=== PATIENT | female | born 1950 | race Caucasian/White ===

== ENCOUNTER → 2018-05-15 10:25 | Outpatient (CLI) | payer MEDICARE, OTHER, SELFPAY ==
[2018-05-15 12:26] LABS: AST(SGOT) 19 U/L (15-37); Alanine Aminotransfer ALT/SGPT 20 U/L (13-56); Albumin, Serum 3.3 g/dL (3.2-5.0); Alkaline Phosphatase 90 U/L (45-117); Anion Gap 12 (5-15); BUN 19 mg/dL (7-18); BUN/Creat Ratio 14.3 RATIO (10-20); Bilirubin, Direct 0.16 mg/dL (0.00-0.30); Calcium,Total 9.2 mg/dL (8.5-10.1); Chloride 105 mmol/L (98-107); Cholesterol 209 mg/dL (200); Creatinine, Serum 1.33 mg/dL (0.55-1.02); EST Glomerular Filtration Rate 42 mL/min (>60); Est Glom Filt Rate - Afr Amer 51 mL/min (>60); Globulin 4.3 g/dL (2.2-4.2); Glucose 137 mg/dL (74-106); High Density Lipoprotein 83 mg/dL; Potassium 3.9 mmol/L (3.5-5.1); Protein, Total 7.6 g/dL (6.4-8.2); Sodium Level 143 mmol/L (136-145); Triglycerides 124 mg/dL; Very Low Density Lipoprotein 25 mg/dL (5-40)
[2018-05-15 12:29] LABS: Microalbumin,Random Urine 41.6 mg/L (NO RANGE EST.); Microalbumin:Creatinine Ratio 13.6 mg/g CRE (<30 mg/g CRE)
== END ==
PROVIDERS: Family Provider Family Medicine; PCP Family Medicine; Visit Provider Family Medicine
DX: E11.9 Type 2 diabetes mellitus without complications (principal)
CPT/HCPCS: 36415; 80048; 80061; 80076; 82043; 82570

== ENCOUNTER → 2018-07-02 12:42 | Outpatient (CLI) | payer MEDICARE, OTHER, SELFPAY ==
--- NOTE | 2018-07-02 12:45 | RAD_ITS ---
STUDY: X-RAY - LUMBAR SPINE REASON FOR EXAM: Female, 67 years old. Scoliosis. Lower back pain. TECHNIQUE: 5 view(s) of the lumbar spine were obtained. COMPARISON: None FINDINGS: Normal lumbar lordosis. There is a levoscoliosis with convexity at L2. There is a normal alignment of the vertebrae. There is multilevel endplate spondylosis of the lumbar vertebrae. There is multi-level degenerative disc disease with multi-level disc space narrowing. There is no evidence of acute fracture or loss of vertebral axial height. There is no demonstrated spondylolysis of the pars interarticulares. The soft tissue structures are unremarkable. RAD/L/S Spine Min 4 Views IMPRESSION: Scoliosis and degenerative changes of the lumbar spine. Electronically Signed: Vasiliy Burch DO at 18:03 EDT Tel [phone], Service support ,
== END ==
PROVIDERS: Family Provider Family Medicine; PCP Family Medicine; Referring Provider Family Medicine; Visit Provider Family Medicine
DX: M51.36 Other intervertebral disc degeneration, lumbar region (principal)
CPT/HCPCS: 72110

== ENCOUNTER 2018-08-01 14:00 | Outpatient (RCR) | payer MEDICARE, OTHER, SELFPAY ==
--- NOTE | 2018-07-13 13:11 | HP.PTEVAL_ITS ---
Patient's Visit Information LISA WAHL is a 67 year old F referred to Physical Therapy by Ignacio Wynn with a diagnosis of R LE radiculopathy. Date of Evaluation: 07/13/18 Physical Therapist: Ignacio Blandon DPT, OC - Visit Plan Frequency: 2x /Week Duration: 4-6 Weeks Plan: 2x/week for 4-6 starting with aquatic ex for NS, posterior pelvic tilt, LB ROM, core adn LE strength adn progress to I for exit strategy or land based ex after 3 weeks. - Subjective Subjective: My stupid back hurts and has for 20 yeasr. H/o intermittent pain. diagnostics 20 years ago showed 2 disc bulges, DDD and OA. One month ago during a trip to the bathroom upon standing had sever pain from R posterior hip down to toes and could not stand. That went on for 3 days. The next week she went to doctor and got x rays which showed no fractures. Gave her 3 drugs including prednisone whcih ran out this past Monday. That helped significantly but ran out this week and is getting worse. Was able to make breakfast and get dressed when on it but it is getting worse. In pain with any movement, Feels good lying and sitting, but standing makes it ache down her leg. Sitting improves it. Sleep is OK now. Basic ADLs take longer now but can do them, afraid it ike get back to the point where she could not do them. . No AD at home, uses cane out and about and has for years. Enjoys bus trips and went to [employer] in July. Wants to get taina to painfree house cleaning in two hours. Two bus trips in July wants to go on. [place] and another. [employer] shopping is hard and needed daughters help. - Pain R LBP and into leg Pain Intensity (Out of 10): 0 Pain Intensity Range: 0, 6 - Objective Walks with cane in R UE I but R antalgia. Trasnfers slow but I and painful wince from chair. To supine I, from supine with Min A. Holds back tight in standing and pelvis slightly posterior. L/S ext painful R LB and min dieficits, R SB painful, L SB OK, flexion tight but full and painfree. - slump and - SLR. reflexes 0/3 patella and achilles. Strength 4-/5 LE without myotomal abnormalities. Sensation LE WNL to gross light touch. Pelvic tilt post is very difficult in sit and stand but does well in supine, will not llie with R leg out straigth as it hurts. - Goals Goal 1:: Pain back down to baseline in LB and manageable Goal Time Frame: 4-6 Weeks Goal 2:: I approp HEP and NS to minimize future problems. Goal Time Frame: 4-6 Weeks Goal 3:: Walk to do housework for 30 minutes without pain. Goal Time Frame: 4-6 Weeks - Rehabilitation Potential Physical Therapy Diagnosis: LB stenosis Rehabilitation Potential: Fair - Anticipated Interventions Patient/Client Instruction: Educate patient on: Condition, Plan of Care For the Purpose of:: To decrease pain, To increase ROM, To increase tolerance to activity/condition/position Therapeutic Exercise to Include: Strength training, Postural training, Gait and locomotor training, In an aquatic setting, Active ROM For the Purpose of:: To decrease pain, To increase tolerance to activity/condition/position, To improve ability of physical actions for home/community/work/leisure, To improve gait and locomotor functions Thank you for the opportunity to evaluate your patient. For Medicare and Medicare HMO plans, please review the plan of care and approve it. It will need to be FAXED BACK to us at [phone] for Medicare purposes. Please let me know if there are questions or concerns regarding this plan of care. Physician Signature: Date:
--- NOTE | 2018-08-01 14:29 | HP.PTDCSUM ---
HP - PT D/C Summary It has been my pleasure to treat LISA WAHL under orders from Ignacio Wynn, for the diagnosis of R LE radiculopathy for a total of 7 visit(s). Discharge Date: 08/01/18 Please see the following information for a summary of their discharge status. - Subjective Subjective: Going the rigth way. No pain down leg at all. LBP persists due to OA 0/10 sitting and worse with walking or standing to wash dishes 5-10 minutes. Doing pelvic tilt. It helps in standing but can't hold it too long. - Pain R LBP and into leg Pain Intensity (Out of 10): 0 LOW BACK Pain Intensity (Out of 10): 0 - Objective Objective/Function: B ext very limited and pain centrally, SB mod limited, flexion min limited. - Goals Goal 1:: Pain back down to baseline in LB and manageable Goal Progress: Goal Met Goal 2:: I approp HEP and NS to minimize future problems. Goal Progress: Progressing Goal 3:: Walk to do housework for 30 minutes without pain. Goal Progress: 5-10 minutes. - Plan Plan: D/C. pt may check in community pools to continue but does not want further treatment either way. - D/C Information Discharge Comments: Pt feels back to baseline and ready to be done with PT. If there are questions or concerns regarding this patient's physical therapy, please feel free to call me at [phone]. Thank you for the referral of this patient. Sincerely, Ignacio Blandon, DPT, OC
== END 2018-08-01 19:00 | disposition home or self-care (01) ==
LOC: PT 14:00
PROVIDERS: Family Provider Family Medicine; PCP Family Medicine; Referring Provider Family Medicine; Visit Provider Family Medicine
DX: M51.36 Other intervertebral disc degeneration, lumbar region (principal); M79.651 Pain in right thigh; M54.16 Radiculopathy, lumbar region; R29.898 Other symptoms and signs involving the musculoskeletal system
CPT/HCPCS: 97110; 97113; 97162; 97164

== ENCOUNTER → 2018-11-13 11:03 | Outpatient (CLI) | payer MEDICARE, OTHER, SELFPAY ==
[2018-11-13 13:04] LABS: AST(SGOT) 16 U/L (15-37); Alanine Aminotransfer ALT/SGPT 16 U/L (13-56); Albumin, Serum 3.3 g/dL (3.2-5.0); Alkaline Phosphatase 91 U/L (45-117); Anion Gap 9 (5-15); BUN 18 mg/dL (7-18); BUN/Creat Ratio 13.5 RATIO (10-20); Bilirubin, Direct 0.15 mg/dL (0.00-0.30); Calcium,Total 9.1 mg/dL (8.5-10.1); Chloride 107 mmol/L (98-107); Cholesterol 193 mg/dL (200); Creatinine, Serum 1.33 mg/dL (0.55-1.02); EST Glomerular Filtration Rate 42 mL/min (>60); Est Glom Filt Rate - Afr Amer 51 mL/min (>60); Globulin 4.2 g/dL (2.2-4.2); Glucose 142 mg/dL (74-106); High Density Lipoprotein 76 mg/dL; Potassium 4.1 mmol/L (3.5-5.1); Protein, Total 7.5 g/dL (6.4-8.2); Sodium Level 144 mmol/L (136-145); Triglycerides 116 mg/dL; Very Low Density Lipoprotein 23 mg/dL (5-40)
[2018-11-13 13:10] LABS: Microalbumin,Random Urine 25.5 mg/L (NO RANGE EST.); Microalbumin:Creatinine Ratio 11.2 mg/g CRE (<30 mg/g CRE)
[2018-11-13 13:45] LABS: Hemoglobin A1c 6.5 % (4.2-6.3)
== END ==
PROVIDERS: Family Provider Family Medicine; PCP Family Medicine; Visit Provider Family Medicine
DX: Z00.00 Encounter for general adult medical examination without abnormal findings (principal); E11.9 Type 2 diabetes mellitus without complications
CPT/HCPCS: 36415; 80048; 80061; 80076; 82043; 82570; 83036

== ENCOUNTER → 2019-01-31 10:30 | Outpatient (CLI) | payer MEDICARE, OTHER, SELFPAY ==
--- NOTE | 2019-01-31 10:36 | BI_ITS ---
MAMMOGRAPHY - BILATERAL SCREENING REASON FOR EXAM: Female, 68 years old. Routine annual screening examination. PERTINENT HISTORY: Non-contributory. TECHNIQUE: Digital bilateral breast jericho (3D mammographic acquisition) in the CC and MLO projections. 2-D mediolateral oblique (MLO) and craniocaudad (CC) views of both breasts were obtained. CAD: Full Field Digital Mammography with Computer Added Detection was performed. COMPARISON: Comparison is made with prior examination dated August 24, 2016 and August 17, 2015. FINDINGS: Breast Composition: There are scattered areas of fibroglandular density. There are no dominant masses or suspicious calcifications. Stable small benign-appearing bilateral axillary lymph nodes. No other significant abnormalities are identified. There has been no significant change since the prior study. BI/SCREENING MAMM (CAD), BILAT IMPRESSION: Stable bilateral screening mammogram. Yearly follow-up mammogram recommended. (A) ASSESSMENT CATEGORY: BIRADS Category 2: Benign. A letter regarding these results will be sent to the patient by the facility within 30 days. Approximately 10% of breast cancers are not detected by mammography. A normal mammogram should not delay biopsy of a clinically suspicious abnormality. [id number] Electronically Signed: Krunal Allen, at 13:06 EDT , Service support ,
--- NOTE | 2019-01-31 10:40 | BD_ITS ---
STUDY: DUAL ENERGY X-RAY ABSORPTIOMETRY / DXA REASON FOR EXAM: Female, 68 years old. The patient is postmenopausal. Loss of height. TECHNIQUE: Bone Mineral Density (BMD) measurements of lumbar spine and bilateral hips were obtained. COMPARISON: None. FINDINGS: Lumbar Spine (L1-L4): g/cm2 (1.044) / T-score (-1.0) / Z-score (0.6) Findings are suggestive of normal bone density with a low fracture risk. Left Femur Total: g/cm2 (0.917) / T-score (-0.7) / Z-score (0.6) Left Femoral Neck: g/cm2 (0.946) / T-score (-0.7) / Z-score (0.9) Right Femur Total: g/cm2 (1.018) / T-score (0.1) / Z-score (1.4) Right Femoral Neck: g/cm2 (1.048) / T-score (0.1) / Z-score (1.6) BD/Dexa Bone Density Study IMPRESSION: The patient is considered normal as outlined below according to World Erik Organization (WHO) criteria with a low fracture risk. Reference Information: The T-score is the number of standard deviations above or below the standard which is normal for young adults at their peak bone mineral density. The World Health Organization (WHO) interprets the T-scores as follows: Above -1 Normal bone density Between -1 and -2.5 Osteopenia Equal to / or below -2.5 Osteoporosis As a practical clinical guideline, osteopenia may be graded as follows: Mild -1 through -1.5 Moderate -1.6 through -2.0 Severe -2.1 through -2.4 The Z-score is the number of standard deviations above or below age-matched controls. A Z-score of less than -1.5 would be considered abnormal. References: 1. NIH Osteoporosis and Related Bone Diseases http://www.osteo.org 2. International Society for Clinical Densitometry http://www.iscd.org 3. National Osteoporosis Foundation http://www.nof.org Electronically Signed: Krunal Allen, at 13:07 EDT , Service support ,
== END ==
PROVIDERS: Family Provider Family Medicine; PCP Family Medicine; Referring Provider Family Medicine; Visit Provider Family Medicine
DX: Z78.0 Asymptomatic menopausal state (principal); Z12.31 Encounter for screening mammogram for malignant neoplasm of breast
CPT/HCPCS: 77063; 77067; 77080

== ENCOUNTER → 2019-05-13 13:54 | Outpatient (CLI) | payer MEDICARE, OTHER, SELFPAY ==
[2019-05-13 15:45] LABS: Anion Gap 6 (5-15); BUN 22 mg/dL (7-18); BUN/Creat Ratio 16.2 RATIO (10-20); Calcium,Total 9.2 mg/dL (8.5-10.1); Chloride 108 mmol/L (98-107); Creatinine, Serum 1.36 mg/dL (0.55-1.02); EST Glomerular Filtration Rate 41 mL/min (>60); Est Glom Filt Rate - Afr Amer 50 mL/min (>60); Glucose 126 mg/dL (74-106); Potassium 4.2 mmol/L (3.5-5.1); Sodium Level 142 mmol/L (136-145)
== END ==
PROVIDERS: Family Provider Family Medicine; PCP Family Medicine; Visit Provider Family Medicine
DX: E11.9 Type 2 diabetes mellitus without complications (principal)
CPT/HCPCS: 36415; 80048

== ENCOUNTER 2019-05-20 07:56 | Day surgery (SDC) | payer MEDICARE, OTHER, SELFPAY ==
[2019-05-20] VITALS (7 sets, daily range): BP systolic 128–154; BP diastolic 71–95; PULSE 90–99; RESP 16–18; TEMP 36.1–36.4; O2SAT 92–96; BMI 47.0
--- NOTE | 2019-05-20 08:27 | H&P.OPEN ---
History of Present Illness Date of Admission: 05/20/19 The patient is a 68 year old F who presents for colonoscopy. Her last colonoscopy was 3 years ago and the polyp was identified. Past Medical/Surgical History - Planned Operation Planned Operative Procedure/s: cscope open access Date of Operative Procedure: 05/20/19 Permit Signed: No S.O.S: No Is This Patient Having a Total Joint: No - Previous Hospitalizations/Surgeries HX Hospitalizations: Yes - 2014 pancreatitis HX of Surgeries: 1981 hemorrhoidectomy. 2002 left ankle orif. 2006 left tkr. 2014 gallbladder. cscope x3. vascular surgery to left leg Any Problems With Anesthesia: No You/Your Family Experience Fever (Hyperthermia) With Anes: No Cholinesterase deficiency: No - Cardiovascular Hx Chest Pain within Last 2 months: No Hx of Irregular Heartbeat and/or Afib: No Hx Heart Attack: No Hx Congestive Heart Failure: No Hx Rheumatic Fever: No Hx Hypertension: No Hx Internal Defibrillator: No Hx Pacemaker: No Hx Cardiac Catheterization: Yes - over 5 yrs ago What facility was last heart cath performed: [facility] Date of last Heart Cath: over 5 yrs ago Hx Cardiac Surgery/Stents/Etc.: No Hx Stress Test: Yes - over 5 yrs ago HX Edema: Yes - right ankle Hx Pain in Legs when Walking/Leg Cramps: No - Respiratory Chronic Cough: No HX of Shortness of Breath: Yes - sob with 2 flights of stairs Hoarseness: No Hx Chronic Obstructive Pulmonary Disease (COPD): No Hx Asthma: No Hx Emphysema: No Hx Sleep Apnea: No Hx Oxygen Use at Home: No Hx Respiratory Tract Infection/Cold (presently): No Do You Snore Loudly (louder than talking or can be heard): Yes Do You Often Feel Tired/ Fatigued/ Sleepy Dring Daytime?: Yes Has Anyone Observed You Stop Breathing During Sleep?: No Result (for STOP score): Positive Hx Smoking: No Smoking Status: Never smoker - Gastrointestinal Hx Gastroesophageal Reflux: Yes Controlled With Meds: Yes Hx Gastrointestinal Disorders: Yes - ibs Hx Gastrointestinal Bleed: No Hx Ulcer: No Hx Hiatal Hernia: No Difficulty Chewing/Swallowing: No Recent Onset of Swallowing Problems: No Special diet followed at home: Yes - ada Hx Unplanned Weight Loss of 20#: No HX Unplanned Weight Gain of 20#: No - Neurological Hx Seizures: No HX Syncope/Blackout Spells/Unconsciousness: No Hx CVA/Stroke: No Hx Transient Ischemic Attacks (TIA): No Hx Multiple Sclerosis: No Hx Parkinson's Disease: No Hx Head/Neck Injury: No Hx Headaches: Yes - occ Hx Back Injury/Pain: Yes - severe back pain/scolosis/ddd/arthritis/bulging disc Recent Onset of Speech Difficulty: No Restless Legs: No Does patient have nerve stimulator: No Patient instructed to have device shut off: No Rep notified?: No - Blood Disorder Hx Leukemia: No Bleeding Tendencies: Yes - bleed easy Hx Deep Vein Thrombosis: No - phlebitis left leg yrs ago Hx High Cholesterol: Yes - on med Blood Transmitted Disease: No Hx Hepatitis: No Hx Cirrhosis: No Hx Anemia: No Hx Blood Disorders: No - Reproduction : No Is Patient Lactating: No Hx Hysterectomy: No Hx Tubal Ligation: No Are You Post Menopause: Yes - Genitourinary Hx Renal Disease: No Hx Dialysis: No - Musculoskeletal Hx Arthritis: Yes Hx Rheumatoid Arthritis: No Hx Gout: No Recent Onset of an Orthopedic Problem: No - Endocrine Hx Diabetes: Yes Insulin: No Thyroid Disease: No Hx Steroid Therapy: No - Psycho/Social Hx Substance Use: No Hx Alcohol Use: No Hx Anxiety: No Hx Depression: No Mental Illness: No Hx Dementia: No - Miscellaneous Hx Cancer: No Recent Exposure to Contagious Disease: No Active MRSA: No Hx of C-Diff: No Any Loose Teeth: No Allergies cefadroxil [From Duricef] Allergy (Verified 05/16/19 13:16) Swelling celecoxib [From Celebrex] Allergy (Verified 05/16/19 13:16) Rash adhesive tape Adverse Reaction (Verified 05/16/19 13:16) redness - Discharge Is Pt Admitted From a Snf, or a Senior Living: No Who Could Help: family Special Equipment Used at Home: walker/cane After D/C, Where Do you Plan to Go: Return Home - From the PAT History Number of Risk Factors: 2 - Physical Exam General: Alert, Oriented x3 Lungs: Clear to auscultation Cardiovascular: Regular rate, Regular Rhythm, No murmurs Abdomen: Bowel Sounds Present, Soft, Non Tender, Non-Distended, Obese Assessment/Plan Plan will be to perform a colonoscopy. Surgery Risks - Colonoscopy Risks Include but are not Limited To: Risks include but are not limited to: Bleeding, perforation requiring further surgery, inability to complete colonoscopy requiring barium enema.
[2019-05-20] MEDS: Lactated Ringers 1,000 ML 75 ML IV (08:38)
[2019-05-20 08:41] LABS: Bedside Glucose 140 mg/dL (70-110)
--- NOTE | 2019-05-20 09:00 | COLBX_PTH ---
PATIENT: LISA WAHL LOC: EN U#:[id number] AGE/SX: 68/F ROOM: RE05/20/[address]: Dr. Perry Brooke MD : 1950 BED: DIS: 05/20/2019 SPEC #: [id number] RECD: 05/20/19 11:26 STATUS: CHARLENE CHANDNI #: [id number] KALLI: 05/20/19 09:[address]: Perry Brooke DEPT: SURGICAL PATHOLOGY RECD BY: Rupert Heath ENTERED: 05/20/19 13:39 SP TYPE: COLON BX OTHR DR: Dr. Braden Pappas MD Tissues: A - Transverse colon B - Ascending colon Procedures: Surgery Specimen Level IV HEADER OPERATION: colonoscopy open access (MAC) PRE-OP DIAGNOSIS: Screening TISSUE SUBMITTED: A. Transverse colon polyp, B. Ascending colon polyp MICROSCOPIC DIAGNOSIS A. Transverse colon polyp, biopsy: Tubular adenoma. Fragments of fecal material. B. Ascending colon polyp, biopsy: Fragments of colonic mucosa with cautery artifact, changes suggestive of hyperplastic polyp. Fragments of fecal material. GURPREET:gita 05/21/19 MICROSCOPIC DESCRIPTION Slides are reviewed. GROSS DESCRIPTION A. Received is one container labeled with the patient name and designated transverse colon polyp. The specimen consists of multiple fragments of reynoso soft tissue mixed with fecal material that in aggregate measure 2.5 x 0.7 x 0.1 cm. The specimen predominantly consists of fecal material. The specimen is entirely submitted in one cassette. B. Received is one container labeled with the patient name and designated ascending colon polyp. The specimen consists of multiple fragments of reynoso soft tissue mixed with fecal material that in aggregate measure 2 x 0.5 x 0.1 cm. The specimen predominantly consists of fecal material. The specimen is entirely submitted in one cassette. /GURPREET:gita 05/20/19 TC: 1 CPT: 10065 x2
--- NOTE | 2019-05-20 09:26 | OP.ENDO_ITS ---
05/20/2019 Braden Pappas MD [address] [place] [address] Re : Colonoscopy procedure for Antoinette Wilson Dear Dr. Pappas This procedure was performed on Monday, May 20, 2019. My impressions and recommendations are as follows: Impressions : - Two 5 to 8 mm polyps in the transverse colon and in the ascending colon, removed with a hot snare. Resected and retrieved. - Diverticulosis in the sigmoid colon. No specimens collected. - The examination was otherwise normal. Recommendations : - Discharge patient to home. - Resume previous diet. - Continue present medications. - Await pathology results. - Repeat colonoscopy in 3 years for surveillance. - Return to my office in 1 week. My findings are described in the full procedure note, which is enclosed. If I can be of further assistance, please feel free to contact me at Doctor phone number(s): , Fax: [phone], Work: . Sincerely, MD Perry Sierra MD 05/20/2019 9:26:06 AM This report has been signed electronically.
== END 2019-05-20 10:05 | disposition home or self-care (01) ==
LOC: EN 07:58 → AC 07:59
PROVIDERS: Family Provider Family Medicine; PCP Family Medicine; Referring Provider Family Medicine; Visit Provider Surgery
PROC: 0DJD8ZZ Inspection of Lower Intestinal Tract, Via Natural or Artificial Opening Endoscopic (ICD-10-PCS; CPT 45378; principal; 2019-05-20 08:55)
DX: Z12.11 Encounter for screening for malignant neoplasm of colon (principal); Z86.010 Personal history of colon polyps; D12.3 Benign neoplasm of transverse colon; D12.2 Benign neoplasm of ascending colon; K57.30 Diverticulosis of large intestine without perforation or abscess without bleeding; K21.9 Gastro-esophageal reflux disease without esophagitis; K58.9 Irritable bowel syndrome, unspecified; E78.00 Pure hypercholesterolemia, unspecified; I10 Essential (primary) hypertension; E11.9 Type 2 diabetes mellitus without complications; Z79.84 Long term (current) use of oral hypoglycemic drugs; Z79.899 Other long term (current) drug therapy
CPT/HCPCS: 45385; 82962; 88305; J7120; J1610; J2405

== ENCOUNTER → 2019-11-25 10:49 | Outpatient (CLI) | payer MEDICARE, OTHER, SELFPAY ==
[2019-05-20 11:49] VITALS: BMI 47.0
[2019-11-25 13:03] LABS: Anion Gap 7 (5-15); BUN 23 mg/dL (7-18); BUN/Creat Ratio 18.5 RATIO (10-20); Calcium,Total 9.2 mg/dL (8.5-10.1); Chloride 106 mmol/L (98-107); Cholesterol 203 mg/dL (200); Creatinine, Serum 1.24 mg/dL (0.55-1.02); EST Glomerular Filtration Rate 46 mL/min (>60); Est Glom Filt Rate - Afr Amer 55 mL/min (>60); Glucose 150 mg/dL (74-106); High Density Lipoprotein 78 mg/dL; Potassium 3.8 mmol/L (3.5-5.1); Sodium Level 140 mmol/L (136-145); Triglycerides 144 mg/dL; Very Low Density Lipoprotein 29 mg/dL (5-40)
== END ==
PROVIDERS: PCP Family Medicine; Referring Provider Family Medicine; Visit Provider Family Medicine
DX: E11.9 Type 2 diabetes mellitus without complications (principal)
CPT/HCPCS: 36415; 80048; 80061

== ENCOUNTER → 2020-05-19 10:46 | Outpatient (CLI) | payer MEDICARE, OTHER, SELFPAY ==
[2019-05-20 11:49] VITALS: BMI 47.0
[2020-05-19 12:51] LABS: Microalbumin,Random Urine 22.7 mg/L (NO RANGE EST.)
[2020-05-19 12:53] LABS: Anion Gap 6 (5-15); BUN 17 mg/dL (7-18); BUN/Creat Ratio 13.5 RATIO (10-20); Calcium,Total 9.2 mg/dL (8.5-10.1); Chloride 105 mmol/L (98-107); Cholesterol 196 mg/dL (200); Creatinine, Serum 1.26 mg/dL (0.55-1.02); EST Glomerular Filtration Rate 45 mL/min (>60); Est Glom Filt Rate - Afr Amer 54 mL/min (>60); Glucose 139 mg/dL (74-106); Hemoglobin A1c 6.5 % (3.8-5.6); High Density Lipoprotein 79 mg/dL; Potassium 3.9 mmol/L (3.5-5.1); Sodium Level 139 mmol/L (136-145); Triglycerides 148 mg/dL; Very Low Density Lipoprotein 30 mg/dL (5-40)
== END ==
PROVIDERS: PCP Family Medicine; Referring Provider Family Medicine; Visit Provider Family Medicine
DX: E11.9 Type 2 diabetes mellitus without complications (principal)
CPT/HCPCS: 36415; 80048; 80061; 82043; 82570; 83036

== ENCOUNTER 2020-11-26 09:02 | Outpatient (RCR) | payer MEDICARE, OTHER, SELFPAY ==
[2019-05-20 11:49] VITALS: BMI 47.0
[2020-11-26] MEDS: COVID-19 VACC, MRNA(PFIZER)/PF 30 MCG/0.3 ML SYRINGE IM (17:44)
[2020-12-17] MEDS: COVID-19 VACC, MRNA(PFIZER)/PF 30 MCG/0.3 ML SYRINGE IM (17:02)
== END 2021-03-02 23:59 ==
LOC: IMMUN 09:02
PROVIDERS: PCP Family Medicine; Referring Provider Family Medicine; Visit Provider Family Medicine
DX: Z23 Encounter for immunization (principal)
CPT/HCPCS: 0001A; 0002A; 91300

== ENCOUNTER → 2020-12-01 10:40 | Outpatient (CLI) | payer MEDICARE, OTHER, SELFPAY ==
[2019-05-20 11:49] VITALS: BMI 47.0
[2020-12-01 12:33] LABS: ALB/GLOB Ratio 0.7 RATIO (0.9-2.4); AST(SGOT) 17 U/L (15-37); Alanine Aminotransfer ALT/SGPT 15 U/L (13-56); Albumin, Serum 3.3 g/dL (3.2-5.0); Alkaline Phosphatase 87 U/L (45-117); Anion Gap 8 (5-15); BUN 18 mg/dL (7-18); BUN/Creat Ratio 13.6 RATIO (10-20); Calcium,Total 9.2 mg/dL (8.5-10.1); Chloride 103 mmol/L (98-107); Cholesterol 211 mg/dL (200); Creatinine, Serum 1.32 mg/dL (0.55-1.02); EST Glomerular Filtration Rate 42 mL/min (>60); Est Glom Filt Rate - Afr Amer 51 mL/min (>60); Globulin 4.5 g/dL (2.2-4.2); Glucose 155 mg/dL (74-106); High Density Lipoprotein 88 mg/dL; Potassium 3.9 mmol/L (3.5-5.1); Protein, Total 7.8 g/dL (6.4-8.2); Sodium Level 138 mmol/L (136-145); Triglycerides 127 mg/dL; Very Low Density Lipoprotein 25 mg/dL (5-40)
== END ==
PROVIDERS: PCP Family Medicine; Referring Provider Family Medicine; Visit Provider Family Medicine
DX: E78.5 Hyperlipidemia, unspecified (principal)
CPT/HCPCS: 36415; 80053; 80061

== ENCOUNTER 2021-02-07 09:54 | Inpatient (IN) | payer MEDICARE, OTHER, SELFPAY ==
[2019-05-20 11:49] VITALS: BMI 47.0
[2021-02-07] VITALS (12 sets, daily range): BP systolic 112–173; BP diastolic 81–122; PULSE 103–127; RESP 16–30; TEMP -17.7–37; O2SAT 82–97; BMI 46.3; BMI 50.5
--- NOTE | 2021-02-07 09:59 | EKG12_ITS ---
Test Reason : STROKE TEAM Blood Pressure : / mmHG Vent. Rate : 119 BPM Atrial Rate : 119 BPM P-R Int : 194 ms QRS Dur : 118 ms QT Int : 310 ms P-R-T Axes : 048 -07 035 degrees QTc Int : 436 ms Sinus tachycardia Right bundle branch block Inferior infarct , age undetermined Possible Anterolateral infarct , age undetermined Abnormal ECG Confirmed by PRAVEEN LUGO, AISLINN ([id number]), script editor BHARAT VILLALTA ([id number]) on 02/09/2021 9:11:30 AM Referred By: KARYN Confirmed By:AISLINN MORTON MD
--- NOTE | 2021-02-07 09:59 | CT_ITS ---
We are attempting to reach an attending provider to discuss findings. An addendum with communication details will be sent when the communication is complete. STUDY: CT HEAD STROKE PROTOCOL W/O CONTRAST INJECTION REASON FOR EXAM: Female, 70 years old. Neuro deficit, acute, stroke suspected RADIATION DOSAGE (If Supplied By Facility): CTDIvol = ( ) mGy, DLP = ( ) mGycm TECHNIQUE: Transaxial CT imaging of the brain was performed without administration of intravenous contrast material. Individualized dose optimization techniques were used for this CT. COMPARISON: No relevant priors. FINDINGS: Normal soft tissue structures. Normal calvarium. Normal size ventricles and extra-axial spaces for the patient''s age. There is moderate periventricular and subcortical white matter lucency suggestive of small vessel ischemic disease. Normal basal ganglia and thalami. Normal brainstem. Normal cerebellum. There is no intracranial hemorrhage. There are no findings of an acute ischemic infarction. Normal visualized paranasal sinuses. CT/STROKE Brain/Head without Cont IMPRESSION: Moderate small vessel ischemic disease. No evidence for acute hemorrhage. Electronically Signed: Perry Hawkins MD at 10:19 EDT Tel , Service support ,
--- NOTE | 2021-02-07 10:01 | NURSING ---
[id number] STROKE ALERT CALLED.
--- NOTE | 2021-02-07 10:06 | CT_ITS ---
STUDY: CTA HEAD AND NECK WITH CONTRAST REASON FOR EXAM: Female, 70 years old. stroke RADIATION DOSAGE (If Supplied By Facility): CTDIvol = ( 25.2 ) mGy, DLP = ( 764.54 ) mGycm TECHNIQUE: CT angiography was performed with a multi-detector CT scanner. Data acquisition was obtained from the skull base through the vertex following intravenous administration of IV 100mL Isovue-[id number]. MIP images were reconstructed from the axial data set. Post-processing of the angiographic images was performed, with multiplanar reformation and 3D reconstruction. Individualized dose optimization techniques were used for this CT. COMPARISON: No relevant priors. FINDINGS: Normal bilateral petrous carotid arteries. Normal right cavernous carotid artery with a normal supraclinoid bifurcation. Normal left cavernous carotid artery with a normal supraclinoid bifurcation. Normal right A1 segments of the anterior cerebral artery. Normal left A1 segments of the anterior cerebral artery. Normal intact anterior communicating artery (ACOM). Normal bilateral A2 segments of the anterior cerebral arteries. Normal right M1 and M2 segments of the middle cerebral arteries, with a normal M1 bifurcation. Normal left M1 and M2 segments of the middle cerebral arteries, with a normal M1 bifurcation. Normal right posterior communicating artery (PCOM). Normal left posterior communicating artery (PCOM). Normal bilateral vertebral arteries. Normal basilar artery with a normal basilar bifurcation. The visualized bilateral superior cerebellar (SCA) arteries are normal. Normal bilateral P1, P2 and visualized P3 segments of the posterior cerebral arteries. There is no demonstrated aneurysm of the [place]. There is no demonstrated abnormality of the visualized brain. AORTIC ARCH: Normal visualized aortic arch. Normal origins of the brachiocephalic, left common carotid, and left subclavian arteries. RIGHT CAROTID ARTERIES: Normal right common carotid artery (CCA). Mild left atherosclerotic calcifications are noted in the right carotid bulb. Normal origin of the right internal carotid (ICA) artery without a hemodynamically significant stenosis. Normal visualized cervical portion of the right internal carotid artery. Normal origin of the right external carotid artery (ECA). LEFT CAROTID ARTERIES: Normal left common carotid artery (CCA). Mild atherosclerotic calcifications are in the left carotid bulb. Normal origin of the left internal carotid (ICA) artery without a hemodynamically significant stenosis. Normal visualized cervical portion of the left internal carotid artery. Normal origin of the left external carotid artery (ECA). VERTEBRAL ARTERIES: Normal bilateral vertebral arteries. CT/CTA Head AND Neck W/ Contrast IMPRESSION: Mild atherosclerotic ossifications of the carotid bulbs. No evidence for large aneurysm or areas of significant stenosis. N.B. : The above information has been verbally conveyed by Perry Hawkins MD to Dalton Trujillo on 02/07/2021 10:36:46 (ET). Electronically Signed: Perry Hawkins MD at 10:37 EDT Tel , Service support ,
--- NOTE | 2021-02-07 10:10 | RAD_ITS ---
STUDY: X-RAY CHEST REASON FOR EXAM: Female, 70 years old. Neuro deficit, acute, stroke suspected TECHNIQUE: Single frontal view of the chest was obtained. COMPARISON: None. FINDINGS: The lungs are clear and expanded. There is a questionable small left pleural effusion. Normal size heart. Normal mediastinum and praneeth. There is mild prominence of the central pulmonary vasculature. Normal visualized aortic arch and descending thoracic aorta. Normal visualized thoracic spine. Normal visualized ribs, clavicles, and shoulders. There is no demonstrated abnormality of the visualized soft tissue structures of the upper abdomen. RAD/Chest 1 View IMPRESSION: Mild pulmonary vascular congestion. Questionable small left pleural effusion. Electronically Signed: Perry Hawkins MD at 10:39 EDT Tel , Service support ,
[2021-02-07 10:15] LABS: Absolute Neutrophil Count 4.2 X10^3/uL (2.0-7.7); Basophil# 0.08 X10^3/uL; Basophil% 0.8 % (0-1); Eosinophil# 0.58 X10^3/uL; Eosinophils% 6.1 % (0-5); Hematocrit 46.5 % (37-47); Hemoglobin 14.3 g/dL (12.0-15.0); Lymphocyte % 40.3 % (19-41); Mean Corp Hgb Conc 30.8 g/dL (32-36); Mean Corpuscular Hgb 28.3 pg (27.0-32.0); Mean Corpuscular Volume 91.9 fL (81-99); Mean Platelet Vol. 10.8 fl (6.2-12.0); Monocyte# 0.68 X10^3/uL; Monocyte% 7.2 % (0-10); NRBC Flagged by Analyzer 0 % (0-5); Neutrophil # 4.24 X10^3/uL (2.7-7.7); Platelet Count 249 K/mm3 (150-450); RBC Distribution Width CV 14.1 % (11.6-14.6); RBC Distribution Width SD 47.4 fl (35.1-43.9); Red Blood Count 5.06 M/mm3 (4.2-5.4); White Blood Count 9.4 K/mm3 (4.4-11.0)
[2021-02-07 10:20] LABS: International Normalized Ratio 1.1
[2021-02-07 10:21] LABS: Partial Thromboplast Time 26.6 Seconds (24.1-36.2)
--- NOTE | 2021-02-07 10:27 | EDS_ITS ---
HPI History of Present Illness Chief Complaint: Dizziness Informant: patient, spouse/S.O. and EMS Limited: other (confused) Onset/Context/Timing Onset: Today Context: Gradual Onset Timing: Continuous Current Severity: Moderate Maximum Severity: Moderate Narrative Narrative: The patient is a 70-year-old female presents to the emergency department change of mental status. History is hard to gather from the patient as she is very confused. Apparently, squad was called because of nausea and di zziness. On squad arrival, she seemed to have a mild right-sided facial droop and was not necessarily following commands. She was found to be hypoxic. On arrival, the patient does appear to be confused with facial droop. She has a difficult time understanding commands with a diminished level of consciousness. Stroke team was activated. Patient really gives no history. Prior similar symptoms: No Recent Illness/Hospitalization: No PFSH PFS Medical History (Updated 02/07/21 @ 11:12 by Octavio Cardona) Borderline diabetes mellitus Degenerative disc disease History of colonic polyps Hyperlipidemia Home Medications amitriptyline 25 mg PO QHS 05/16/19 [History Last Taken Unknown] cholecalciferol (vitamin D3) 1,000 unit PO QHS 05/16/19 [History Last Taken Unknown] garlic 1,000 mg PO QHS 05/16/19 [History Last Taken Unknown] metformin 500 mg PO LUNCH 05/16/19 [History Last Taken Unknown] simvastatin 40 mg PO QHS 05/16/19 [History Last Taken Unknown] Allergy/AdvReac Type Severity Reaction Status Date / Time cefadroxil [From Duricef] Allergy Swelling Verified 02/07/21 11:14 celecoxib [From Celebrex] Allergy Rash Verified 02/07/21 11:14 adhesive tape AdvReac redness Verified 02/07/21 11:14 Surgical History (Updated 02/07/21 @ 11:12 by Octavio Cardona) History of colonoscopy (~05/20/19) Hx of cholecystectomy Social History Smoking Status: Never smoker ROS ROS ED Constitutional Constitutional ED: Reports chills; Denies fever(s) Eyes Eyes: Denies blurry vision or change in vision ENT ENT ED: Denies ear pain or sore throat Cardiovascular Cardiovascular: Denies chest pain or palpitations Respiratory/Chest Respiratory/Chest: Reports cough, dyspnea and dyspnea on exertion Gastrointestinal Gastrointestinal: Reports nausea and vomiting; Denies abdominal pain Genitourinary Genitourinary ED: Denies dysuria or urinary frequency Musculoskeletal Musculoskeletal: Denies arthralgias or myalgias Integumentary Denies rash Neurologic Neurologic: Denies headache(s) or paresthesias Psychiatric Psychiatric: Denies anxiety or depression Endocrine Endocrinology: Denies polydipsia or polyuria Allergic/Immunologic Allergic/Immunologic ED: Denies urticaria EXAM Physical Exam Const Vital Signs: 02/07/21 09:55 02/07/21 10:29 02/07/21 10:32 Temperature 0 F L 96.7 F L Temperature Source Oral Temporal Pulse Rate 120 H 125 H Respiratory Rate 28 H 30 H Respiratory Effort Respiratory Pattern Blood Pressure 129/88 H Blood Pressure Mean 101 Pulse Ox 82 97 Oxygen Delivery Method Room Air Nasal Cannula Nasal Cannula Oxygen Flow Rate (L/min) 6 6 02/07/21 10:33 02/07/21 10:55 02/07/21 11:00 Temperature Temperature Source Pulse Rate Respiratory Rate Respiratory Effort Short of Breath Respiratory Pattern Tachypnea Blood Pressure Blood Pressure Mean Pulse Ox 97 97 Oxygen Delivery Method Nasal Cannula Nasal Cannula Oxygen Flow Rate (L/min) 5 4 02/07/21 11:08 02/07/21 12:37 Temperature Temperature Source Pulse Rate 120 H 115 H Respiratory Rate 20 H 19 H Respiratory Effort Respiratory Pattern Blood Pressure 112/81 H 150/122 H Blood Pressure Mean 91 131 Pulse Ox 95 95 Oxygen Delivery Method Nasal Cannula Nasal Cannula Oxygen Flow Rate (L/min) 6 4 Positive well nourished, well developed and obese General Appearance ED: well developed Nutritional Appearance: obese HEENT Reports normocephalic, head/scalp atraumatic and moist mucous membranes Eyes PERRL and EOMs intact bilaterally Neck no lymphadenopathy and supple General: Negative for tenderness Chest Wall inspection of chest normal Resp Auscultation: diminished lung sounds Cardio regular rate, regular rhythm and no murmurs GI normal to inspection, nondistended, normoactive bowel sounds Palpation: Negative for tender, guarding or rebound tenderness present Back/Spine no CVA tenderness Cervical Spine: Negative for cervical spine tenderness Thoracic Spine / Upper Back: Negative for thoracic spinal tenderness Extremity normal to inspection General Extremety ED: Negative for tenderness Neuro Neuro Narrative: Patient confused with difficulty following commands. Mild righ t-sided facial droop. Global weakness. Questionable component of dysarthria versus confusion. Sensorium / Orientation: alert Psych mental status grossly normal Skin no rashes or lesions noted, no wounds and skin turgor normal MDM MDM MDM Narrative Medical decision making narrative: The patient presents with dizziness, nausea, and vomiting. On arrival, she is confused and appeared to have a facial droop and was not moving her left arm. She was also globally hypoxic. Stroke team was activated on arrival. Patient had noncontrast CT which was done and negative. She had a CTA which was also done and negative. She was evaluated in conjunction with [facility] neurology who did not recommend TPA as we were able to find that her last known well was last night. Patient was requiring 6 L of nasal cannula. However, with prolonged oxygenation, her mental status did significantly improve. EKG shows Q waves both inferiorly and across the precordium with right bundle branch block. This is a change, but her last EKG was in 2012. She not been complaining of chest pain. Cardiac enzymes are normal. Her lactic acid was elevated at 3.7, but again I do feel this is more likely from her global hypoxia. The patient has not been hypotensive. Chest x- ray does not show focal infiltrative process, but there is mild cephalization. The patient does not have a significant leukocytosis. I do not have a clear point of infection, but given her lactic acidosis and hypoxic respiratory failure, she was covered with broad-spectrum antibiotics. I do feel that there may be concern for PE given her persistent tachycardia and hypoxia, along with the Q waves on her EKG, but she is already received CTA for rule out stroke and cannot undergo a second contrasted study, especially in light of her mild kidney disease. The patient was discussed with the hospitalist. Given her hypoxic respiratory failure, she will be admitted. Impression 1. Hypoxic respiratory failure 2. Sepsis 3. Delirium 4. Abnormal EKG Prior to being transported for admission, the patient did have a witnessed seizure. She had tonic-clonic activity that lasted for about 20 seconds. She did become bradycardic, but that was transient. She never lost pulses. Heart rate then increased into the 100s. Her oxygen saturations were well maintained after her seizure had stopped. Patient was loaded with a gram of Keppra. Lab Data Attestation: I reviewed the patient's lab results. Labs: Laboratory Results - last 24 hr 02/07/21 02/07/21 02/07/21 10:02 10:02 10:02 WBC 9.4 RBC 5.06 Hgb 14.3 Hct 46.5 MCV 91.9 MCH 28.3 MCHC 30.8 L RDW Std Deviation 47.4 H RDW Coeff of Epifanio 14.1 Plt Count 249 MPV 10.8 Immature Gran % (Auto) 0.600 Neut % (Auto) 45.0 L Lymph % (Auto) 40.3 [place] % (Auto) 7.2 Eos % (Auto) 6.1 H Baso % (Auto) 0.8 Absolute Neuts (auto) 4.2 Absolute Lymphs (auto) 3.80 Nucleated RBC % 0 PT 14.0 INR 1.1 APTT 26.6 Sodium 137 Potassium 3.5 Chloride 103 Carbon Dioxide 22.0 Anion Gap 12 BUN 21 H Creatinine 1.47 H Estim Creat Clear Calc 37.75 Est GFR (MDRD) Af Amer 45 L Est GFR (MDRD) Non-Af 37 L BUN/Creatinine Ratio 14.3 Glucose 272 H Lactic Acid Calcium 9.1 Troponin I 0.020 B-Natriuretic Peptide Urine Color Urine Clarity Urine pH Ur Specific [place] Urine Protein Urine Glucose (UA) Urine Ketones Urine Occult Blood Urine Nitrite Urine Bilirubin Urine Urobilinogen Ur Leukocyte Esterase Urine RBC Urine WBC Ur Squamous Epith Cells Urine Bacteria Urine Mucus 02/07/21 02/07/21 02/07/21 10:02 10:40 11:50 WBC RBC Hgb Hct MCV MCH MCHC RDW Std Deviation RDW Coeff of Epifanio Plt Count MPV Immature Gran % (Auto) Neut % (Auto) Lymph % (Auto) [place] % (Auto) Eos % (Auto) Baso % (Auto) Absolute Neuts (auto) Absolute Lymphs (auto) Nucleated RBC % PT INR APTT Sodium Potassium Chloride Carbon Dioxide Anion Gap BUN Creatinine Estim Creat Clear Calc Est GFR (MDRD) Af Amer Est GFR (MDRD) Non-Af BUN/Creatinine Ratio Glucose Lactic Acid 3.7 H* Calcium Troponin I B-Natriuretic Peptide 165.1 H Urine Color Yellow Urine Clarity Sl. Cloudy Urine pH 5.0 Ur Specific [place] 1.015 Urine Protein 100 H Urine Glucose (UA) Normal Urine Ketones Negative Urine Occult Blood 10 H Urine Nitrite Negative Urine Bilirubin Negative Urine Urobilinogen Normal Ur Leukocyte Esterase 25 H Urine RBC 0 SEEN Urine WBC 0-5 SEEN Ur Squamous Epith Cells 0-5 SEEN Urine Bacteria RARE Urine Mucus 0 SEEN ABG Data ABG results: ABG 02/07/21 10:52 Specimen Type ART Sample Site R Radial pH 7.36 Bicarbonate Actual 19.5 L Total CO2 21 Base Excess -6 L O2 Saturation 97 ABG pCO2 34.2 L ABG pO2 97 Gerald Test Positive O2 Delivery Device Cannula Liter Flow 6.0 Radiography Chest X-Ray - ED: 1 View, Read by ED Physician, Read by Radiologist, Normal, Mediastinum, Bony Structures and CHF Diagnostic Testing: Radiology Impression Brain CT 02/07/21 09:59 IMPRESSION: Moderate small vessel ischemic disease. No evidence for acute hemorrhage. Electronically Signed: Perry Hawkins MD at 10:19 EDT Tel , Service support , ADDENDUM: 02/07/21 1033 IMPRESSION: Moderate small vessel ischemic disease. No evidence for acute hemorrhage. N.B. : The above information has been verbally conveyed by Perry Hawkins MD to Dalton Braxton MD, on 02/07/2021 10:26:46 (ET). Electronically Signed: Perry Hawkins MD at 10:19 EDT Tel , Service support , Head/Neck CTA 02/07/21 10:06 IMPRESSION: Mild atherosclerotic ossifications of the carotid bulbs. No evidence for large aneurysm or areas of significant stenosis. N.B. : The above information has been verbally conveyed by Perry Hawkins MD to Dalton Trujillo on 02/07/2021 10:36:46 (ET). Electronically Signed: Perry Hawkins MD at 10:37 EDT Tel , Service support , ADDENDUM: 02/07/21 1044 IMPRESSION: Mild atherosclerotic ossifications of the carotid bulbs. No evidence for large aneurysm or areas of significant stenosis. N.B. : The above information has been verbally conveyed by Perry Hawkins MD to Dalton Trujillo on 02/07/2021 10:36:46 (ET). Electronically Signed: Perry Hawkins MD at 10:37 EDT Tel , Service support , Chest X-Ray 02/07/21 10:10 IMPRESSION: Mild pulmonary vascular congestion. Questionable small left pleural effusion. Electronically Signed: Perry Hawkins MD at 10:39 EDT Tel , Service support , EKG Initial EKG: Attestation: I personally reviewed and interpreted this EKG as follows: Interpretation: Sinus Tachycardia, RBBB and Non-Specific ST Changes Comments: Q waves inferiorly and across the precordium Prior EKG tracings: available for review Prior: Changed Critical Care Time Critical Care Time: Yes Critical care time (excluding procedures): 30-74 minutes (40 minutes spent), Including time spent:, Discussing w/Patient &/or Family/Brand Development Manager, Discussing w/Consultants, Arranging Admission or Transfer and Performing Direct Patient Care at Bedside Discharge Plan Triage Chief Complaint: Dizziness ED Provider: Dalton Trujillo Dx/Rx/DC Orders Primary Care Provider: Braden Pappas
[2021-02-07 10:30] LABS: Anion Gap 12 (5-15); BUN 21 mg/dL (7-18); BUN/Creat Ratio 14.3 RATIO (10-20); Calcium,Total 9.1 mg/dL (8.5-10.1); Chloride 103 mmol/L (98-107); Creatinine, Serum 1.47 mg/dL (0.55-1.02); EST Glomerular Filtration Rate 37 mL/min (>60); Est Glom Filt Rate - Afr Amer 45 mL/min (>60); Estimated Creatinine Clearance 37.75 ml/min; Glucose 272 mg/dL (74-106); Potassium 3.5 mmol/L (3.5-5.1); Sodium Level 137 mmol/L (136-145)
[2021-02-07 10:56] LABS: Allen Test Positive; Base Excess -6 mmol/L (-2 to +2); Bicarbonate 19.5 mmol/L (22-26); Blood Gas Specimen Type ART; O2 Delivery Device Cannula; PO2 97 mmHG (75-100); SITE R Radial; SO2 97 % (95-99); Total Carbon Dioxide 21 mmol/L; pCO2 34.2 mmHg (35-45); pH 7.36 (7.35-7.45)
--- NOTE | 2021-02-07 11:05 | ED.RN ---
per dr. [facility] is no longer necessary, in agreement with dr tam pt is to be worked up for metabolic infection.
[2021-02-07 11:10] LABS: Lactic Acid 3.7 mmol/L (0.4-1.9)
[2021-02-07 11:55] LABS: Mucous, Urine 0 SEEN /hpf (<or=2+); Red Blood Cells-Urine 0 SEEN /hpf (0-5)
[2021-02-07 11:56] LABS: Color, Urine Yellow (Yellow); Glucose, Dipstick Normal (Normal); Ketone-Dipstick Negative (Negative); Leukocyte Esterase-Dipstick 25 /ul (Negative); Nitrite-Dipstick Negative (Negative); Occult Blood-Urine 10 /ul (Negative); Protein-Dipstick 100 mg/dl (Negative); Specific Gravity, Urine 1.015 (1.002-1.030); Urine Bilirubin Dipstick Negative (Negative); Urine Clarity Sl. Cloudy (Clear); Urine Urobilinogen Normal (Normal)
[2021-02-07 11:59] LABS: BNP,B-Type NATRIURETIC PEPTIDE 165.1 pg/mL (0-100)
[2021-02-07 12:02] LABS: Bacteria RARE /hpf (None Seen); Squamous Epithelial Cells - UA 0-5 SEEN /hpf (5-10); White Blood Cells 0-5 SEEN /hpf (0-5)
[2021-02-07 13:51] LABS: Bedside Glucose 163 mg/dL (70-110)
--- NOTE | 2021-02-07 13:55 | ED.RN ---
after assisting pt off of bedside commode and back in to bed pt became unresponsive, had a deviated gaze with facial twitching and twitching in both her arms. assistance and doctor called for, upon recieving assistance pt became bradycardic with heart rate in the 30's. pt placed on nonrebreather. pt slowly becoming arousable
[2021-02-07 14:41] LABS: Reflex Lactate? Y
[2021-02-07] MEDS: levETIRAcetam IV 1,000 MG/100 ML BAG 400 MG IV (14:43)
[2021-02-07 15:51] LABS: Lactic Acid 2.4 mmol/L (0.4-1.9)
--- NOTE | 2021-02-07 16:15 | HP.PCM.HOS_ITS ---
HPI - General General Date of Admission: 02/07/21 HPI Narrative LISA WAHL, is a 70 F who presents with not feeling well. She was sent to the emergency room but with EMS she had spell but is unable to tell me what what he saw at that time but EMS noted that she may have had a seizure. She presented to the emergency room and she was hypoxic 82% on room air and confused. Mentally, she did improve over time. Is unclear as to what occurred to the patient and so patient did receive antibiotics as she was tachypneic as well as tachycardic. Work-up from infection standpoint was otherwise unremarkable. While in the emergency room, she had a tonic-clonic seizure. Afterwards, she did receive levetiracetam. My evaluation, the patient is postictal and unable provide any history so the history is obtained through the emergency room physician as well as her who is at bedside. The states that the patient has never had any seizures before, has never started any new medications as of late. States that she also sleeps around 7 8 hours per night. Usually she goes to bed around 2 or 3 but wakes up between 9 or 10. Otherwise she has been feeling well. She has been vaccinated for COVID-19. [facility] Medical History Borderline diabetes mellitus Chronic pain Degenerative disc disease GERD (gastroesophageal reflux disease) History of colonic polyps Hyperlipidemia Migraines Pancreatitis Wears hearing aid in both ears Home Medications amitriptyline 25 mg PO QHS 05/16/19 [History Last Taken Unknown] cholecalciferol (vitamin D3) 1,000 unit PO QHS 05/16/19 [History Last Taken Unknown] garlic 1,000 mg PO QHS 05/16/19 [History Last Taken Unknown] metformin 500 mg PO LUNCH 05/16/19 [History Last Taken Unknown] simvastatin 40 mg PO QHS 05/16/19 [History Last Taken Unknown] esomeprazole magnesium [Nexium] 20 mg PO DAILY 02/07/21 [History Last Taken Unknown] Allergy/AdvReac Type Severity Reaction Status Date / Time cefadroxil [From Duricef] Allergy Swelling Verified 02/07/21 11:14 celecoxib [From Celebrex] Allergy Rash Verified 02/07/21 11:14 adhesive tape AdvReac redness Verified 02/07/21 11:14 Surgical History History of colonoscopy (~05/20/19) Hx of cholecystectomy Social History Smoking Status: Never smoker ROS Review of Systems ROS Unobtainable: due to encephalopathy Vital Signs Vital Signs Vital Signs: 02/07/21 09:55 02/07/21 10:29 02/07/21 10:32 Temperature -17.7 C L 35.9 C L Temperature Source Oral Temporal Pulse Rate 120 H 125 H Respiratory Rate 28 H 30 H Respiratory Effort Respiratory Pattern Blood Pressure 129/88 H Blood Pressure Mean 101 Blood Pressure Source Blood Pressure Position Blood Pressure Location Pulse Ox 82 97 Oxygen Delivery Method Room Air Nasal Cannula Nasal Cannula Oxygen Flow Rate (L/min) 6 6 02/07/21 10:33 02/07/21 10:55 02/07/21 11:00 Temperature Temperature Source Pulse Rate Respiratory Rate Respiratory Effort Short of Breath Respiratory Pattern Tachypnea Blood Pressure Blood Pressure Mean Blood Pressure Source Blood Pressure Position Blood Pressure Location Pulse Ox 97 97 Oxygen Delivery Method Nasal Cannula Nasal Cannula Oxygen Flow Rate (L/min) 5 4 02/07/21 11:08 02/07/21 12:37 02/07/21 14:07 Temperature 37.0 C Temperature Source Axillary Pulse Rate 120 H 115 H 111 H Respiratory Rate 20 H 19 H 19 H Respiratory Effort Respiratory Pattern Blood Pressure 112/81 H 150/122 H 162/108 H Blood Pressure Mean 91 131 126 Blood Pressure Source Blood Pressure Position Blood Pressure Location Pulse Ox 95 95 94 Oxygen Delivery Method Nasal Cannula Nasal Cannula Room Air Oxygen Flow Rate (L/min) 6 4 4 02/07/21 15:00 02/07/21 16:00 02/07/21 16:04 Temperature 37.0 C 36.1 C L Temperature Source Temporal Temporal Pulse Rate 108 H 103 H Respiratory Rate 18 20 H Respiratory Effort Respiratory Pattern Blood Pressure 155/101 H 146/96 H Blood Pressure Mean 119 112 Blood Pressure Source Monitor Blood Pressure Position Semi-Fowlers Blood Pressure Location Right Forearm Pulse Ox 93 96 91 Oxygen Delivery Method Nasal Cannula Nasal Cannula Nasal Cannula Oxygen Flow Rate (L/min) 4 4 4 Physical Exam Const Orientation / Consciousness: confused and lethargic HEENT normocephalic and head/scalp atraumatic Eyes PERRL Eyes Narrative: Pupils dilated Neck no lymphadenopathy Resp Resp Narrative: Diminished due to poor respiratory effort but otherwise clear. Cardio regular rate, regular rhythm, S1 normal heart sound and S2 normal heart sound GI normal to inspection, nondistended, normoactive bowel sounds, non-tender and non-distended GI Narrative: Obese Extremity normal to inspection Skin no rashes or lesions noted Neuro Neuro Narrative: Confused. Does not withdrawal to noxious stimuli. Downgoing Babinski bilaterally. Lab / Micro Data Attestation: I reviewed the patient's lab results. Result Diagrams: 02/07/21 10:02 02/07/21 10:02 Labs: Laboratory Results - last 24 hr 02/07/21 02/07/21 02/07/21 10:02 10:02 10:02 WBC 9.4 RBC 5.06 Hgb 14.3 Hct 46.5 MCV 91.9 MCH 28.3 MCHC 30.8 L RDW Std Deviation 47.4 H RDW Coeff of Epifanio 14.1 Plt Count 249 MPV 10.8 Immature Gran % (Auto) 0.600 Neut % (Auto) 45.0 L Lymph % (Auto) 40.3 [place] % (Auto) 7.2 Eos % (Auto) 6.1 H Baso % (Auto) 0.8 Absolute Neuts (auto) 4.2 Absolute Lymphs (auto) 3.80 Nucleated RBC % 0 PT 14.0 INR 1.1 APTT 26.6 Sodium 137 Potassium 3.5 Chloride 103 Carbon Dioxide 22.0 Anion Gap 12 BUN 21 H Creatinine 1.47 H Estim Creat Clear Calc 37.75 Est GFR (MDRD) Af Amer 45 L Est GFR (MDRD) Non-Af 37 L BUN/Creatinine Ratio 14.3 Glucose 272 H Lactic Acid Calcium 9.1 Troponin I 0.020 B-Natriuretic Peptide Urine Color Urine Clarity Urine pH Ur Specific [place] Urine Protein Urine Glucose (UA) Urine Ketones Urine Occult Blood Urine Nitrite Urine Bilirubin Urine Urobilinogen Ur Leukocyte Esterase Urine RBC Urine WBC Ur Squamous Epith Cells Urine Bacteria Urine Mucus POC Glucose 02/07/21 02/07/21 02/07/21 10:02 10:40 11:50 WBC RBC Hgb Hct MCV MCH MCHC RDW Std Deviation RDW Coeff of Epifanio Plt Count MPV Immature Gran % (Auto) Neut % (Auto) Lymph % (Auto) [place] % (Auto) Eos % (Auto) Baso % (Auto) Absolute Neuts (auto) Absolute Lymphs (auto) Nucleated RBC % PT INR APTT Sodium Potassium Chloride Carbon Dioxide Anion Gap BUN Creatinine Estim Creat Clear Calc Est GFR (MDRD) Af Amer Est GFR (MDRD) Non-Af BUN/Creatinine Ratio Glucose Lactic Acid 3.7 H* Calcium Troponin I B-Natriuretic Peptide 165.1 H Urine Color Yellow Urine Clarity Sl. Cloudy Urine pH 5.0 Ur Specific [place] 1.015 Urine Protein 100 H Urine Glucose (UA) Normal Urine Ketones Negative Urine Occult Blood 10 H Urine Nitrite Negative Urine Bilirubin Negative Urine Urobilinogen Normal Ur Leukocyte Esterase 25 H Urine RBC 0 SEEN Urine WBC 0-5 SEEN Ur Squamous Epith Cells 0-5 SEEN Urine Bacteria RARE Urine Mucus 0 SEEN POC Glucose 02/07/21 02/07/21 13:47 15:12 WBC RBC Hgb Hct MCV MCH MCHC RDW Std Deviation RDW Coeff of Epifanio Plt Count MPV Immature Gran % (Auto) Neut % (Auto) Lymph % (Auto) [place] % (Auto) Eos % (Auto) Baso % (Auto) Absolute Neuts (auto) Absolute Lymphs (auto) Nucleated RBC % PT INR APTT Sodium Potassium Chloride Carbon Dioxide Anion Gap BUN Creatinine Estim Creat Clear Calc Est GFR (MDRD) Af Amer Est GFR (MDRD) Non-Af BUN/Creatinine Ratio Glucose Lactic Acid 2.4 H* Calcium Troponin I B-Natriuretic Peptide Urine Color Urine Clarity Urine pH Ur Specific [place] Urine Protein Urine Glucose (UA) Urine Ketones Urine Occult Blood Urine Nitrite Urine Bilirubin Urine Urobilinogen Ur Leukocyte Esterase Urine RBC Urine WBC Ur Squamous Epith Cells Urine Bacteria Urine Mucus POC Glucose 163 H Micro: Microbiology 02/07/21 12:45 SARS-CoV-2 Antigen (Rapid) - Final Mucosa - Nose ABG Data ABG results: ABG 02/07/21 10:52 Specimen Type ART Sample Site R Radial pH 7.36 Bicarbonate Actual 19.5 L Total CO2 21 Base Excess -6 L O2 Saturation 97 ABG pCO2 34.2 L ABG pO2 97 Gerald Test Positive O2 Delivery Device Cannula Liter Flow 6.[address] 02/07/21 09:59 IMPRESSION: Moderate small vessel ischemic disease. No evidence for acute hemorrhage. Electronically Signed: Perry Hawkins MD at 10:19 EDT Tel , Service support , ADDENDUM: 02/07/21 1033 IMPRESSION: Moderate small vessel ischemic disease. No evidence for acute hemorrhage. N.B. : The above information has been verbally conveyed by Perry Hawkins MD to Dalton Braxton MD, on 02/07/2021 10:26:46 (ET). Electronically Signed: Perry Hawkins MD at 10:19 EDT Tel , Service support , Head/Neck CTA 02/07/21 10:06 IMPRESSION: Mild atherosclerotic ossifications of the carotid bulbs. No evidence for large aneurysm or areas of significant stenosis. N.B. : The above information has been verbally conveyed by Perry Hawkins MD to Dalton Trujillo on 02/07/2021 10:36:46 (ET). Electronically Signed: Perry Hawkins MD at 10:37 EDT Tel , Service support , ADDENDUM: 02/07/21 1044 IMPRESSION: Mild atherosclerotic ossifications of the carotid bulbs. No evidence for large aneurysm or areas of significant stenosis. N.B. : The above information has been verbally conveyed by Perry Hawkins MD to Dalton Trujillo on 02/07/2021 10:36:46 (ET). Electronically Signed: Perry Hawkins MD at 10:37 EDT Tel , Service support , Chest X-Ray 02/07/21 10:10 IMPRESSION: Mild pulmonary vascular congestion. Questionable small left pleural effusion. Electronically Signed: Perry Hawkins MD at 10:39 EDT Tel , Service support , Assessment & Plan Assessment/Plan (1) Seizure: (2) Acute respiratory failure with hypoxia: PLAN: 1. New onset seizures * Discussed with the patient's , patient has never had a seizure before. Though the EMS mention that when they were taking her away that she may have had an event but is unsure. Patient was awake earlier and just did not feel well. Unclear if that was for shadowing of this seizure or some other process. * Patient did already see eval levetiracetam in the emergency room and will continue on the floor plus as needed lorazepam for breakthrough seizures. * Seizure precautions * MRI of the brain * Patient does take amitriptyline which can potentially lower the seizure threshold so that will be discontinued * After MRI is completed would recommend consulting [facility] teleneurology for further recommendations. * Continue with the levetiracetam center 50 mg twice daily. 2. Acute hypoxic respiratory failure * Likely due to seizure and postictal. But also likely component of sleep apnea or obesity hypoventilation. * Patient did have lactic acidosis but that is probably with hypoxia as well as a seizure * Patient did receive antibiotics but that was before it was no the patient was having seizures so we will not continue with those at this time. * Wean oxygen as tolerated * COVID-19 rapid was negative. Patient has been vaccinated for COVID-19 and do not feel that the PCR is necessary. 3. Diabetes mellitus type 2 * Hold Metformin given lactic acidosis * Sliding scale insulin for now 4. Hypertension * Fair control at this time 5. VTE prophylaxis: Low molecular weight heparin Visit Charges Inpatient E&M: 54037 Init Hosp L3
[2021-02-07] MEDS: 0.9% Normal Saline 1,000 ML 150 ML IV (16:28)
[2021-02-07] MEDS: Ondansetron 4 MG/2 ML Vial IV (16:30)
[2021-02-07 16:46] LABS: Bedside Glucose 156 mg/dL (70-110)
[2021-02-07] MEDS: Acetaminophen 325 MG Tablet 650 MG PO (19:53)
[2021-02-07] MEDS: Cholecalciferol (VIT D3) 25 MCG TABLET (1,000 UNITS) PO (21:21)
[2021-02-07] MEDS: Enoxaparin 40 MG/0.4 ML Syringe SC (21:21)
[2021-02-07] MEDS: Atorvastatin Calcium 20 MG Tablet PO (21:21)
[2021-02-08] VITALS (15 sets, daily range): BP systolic 103–146; BP diastolic 66–83; PULSE 91–108; RESP 16–20; TEMP 36.1–36.9; O2SAT 96–98
[2021-02-08 00:21] LABS: Bedside Glucose 142 mg/dL (70-110)
[2021-02-08 04:01] LABS: Absolute Lymphocyte Count 2.53 X10^3/uL (0.83-4.51); Absolute Neutrophil Count 6.1 X10^3/uL (2.0-7.7); Basophil# 0.06 X10^3/uL; Basophil% 0.6 % (0-1); Eosinophil# 0.09 X10^3/uL; Eosinophils% 0.9 % (0-5); Hematocrit 43.4 % (37-47); Hemoglobin 13.4 g/dL (12.0-15.0); Lymphocyte # 2.53 X10^3/ul (0.83-4.51); Lymphocyte % 26.5 % (19-41); Mean Corp Hgb Conc 30.9 g/dL (32-36); Mean Corpuscular Hgb 28.3 pg (27.0-32.0); Mean Corpuscular Volume 91.6 fL (81-99); Monocyte# 0.76 X10^3/uL; NRBC Flagged by Analyzer 0 % (0-5); Neutrophil # 6.05 X10^3/uL (2.7-7.7); Neutrophil % 63.6 % (47-70); Platelet Count 222 K/mm3 (150-450); RBC Distribution Width CV 14.4 % (11.6-14.6); RBC Distribution Width SD 48.8 fl (35.1-43.9); Red Blood Count 4.74 M/mm3 (4.2-5.4); White Blood Count 9.5 K/mm3 (4.4-11.0)
[2021-02-08 04:20] LABS: Anion Gap 8 (5-15); BUN 18 mg/dL (7-18); BUN/Creat Ratio 15.5 RATIO (10-20); Calcium,Total 8.5 mg/dL (8.5-10.1); Chloride 106 mmol/L (98-107); Creatinine, Serum 1.16 mg/dL (0.55-1.02); EST Glomerular Filtration Rate 49 mL/min (>60); Est Glom Filt Rate - Afr Amer 60 mL/min (>60); Estimated Creatinine Clearance 42.85 ml/min; Glucose 127 mg/dL (74-106); Potassium 4.1 mmol/L (3.5-5.1); Sodium Level 139 mmol/L (136-145)
[2021-02-08] MEDS: 0.9% Saline Lock 10 ML Syringe IV ×2 (05:54→09:44)
[2021-02-08] MEDS: Pantoprazole Sodium 20 MG Tablet PO (08:19)
[2021-02-08] MEDS: Enoxaparin 40 MG/0.4 ML Syringe SC ×2 (08:19→21:47)
--- NOTE | 2021-02-08 08:32 | PCM.PN.HOSP ---
Subjective Subjective Patient admitted with left upper extremity weakness, confusion. Nonspecific symptoms. Denies burning micturition or new urinary tract symptoms. Denies prior history of seizure, stroke. Her father of massive heart attack in his 40s. Denies personal history of cardiovascular disease. Objective Data Objective Data Vital Signs: Vital Signs Temp Pulse Resp BP Pulse Ox 97.1 F L 98 18 103/75 96 02/08/21 08:21 02/08/21 08:21 02/08/21 08:21 02/08/21 08:21 02/08/21 08:21 Oxygen Flow Rate (L/min) 3 Oxygen Delivery Method Nasal Cannula Weight: 316 lb 3.2 oz Body Mass Index (BMI) 50.5 Intake & Output: Intake and Output for Last 24 Hours 02/06/21 02/07/21 02/08/21 23:59 23:59 23:59 Intake Total 1847.5 / 2087.5 480 / 480 Output Total 200 / 350 300 / 300 Balance 1647.5 / 1737.5 180 / 180 Lab / Micro Data Result Diagrams: 02/08/21 03:35 02/08/21 03:35 Labs: Laboratory Results - last 24 hr 02/07/21 02/07/21 02/07/21 10:02 10:02 10:02 WBC 9.4 RBC 5.06 Hgb 14.3 Hct 46.5 MCV 91.9 MCH 28.3 MCHC 30.8 L RDW Std Deviation 47.4 H RDW Coeff of Epifanio 14.1 Plt Count 249 MPV 10.8 Immature Gran % (Auto) 0.600 Neut % (Auto) 45.0 L Lymph % (Auto) 40.3 Butler % (Auto) 7.2 Eos % (Auto) 6.1 H Baso % (Auto) 0.8 Absolute Neuts (auto) 4.2 Absolute Lymphs (auto) 3.80 Nucleated RBC % 0 PT 14.0 INR 1.1 APTT 26.6 Sodium 137 Potassium 3.5 Chloride 103 Carbon Dioxide 22.0 Anion Gap 12 BUN 21 H Creatinine 1.47 H Estim Creat Clear Calc 37.75 Est GFR (MDRD) Af Amer 45 L Est GFR (MDRD) Non-Af 37 L BUN/Creatinine Ratio 14.3 Glucose 272 H Lactic Acid Calcium 9.1 Troponin I 0.020 B-Natriuretic Peptide Urine Color Urine Clarity Urine pH Ur Specific [place] Urine Protein Urine Glucose (UA) Urine Ketones Urine Occult Blood Urine Nitrite Urine Bilirubin Urine Urobilinogen Ur Leukocyte Esterase Urine RBC Urine WBC Ur Squamous Epith Cells Urine Bacteria Urine Mucus COVID-19 (ESTRELLITA) POC Glucose 02/07/21 02/07/21 02/07/21 10:02 10:40 11:50 WBC RBC Hgb Hct MCV MCH MCHC RDW Std Deviation RDW Coeff of Epifanio Plt Count MPV Immature Gran % (Auto) Neut % (Auto) Lymph % (Auto) Butler % (Auto) Eos % (Auto) Baso % (Auto) Absolute Neuts (auto) Absolute Lymphs (auto) Nucleated RBC % PT INR APTT Sodium Potassium Chloride Carbon Dioxide Anion Gap BUN Creatinine Estim Creat Clear Calc Est GFR (MDRD) Af Amer Est GFR (MDRD) Non-Af BUN/Creatinine Ratio Glucose Lactic Acid 3.7 H* Calcium Troponin I B-Natriuretic Peptide 165.1 H Urine Color Yellow Urine Clarity Sl. Cloudy Urine pH 5.0 Ur Specific [place] 1.015 Urine Protein 100 H Urine Glucose (UA) Normal Urine Ketones Negative Urine Occult Blood 10 H Urine Nitrite Negative Urine Bilirubin Negative Urine Urobilinogen Normal Ur Leukocyte Esterase 25 H Urine RBC 0 SEEN Urine WBC 0-5 SEEN Ur Squamous Epith Cells 0-5 SEEN Urine Bacteria RARE Urine Mucus 0 SEEN COVID-19 (ESTRELLITA) POC Glucose 02/07/21 02/07/21 02/07/21 13:47 13:50 15:12 WBC RBC Hgb Hct MCV MCH MCHC RDW Std Deviation RDW Coeff of Epifanio Plt Count MPV Immature Gran % (Auto) Neut % (Auto) Lymph % (Auto) Butler % (Auto) Eos % (Auto) Baso % (Auto) Absolute Neuts (auto) Absolute Lymphs (auto) Nucleated RBC % PT INR APTT Sodium Potassium Chloride Carbon Dioxide Anion Gap BUN Creatinine Estim Creat Clear Calc Est GFR (MDRD) Af Amer Est GFR (MDRD) Non-Af BUN/Creatinine Ratio Glucose Lactic Acid 2.4 H* Calcium Troponin I B-Natriuretic Peptide Urine Color Urine Clarity Urine pH Ur Specific [place] Urine Protein Urine Glucose (UA) Urine Ketones Urine Occult Blood Urine Nitrite Urine Bilirubin Urine Urobilinogen Ur Leukocyte Esterase Urine RBC Urine WBC Ur Squamous Epith Cells Urine Bacteria Urine Mucus COVID-19 (ESTRELLITA) Not Detected POC Glucose 163 H 02/07/21 02/07/21 02/08/21 16:37 21:32 03:35 WBC 9.5 RBC 4.74 Hgb 13.4 Hct 43.4 MCV 91.6 MCH 28.3 MCHC 30.9 L RDW Std Deviation 48.8 H RDW Coeff of Epifanio 14.4 Plt Count 222 MPV 11.0 Immature Gran % (Auto) 0.400 Neut % (Auto) 63.6 Lymph % (Auto) 26.5 Butler % (Auto) 8.0 Eos % (Auto) 0.9 Baso % (Auto) 0.6 Absolute Neuts (auto) 6.1 Absolute Lymphs (auto) 2.53 Nucleated RBC % 0 PT INR APTT Sodium Potassium Chloride Carbon Dioxide Anion Gap BUN Creatinine Estim Creat Clear Calc Est GFR (MDRD) Af Amer Est GFR (MDRD) Non-Af BUN/Creatinine Ratio Glucose Lactic Acid Calcium Troponin I B-Natriuretic Peptide Urine Color Urine Clarity Urine pH Ur Specific [place] Urine Protein Urine Glucose (UA) Urine Ketones Urine Occult Blood Urine Nitrite Urine Bilirubin Urine Urobilinogen Ur Leukocyte Esterase Urine RBC Urine WBC Ur Squamous Epith Cells Urine Bacteria Urine Mucus COVID-19 (ESTRELLITA) POC Glucose 156 H 142 H 02/08/21 03:35 WBC RBC Hgb Hct MCV MCH MCHC RDW Std Deviation RDW Coeff of Epifanio Plt Count MPV Immature Gran % (Auto) Neut % (Auto) Lymph % (Auto) Butler % (Auto) Eos % (Auto) Baso % (Auto) Absolute Neuts (auto) Absolute Lymphs (auto) Nucleated RBC % PT INR APTT Sodium 139 Potassium 4.1 Chloride 106 Carbon Dioxide 25.0 Anion Gap 8 BUN 18 Creatinine 1.16 H Estim Creat Clear Calc 42.85 Est GFR (MDRD) Af Amer 60 Est GFR (MDRD) Non-Af 49 L BUN/Creatinine Ratio 15.5 Glucose 127 H Lactic Acid Calcium 8.5 Troponin I B-Natriuretic Peptide Urine Color Urine Clarity Urine pH Ur Specific [place] Urine Protein Urine Glucose (UA) Urine Ketones Urine Occult Blood Urine Nitrite Urine Bilirubin Urine Urobilinogen Ur Leukocyte Esterase Urine RBC Urine WBC Ur Squamous Epith Cells Urine Bacteria Urine Mucus COVID-19 (ESTRELLITA) POC Glucose Micro: Microbiology 02/07/21 12:45 Mucosa - Nose SARS-CoV-2 Antigen (Rapid) - Final ABG Data ABG results: ABG 02/07/21 10:52 Specimen Type ART Sample Site R Radial pH 7.36 Bicarbonate Actual 19.5 L Total CO2 21 Base Excess -6 L O2 Saturation 97 ABG pCO2 34.2 L ABG pO2 97 Gerald Test Positive O2 Delivery Device Cannula Liter Flow 6.0 Radiography Diagnostic Testing: Radiology Impression Brain CT 02/07/21 09:59 IMPRESSION: Moderate small vessel ischemic disease. No evidence for acute hemorrhage. Electronically Signed: Perry Hawkins MD at 10:19 EDT Tel , Service support , ADDENDUM: 02/07/21 1033 IMPRESSION: Moderate small vessel ischemic disease. No evidence for acute hemorrhage. N.B. : The above information has been verbally conveyed by Perry Hawkins MD to Dalton Braxton MD, on 02/07/2021 10:26:46 (ET). Electronically Signed: Perry Hawkins MD at 10:19 EDT Tel , Service support , Head/Neck CTA 02/07/21 10:06 IMPRESSION: Mild atherosclerotic ossifications of the carotid bulbs. No evidence for large aneurysm or areas of significant stenosis. N.B. : The above information has been verbally conveyed by Perry Hawkins MD to Dalton Trujillo on 02/07/2021 10:36:46 (ET). Electronically Signed: Perry Hawkins MD at 10:37 EDT Tel , Service support , ADDENDUM: 02/07/21 1044 IMPRESSION: Mild atherosclerotic ossifications of the carotid bulbs. No evidence for large aneurysm or areas of significant stenosis. N.B. : The above information has been verbally conveyed by Perry Hawkins MD to Dalton Trujillo on 02/07/2021 10:36:46 (ET). Electronically Signed: Perry Hawkins MD at 10:37 EDT Tel , Service support , Chest X-Ray 02/07/21 10:10 IMPRESSION: Mild pulmonary vascular congestion. Questionable small left pleural effusion. Electronically Signed: Perry Hawkins MD at 10:39 EDT Tel , Service support , Physical Exam Narrative General: Alert, Oriented x3, Cooperative, morbid obesity BMI 51 Kd per meter square HEENT: Atraumatic, PERRLA, EOMI, Normocephalic Oral: No Gingival or Mucosal Lesions/ Ulcerations Neck: Supple, No JVD, Negative Carotid Bruits Lungs: Air entry diminished in bilateral lung bases. No crepitation/rhonchi Cardiovascular: Regular rate, Regular Rhythm, Normal S1, Normal S2, No murmurs Abdomen: Bowel Sounds Present, Soft, Non Tender, Non-Distended : No renal angle tenderness. No suprapubic tenderness. Extremities: Mild bilateral ankle edema, Capillary Refill Less than 3 Seconds Skin: No rashes, No breakdown Musculoskeletal: Tenderness present over bilateral knee and hip joints, degenerative arthritis. ROM restricted. Neurological: Muscle strength, 4/5 at major joints lower extremities. Cranial nerves II-XII grossly intact, Deep Tendon Reflexes 2+/4 Psych/Mental Status: Normal Affect, Appropriate. Assessment & Plan Assessment/Plan (1) Seizure: (2) Acute respiratory failure with hypoxia: PLAN: 1. New onset seizures: The patient never had seizure before. Patient had confusion and does not remember the event accurately. MRI brain and EEG ordered. Patient has been on amitriptyline which potentially can lower the seizure threshold so it was discontinued. On Keppra 750 mg twice daily. SOC neurology consult after MRI and EEG. 2. Acute hypoxic respiratory failure most likely due to seizures/postictal with component of obesity hypoventilation or obstructive sleep apnea. Patient lactic acid may be associated with hypoxia or seizure. Currently patient having no signs and symptoms of infection or sepsis therefore not on antibiotic. COVID-19 PCR negative. Patient has been vaccinated for COVID-19. 3. Diabetes mellitus type 2: On Accu-Chek before meals and at bedtime and Metformin on hold for lactic acidosis. 4. Hypertension: Fair control at this time 5. VTE prophylaxis: Low molecular weight heparin Visit Charges Inpatient E&M: 39289 Subs Hosp L2
--- NOTE | 2021-02-08 09:00 | TELEMED_ITS ---
SOC Telemed has confirmed receipt of a request for visit. This document confirms receipt of the order initiating the consult. To find the results of the consultation, please view the patient's reports for the scanned Telemed Consult.
[2021-02-08] MEDS: LORazepam 2 MG/ML Syringe 1 MG IV (09:43)
--- NOTE | 2021-02-08 10:00 | MRI_ITS ---
STUDY: MRI BRAIN WITHOUT CONTRAST REASON FOR EXAM: Female, 70 years old. seizure TECHNIQUE: Standardized multiplanar fat and water weighted pulse sequences were obtained. COMPARISON: CT 02/07/2021 FINDINGS: There is moderate cerebral atrophy with widening of the extra-axial spaces and ventricular dilatation. There are multiple white matter hyperintensities, distributed throughout the deep white matter tracts of the cerebral hemispheres, consistent with moderate chronic white matter ischemic changes. There is no evidence for recent intracranial ischemia or other cause of cytotoxic edema on diffusion weighted imaging (DWI). Normal T2* images of the brain without demonstrated susceptibility artifact. There is no demonstrated hemosiderin stain. Thin section coronal T2-weighted images through the temporal lobes demonstrate no evidence of hippocampal atrophy or hyperintensity to suggest mesial temporal sclerosis. Normal bilateral basal ganglia. Normal thalami. There is no extra-axial fluid accumulation. Normal flow voids within the major intracranial circulation suggesting patency by spin echo criteria. There is enlargement of the sella turcica with increased CSF within the sella and flattening of the pituitary gland consistent with an empty sellar syndrome. Normal infundibular stalk, hypothalamus, and optic chiasm. Normal tectal plate and pineal gland. There are chronic white matter ischemic changes of the johnathan. The midbrain and medulla are otherwise normal. Normal cerebellum. Normal basal cisterns. Normal bilateral temporal bones. Normal bilateral internal auditory canals. No demonstrated orbital abnormality, within the constraints of a routine brain study. Normal visualized paranasal sinuses. Normal calvarium and skull base. Normal visualized soft tissue structures. Normal visualized upper cervical spine. MRI/Brain without Contrast IMPRESSION: Involutional changes of the brain, as described above. No acute infarct. Electronically Signed: Mani Boogie MD at 11:18 EDT Tel , Service support ,
--- NOTE | 2021-02-08 10:11 | NURSING ---
Pt off floor for MRI.
--- NOTE | 2021-02-08 11:25 | CASEMGMT ---
PATRICA DAO ASSIST[employer] MANAGER CM to room to meet with patient for initial transition planning/care coordination assessment. PATRICA DAO introduced self and role at [facility]. Pt voices understanding and consents to assessment at this time. Pt resting in bed in no distress at this time. Pt is A/O at this time and answers all questions appropriately. Care providers, pharmacy, and demographics verified/updated at this time. PCP: Dr Braden Pappas Specialists: None at present. Has seen Dr Cuba in the past for pain mgmt, but is currently not seeing him. [facility]erred [facility]acy:[facility] Insurance: [facility], [place] Prescription Benefit: Pt states, I think we have this. Living Will/HPOA: Has both LW and Healthcare POA, who is her , Cooper LNOK: , Cooper. Daughter, Elena. Son, Dalton Living Arrangements:Lives w/her , Cooper, in one-story home w/2-3 steps to enter thru the garage, and 5-6 steps to enter thru front door. Was independent w/ADL's prior to hospitalization. does most home mgmt tasks d/t pt w/chronic low back pain issues. Transportation: Pt states drives self and states no transportation concerns at this time. also drives. DME: States has the following DME: does not use DME when @ home. Uses a cane when she goes shopping. Uses a walker when going on bus trips with her daughter. Pt states she would like to get rails/grab bars installed. She was made aware insurance does not cover for these. She states she will talk to her about getting these. Pt states no need for further DME at this time. HHC/SNF: No history of either. Has went to [facility] for OP therapy after knee surgery. Pt is aware MRI results are still pending and PT/OT evals are pending as well. Pt prefers to return home, if able. She states she may be interested in HHC or OP therapy if it is recommended. CM to follow for any discharge planning/needs. Pt voices no concerns/needs at this time. Advised pt to ask for CM if any questions/concerns/needs arise. Voices understanding. Disposition plan: TBD by course of treatment and progress w/therapy. PT/OT evals pending. CM to follow. Angeline GOLDEN RN, CM
[2021-02-08] MEDS: Insulin Lispro 100 UNIT/ML INSULN.PEN SC ×2 (13:38→21:45)
[2021-02-08 13:45] LABS: Bedside Glucose 165 mg/dL (70-110)
[2021-02-08 16:55] LABS: Bedside Glucose 134 mg/dL (70-110)
[2021-02-08] MEDS: Atorvastatin Calcium 20 MG Tablet PO (21:46)
[2021-02-08] MEDS: Cholecalciferol (VIT D3) 25 MCG TABLET (1,000 UNITS) PO (21:47)
[2021-02-08 22:51] LABS: Bedside Glucose 167 mg/dL (70-110)
[2021-02-09] VITALS (20 sets, daily range): BP systolic 108–135; BP diastolic 57–98; PULSE 90–128; RESP 15–24; TEMP 36.2–36.6; O2SAT 90–98
[2021-02-09 06:35] LABS: Bedside Glucose 127 mg/dL (70-110)
--- NOTE | 2021-02-09 09:19 | ECHOCS_ITS ---
Reason For Study: CVA Procedure This was a 2D Doppler, Color Flow transthoracic echocardiogram. The study was technically difficult. Due to body habitus. Contrast injection was performed. Exam performed in department. Left Ventricle Based upon the 2D echocardiographic and contrast enhanced images obtained there appears to be grossly normal left ventricular size, wall motion, and systolic function. The estimated ejection fraction is 55 %. Unable to assess diastolic dysfunction. Right Ventricle Based upon the 2D echocardiographic images obtained there appears to be grossly normal right ventricular size and systolic function. Atria The left atrium is not well visualized. The right atrium is not well visualized. No doppler evidence for ASD. Bubble contrast study negative for right to left interatrial shunt. Mitral Valve There is no mitral annular calcification. Mild focal mitral valve calcification of the anterior leaflet. Tricuspid Valve Normal tricuspid valve. Trivial tricuspid valve insufficiency. Right ventricular systolic pressure estimated to be 41 mmHg. Aortic Valve Trisinus/trileaflet aortic valve. Normal aortic valve. Pulmonic Valve The pulmonic valve is not well visualized. Trivial pulmonic valve insufficiency. Great Vessels Normal sized aortic root. Pericardium/Pleural No pericardial effusion. Medication Performed a rapid injection of agitated mix of 9 cc saline and 1cc air to assess for atrial septal defect. Diluted definity 4.0ml given slow IV push to enhance endocardial definition. MMode/2D Measurements & Calculations Ao root diam: 3.7 cm Doppler Measurements & Calculations MV E max geo: 54.0 cm/sec Lat Peak E' Geo: 5.7 cm/sec Med Peak E' Geo: 5.6 cm/sec MV A max geo: 86.5 cm/sec E/E' lat: 9.5 E/E' med: 9.6 MV E/A: 0.62 Ao V2 max: 115.1 cm/sec LV V1 max: 84.7 cm/sec PA V2 max: 57.5 cm/sec Ao max P.3 mmHg LV V1 max P.9 mmHg TR max geo: 306.3 cm/sec TR max P.7 mmHg ECHO/Echo Complete W/ Contrast Interpretation Summary The study was technically difficult. Contrast injection was performed. Based upon the 2D echocardiographic and contrast enhanced images obtained there appears to be grossly normal left ventricular size, wall motion, and systolic function. The estimated ejection fraction is 55 %. Mild focal mitral valve calcification of the anterior leaflet. Trivial tricuspid valve insufficiency. Trivial pulmonic valve insufficiency. Right ventricular systolic pressure estimated to be 41 mmHg. Unable to assess diastolic dysfunction. Bubble contrast study negative for right to left interatrial shunt. Ordering Physician: Johnny Mattson Referring Physician: Braden Pappas Performed By: Janelle Landa, SUDHEER, RVT
[2021-02-09] MEDS: 0.9% Saline Lock 10 ML Syringe IV ×3 (09:58→21:45)
[2021-02-09] MEDS: Enoxaparin 40 MG/0.4 ML Syringe SC ×2 (09:58→21:43)
[2021-02-09] MEDS: Pantoprazole Sodium 20 MG Tablet PO (09:58)
[2021-02-09] MEDS: Albuterol 2.5 MG/3 ML VIAL.NEB. INHALATION (10:21)
--- NOTE | 2021-02-09 10:21 | RAD_ITS ---
STUDY: X-RAY CHEST REASON FOR EXAM: Female, 70 years old. sob TECHNIQUE: Single AP portable view of the chest. COMPARISON: None. FINDINGS: The lungs are clear and expanded. There is no demonstrated pleural abnormality. Normal size heart. Normal mediastinum and praneeth. Normal visualized pulmonary arteries. Normal visualized aortic arch and descending thoracic aorta. There is a dextroscoliosis of the thoracic spine. Normal visualized ribs, clavicles, and shoulders. There is no demonstrated abnormality of the visualized soft tissue structures of the upper abdomen. RAD/Chest 1 View (Portable) IMPRESSION: No active disease. Electronically Signed: Mani Boogie MD at 10:56 EDT Tel , Service support ,
[2021-02-09 10:35] LABS: Erythrocyte Sedimentation Rate 48 mm/hr (0-30); Vitamin B12 361 pg/mL (211-911)
[2021-02-09 10:46] LABS: Allen Test Positive; Base Excess -2 mmol/L (-2 to +2); Bicarbonate 24.1 mmol/L (22-26); Blood Gas Specimen Type ART; O2 Delivery Device Cannula; PO2 60 mmHG (75-100); SITE R Radial; SO2 89 % (95-99); Total Carbon Dioxide 25 mmol/L; pCO2 43.1 mmHg (35-45); pH 7.36 (7.35-7.45)
[2021-02-09 10:51] LABS: Thyroid Stim Hormone (TSH) 1.11 uIU/mL (0.358-3.74)
--- NOTE | 2021-02-09 12:02 | EKG12_ITS ---
Test Reason : SINUS TACH Blood Pressure : / mmHG Vent. Rate : 102 BPM Atrial Rate : 102 BPM P-R Int : 172 ms QRS Dur : 102 ms QT Int : 342 ms P-R-T Axes : 047 031 016 degrees QTc Int : 445 ms Sinus tachycardia with Premature supraventricular complexes Low voltage QRS Borderline ECG Confirmed by PRAVEEN LUGO, AISLINN ([id number]), video news editor BHARAT VILLALTA ([id number]) on 02/12/2021 11:17:48 AM Referred By: MARIANNE Confirmed By:AISLINN MORTON MD
[2021-02-09 12:35] LABS: Bedside Glucose 149 mg/dL (70-110)
--- NOTE | 2021-02-09 12:46 | PCM.PN.HOSP ---
Documented by User: Johnny OLSEN 02/09/21 13:03 Subjective Subjective Patient is a 70-year-old female who is comfortably resting in bed, alert and oriented x3. On my initial evaluation of patient patient was reporting of difficulty breathing. Went and revisited the patient about 3 hours later, shortness of breath had resolved and no other symptoms had presented themselves. Denies chest pain, shortness of breath, fever, chills, N/V/D. Objective Data Objective Data Vital Signs: Vital Signs Temp Pulse Resp BP Pulse Ox 97.8 F 128 H 20 H 108/78 90 02/09/21 09:50 02/09/21 11:46 02/09/21 11:35 02/09/21 09:50 02/09/21 11:40 Oxygen Flow Rate (L/min) 2 Oxygen Delivery Method Nasal Cannula Weight: 308 lb 6.827 oz Body Mass Index (BMI) 50.5 Intake & Output: Intake and Output for Last 24 Hours 02/07/21 02/08/21 02/09/21 23:59 23:59 23:59 Intake Total 1847.5 / 2087.5 1542.25 / 1842.25 707.5 / 707.5 Output Total 200 / 350 600 / 750 275 / 275 Balance 1647.5 / 1737.5 942.25 / 1092.25 432.5 / 432.5 Lab / Micro Data Result Diagrams: 02/09/21 09:40 02/08/21 03:35 Labs: Laboratory Results - last 24 hr 02/08/21 02/08/21 02/08/21 13:34 16:48 21:44 ESR Vitamin B12 TSH POC Glucose 165 H 134 H 167 H 02/09/21 02/09/21 02/09/21 06:26 09:40 09:40 ESR 48 H Vitamin B12 TSH 1.11 POC Glucose 127 H 02/09/21 02/09/21 09:40 11:41 ESR Vitamin B12 361 TSH POC Glucose 149 H Micro: Microbiology 02/07/21 10:00 Blood Culture (Wb) - Anticubital Right Blood Culture - Preliminary No growth in 48 hours. 02/07/21 10:40 Blood Culture (Wb) - Anticubital Left Blood Culture - Preliminary No growth in 48 hours. 02/07/21 12:45 Mucosa - Nose SARS-CoV-2 Antigen (Rapid) - Final ABG Data ABG results: ABG 02/09/21 10:40 Specimen Type ART Sample Site R Radial pH 7.36 Bicarbonate Actual 24.1 Total CO2 25 Base Excess -2 O2 Saturation 89 L ABG pCO2 43.1 ABG pO2 60 L Gerald Test Positive O2 Delivery Device Cannula Liter Flow 2.0 Radiography Diagnostic Testing: Radiology Impression Chest X-Ray 02/09/21 10:21 IMPRESSION: No active disease. Electronically Signed: Mani Boogie MD at 10:56 EDT Tel , Service support , Physical Exam Narrative See subjective. Const alert, oriented x3 and no apparent distress HEENT head/scalp atraumatic and moist oral mucous membranes Head and Scalp: normocephalic Eyes PERRL, EOMs intact bilaterally and conjunctivae normal Neck no lymphadenopathy, supple and no JVD Resp normal respiratory effort, no retractions, no use of accessory muscles and clear to auscultation bilaterally Cardio regular rate, regular rhythm and no murmurs GI normal to inspection, nondistended, normoactive bowel sounds, soft to palpation, non-tender and non-distended Extremity normal to inspection, full ROM and no clubbing, cyanosis or edema Skin no rashes or lesions noted, no wounds, skin turgor normal and no jaundice Neuro CN's II-XII intact bilaterally Psych affect normal Assessment & Plan Assessment/Plan (1) Seizure: (2) Acute respiratory failure with hypoxia: (3) Diabetes mellitus type 2 in obese: (4) HTN (hypertension): PLAN: 1) Seizure [facility] telemetry neurology service contacted and believe that patient suffered a generalized seizure which cause symptoms at admission. Plan; TTE ordered, Keppra 500 mg p.o. twice daily initiated, TSH ordered, B12 ordered, FREDDIE ordered, ESR ordered, fasting lipid panel ordered. 2) Acute hypoxic respiratory failure Most likely due to obesity hypoventilation or SHELLIE. COVID-19 PCR negative, patient has been fully vaccinated. On my initial exam this morning patient appeared acutely short of breath with tachypnea, tachycardia, satting 90% on 2 L via nasal cannula. Chest x-ray ordered, unremarkable. Breathing treatments ordered. On my second exam later that morning patient appeared to be recovered from shortness of breath exacerbation. Plan; incentive spirometry encouraged, continue on oxygen supplementation, continue to monitor. 3) DM2 Continue Accu-Cheks. Metformin on hold due to lactic acidosis. 4) HTN Stable, labetalol as needed. DVT prophylaxis -Lovenox SC Patient seen by Johnny Mattson PA-C, under the supervision of Dr. Do. Documented by User: Dr. Darion Do MD 02/09/21 16:11 Subjective Subjective Seen and examined. Patient has mild short of breath on exertion in the morning and at that time ABG showed mild hypoxia, PO2 60 mmHg on 2 L of oxygen. Patient had rapid response about 3:10 PM for brief duration of near syncope/altered mental status while she was washing her hair. Objective Data Lab / Micro Data Result Diagrams: 02/09/21 09:40 02/08/21 03:35 Physical Exam Narrative General: Alert, Oriented x3, Cooperative, morbid obesity BMI 51 Kd per meter square, dyspnea on exertion HEENT: Atraumatic, PERRLA, EOMI, Normocephalic Oral: No Gingival or Mucosal Lesions/ Ulcerations Neck: Supple, No JVD, Negative Carotid Bruits Lungs: Air entry diminished in bilateral lung bases. Bilateral fine wheezing Cardiovascular: Regular rate, Regular Rhythm, Normal S1, Normal S2, No murmurs Abdomen: Bowel Sounds Present, Soft, Non Tender, Non-Distended : No renal angle tenderness. No suprapubic tenderness. Extremities: Mild bilateral ankle edema, Capillary Refill Less than 3 Seconds Skin: No rashes, No breakdown Musculoskeletal: Tenderness present over bilateral knee and hip joints, degenerative arthritis. ROM restricted. Neurological: Muscle strength, 4/5 at major joints lower extremities. Cranial nerves II-XII grossly intact, Deep Tendon Reflexes 2+/4 Psych/Mental Status: Normal Affect, Appropriate. Assessment & Plan Assessment/Plan (1) Seizure: (2) Acute respiratory failure with hypoxia: PLAN: This patient was seen in conjunction with RAÚL Nuñez. I have independently interviewed and examined the patient and reviewed pertinent history, examination findings, laboratory and plan of management. I have reviewed the note and agree with the documented findings with the few additional points. In brief, patient is admitted for left upper extremity transient weakness, confusion and altered mental status. Patient does not remember the event currently. 1.? New onset seizures: Witnessed seizure for about 20 seconds in ER, generalized tonic-clonic type with bradycardia heart rate 30/min. Loaded with Keppra. Amitriptyline discontinued. Keppra changed to oral 500 mg twice daily. Neuro consult was done recommended changing Keppra to 500 mg twice daily, aspirin 81 mg daily, 30-day event monitor and TTE with global study. Patient had full work-up of his stroke with no acute change found in brain MRI, no hemodynamically significant stenosis or aneurysm in head and neck CTA. EEG unremarkable.TSH normal. B12 361. ESR and CRP elevated 2.? Acute hypoxic respiratory failure most likely due to seizures/postictal with component of obesity hypoventilation or obstructive sleep apnea with rapid response on 02/09: Patient lactic acid may be associated with hypoxia or seizure.? Currently patient having no signs and symptoms of infection or sepsis therefore not on antibiotic.? COVID-19 PCR negative.? Patient has been vaccinated for COVID-19. Patient has leukocytosis. Chest x-ray does not show acute change. ABG showed mild hypoxia but no hypercarbia. EKG sinus rhythm with PACs with sinus arrhythmia at 99 bpm. Started on CPAP. Bronchodilators mild wheezing. Pulmonary consult requested. No history of smoking or COPD with no prior PFT or sleep study. Lasix 40 mg IV daily ordered 3.? Diabetes mellitus type 2: On Accu-Chek before meals and at bedtime and Metformin on hold for lactic acidosis. 4.? Hypertension: Fair control at this time 5.? VTE prophylaxis: Low molecular weight heparin I have discussed my assessment with RAÚL Nuñez and orders have been reviewed. Total time of the visit including total time spent in counseling or coordination of care, (more than 50% of the total time, spent in obtaining medical information from nurses and other ancillary care providers,explaining to the patient about labs, imaging, diagnosis and management), discussion with patient's and daughter near the bedside, review of labs and imaging is 30 minutes. Clinical Impression(s) from Imaging Studies Brain CT 02/07/21 09:59 IMPRESSION: Moderate small vessel ischemic disease. No evidence for acute hemorrhage. Head/Neck CTA 02/07/21 10:06 IMPRESSION: Mild atherosclerotic ossifications of the carotid bulbs. No evidence for large aneurysm or areas of significant stenosis. Chest X-Ray 02/07/21 10:10 IMPRESSION: Mild pulmonary vascular congestion. Questionable small left pleural effusion. Brain MRI 02/08/21 10:00 IMPRESSION: Involutional changes of the brain, as described above. No acute infarct. Echocardiogram 02/09/21 09:19 Interpretation Summary The study was technically difficult. Contrast injection was performed. Based upon the 2D echocardiographic and contrast enhanced images obtained there appears to be grossly normal left ventricular size, wall motion, and systolic function. The estimated ejection fraction is 55 %. Mild focal mitral valve calcification of the anterior leaflet. Trivial tricuspid valve insufficiency. Trivial pulmonic valve insufficiency. Right ventricular systolic pressure estimated to be 41 mmHg. Unable to assess diastolic dysfunction. Bubble contrast study negative for right to left interatrial shunt. Chest X-Ray 02/09/21 10:21 IMPRESSION: No active disease. Visit Charges Inpatient E&M: 27902 [facility] L3
--- NOTE | 2021-02-09 13:32 | EKG12_ITS ---
Test Reason : Blood Pressure : / mmHG Vent. Rate : 099 BPM Atrial Rate : 099 BPM P-R Int : 182 ms QRS Dur : 100 ms QT Int : 346 ms P-R-T Axes : 054 013 035 degrees QTc Int : 444 ms Sinus rhythm with Premature atrial complexes Otherwise normal ECG When compared with ECG of 09-FEB-2021 12:02, MANUAL COMPARISON REQUIRED, DATA IS UNCONFIRMED Confirmed by PRAVEEN LUGO, AISLINN ([id number]), editor school photograph BHARAT VILLALTA ([id number]) on 02/12/2021 11:09:12 AM Referred By: Confirmed By:AISLINN MORTON MD
--- NOTE | 2021-02-09 15:06 | CASEMGMT ---
Pt screened with [facility] Palliative Care Screening Tool d/t Strata 3, pt did not meet criteria.
[2021-02-09 15:41] LABS: Bedside Glucose 157 mg/dL (70-110)
--- NOTE | 2021-02-09 15:52 | NURSING ---
at 1508 nurse was called to room for staff assist. therapy states washed hair at sink came to chair went diaphoretic patient states didnt feel good it application architect called
[2021-02-09 15:55] LABS: Absolute Lymphocyte Count 3.43 X10^3/uL (0.83-4.51); Absolute Neutrophil Count 7.9 X10^3/uL (2.0-7.7); Basophil# 0.08 X10^3/uL; Basophil% 0.6 % (0-1); Eosinophil# 0.18 X10^3/uL; Eosinophils% 1.4 % (0-5); Hematocrit 28.1 % (37-47); Hemoglobin 8.5 g/dL (12.0-15.0); Lymphocyte # 3.43 X10^3/ul (0.83-4.51); Lymphocyte % 26.9 % (19-41); Mean Corp Hgb Conc 30.2 g/dL (32-36); Mean Corpuscular Hgb 28.7 pg (27.0-32.0); Mean Corpuscular Volume 94.9 fL (81-99); Monocyte# 1.14 X10^3/uL; Monocyte% 8.9 % (0-10); NRBC Flagged by Analyzer 0 % (0-5); Neutrophil # 7.85 X10^3/uL (2.7-7.7); Neutrophil % 61.7 % (47-70); Platelet Count 399 K/mm3 (150-450); RBC Distribution Width CV 14.5 % (11.6-14.6); RBC Distribution Width SD 50.2 fl (35.1-43.9); Red Blood Count 2.96 M/mm3 (4.2-5.4); White Blood Count 12.8 K/mm3 (4.4-11.0)
[2021-02-09 16:10] LABS: ALB/GLOB Ratio 0.8 RATIO (0.9-2.4); AST(SGOT) 20 U/L (15-37); Alanine Aminotransfer ALT/SGPT 11 U/L (13-56); Alkaline Phosphatase 74 U/L (45-117); Anion Gap 9 (5-15); BUN 18 mg/dL (7-18); BUN/Creat Ratio 14.1 RATIO (10-20); Calcium,Total 8.6 mg/dL (8.5-10.1); Chloride 108 mmol/L (98-107); Creatinine, Serum 1.28 mg/dL (0.55-1.02); EST Glomerular Filtration Rate 44 mL/min (>60); Est Glom Filt Rate - Afr Amer 53 mL/min (>60); Estimated Creatinine Clearance 38.83 ml/min; Globulin 3.7 g/dL (2.2-4.2); Glucose 127 mg/dL (74-106); Potassium 4.6 mmol/L (3.5-5.1); Protein, Total 6.7 g/dL (6.4-8.2); Sodium Level 139 mmol/L (136-145)
[2021-02-09] MEDS: Furosemide 40 MG/4 ML Vial IV (16:41)
[2021-02-09 17:52] LABS: Bacteria 0 SEEN /hpf (None Seen); Mucous, Urine 0 SEEN /hpf (<or=2+); Red Blood Cells-Urine 0 SEEN /hpf (0-5); White Blood Cells 0 SEEN /hpf (0-5)
[2021-02-09 17:58] LABS: Color, Urine Yellow (Yellow); Glucose, Dipstick Normal (Normal); Ketone-Dipstick Negative (Negative); Leukocyte Esterase-Dipstick 25 /ul (Negative); Nitrite-Dipstick Negative (Negative); Occult Blood-Urine Negative /ul (Negative); Protein-Dipstick Negative (Negative); Urine Bilirubin Dipstick Negative (Negative); Urine Clarity Clear (Clear); Urine Urobilinogen Normal (Normal)
[2021-02-09 18:03] LABS: Squamous Epithelial Cells - UA 0-5 SEEN /hpf (5-10)
[2021-02-09] MEDS: Ipratropium/Albuterol Sulfate 3 ML AMPUL.NEB INHALATION (19:31)
--- NOTE | 2021-02-09 20:20 | CPS ---
Patient tried on sleep lab auto-PAP machine with increased difficulty. Patient stated that it felt like she was suffocating. For this reason patient was started on BiPAP / with 2L O2 bled into machine. SAFETY LEADER will monitor throughout night. RN aware of change.
[2021-02-09] MEDS: Atorvastatin Calcium 20 MG Tablet PO (21:43)
[2021-02-09 22:16] LABS: Bedside Glucose 139 mg/dL (70-110)
[2021-02-09] MEDS: Cholecalciferol (VIT D3) 25 MCG TABLET (1,000 UNITS) PO (22:57)
[2021-02-10] VITALS (16 sets, daily range): BP systolic 107–148; BP diastolic 66–88; PULSE 89–104; RESP 16–24; TEMP 36.1–37.1; O2SAT 88–97
--- NOTE | 2021-02-10 05:51 | CON.PCM.CC_ITS ---
Assessment & Plan Assessment/Plan (1) Acute respiratory failure with hypoxia: PLAN: RECOMMENDATIONS: 1. Wean supplemental oxygen to maintain saturations at or above 90%. 2. Strongly encourage incentive spirometer use. 3. Mobilize patient as tolerated. 4. Outpatient pulmonary follow-up in 2 weeks so that diagnostic polysomnogram can be arranged. 5. Continue antiepileptics per neurology recommendations. 6. Please call with any additional questions. IMPRESSIONS: 1. Acute hypoxemic respiratory insufficiency The patient is currently maintaining appropriate oxygen saturations on 2 L/min. I do suspect that her respiratory insufficiency is likely the consequence of her episodic seizure activity. Chest imaging was unremarkable. Echocardiogram was unremarkable with the exception of an elevated right ventricular systolic pressure. I would encourage the patient to utilize her incentive spirometer. Wean oxygen as tolerated to maintain saturations at or above 90%. Mobilize patient as tolerated. I do not see that the patient requires any additional inpatient pulmonary work-up. 2. Suspected sleep apnea The patient endorses symptoms concerning for underlying sleep disordered breathing. I agree with continuing empiric BiPAP therapy while admitted to the hospital. I would recommend that the patient follow-up in the pulmonary medicine clinic within 2 weeks of discharge and we will arrange for the patient to undergo a diagnostic polysomnogram. 3. New onset seizures Continue antiepileptics per neurology recommendations. If any further breakthrough seizure activity or questionable seizure activity is noted, recommend transfer to tertiary care facility for 24-hour EEG monitoring. 4. Obesity/hypertension/diabetes mellitus Complicates care, management, recovery and prognosis. Continue home medications as indicated. This note was generated with [employer] dictation software. It may contain incorrect words, spelling, and punctuation that were not noted in checking the note before signing. HPI Consult Data Date of Consult: 02/10/21 HPI Narrative Reason for Consultation: Acute hypoxemic respiratory failure HPI Narrative: The patient is a 70-year-old female, with a history as outlined below, who initially presented to the emergency department on February 07 with altered mentation and a facial droop. A stroke alert was called. She was also noted to be hypoxemic. CT and CTA head neck were negative. The patient was subsequently hospitalized with further work-up concerning for new onset seizure activity. The patient was started on antiepileptics following evaluation by neurology. Echocardiogram was unremarkable with an ejection fraction of 55%. Right ventricular systolic pressure was estimated to be 41 mmHg. The patient denies any prior pulmonary issues. She is a lifelong non-smoker. She does not utilize supplemental oxygen at her baseline. She does report that she has been told in the past that she does audibly snore when sleeping. She also reports the presence of nonrestorative sleep and excessive daytime sleepiness. The patient has never been formally evaluated for the presence of sleep apnea. She is currently without any complaints of chest tightness, wheezing or cough. She only reports a mild degree of exertional dyspnea with s trenuous exertion. [facility] Medical History Borderline diabetes mellitus Chronic pain Degenerative disc disease GERD (gastroesophageal reflux disease) History of colonic polyps Hyperlipidemia Migraines Pancreatitis Wears hearing aid in both ears Home Medications amitriptyline 25 mg PO QHS 05/16/19 [History Last Taken Unknown] cholecalciferol (vitamin D3) 1,000 unit PO QHS 05/16/19 [History Last Taken Unknown] garlic 1,000 mg PO QHS 05/16/19 [History Last Taken Unknown] metformin 500 mg PO LUNCH 05/16/19 [History Last Taken Unknown] simvastatin 40 mg PO QHS 05/16/19 [History Last Taken Unknown] esomeprazole magnesium [Nexium] 20 mg PO DAILY 02/07/21 [History Last Taken Unknown] Allergy/AdvReac Type Severity Reaction Status Date / Time cefadroxil [From Duricef] Allergy Swelling Verified 02/07/21 11:14 celecoxib [From Celebrex] Allergy Rash Verified 02/07/21 11:14 adhesive tape AdvReac redness Verified 02/07/21 11:14 Surgical History History of colonoscopy (~05/20/19) Hx of cholecystectomy Social History Smoking Status: Never smoker ROS Constitutional Constitutional: Denies chills, fatigue or fever(s) Eyes Eyes: Denies blurry vision ENT HEENT: Denies dysphagia, headache(s) or loss taste/smell Cardiovascular Cardiovascular: Reports dyspnea; Denies chest pain or dizziness Respiratory/Chest Respiratory/Chest: Reports shortness of breath with exertion; Denies chest tightness or cough Gastrointestinal Gastrointestinal: Denies abdominal pain, diarrhea or vomiting Genitourinary Genitourinary: Denies difficulty urinating Musculoskeletal Musculoskeletal: Denies arthralgias or back pain Integumentary Integumentary: Denies lesions Neurologic Neurologic: Denies abnormal gait Psychiatric Psychiatric: Denies anxiety Endocrine Endocrinology: Denies fatigue Hematologic/Lymphatic Hematologic/Lymphatic: Denies easy bleeding or easy bruising Physical Exam Const alert, oriented x3 and no apparent distress Constitutional Narrative: Sitting in bedside recliner General Appearance: cooperative HEENT normocephalic, head/scalp atraumatic and moist oral mucous membranes Eyes PERRL, EOMs intact bilaterally and conjunctivae normal Neck supple General: trachea midline Resp normal respiratory effort Auscultation: Negative for rales, rhonchi or wheezes Cardio regular rate and regular rhythm GI normal to inspection, nondistended, normoactive bowel sounds Extremity no clubbing, cyanosis or edema Skin no rashes or lesions noted Neuro oriented x3, CN's II-XII intact bilaterally and moves all extremities Psych cooperative and affect normal Lab / Micro Data Result Diagrams: 02/10/21 06:35 02/10/21 06:35 Labs: Laboratory Results - last 24 hr 02/09/21 02/09/21 02/09/21 06:26 09:40 09:40 WBC RBC Hgb Hct MCV MCH MCHC RDW Std Deviation RDW Coeff of Epifanio Plt Count MPV Immature Gran % (Auto) Neut % (Auto) Lymph % (Auto) [facility] % (Auto) Eos % (Auto) Baso % (Auto) Absolute Neuts (auto) Absolute Lymphs (auto) Nucleated RBC % ESR 48 H Sodium Potassium Chloride Carbon Dioxide Anion Gap BUN Creatinine Estim Creat Clear Calc Est GFR (MDRD) Af Amer Est GFR (MDRD) Non-Af BUN/Creatinine Ratio Glucose Calcium Total Bilirubin AST ALT Alkaline Phosphatase Total Protein Albumin Globulin Albumin/Globulin Ratio Vitamin B12 TSH 1.11 Urine Color Urine Clarity Urine pH Ur Specific Enterprise Urine Protein Urine Glucose (UA) Urine Ketones Urine Occult Blood Urine Nitrite Urine Bilirubin Urine Urobilinogen Ur Leukocyte Esterase Urine RBC Urine WBC Ur Squamous Epith Cells Urine Bacteria Urine Mucus POC Glucose 127 H 02/09/21 02/09/21 02/09/21 09:40 09:40 09:40 WBC 12.8 H RBC 2.96 L Hgb 8.5 L Hct 28.1 L MCV 94.9 MCH 28.7 MCHC 30.2 L RDW Std Deviation 50.2 H RDW Coeff of Epifanio 14.5 Plt Count 399 MPV 12.0 Immature Gran % (Auto) 0.500 Neut % (Auto) 61.7 Lymph % (Auto) 26.9 [facility] % (Auto) 8.9 Eos % (Auto) 1.4 Baso % (Auto) 0.6 Absolute Neuts (auto) 7.9 H Absolute Lymphs (auto) 3.43 Nucleated RBC % 0 ESR Sodium 139 Potassium 4.6 Chloride 108 H Carbon Dioxide 22.0 Anion Gap 9 BUN 18 Creatinine 1.28 H Estim Creat Clear Calc 38.83 Est GFR (MDRD) Af Amer 53 L Est GFR (MDRD) Non-Af 44 L BUN/Creatinine Ratio 14.1 Glucose 127 H Calcium 8.6 Total Bilirubin 0.60 AST 20 ALT 11 L Alkaline Phosphatase 74 Total Protein 6.7 Albumin 3.0 L Globulin 3.7 Albumin/Globulin Ratio 0.8 L Vitamin B12 361 TSH Urine Color Urine Clarity Urine pH Ur Specific Enterprise Urine Protein Urine Glucose (UA) Urine Ketones Urine Occult Blood Urine Nitrite Urine Bilirubin Urine Urobilinogen Ur Leukocyte Esterase Urine RBC Urine WBC Ur Squamous Epith Cells Urine Bacteria Urine Mucus POC Glucose 02/09/21 02/09/21 02/09/21 11:41 15:09 17:45 WBC RBC Hgb Hct MCV MCH MCHC RDW Std Deviation RDW Coeff of Epifanio Plt Count MPV Immature Gran % (Auto) Neut % (Auto) Lymph % (Auto) [facility] % (Auto) Eos % (Auto) Baso % (Auto) Absolute Neuts (auto) Absolute Lymphs (auto) Nucleated RBC % ESR Sodium Potassium Chloride Carbon Dioxide Anion Gap BUN Creatinine Estim Creat Clear Calc Est GFR (MDRD) Af Amer Est GFR (MDRD) Non-Af BUN/Creatinine Ratio Glucose Calcium Total Bilirubin AST ALT Alkaline Phosphatase Total Protein Albumin Globulin Albumin/Globulin Ratio Vitamin B12 TSH Urine Color Yellow Urine Clarity Clear Urine pH 6.0 Ur Specific Enterprise 1.010 Urine Protein Negative Urine Glucose (UA) Normal Urine Ketones Negative Urine Occult Blood Negative Urine Nitrite Negative Urine Bilirubin Negative Urine Urobilinogen Normal Ur Leukocyte Esterase 25 H Urine RBC 0 SEEN Urine WBC 0 SEEN Ur Squamous Epith Cells 0-5 SEEN Urine Bacteria 0 SEEN Urine Mucus 0 SEEN POC Glucose 149 H 157 H 05/18/21 21:41 WBC RBC Hgb Hct MCV MCH MCHC RDW Std Deviation RDW Coeff of Epifanio Plt Count MPV Immature Gran % (Auto) Neut % (Auto) Lymph % (Auto) [facility] % (Auto) Eos % (Auto) Baso % (Auto) Absolute Neuts (auto) Absolute Lymphs (auto) Nucleated RBC % ESR Sodium Potassium Chloride Carbon Dioxide Anion Gap BUN Creatinine Estim Creat Clear Calc Est GFR (MDRD) Af Amer Est GFR (MDRD) Non-Af BUN/Creatinine Ratio Glucose Calcium Total Bilirubin AST ALT Alkaline Phosphatase Total Protein Albumin Globulin Albumin/Globulin Ratio Vitamin B12 TSH Urine Color Urine Clarity Urine pH Ur Specific Enterprise Urine Protein Urine Glucose (UA) Urine Ketones Urine Occult Blood Urine Nitrite Urine Bilirubin Urine Urobilinogen Ur Leukocyte Esterase Urine RBC Urine WBC Ur Squamous Epith Cells Urine Bacteria Urine Mucus POC Glucose 139 H Micro: Microbiology 02/07/21 10:00 Blood Culture - Preliminary Blood Culture (Wb) - Anticubital Right No growth in 48 hours. 02/07/21 10:40 Blood Culture - Preliminary Blood Culture (Wb) - Anticubital Left No growth in 48 hours. ABG Data ABG results: ABG 02/09/21 10:40 Specimen Type ART Sample Site R Radial pH 7.36 Bicarbonate Actual 24.1 Total CO2 25 Base Excess -2 O2 Saturation 89 L ABG pCO2 43.1 ABG pO2 60 L Gerald Test Positive O2 Delivery Device Cannula Liter Flow 2.0 Radiology Impression Echocardiogram 02/09/21 09:19 Interpretation Summary The study was technically difficult. Contrast injection was performed. Based upon the 2D echocardiographic and contrast enhanced images obtained there appears to be grossly normal left ventricular size, wall motion, and systolic function. The estimated ejection fraction is 55 %. Mild focal mitral valve calcification of the anterior leaflet. Trivial tricuspid valve insufficiency. Trivial pulmonic valve insufficiency. Right ventricular systolic pressure estimated to be 41 mmHg. Unable to assess diastolic dysfunction. Bubble contrast study negative for right to left interatrial shunt. ____ Ordering Physician: Johnny Mattson Referring Physician: Braden Pappas Performed By: Janelle Landa, SUDHEER, RVT Chest X-Ray 02/09/21 10:21 IMPRESSION: No active disease. Electronically Signed: Mani Boogie MD at 10:56 EDT Tel , Service support , Charges/Coding Visit Charges Inpatient E&M: 18870 Init Hosp L3
[2021-02-10] MEDS: Ipratropium/Albuterol Sulfate 3 ML AMPUL.NEB INHALATION ×3 (06:55→18:58)
[2021-02-10 07:09] LABS: Absolute Lymphocyte Count 2.29 X10^3/uL (0.83-4.51); Absolute Neutrophil Count 5.8 X10^3/uL (2.0-7.7); Basophil# 0.07 X10^3/uL; Basophil% 0.8 % (0-1); Eosinophil# 0.32 X10^3/uL; Eosinophils% 3.5 % (0-5); Hematocrit 41.9 % (37-47); Hemoglobin 12.9 g/dL (12.0-15.0); Lymphocyte # 2.29 X10^3/ul (0.83-4.51); Lymphocyte % 24.7 % (19-41); Mean Corp Hgb Conc 30.8 g/dL (32-36); Mean Corpuscular Volume 91.1 fL (81-99); Mean Platelet Vol. 11.3 fl (6.2-12.0); Monocyte# 0.73 X10^3/uL; Monocyte% 7.9 % (0-10); NRBC Flagged by Analyzer 0 % (0-5); Neutrophil # 5.81 X10^3/uL (2.7-7.7); Neutrophil % 62.7 % (47-70); Platelet Count 196 K/mm3 (150-450); RBC Distribution Width CV 14.4 % (11.6-14.6); RBC Distribution Width SD 47.9 fl (35.1-43.9); White Blood Count 9.3 K/mm3 (4.4-11.0)
[2021-02-10 07:43] LABS: Anion Gap 6 (5-15); BUN 23 mg/dL (7-18); BUN/Creat Ratio 15.6 RATIO (10-20); Calcium,Total 9.3 mg/dL (8.5-10.1); Chloride 106 mmol/L (98-107); Cholesterol 166 mg/dL (200); Creatinine, Serum 1.47 mg/dL (0.55-1.02); EST Glomerular Filtration Rate 37 mL/min (>60); Est Glom Filt Rate - Afr Amer 45 mL/min (>60); Estimated Creatinine Clearance 33.81 ml/min; Glucose 130 mg/dL (74-106); High Density Lipoprotein 63 mg/dL; Potassium 3.7 mmol/L (3.5-5.1); Sodium Level 139 mmol/L (136-145); Triglycerides 129 mg/dL; Very Low Density Lipoprotein 26 mg/dL (5-40)
[2021-02-10] MEDS: Furosemide 40 MG/4 ML Vial IV (09:49)
[2021-02-10] MEDS: Aspirin 81 MG TAB.CHEW PO (09:49)
[2021-02-10] MEDS: Enoxaparin 40 MG/0.4 ML Syringe SC ×2 (09:49→20:42)
[2021-02-10] MEDS: Pantoprazole Sodium 20 MG Tablet PO (09:49)
--- NOTE | 2021-02-10 10:37 | CASEMGMT ---
RN CM in to pt room to discuss therapy and home O2. Pt states she does want to return home. She does not know if she would like therapy at home or outpatient. She states she would like to think about this. Provided pt with list of local in network DME companies. Pt chose [facility] for O2 needs. CM to follow.
[2021-02-10 11:37] LABS: Bedside Glucose 136 mg/dL (70-110)
[2021-02-10 11:46] LABS: Bedside Glucose 148 mg/dL (70-110)
--- NOTE | 2021-02-10 13:46 | PN.HOSP_ITS ---
Documented by User: Johnny OLSEN 02/10/21 14:14 Subjective Subjective Patient is a 70-year-old female comfortably resting in bed, alert and oriented x3. Patient denies any complications overnight or known periods of apnea. Denies chest pain, shortness of breath, sputum production, palpitations, fever, chills, N/V/D. Objective Data Objective Data Vital Signs: Vital Signs Temp Pulse Resp BP Pulse Ox 98.8 F 95 16 137/69 H 91 02/10/21 09:40 02/10/21 11:14 02/10/21 09:40 02/10/21 09:40 02/10/21 11:00 Oxygen Flow Rate (L/min) 2 Oxygen Delivery Method Nasal Cannula Weight: 308 lb 6.827 oz Body Mass Index (BMI) 50.5 Intake & Output: Intake and Output for Last 24 Hours 02/08/21 02/09/21 02/10/21 23:59 23:59 23:59 Intake Total 1542.25 / 1842.25 1535.0 / 1835.0 707.5 / 707.5 Output Total 600 / 750 675 / 1775 1700 / 1700 Balance 942.25 / 1092.25 860.0 / 60.0 -992.5 / -992.5 Lab / Micro Data Result Diagrams: 02/10/21 06:35 02/10/21 06:35 Labs: Laboratory Results - last 24 hr 02/09/21 02/09/21 02/09/21 09:40 09:40 15:09 WBC 12.8 H RBC 2.96 L Hgb 8.5 L Hct 28.1 L MCV 94.9 MCH 28.7 MCHC 30.2 L RDW Std Deviation 50.2 H RDW Coeff of Epifanio 14.5 Plt Count 399 MPV 12.0 Immature Gran % (Auto) 0.500 Neut % (Auto) 61.7 Lymph % (Auto) 26.9 [place] % (Auto) 8.9 Eos % (Auto) 1.4 Baso % (Auto) 0.6 Absolute Neuts (auto) 7.9 H Absolute Lymphs (auto) 3.43 Nucleated RBC % 0 Sodium 139 Potassium 4.6 Chloride 108 H Carbon Dioxide 22.0 Anion Gap 9 BUN 18 Creatinine 1.28 H Estim Creat Clear Calc 38.83 Est GFR (MDRD) Af Amer 53 L Est GFR (MDRD) Non-Af 44 L BUN/Creatinine Ratio 14.1 Glucose 127 H Calcium 8.6 Total Bilirubin 0.60 AST 20 ALT 11 L Alkaline Phosphatase 74 Total Protein 6.7 Albumin 3.0 L Globulin 3.7 Albumin/Globulin Ratio 0.8 L Triglycerides Cholesterol LDL Cholesterol VLDL Cholesterol HDL Cholesterol Urine Color Urine Clarity Urine pH Ur Specific [place] Urine Protein Urine Glucose (UA) Urine Ketones Urine Occult Blood Urine Nitrite Urine Bilirubin Urine Urobilinogen Ur Leukocyte Esterase Urine RBC Urine WBC Ur Squamous Epith Cells Urine Bacteria Urine Mucus POC Glucose 157 H 02/09/21 02/09/21 02/10/21 17:45 21:41 06:29 WBC RBC Hgb Hct MCV MCH MCHC RDW Std Deviation RDW Coeff of Epifanio Plt Count MPV Immature Gran % (Auto) Neut % (Auto) Lymph % (Auto) [place] % (Auto) Eos % (Auto) Baso % (Auto) Absolute Neuts (auto) Absolute Lymphs (auto) Nucleated RBC % Sodium Potassium Chloride Carbon Dioxide Anion Gap BUN Creatinine Estim Creat Clear Calc Est GFR (MDRD) Af Amer Est GFR (MDRD) Non-Af BUN/Creatinine Ratio Glucose Calcium Total Bilirubin AST ALT Alkaline Phosphatase Total Protein Albumin Globulin Albumin/Globulin Ratio Triglycerides Cholesterol LDL Cholesterol VLDL Cholesterol HDL Cholesterol Urine Color Yellow Urine Clarity Clear Urine pH 6.0 Ur Specific [place] 1.010 Urine Protein Negative Urine Glucose (UA) Normal Urine Ketones Negative Urine Occult Blood Negative Urine Nitrite Negative Urine Bilirubin Negative Urine Urobilinogen Normal Ur Leukocyte Esterase 25 H Urine RBC 0 SEEN Urine WBC 0 SEEN Ur Squamous Epith Cells 0-5 SEEN Urine Bacteria 0 SEEN Urine Mucus 0 SEEN POC Glucose 139 H 136 H 02/10/21 02/10/21 02/10/21 06:35 06:35 11:19 WBC 9.3 RBC 4.60 Hgb 12.9 Hct 41.9 MCV 91.1 MCH 28.0 MCHC 30.8 L RDW Std Deviation 47.9 H RDW Coeff of Epifanio 14.4 Plt Count 196 MPV 11.3 Immature Gran % (Auto) 0.400 Neut % (Auto) 62.7 Lymph % (Auto) 24.7 [place] % (Auto) 7.9 Eos % (Auto) 3.5 Baso % (Auto) 0.8 Absolute Neuts (auto) 5.8 Absolute Lymphs (auto) 2.29 Nucleated RBC % 0 Sodium 139 Potassium 3.7 Chloride 106 Carbon Dioxide 27.0 Anion Gap 6 BUN 23 H Creatinine 1.47 H Estim Creat Clear Calc 33.81 Est GFR (MDRD) Af Amer 45 L Est GFR (MDRD) Non-Af 37 L BUN/Creatinine Ratio 15.6 Glucose 130 H Calcium 9.3 Total Bilirubin AST ALT Alkaline Phosphatase Total Protein Albumin Globulin Albumin/Globulin Ratio Triglycerides 129 Cholesterol 166 LDL Cholesterol 77 VLDL Cholesterol 26 HDL Cholesterol 63 Urine Color Urine Clarity Urine pH Ur Specific [place] Urine Protein Urine Glucose (UA) Urine Ketones Urine Occult Blood Urine Nitrite Urine Bilirubin Urine Urobilinogen Ur Leukocyte Esterase Urine RBC Urine WBC Ur Squamous Epith Cells Urine Bacteria Urine Mucus POC Glucose 148 H Micro: Microbiology 02/07/21 10:00 Blood Culture (Wb) - Anticubital Right Blood Culture - Preliminary No growth in 48 hours. 02/07/21 10:40 Blood Culture (Wb) - Anticubital Left Blood Culture - Preliminary No growth in 48 hours. 02/07/21 12:45 Mucosa - Nose SARS-CoV-2 Antigen (Rapid) - Final Physical Exam Const alert, oriented x3 and no apparent distress Nutritional Appearance: obese HEENT head/scalp atraumatic Head and Scalp: normocephalic Eyes PERRL, EOMs intact bilaterally and conjunctivae normal Neck no lymphadenopathy, supple and no JVD Resp normal respiratory effort, no use of accessory muscles and clear to auscultation bilaterally Effort and Inspection: respiratory distress Auscultation: wheezes and diminished lung sounds Cardio regular rate, regular rhythm, no murmurs and no JVD GI normal to inspection, nondistended, normoactive bowel sounds, soft to palpation and non-tender Extremity normal to inspection Skin no rashes or lesions noted, no wounds and no jaundice Neuro CN's II-XII intact bilaterally Psych affect normal Assessment & Plan Assessment/Plan (1) Seizure: (2) Acute respiratory failure with hypoxia: (3) Diabetes mellitus type 2 in obese: (4) HTN (hypertension): PLAN: On my exam today patient still displays respiratory distress; shortness of breath and hypoxia with exertion. Attempted to initiate conversation about residential placement at discharge due to continuing hypoxia w/ exertion and overall weakness. Patient reluctant to go to residential facility and wants to return home. Social work/case management foll owing, therapy recommends placement at residential facility. 1) Seizure SOC telemetry neurology service contacted and believe that patient suffered a generalized seizure which cause symptoms at admission.?ECHO 02/10/2021 normal LV size and systolic function, estimated EF of 55%, RVSP of 41 mmHg, diastolic function not assessed. TSH, B12, and lipid panel within normal limits. FREDDIE and ESR pending. Plan; Keppra 500 mg p.o. twice daily initiated. 2) Acute hypoxic respiratory failure Most likely due to obesity hypoventilation or SHELLIE. Patient not on oxygen at home. COVID-19 PCR negative, patient has been fully vaccinated.?On the afternoon of 02/09 patient went unresponsive while getting her hair washed. CHERRY PICKER OPERATOR was initiated, however patient regained consciousness within less than 5 seconds, no resuscitation started. EKG at besides demonstrated sinus arrythmia (HR 99) with PAC's. Pulmonology following. Plan; incentive spirometry encouraged, continue on oxygen supplementation with sats at or above 90%, outpatient pulmonary follow-up in 2 weeks to conduct diagnostic polysomnogram. 3) DM2 Continue Accu-Cheks.? Metformin on hold due to lactic acidosis. 4) HTN Stable, labetalol as needed. DVT prophylaxis - Lovenox [facility] Patient seen by Johnny Mattson PA-C, under the supervision of Dr. Do. Documented by User: Dr. Darion Do MD 02/10/21 14:29 Subjective Subjective Patient is comfortable except easily gets short of breath on conversation. Physically deconditioned. Sinus rhythm on monitor. Objective Data Lab / Micro Data Result Diagrams: 02/10/21 06:35 02/10/21 06:35 Physical Exam Narrative Physical exam General: Alert, Oriented x3, Cooperative, morbid obesity BMI 51, dyspnea on exertion HEENT: Atraumatic, PERRLA, EOMI, Normocephalic Oral: No Gingival or Mucosal Lesions/ Ulcerations Neck: Supple, No JVD, Negative Carotid Bruits Lungs: Air entry diminished in bilateral lung bases. Bilateral wheezing has improved Cardiovascular: Regular rate, Regular Rhythm, Normal S1, Normal S2, No murmurs Abdomen: Bowel Sounds Present, Soft, Non Tender, Non-Distended : No renal angle tenderness. No suprapubic tenderness. Extremities: Mild bilateral ankle edema, Capillary Refill Less than 3 Seconds Skin: No rashes, No breakdown Musculoskeletal: Tenderness present over bilateral knee and hip joints, degenerative arthritis. ROM restricted. Neurological: Muscle strength, 4/5 at major joints lower extremities. Cranial nerves II-XII grossly intact, Deep Tendon Reflexes 2+/4 Psych/Mental Status: Normal Affect, Appropriate. Assessment & Plan Assessment/Plan (1) Seizure: (2) Acute respiratory failure with hypoxia: PLAN: ?This patient was seen in conjunction with RAÚL Nuñez.? I have independently interviewed and examined the patient and reviewed pertinent history, examination findings, laboratory and plan of management.? I have? reviewed the note and agree with the documented findings with the few? additional points. In brief, patient is admitted for left upper extremity transient weakness, confusion and altered mental status.? Patient does not remember the event currently. 1.? New onset seizures: Witnessed seizure for about 20 seconds in ER, generalized tonic-clonic type with bradycardia heart rate 30/min.? Loaded with Keppra.? Amitriptyline discontinued.? Keppra changed to oral 500 mg twice daily.? Neuro consult was done recommended aspirin 81 mg daily, 30-day event monitor and TTE with global study.? Patient had full work-up of his stroke with no acute change found in brain MRI, no hemodynamically significant stenosis or aneurysm in head and neck CTA.? EEG unremarkable.TSH normal.? B12 361.? ESR elevated 2.? Acute hypoxic respiratory failure most likely due to seizures/postictal with component of obesity hypoventilation or obstructive sleep apnea with rapid response on 02/09: Patient lactic acid may be associated with hypoxia or seizure.? Currently patient having no signs and symptoms of infection or sepsis therefore not on antibiotic.? COVID-19 PCR negative.? Patient has been vaccinated for COVID-19.? Patient has leukocytosis.? Chest x-ray does not show acute change.? ABG showed mild hypoxia but no hypercarbia.? EKG sinus rhythm with PACs with sinus arrhythmia at 99 bpm.? No history of smoking or COPD with no prior PFT or sleep study.? Lasix 40 mg IV daily 02/10: Patient was evaluated by cytotechnologist/histotechnologist and consult reviewed and appreciated. Advised to follow-up in pulmonary clinic in 2 weeks for sleep study as clinical suspicion of obstructive sleep apnea is HIGH. Continue BiPAP. 3.? Diabetes mellitus type 2: On Accu-Chek before meals and at bedtime and Metformin on hold for lactic acidosis. 4.? Hypertension: Fair control at this time 5.? VTE prophylaxis: Low molecular weight heparin Visit Charges Inpatient E&M: 87757 Subs Hosp L2
--- NOTE | 2021-02-10 14:18 | CASEMGMT ---
BAMBI met with patient. Introduced self and role at [facility]. SW spoke with her and asked if the physician or physician production assistant spoke with her letting her know they do not feel like she is safe to go home. She said no one has talked to her about this. SW told her they feel she is not safe to return home. She said she wants to go home. Zohreh ACEVEDO
[2021-02-10 16:10] LABS: ANTINUCLEAR ANTIBODIES DIRECT Negative (Negative)
[2021-02-10] MEDS: Atorvastatin Calcium 20 MG Tablet PO (20:41)
[2021-02-10] MEDS: Cholecalciferol (VIT D3) 25 MCG TABLET (1,000 UNITS) PO (20:42)
[2021-02-10 22:30] LABS: Bedside Glucose 158 mg/dL (70-110)
[2021-02-11] VITALS (7 sets, daily range): BP systolic 99–125; BP diastolic 60–78; PULSE 86–105; RESP 15–20; TEMP 36.6–36.8; O2SAT 93–97
[2021-02-11 06:39] LABS: Absolute Lymphocyte Count 1.85 X10^3/uL (0.83-4.51); Absolute Neutrophil Count 4.6 X10^3/uL (2.0-7.7); Basophil# 0.06 X10^3/uL; Basophil% 0.8 % (0-1); Eosinophil# 0.42 X10^3/uL; Eosinophils% 5.6 % (0-5); Hematocrit 40.4 % (37-47); Hemoglobin 12.6 g/dL (12.0-15.0); Lymphocyte # 1.85 X10^3/ul (0.83-4.51); Lymphocyte % 24.7 % (19-41); Mean Corp Hgb Conc 31.2 g/dL (32-36); Mean Corpuscular Hgb 28.1 pg (27.0-32.0); Mean Platelet Vol. 11.5 fl (6.2-12.0); Monocyte# 0.55 X10^3/uL; Monocyte% 7.3 % (0-10); NRBC Flagged by Analyzer 0 % (0-5); Neutrophil # 4.58 X10^3/uL (2.7-7.7); Neutrophil % 61.1 % (47-70); Platelet Count 170 K/mm3 (150-450); RBC Distribution Width CV 14.4 % (11.6-14.6); Red Blood Count 4.49 M/mm3 (4.2-5.4); White Blood Count 7.5 K/mm3 (4.4-11.0)
[2021-02-11] MEDS: Ipratropium/Albuterol Sulfate 3 ML AMPUL.NEB INHALATION ×2 (06:50→13:08)
[2021-02-11 07:05] LABS: Bedside Glucose 150 mg/dL (70-110)
[2021-02-11 07:07] LABS: Anion Gap 6 (5-15); BUN 20 mg/dL (7-18); BUN/Creat Ratio 14.4 RATIO (10-20); Calcium,Total 8.8 mg/dL (8.5-10.1); Chloride 103 mmol/L (98-107); Creatinine, Serum 1.39 mg/dL (0.55-1.02); EST Glomerular Filtration Rate 40 mL/min (>60); Est Glom Filt Rate - Afr Amer 48 mL/min (>60); Estimated Creatinine Clearance 35.76 ml/min; Glucose 129 mg/dL (74-106); Potassium 3.5 mmol/L (3.5-5.1); Sodium Level 138 mmol/L (136-145)
--- NOTE | 2021-02-11 08:56 | CASEMGMT ---
BAMBI spoke with patient again about her d/c plan. She said her feels she should go to the unit here at [facility]. BAMBI told her that sounds like a good idea. She has had her COVID vaccines so BAMBI told her she will be able to have scheduled visits in TCU. BAMBI called Kyra and she will have a bed for patient. Plan: d/c to [facility] TCU Zohreh ACEVEDO
[2021-02-11] MEDS: Aspirin 81 MG TAB.CHEW PO (09:05)
[2021-02-11] MEDS: Pantoprazole Sodium 20 MG Tablet PO (09:05)
[2021-02-11] MEDS: Enoxaparin 40 MG/0.4 ML Syringe SC (09:05)
--- NOTE | 2021-02-11 11:57 | PCM.TXEXTCAR ---
Diet 02/07/21 16:06 Diet: Cardiac: Calorie-Controlled Food consistency:: Regular Liquid Consistency:: Regular/Thin Dietary Modifications:: Sodium Restricted Is pt able to select menu?: Yes How many daily calories?: 2000 calorie Routine Orders/Code Status Enema Type: Fleetz Enema Frequency: Daily PRN Suppository Type: Dulcolax 10mg Suppository Frequency: Daily PRN O2 Liters per Minute: 2-3 O2 Frequency: Continuous Keep PO Greater than or Equal to (%): 90 Routine Lab Work: - (Weekly CBC, BMP) Code Status: Full Code Suggestions for Active Care Change Position every (hours): 2 Times a day to sit in chair: 3 Therapies Physical Therapy: Eval and Treat Occupational Therapy: Eval and Treat Problem/Diagnosis (1) Seizure: Status: Acute (2) Acute respiratory failure with hypoxia: Status: Acute Allergies/Procedures Done in Hospital Allergies cefadroxil [From Duricef] Allergy (Verified 02/07/21 11:14) Swelling celecoxib [From Celebrex] Allergy (Verified 02/07/21 11:14) Rash adhesive tape Adverse Reaction (Verified 02/07/21 11:14) redness Procedures: 2-D Echocardiogram Type of Care/Length of Stay Estimated LOS: Convalescent Care Less Than 30 days Type of Care Needed: Skilled Rehab Potential: Fair Prognosis: Fair Additional Orders/Day of Discharge H&P will serve as current which was dated: 02/07/21 Day of Discharge: 02/11/21 Dietary and Speech Recommendations Dietitian Recommendations/Changes: Will change diet to 2000 alina Cardiac / Na Restricted d/t issues w/ edema - consider fluid restriction if indicated. Discharge Plan Admission Admit Date/Time: 02/07/21 16:05 Attending Provider: Darion Do Primary Care Provider: Braden Pappas Consulting Providers: Harsh Deras Instructions Additional Instructions / Restrictions: May not drive until follow-up with neurology. Discharge Orders/Prescriptions Prescriptions: New aspirin 81 mg Tablet,Chewable 81 mg PO DAILY@0800 Qty: 0 RF: 0 levetiracetam 500 mg Tablet 500 mg PO BID Qty: 0 RF: 0 Continued simvastatin 40 MG tablet 40 mg PO QHS RF: 0 garlic 1,000 MG capsule 1,000 mg PO QHS RF: 0 amitriptyline 25 MG tablet 25 mg PO QHS RF: 0 metformin 500 MG tablet extended release 24 hr 500 mg PO LUNCH RF: 0 cholecalciferol (vitamin D3) 1,000 UNIT capsule 1,000 unit PO QHS RF: 0 esomeprazole magnesium [Nexium] 20 mg Capsule,Delayed Release(Dr/Ec) 20 mg PO DAILY RF: 0 Other Ambulatory Orders: 30-Day Event Recorder (Routine) Location: None Selected Ordered By: Mary Joyce NP Referrals / Follow Up: Harsh Deras DO [STAFF PHYSICIAN] - Within 2 Weeks Braden Pappas MD [Primary Care Provider] - In 1 Week Sadi Piedra MD [STAFF PHYSICIAN] - Within 2 Weeks (Neurology) Disposition Disposition (needs filled in before D/C Order can be placed): [facility]
--- NOTE | 2021-02-11 12:12 | CASEMGMT ---
Patient is ready for discharge to [facility] TCU. SW called patient's letting him know that he will need to schedule visits to see patient while in TCU. SW gave him the phone number and who he needs to talk with to schedule. SW also asked him to bring in her COVID vaccine card. He thanked BAMBI for the assistance. Plan: d/c to [facility] TCU under skilled level of care. Zohreh ACEVEDO
--- NOTE | 2021-02-11 12:37 | PCM.DC.SUM ---
Documented by User: Mary Joyce NP, SCREENING UNIT REGISTERED NURSE-C 02/11/21 12:45 Providers Date of Admission: 02/07/21 Date of Discharge: 02/11/21 Primary Care Physician: Dr. Braden Pappsa MD Consultations 02/09/21 15:50 Consult: Television Analyzer / Pulmonary Medicine Routine Consulting Provider: Harsh Deras Reason for Consult: Rapid response, hypoxic. Morbid obesity.Seizure evaluation completed EMERGENT Consult: No MD Notified: Yes Date Notified:: 02/09/21 Time Notified: 15:51 Method of Notification: Text Reason For Visit: SEIZURE Diagnosis Discharge Diagnosis (1) Seizure: Status: Acute Code(s): R56.9 - Unspecified convulsions (2) Acute respiratory failure with hypoxia: Status: Acute Code(s): J96.01 - Acute respiratory failure with hypoxia Medications at Discharge Home Medications amitriptyline 25 mg PO QHS 05/16/19 cholecalciferol (vitamin D3) 1,000 unit PO QHS 05/16/19 garlic 1,000 mg PO QHS 05/16/19 metformin 500 mg PO LUNCH 05/16/19 simvastatin 40 mg PO QHS 05/16/19 esomeprazole magnesium [Nexium] 20 mg PO DAILY 02/07/21 aspirin 81 mg PO DAILY@0800 02/11/21 levetiracetam 500 mg PO BID 02/11/21 Hospital Course Operations None Procedures 2-D Echocardiogram and Electroencephalogram Summary of Care Provided Minutes Spent on Discharge: 35 Hospital Course: Patient is a 70-year-old female admitted 02/07/2021 due to possible seizure activity. 1. New onset seizure-continue Keppra 500 mg twice daily. Outpatient follow-up with neurology in 2 weeks. No [address] until further follow-up with neurology. [facility] neurology consulted during admission. Continue Keppra, initiated on baby aspirin. 30-day event monitor at discharge. Seizure precautions. 2. Acute hypoxic respiratory insufficiency-possibly secondary to #1 versus underlying suspected sleep apnea, obesity hypoventilation syndrome. Continue supplement oxygen maintain O2 at above 90%. Follow-up with pulmonary medicine in 2 weeks for polysomnogram. Continue to encourage ambulation, incentive spirometry. Echocardiogram demonstrated an EF of 55%. RVSP 41 mmHg. Recommend continued BiPAP nightly at TCU. 3. Type 2 diabetes mellitus-continue home metformin regimen.Hemoglobin A1c 6.5%. 4. Hypertension-not on regimen, stable 5. Morbid obesity-encouraged diet and lifestyle modifications. 6. Hyperlipidemia-continue statin. Patient seen and examined prior to discharge. Physical assessment as noted below. Patient is stable for discharge with follow up recommendations as noted above. This patient was seen by MARIKA Bales under the supervision of Dr. Do. Physical Exam Const alert, oriented x3 and no apparent distress Orientation / Consciousness: awake, oriented to person, oriented to place and oriented to time HEENT normocephalic and moist oral mucous membranes Eyes PERRL, EOMs intact bilaterally and conjunctivae normal Neck no lymphadenopathy Resp normal respiratory effort and clear to auscultation bilaterally Cardio regular rate, regular rhythm and no murmurs Peripheral Pulses: pulses 2+ throughout GI normal to inspection, nondistended, normoactive bowel sounds, non-tender and non-distended Extremity normal to inspection Skin no rashes or lesions noted Lesions: no lesions Rashes: no rashes Trauma: no lacerations or abrasions Neuro oriented x3 Sensorium / Orientation: awake and alert Psych affect normal ABG / Lab / Microbiology Data Result Diagrams: 02/11/21 06:05 02/11/21 06:05 Laboratory: Laboratory Results - last 24 hr 02/09/21 02/10/21 02/11/21 09:40 22:13 06:05 WBC 7.5 RBC 4.49 Hgb 12.6 Hct 40.4 MCV 90.0 MCH 28.1 MCHC 31.2 L RDW Std Deviation 47.0 H RDW Coeff of Epifanio 14.4 Plt Count 170 MPV 11.5 Immature Gran % (Auto) 0.500 Neut % (Auto) 61.1 Lymph % (Auto) 24.7 [place] % (Auto) 7.3 Eos % (Auto) 5.6 H Baso % (Auto) 0.8 Absolute Neuts (auto) 4.6 Absolute Lymphs (auto) 1.85 Nucleated RBC % 0 Sodium Potassium Chloride Carbon Dioxide Anion Gap BUN Creatinine Estim Creat Clear Calc Est GFR (MDRD) Af Amer Est GFR (MDRD) Non-Af BUN/Creatinine Ratio Glucose Calcium FREDDIE Screen Negative POC Glucose 158 H 02/11/21 02/11/21 06:05 06:57 WBC RBC Hgb Hct MCV MCH MCHC RDW Std Deviation RDW Coeff of Epifanio Plt Count MPV Immature Gran % (Auto) Neut % (Auto) Lymph % (Auto) [place] % (Auto) Eos % (Auto) Baso % (Auto) Absolute Neuts (auto) Absolute Lymphs (auto) Nucleated RBC % Sodium 138 Potassium 3.5 Chloride 103 Carbon Dioxide 29.0 Anion Gap 6 BUN 20 H Creatinine 1.39 H Estim Creat Clear Calc 35.76 Est GFR (MDRD) Af Amer 48 L Est GFR (MDRD) Non-Af 40 L BUN/Creatinine Ratio 14.4 Glucose 129 H Calcium 8.8 FREDDIE Screen POC Glucose 150 H Microbiology: Microbiology 02/09/21 17:45 Urine Culture - Preliminary Urine, Clean Catch Culture exhibits no growth. Microbiology 02/09/21 17:45 Urine, Clean Catch Urine Culture - Preliminary Culture exhibits no growth. 02/07/21 10:00 Blood Culture (Wb) - Anticubital Right Blood Culture - Preliminary No growth in 48 hours. 02/07/21 10:40 Blood Culture (Wb) - Anticubital Left Blood Culture - Preliminary No growth in 48 hours. 02/07/21 12:45 Mucosa - Nose SARS-CoV-2 Antigen (Rapid) - Final Meaningful Use Info Meaningful Use Diagnoses (Choose all that apply): None applicable Discharge Plan Admission Admit Date/Time: 02/07/21 16:05 Attending Provider: Darion Do Primary Care Provider: Braden Pappas Consulting Providers: Harsh Deras Instructions Additional Instructions / Restrictions: May not drive until follow-up with neurology. Discharge Orders/Prescriptions Prescriptions: Continued simvastatin 40 MG tablet 40 mg PO QHS RF: 0 garlic 1,000 MG capsule 1,000 mg PO QHS RF: 0 amitriptyline 25 MG tablet 25 mg PO QHS RF: 0 metformin 500 MG tablet extended release 24 hr 500 mg PO LUNCH RF: 0 cholecalciferol (vitamin D3) 1,000 UNIT capsule 1,000 unit PO QHS RF: 0 esomeprazole magnesium [Nexium] 20 mg Capsule,Delayed Release(Dr/Ec) 20 mg PO DAILY RF: 0 No Action levetiracetam 500 mg tablet 500 mg PO BID RF: 0 aspirin 81 mg tablet,chewable 81 mg PO DAILY@0800 RF: 0 Other Ambulatory Orders: 30-Day Event Recorder (Routine) Location: None Selected Ordered By: Mary Joyce NP Referrals / Follow Up: Harsh Deras DO [STAFF PHYSICIAN] - Within 2 Weeks Braden Pappsa MD [Primary Care Provider] - In 1 Week Sadi Piedra MD [STAFF PHYSICIAN] - Within 2 Weeks (Neurology) Disposition Disposition (needs filled in before D/C Order can be placed[facility] Documented by User: Dr. Darion Do MD 02/11/21 15:51 Providers Date of Admission: 02/07/21 Reason For Visit: SEIZURE Medications at Discharge Home Medications amitriptyline 25 mg PO QHS 05/16/19 cholecalciferol (vitamin D3) 1,000 unit PO QHS 05/16/19 garlic 1,000 mg PO QHS 05/16/19 metformin 500 mg PO LUNCH 05/16/19 simvastatin 40 mg PO QHS 05/16/19 esomeprazole magnesium [Nexium] 20 mg PO DAILY 02/07/21 aspirin 81 mg PO DAILY@0800 02/11/21 levetiracetam 500 mg PO BID 02/11/21 Hospital Course Summary of Care Provided Hospital Course: This patient was seen in conjunction with SCREENING UNIT REGISTERED NURSE, Mary. I have independently interviewed and examined the patient and reviewed pertinent history, examination findings, laboratory and plan of management. I have reviewed the note and agree with the documented findings with the few additional points. In brief, patient is admitted for left upper extremity transient weakness, confusion and altered mental status.? Patient does not remember the event currently. 1.? New onset seizures: Witnessed seizure for about 20 seconds in ER, generalized tonic-clonic type with bradycardia heart rate 30/min.? Loaded with Keppra.? Amitriptyline discontinued.? Keppra changed to oral 500 mg twice daily.? Neuro consult was done recommended? aspirin 81 mg daily, 30-day event monitor and TTE with global study.? Patient had full work-up of his stroke with no acute change found in brain MRI, no hemodynamically significant stenosis or aneurysm in head and neck CTA.? EEG unremarkable.TSH normal.? B12 361.? ESR elevated 2.? Acute hypoxic respiratory failure most likely due to seizures/postictal with component of obesity hypoventilation or obstructive sleep apnea with rapid response on 02/09: Patient lactic acid may be associated with hypoxia or seizure.? Currently patient having no signs and symptoms of infection or sepsis therefore not on antibiotic.? COVID-19 PCR negative.? Patient has been vaccinated for COVID-19.? Patient has leukocytosis.? Chest x-ray does not show acute change.? ABG showed mild hypoxia but no hypercarbia.? EKG sinus rhythm with PACs with sinus arrhythmia at 99 bpm.? No history of smoking or COPD with no prior PFT or sleep study.? Patient was treated with Lasix but discontinued today as blood pressure was 99/60 at 4 AM which recovered to 134/74. Patient was seen by rope maker. Advised to follow-up in pulmonary clinic in 2 weeks for sleep study as clinical suspicion of obstructive sleep apnea is HIGH.? Continue BiPAP. 3.? Diabetes mellitus type 2: On Accu-Chek before meals and at bedtime and Metformin on hold for lactic acidosis. 4.? Hypertension: Fair control at this time 5.? VTE prophylaxis: Low molecular weight heparin I have discussed my assessment with SCREENING UNIT REGISTERED NURSEMary and orders have been reviewed. Discharge medication reconciliation done. Discharge follow-up instructions completed. Discharge process discussed with the patient and all questions were answered to patient's satisfaction. Total time spent, exact 35 minutes on discharge meds reconciliation, examination, coordination of care with nurses and ancillary staff, review of imaging and blood test and discussion with the patient on follow-up instructions Physical Exam Narrative Seen and examined in the morning. No chest pain or shortness of breath. nuclear monitoring technician shows sinus rhythm with PVCs. Physical exam General: Alert, Oriented x3, Cooperative, morbid obesity BMI 51, dyspnea on exertion HEENT: Atraumatic, PERRLA, EOMI, Normocephalic Oral: No Gingival or Mucosal Lesions/ Ulcerations Neck: Supple, No JVD, Negative Carotid Bruits Lungs: Air entry diminished in bilateral lung bases. Bilateral wheezing has improved Cardiovascular: Regular rate, Regular Rhythm, Normal S1, Normal S2, No murmurs Abdomen: Bowel Sounds Present, Soft, Non Tender, Non-Distended : No renal angle tenderness. No suprapubic tenderness. Extremities: Mild bilateral ankle edema, Capillary Refill Less than 3 Seconds Skin: No rashes, No breakdown Musculoskeletal: Tenderness present over bilateral knee and hip joints, degenerative arthritis. ROM restricted. Neurological: Muscle strength, 4/5 at major joints lower extremities. Cranial nerves II-XII grossly intact, Deep Tendon Reflexes 2+/4 Psych/Mental Status: Normal Affect, Appropriate. ABG / Lab / Microbiology Data Result Diagrams: 02/11/21 06:05 02/11/21 06:05 Discharge Plan Admission Admit Date/Time: 02/07/21 16:05 Attending Provider: Darion Do Primary Care Provider: Braden Pappas Consulting Providers: Harsh Deras Instructions Additional Instructions / Restrictions: May not drive until follow-up with neurology. Discharge Orders/Prescriptions Prescriptions: Continued simvastatin 40 MG tablet 40 mg PO QHS RF: 0 garlic 1,000 MG capsule 1,000 mg PO QHS RF: 0 amitriptyline 25 MG tablet 25 mg PO QHS RF: 0 metformin 500 MG tablet extended release 24 hr 500 mg PO LUNCH RF: 0 cholecalciferol (vitamin D3) 1,000 UNIT capsule 1,000 unit PO QHS RF: 0 esomeprazole magnesium [Nexium] 20 mg Capsule,Delayed Release(Dr/Ec) 20 mg PO DAILY RF: 0 No Action levetiracetam 500 mg tablet 500 mg PO BID RF: 0 aspirin 81 mg tablet,chewable 81 mg PO DAILY@0800 RF: 0 Other Ambulatory Orders: 30-Day Event Recorder (Routine) Location: None Selected Ordered By: Mary Joyce NP Referrals / Follow Up: Harsh Deras DO [STAFF PHYSICIAN] - Within 2 Weeks Braden Pappas MD [Primary Care Provider] - In 1 Week Sadi Piedra MD [STAFF PHYSICIAN] - Within 2 Weeks (Neurology) Disposition Disposition (needs filled in before D/C Order can be placed): [facility] Visit Charges Inpatient E&M: 43782 Disch Hosp
--- NOTE | 2021-02-11 13:24 | PHA.DC.MR ---
Pharmacy Service has performed discharge medication reconciliation for this patient upon transfer to TCU Home Medications amitriptyline 25 mg PO QHS 05/16/19 cholecalciferol (vitamin D3) 1,000 unit PO QHS 05/16/19 garlic 1,000 mg PO QHS 05/16/19 metformin 500 mg PO LUNCH 05/16/19 simvastatin 40 mg PO QHS 05/16/19 esomeprazole magnesium [Nexium] 20 mg PO DAILY 02/07/21 aspirin 81 mg PO DAILY@0800 #0 tab 02/11/21 levetiracetam 500 mg PO BID #0 tab 02/11/21 The patient's discharge medication list was reviewed for discrepancies and discrepancies were resolved.
== END 2021-02-11 13:55 | disposition skilled nursing facility (03) | DRG 100 ==
LOC: ED 13:16 → ICU 14:41 → PCU 02-08 18:17
PROVIDERS: Physician Assistant; Emergency Provider Emergency Medicine; PCP Family Medicine; Visit Provider Internal Medicine
DX: R56.9 Unspecified convulsions (principal); J96.01 Acute respiratory failure with hypoxia; Z68.43 Body mass index [BMI] 50.0-59.9, adult; E87.2 Acidosis; E66.2 Morbid (severe) obesity with alveolar hypoventilation; I10 Essential (primary) hypertension; R94.31 Abnormal electrocardiogram [ECG] [EKG]; E78.5 Hyperlipidemia, unspecified; E11.9 Type 2 diabetes mellitus without complications; K21.9 Gastro-esophageal reflux disease without esophagitis; R55 Syncope and collapse; Z79.899 Other long term (current) drug therapy; Z79.84 Long term (current) use of oral hypoglycemic drugs
CPT/HCPCS: 36415; 36600; 70450; 70496; 70498; 70551; 71045; 80048; 80053; 80061; 81001; 82607; 82803; 82962; 83605; 83880; 84443; 84484; 85025; 85610; 85652; 85730; 86038; 87040; 87086; 87426; 87635; 93005; 93306; 94002; 94003; 94640; 95819; 97110; 97162; 97166; 97530; 97535; 99251; 99285; J7030; J7040; J7050; Q9957; Q9967; A4216; C8929; G0463; J1940; J2405; U0002

== ENCOUNTER 2021-02-11 14:09 | Inpatient (IN) | payer MEDICARE, OTHER, SELFPAY ==
[2021-02-07 15:48] VITALS: BMI 50.5
[2021-02-11 14:22] VITALS: BP 134/74; PULSE 95; RESP 20; TEMP 36.3; O2SAT 97; BMI 48.9
[2021-02-11 14:38] VITALS: BP 134/74; PULSE 95; RESP 20; TEMP 36.3; O2SAT 97
[2021-02-11 17:00] LABS: Bedside Glucose 144 mg/dL (70-110)
[2021-02-11] MEDS: levETIRAcetam 500 MG Tablet PO (18:21)
--- NOTE | 2021-02-11 19:03 | NURSING ---
pt complained of leg cramps. pt got up and walked and stated she felt a little better.rn aware
--- NOTE | 2021-02-11 19:46 | HP.PCM_ITS ---
HPI - General General Date of Admission: 02/11/21 HPI Narrative 02/07/2021 LISA WAHL, is a 70 Female who presents to [facility] Emergency Department with dizziness, nausea. 02/07/2021 EKG sinus tachycardia, right bundle branch block, inferior infarct, age undetermined, posterior anterolateral infarct, age undetermined. Change in mental status, confused, nausea, dizziness. Mild right facial droop, not following commands. Hypoxic, stroke team activated. CT head negative. Teleneurology recommended no TPA. Hypoxia required 6 liters oxygen per nasal cannula. Lactic acid 3.7. Broad spectrum antibiotics given. Witnessed seizure, loaded with Keppra 1 gram. 02/07/2021 Admit to Hospital. Keppra, Lorazepam for new onset seizure. Stop Elavil, lowers seizure threshold. Hypoxic respiratory failure secondary to seizure. 02/08/2021 Keppra 750MG twice daily for new onset seizure. 02/08/2021 EEG okay. 02/09/2021 Echo Left ventricular systolic function normal. EF 55%. Bubble study negative. 02/09/2021 MRI brain negative for stroke. CTA head/neck negative. 02/10/2021 Pulmonary recommended evaluation for obstructive sleep apnea. 02/11/2021 Keppra 500MG twice daily for new onset seizure disorder. 02/11/2021 Admit to TCU with debility, here for rehabilitation, strengthening, prior to discharge home with . [facility] Medical History Borderline diabetes mellitus Chronic pain Degenerative disc disease GERD (gastroesophageal reflux disease) History of colonic polyps Hyperlipidemia Migraines Pancreatitis Wears hearing aid in both ears Home Medications amitriptyline 25 mg PO QHS 05/16/19 [History Last Taken Unknown] cholecalciferol (vitamin D3) 1,000 unit PO QHS 05/16/19 [History Last Taken Unknown] garlic 1,000 mg PO QHS 05/16/19 [History Last Taken Unknown] metformin 500 mg PO LUNCH 05/16/19 [History Last Taken Unknown] simvastatin 40 mg PO QHS 05/16/19 [History Last Taken Unknown] esomeprazole magnesium [Nexium] 20 mg PO DAILY 02/07/21 [History Last Taken Unknown] aspirin 81 mg PO DAILY@0800 02/11/21 [History Last Taken Unknown] levetiracetam 500 mg PO BID 02/11/21 [History Last Taken Unknown] Allergy/AdvReac Type Severity Reaction Status Date / Time cefadroxil [From Duricef] Allergy Swelling Verified 02/07/21 11:14 celecoxib [From Celebrex] Allergy Rash Verified 02/07/21 11:14 adhesive tape AdvReac redness Verified 02/07/21 11:14 Surgical History History of colonoscopy (~05/20/19) Hx of cholecystectomy Social History (Updated 02/11/21 @ 20:[address] Ben Aldana MD) household members: spouse Smoking Status: Never smoker ROS Constitutional Constitutional: Denies chills, fever(s) or weight gain ENT HEENT: Denies headache(s), nasal congestion or nasal discharge Cardiovascular Cardiovascular: Denies chest pain or palpitations Respiratory/Chest Respiratory/Chest: Denies cough, excessive phlegm production or shortness of breath with exertion Gastrointestinal Gastrointestinal: Denies abdominal pain, nausea or vomiting Genitourinary Genitourinary: Denies dysuria Musculoskeletal Musculoskeletal: Denies joint pain or joint swelling Integumentary Integumentary: Denies rash or wounds Neurologic Neurologic: Denies focal weakness, numbness or tingling Psychiatric Psychiatric: Reports auditory hallucinations; Denies anxiety, depression, homicidal ideation or suicidal ideation Vital Signs Vital Signs Vital Signs: 02/11/21 14:22 02/11/21 14:38 Temperature 97.3 F L 97.3 F L Temperature Source Temporal Temporal Pulse Rate 95 95 Pulse Rhythm Irregular Pulse Strength Normal (2+) Respiratory Rate 20 H 20 H Respiratory Effort Normal Respiratory Depth Normal Respiratory Pattern Normal Blood Pressure 134/74 H 134/74 H Blood Pressure Mean 94 94 Blood Pressure Source Monitor Monitor Blood Pressure Position Sitting Sitting Blood Pressure Location Left Forearm Left Forearm Pulse Ox 97 97 Oxygen Delivery Method Nasal Cannula Nasal Cannula Oxygen Flow Rate (L/min) 2 4 Physical Exam Const alert and oriented x3 General Appearance: cooperative HEENT normocephalic Eyes PERRL and EOMs intact bilaterally Neck supple, no JVD and no carotid bruits Resp normal respiratory effort, normal air movement and clear to auscultation bilaterally Cardio regular rate and regular rhythm GI normal to inspection, nondistended, normoactive bowel sounds, non-tender and non-distended Extremity normal capillary refill General Extremity: Negative for edema Skin no rashes or lesions noted General Skin Exam: no breakdown Psych affect normal Appearance: appropriate Lab / Micro Data Labs: Laboratory Results - last 24 hr 02/11/21 16:49 POC Glucose 144 H Assessment & Plan Assessment/Plan (1) Debility: (2) Acute respiratory failure with hypoxia: (3) Seizure disorder: (4) Diabetes mellitus type 2 in obese: (5) HTN (hypertension): (6) Hyperlipidemia: (7) Colonic polyp: (8) Gastroesophageal reflux disease: PLAN: 70 year old female with below past medical history hospitalized for acute encephalopathy secondary to new onset seizure disorder, stroke ruled out, sepsis ruled out, infection ruled out, admitted to TCU with debility, here for rehabilitation, strengthening, prior to discharge home with . * Debility - PT/OT. * Pain - Tylenol 1000MG Q6H PRN pain (1-10) * Bowel - Miralax 17GM daily, Senna/colace 1 tablet BID, Dulcolax 10MG SC daily PRN. * Adult immunization - Administer Prevnar 13, Pneumovax 23, COVID19 vaccine as appropriate. * DVT prophylaxis - Lovenox 40MG SC daily. * Insomnia - Melatonin 10MG QHS. * CV prophylaxis - Aspirin 81MG daily. * Hyperlipidemia - Atorvastatin 20MG QHS. * Vitamin D deficiency - D3 1000IU daily. * Skin irritation - Eucerin topical BID, Calmoseptine topical BID. * Seizure disorder - Keppra 500MG BID, follow up with neurology as outpatient. * Diabetes Mellitus II - Metformin XR 500MG daily, monitor blood sugar. * Tinea Corporis - Nystatin powder topical BID. * GERD - Pantoprazole 20MG daily.
[2021-02-11] MEDS: Menthol/Lanolin/Calamine/Znox 113 GM Tube 1 APPLIC TOPICAL (20:58)
[2021-02-11] MEDS: Nystatin Powder 15gm Bottle 1 APPLIC TOPICAL (20:59)
[2021-02-11] MEDS: Atorvastatin Calcium 20 MG Tablet PO (21:10)
[2021-02-11] MEDS: Cholecalciferol (VIT D3) 25 MCG TABLET (1,000 UNITS) PO (21:13)
[2021-02-11 21:40] LABS: Bedside Glucose 133 mg/dL (70-110)
[2021-02-11 21:41] VITALS: O2SAT 95
[2021-02-11] MEDS: MELATONIN 10 MG TABLET PO (23:25)
[2021-02-12 05:39] LABS: Absolute Lymphocyte Count 1.95 X10^3/uL (0.83-4.51); Absolute Neutrophil Count 4.2 X10^3/uL (2.0-7.7); Basophil# 0.05 X10^3/uL; Basophil% 0.7 % (0-1); Eosinophil# 0.52 X10^3/uL; Hematocrit 40.2 % (37-47); Hemoglobin 12.4 g/dL (12.0-15.0); Lymphocyte # 1.95 X10^3/ul (0.83-4.51); Lymphocyte % 26.4 % (19-41); Mean Corp Hgb Conc 30.8 g/dL (32-36); Mean Corpuscular Hgb 28.1 pg (27.0-32.0); Mean Platelet Vol. 11.3 fl (6.2-12.0); Monocyte# 0.63 X10^3/uL; Monocyte% 8.5 % (0-10); NRBC Flagged by Analyzer 0 % (0-5); Neutrophil % 56.9 % (47-70); Platelet Count 177 K/mm3 (150-450); RBC Distribution Width CV 14.3 % (11.6-14.6); RBC Distribution Width SD 47.7 fl (35.1-43.9); Red Blood Count 4.42 M/mm3 (4.2-5.4); White Blood Count 7.4 K/mm3 (4.4-11.0)
[2021-02-12 05:48] VITALS: BP 117/76; PULSE 83; RESP 20; TEMP 36.2; O2SAT 94
[2021-02-12] MEDS: Menthol/Lanolin/Calamine/Znox 113 GM Tube 1 APPLIC TOPICAL ×2 (05:51→16:53)
[2021-02-12] MEDS: Bisacodyl 10 MG Suppository RC (05:52)
[2021-02-12] MEDS: levETIRAcetam 500 MG Tablet PO ×2 (05:53→16:55)
[2021-02-12] MEDS: Enoxaparin 40 MG/0.4 ML Syringe SC (05:53)
[2021-02-12] MEDS: Polyethylene Glycol 3350 17 GM PACKET PO (05:54)
[2021-02-12] MEDS: Nystatin Powder 15gm Bottle 1 APPLIC TOPICAL ×2 (05:54→16:53)
[2021-02-12] MEDS: Pantoprazole Sodium 20 MG Tablet PO (05:55)
[2021-02-12] MEDS: Senna/Docusate Sodium 1 Tablet PO ×2 (05:55→16:53)
[2021-02-12 06:10] LABS: Anion Gap 4 (5-15); BUN 17 mg/dL (7-18); BUN/Creat Ratio 13.6 RATIO (10-20); Calcium,Total 8.7 mg/dL (8.5-10.1); Chloride 104 mmol/L (98-107); Creatinine, Serum 1.25 mg/dL (0.55-1.02); EST Glomerular Filtration Rate 45 mL/min (>60); Est Glom Filt Rate - Afr Amer 55 mL/min (>60); Estimated Creatinine Clearance 39.76 ml/min; Glucose 123 mg/dL (74-106); Potassium 3.5 mmol/L (3.5-5.1); Sodium Level 139 mmol/L (136-145)
[2021-02-12 06:26] LABS: Bedside Glucose 124 mg/dL (70-110)
[2021-02-12] MEDS: Aspirin 81 MG TAB.CHEW PO (09:02)
[2021-02-12 10:00] VITALS: PULSE 89; O2SAT 95
[2021-02-12] MEDS: Tuberculin,Purif.prot.deriv. 50 TU/ML Vial 5 ML ID (10:19)
[2021-02-12 10:55] LABS: Bedside Glucose 140 mg/dL (70-110)
[2021-02-12] MEDS: metFORMIN (XR) 500 MG Tablet PO (12:46)
[2021-02-12 13:27] VITALS: BP 100/62; PULSE 91; RESP 18; TEMP 36.4; O2SAT 97
--- NOTE | 2021-02-12 15:17 | CASEMGMT ---
Social Work Met with pt for initial assessment. Discussed code status with pt. Pt wishes to be full code. MOLST form reviewed, communication to Dr. Aldana and EULALIA placed in chart. SW explained MCR benefit. Encouraged pt to contact secondary insurance to ensure copay coverage. BAMBI to continue to follow. ASMITA Morris
--- NOTE | 2021-02-12 15:58 | PHA.CONS_ITS ---
Progress Note - Pharmacy Subjective: TCU ADMISSION Objective: Allergies cefadroxil [From Duricef] Allergy (Verified 02/07/21 11:14) Swelling celecoxib [From Celebrex] Allergy (Verified 02/07/21 11:14) Rash adhesive tape Adverse Reaction (Verified 02/07/21 11:14) redness Current Medications Generic Name Dose Route Start Last Admin Trade Name Freq PRN Reason Stop Dose Admin Acetaminophen 1,000 mg 02/11/21 20:21 Acetaminophen 500 Mg Tablet PO Q6H PRN PRN Pain Score 1-10 Aspirin 81 mg 02/12/21 08:00 02/12/21 09:02 Aspirin 81 Mg Tab.Chew PO 81 mg DAILYCM MELBA Administration Atorvastatin Calcium 20 mg 02/11/21 22:00 02/11/21 21:10 Atorvastatin Calcium 20 Mg Tablet PO 20 mg QHS MELBA Administration Bisacodyl 10 mg 02/12/21 06:00 02/12/21 05:52 Bisacodyl 10 Mg Suppository RC 10 mg DAILY MELBA Administration Calamine/Phenol 1 applic 02/11/21 18:00 02/12/21 05:51 Menthol/Lanolin/Calamine/Znox 113 Gm Tube TOPICAL 1 applic BID [facility] Administration Protocol Cholecalciferol 25 mcg 02/11/21 22:00 02/11/21 21:13 Cholecalciferol (Vit D3) 25 Mcg Tablet (1,000 Units) PO 25 mcg QHS MELBA Administration Emollient Ointment 1 applic 02/11/21 18:00 02/12/21 05:53 Emollient Combination No.72 500 Ml Lotion TOPICAL 1 applic BID [facility] Administration Protocol Enoxaparin Sodium 40 mg 02/12/21 06:00 02/12/21 05:53 Enoxaparin 40 Mg/0.4 Ml Syringe SC 40 mg DAILY@0600 MELBA Administration Levetiracetam 500 mg 02/11/21 18:00 02/12/21 05:53 Levetiracetam 500 Mg Tablet PO 500 mg BID MELBA Administration Melatonin 10 mg 02/11/21 22:00 02/11/21 23:25 Melatonin 10 Mg Tablet PO 10 mg QHS MELBA Administration Metformin HCl 500 mg 02/12/21 12:00 02/12/21 12:46 Metformin (Xr) 500 Mg Tablet PO 500 mg LUNCH MELBA Administration Nystatin 1 applic 02/11/21 18:00 02/12/21 05:54 Nystatin Powder 15gm Bottle TOPICAL 1 applic BID MELBA Administration Protocol Pantoprazole Sodium 20 mg 02/12/21 06:00 02/12/21 05:55 Pantoprazole Sodium 20 Mg Tablet PO 20 mg DAILY MELBA Administration Polyethylene Glycol 17 gm 02/12/21 06:00 02/12/21 05:54 Polyethylene Glycol 3350 17 Gm Packet PO 17 gm DAILY MELBA Administration Senna/Docusate Sodium 1 tablet 02/12/21 06:00 02/12/21 05:55 Senna/Docusate Sodium 1 Tablet PO 1 tablet BID MELBA Administration Tuberculin PPD 5 tu 02/19/21 10:00 Tuberculin,Purif.Prot.Deriv. 50 Tu/Ml Vial ID 02/19/21 10:01 X1 ONE Problem List (Last Reviewed 02/11/21 @ 20:[address] Ben Aldana MD) Gastroesophageal reflux disease (Acute) Colonic polyp (Acute) Hyperlipidemia (Acute) Seizure disorder (Acute) Debility (Acute) HTN (hypertension) (Chronic) Diabetes mellitus type 2 in obese (Acute) Acute respiratory failure with hypoxia (Acute) Vital Signs Temp Pulse Resp BP Pulse Ox 97.5 F L 91 18 100/62 97 02/12/21 13:27 02/12/21 13:27 02/12/21 13:27 02/12/21 13:27 02/12/21 13:27 Oxygen Flow Rate (L/min) 2 Oxygen Delivery Method Nasal Cannula Weight: 137.552 kg Body Mass Index (BMI) 48.9 Sodium 139 mmol/L (136-145) 02/12/21 05:10 Potassium 3.5 mmol/L (3.5-5.1) 02/12/21 05:10 Chloride 104 mmol/L (98-107) 02/12/21 05:10 Carbon Dioxide 31.0 mmol/L (21.0-32.0) 02/12/21 05:10 Anion Gap 4 (5-15) L 02/12/21 05:10 BUN 17 mg/dL (7-18) 02/12/21 05:10 Creatinine 1.25 mg/dL (0.55-1.02) H 02/12/21 05:10 Est GFR (MDRD) Af Amer 55 mL/min (>60) L 02/12/21 05:10 Est GFR (MDRD) Non-Af 45 mL/min (>60) L 02/12/21 05:10 BUN/Creatinine Ratio 13.6 RATIO (10-20) 02/12/21 05:10 Glucose 123 mg/dL (74-106) H 02/12/21 05:10 Assessment/Plan: 1. Pain: Tylenol 1000mg PO Q6H PRN pain (1-10). Please continue to monitor pain and PRN usage. 2. DVT prophylaxis: Lovenox 40mg SC daily. Please continue to monitor platelets (last 177,000), renal function, and S/S of bleeding. 3. Insomnia: melatonin 10mg PO QHS. Please continue to monitor insomnia. 4. CV prophylaxis: aspirin 81mg PO daily. Please continue to monitor S/S of bleeding. 5. Hyperlipidemia: atorvastatin 20mg PO QHS. Please continue to monitor lipids (LDL last 77 mg/dL on 02/10/21) and muscle pain. 6. Vitamin D deficiency: vitamin D3 25mcg PO daily. Please continue to monitor vitamin D levels. 7. Seizure disorder: Keppra 500mg PO BID. Please continue to monitor renal function and S/S of seizures. 8. Diabetes Mellitus II: metformin XR 500mg PO daily. Please continue to monitor blood glucose (last 140 mg/dL), HgA1C, and GI symptoms. 10. GERD: pantoprazole 20mg PO daily. Please continue to monitor S/S of GERD. Psychotropic Medications: None Unnecessary Medications: None Bowel Regimen: Miralax 17GM PO daily, Senna/Colace 1 tablet PO BID, Dulcolax 10mg [place] daily. Please continue to monitor constipation. Date of Note:: 02/12/21
[2021-02-12 16:30] LABS: Bedside Glucose 141 mg/dL (70-110)
[2021-02-12] MEDS: Atorvastatin Calcium 20 MG Tablet PO (21:33)
[2021-02-12] MEDS: Cholecalciferol (VIT D3) 25 MCG TABLET (1,000 UNITS) PO (21:33)
[2021-02-12] MEDS: MELATONIN 10 MG TABLET PO (21:33)
[2021-02-13] MEDS: Pantoprazole Sodium 20 MG Tablet PO (05:29)
[2021-02-13] MEDS: Senna/Docusate Sodium 1 Tablet PO ×2 (05:29→17:08)
[2021-02-13] MEDS: levETIRAcetam 500 MG Tablet PO ×2 (05:29→17:08)
[2021-02-13] MEDS: Enoxaparin 40 MG/0.4 ML Syringe SC (05:30)
[2021-02-13] MEDS: Menthol/Lanolin/Calamine/Znox 113 GM Tube 1 APPLIC TOPICAL ×2 (05:31→17:08)
[2021-02-13] MEDS: Nystatin Powder 15gm Bottle 1 APPLIC TOPICAL ×2 (05:31→17:08)
[2021-02-13 05:35] VITALS: BP 121/79; PULSE 89; RESP 18; TEMP 36.6; O2SAT 95
[2021-02-13 06:30] LABS: Bedside Glucose 135 mg/dL (70-110)
[2021-02-13] MEDS: Aspirin 81 MG TAB.CHEW PO (08:26)
[2021-02-13 10:00] VITALS: O2SAT 94
[2021-02-13 10:56] LABS: Bedside Glucose 199 mg/dL (70-110)
[2021-02-13] MEDS: metFORMIN (XR) 500 MG Tablet PO (11:10)
[2021-02-13 15:17] VITALS: BP 133/72; PULSE 82; RESP 20; TEMP 36.3; O2SAT 99
[2021-02-13 15:28] VITALS: O2SAT 99
[2021-02-13 16:36] LABS: Bedside Glucose 128 mg/dL (70-110)
[2021-02-13] MEDS: Cholecalciferol (VIT D3) 25 MCG TABLET (1,000 UNITS) PO (20:12)
[2021-02-13] MEDS: Atorvastatin Calcium 20 MG Tablet PO (20:12)
[2021-02-13] MEDS: MELATONIN 10 MG TABLET PO (20:12)
[2021-02-13 21:30] LABS: Bedside Glucose 132 mg/dL (70-110)
[2021-02-14 04:37] VITALS: BP 135/84; PULSE 80; RESP 16; TEMP 37; O2SAT 95
[2021-02-14] MEDS: Senna/Docusate Sodium 1 Tablet PO ×2 (04:42→17:19)
[2021-02-14] MEDS: Enoxaparin 40 MG/0.4 ML Syringe SC (04:42)
[2021-02-14] MEDS: levETIRAcetam 500 MG Tablet PO ×2 (04:42→17:19)
[2021-02-14] MEDS: Pantoprazole Sodium 20 MG Tablet PO (04:42)
[2021-02-14] MEDS: Nystatin Powder 15gm Bottle 1 APPLIC TOPICAL ×2 (04:43→17:19)
[2021-02-14 06:26] LABS: Bedside Glucose 125 mg/dL (70-110)
[2021-02-14 06:53] VITALS: O2SAT 95
[2021-02-14] MEDS: Aspirin 81 MG TAB.CHEW PO (08:11)
[2021-02-14 11:25] LABS: Bedside Glucose 142 mg/dL (70-110)
[2021-02-14] MEDS: metFORMIN (XR) 500 MG Tablet PO (11:37)
[2021-02-14 14:10] VITALS: BP 134/85; PULSE 75; RESP 16; TEMP 36.2; O2SAT 94
[2021-02-14] MEDS: Menthol/Lanolin/Calamine/Znox 113 GM Tube 1 APPLIC TOPICAL (17:20)
[2021-02-14 18:05] LABS: Bedside Glucose 108 mg/dL (70-110)
[2021-02-14 21:20] LABS: Bedside Glucose 147 mg/dL (70-110)
[2021-02-14 22:00] VITALS: PULSE 83; O2SAT 96
[2021-02-14] MEDS: Cholecalciferol (VIT D3) 25 MCG TABLET (1,000 UNITS) PO (22:38)
[2021-02-14] MEDS: Atorvastatin Calcium 20 MG Tablet PO (22:38)
[2021-02-14] MEDS: MELATONIN 10 MG TABLET PO (22:38)
[2021-02-15 05:00] VITALS: BP 113/65; PULSE 79; RESP 18; TEMP 36.6; O2SAT 92
[2021-02-15 06:26] LABS: Bedside Glucose 120 mg/dL (70-110)
[2021-02-15] MEDS: Enoxaparin 40 MG/0.4 ML Syringe SC (06:26)
[2021-02-15] MEDS: Nystatin Powder 15gm Bottle 1 APPLIC TOPICAL ×2 (06:26→17:06)
[2021-02-15] MEDS: Pantoprazole Sodium 20 MG Tablet PO (06:26)
[2021-02-15] MEDS: Menthol/Lanolin/Calamine/Znox 113 GM Tube 1 APPLIC TOPICAL ×2 (06:26→17:06)
[2021-02-15] MEDS: Senna/Docusate Sodium 1 Tablet PO ×2 (06:26→17:04)
[2021-02-15] MEDS: levETIRAcetam 500 MG Tablet PO ×2 (06:26→17:04)
[2021-02-15 08:00] VITALS: O2SAT 92
[2021-02-15] MEDS: Aspirin 81 MG TAB.CHEW PO (09:06)
--- NOTE | 2021-02-15 10:24 | PCA ---
Scheduled follow up appts. Debra pulmonology Dr. Deras/Chuyita Junior March 03 12:45pm. Dr. Piedra, [facility] Neurology March 23 @ 9am. This was the first available appt. JOLIE updated
[2021-02-15 11:10] LABS: Bedside Glucose 123 mg/dL (70-110)
[2021-02-15] MEDS: metFORMIN (XR) 500 MG Tablet PO (11:48)
[2021-02-15 14:52] VITALS: BP 134/79; PULSE 78; RESP 20; TEMP 36.3; O2SAT 93
[2021-02-15 16:41] LABS: Bedside Glucose 124 mg/dL (70-110)
[2021-02-15 21:12] VITALS: PULSE 82; RESP 18; O2SAT 94
[2021-02-15] MEDS: MELATONIN 10 MG TABLET PO (21:12)
[2021-02-15] MEDS: Atorvastatin Calcium 20 MG Tablet PO (21:12)
[2021-02-15] MEDS: Cholecalciferol (VIT D3) 25 MCG TABLET (1,000 UNITS) PO (21:12)
[2021-02-15 21:30] LABS: Bedside Glucose 127 mg/dL (70-110)
[2021-02-16 05:00] VITALS: BP 130/72; PULSE 90; RESP 16; TEMP 36.6; O2SAT 97
[2021-02-16 06:26] LABS: Bedside Glucose 109 mg/dL (70-110)
[2021-02-16 06:40] VITALS: O2SAT 94
[2021-02-16] MEDS: Senna/Docusate Sodium 1 Tablet PO ×2 (06:41→17:04)
[2021-02-16] MEDS: Enoxaparin 40 MG/0.4 ML Syringe SC (06:41)
[2021-02-16] MEDS: Pantoprazole Sodium 20 MG Tablet PO (06:41)
[2021-02-16] MEDS: levETIRAcetam 500 MG Tablet PO ×2 (06:41→17:04)
[2021-02-16] MEDS: Menthol/Lanolin/Calamine/Znox 113 GM Tube 1 APPLIC TOPICAL ×2 (06:44→17:05)
[2021-02-16] MEDS: Nystatin Powder 15gm Bottle 1 APPLIC TOPICAL ×2 (06:45→17:06)
--- NOTE | 2021-02-16 06:49 | NURSING ---
Patient's left eye red. Asked patient if her eye love or itches, patient responded with, it's itchy at times. Note left for Dr. Aldana. RN aware.
[2021-02-16] MEDS: Aspirin 81 MG TAB.CHEW PO (08:27)
[2021-02-16] MEDS: Ciprofloxacin 0.3% 2.5ml Bottle 1 DRP LEFT EYE ×4 (10:12→21:30)
[2021-02-16 10:45] VITALS: PULSE 96; RESP 18; O2SAT 97
[2021-02-16 10:55] LABS: Bedside Glucose 147 mg/dL (70-110)
[2021-02-16] MEDS: metFORMIN (XR) 500 MG Tablet PO (11:01)
[2021-02-16 14:46] VITALS: BP 125/74; PULSE 76; RESP 18; TEMP 36.2; O2SAT 94
[2021-02-16 17:20] LABS: Bedside Glucose 147 mg/dL (70-110)
[2021-02-16] MEDS: MELATONIN 10 MG TABLET PO (21:30)
[2021-02-16] MEDS: Cholecalciferol (VIT D3) 25 MCG TABLET (1,000 UNITS) PO (21:30)
[2021-02-16] MEDS: Atorvastatin Calcium 20 MG Tablet PO (21:30)
[2021-02-16 22:26] LABS: Bedside Glucose 125 mg/dL (70-110)
[2021-02-17 05:00] VITALS: BP 131/80; PULSE 72; RESP 16; TEMP 36.6; O2SAT 94
[2021-02-17 06:05] LABS: Bedside Glucose 127 mg/dL (70-110)
[2021-02-17] MEDS: levETIRAcetam 500 MG Tablet PO ×2 (06:29→17:03)
[2021-02-17] MEDS: Ciprofloxacin 0.3% 2.5ml Bottle 1 DRP LEFT EYE ×5 (06:29→20:28)
[2021-02-17] MEDS: Pantoprazole Sodium 20 MG Tablet PO (06:29)
[2021-02-17] MEDS: Enoxaparin 40 MG/0.4 ML Syringe SC (06:30)
[2021-02-17] MEDS: Nystatin Powder 15gm Bottle 1 APPLIC TOPICAL ×2 (06:33→17:03)
[2021-02-17] MEDS: Menthol/Lanolin/Calamine/Znox 113 GM Tube 1 APPLIC TOPICAL ×2 (06:37→17:05)
[2021-02-17 07:43] VITALS: O2SAT 93
[2021-02-17] MEDS: Aspirin 81 MG TAB.CHEW PO (07:43)
[2021-02-17 09:43] VITALS: PULSE 84; O2SAT 95
[2021-02-17 11:15] LABS: Bedside Glucose 133 mg/dL (70-110)
[2021-02-17] MEDS: metFORMIN (XR) 500 MG Tablet PO (13:14)
[2021-02-17 14:00] VITALS: BP 148/73; PULSE 88; RESP 20; TEMP 36.8; O2SAT 92
--- NOTE | 2021-02-17 14:14 | CASEMGMT ---
Social Work IDT met with patient and for care plan meeting. Discussed patient's progress in therapy and nursing. Pt progressing well. Nursing working to wean pt off of O2 however pts stats still fall below 88% at rest and at exertion with therapy. Explained SW will order O2 and sleep study for CPAP at [facility], along with continued therapy or other DME needs. Explained Medicare benefit and encouraged to contact secondary insurance to ensure copay coverage. Explained pt and IDT can work together to set DC date when ready. Pt would like to continue a little longer. Spoke with sleep lab to coordinate sleep study at [facility]. All documentation needed is completed. Will get order and schedule study once DC date is given. Pt is understanding the goal is to get sleep study prior to DC and then pulmonary will f/u with pt on results and treatment. SW to continue to follow. Alycia Whiting, [employer] IMPROVEMENT INSTALLER
[2021-02-17 16:50] LABS: Bedside Glucose 109 mg/dL (70-110)
[2021-02-17] MEDS: Cholecalciferol (VIT D3) 25 MCG TABLET (1,000 UNITS) PO (20:28)
[2021-02-17] MEDS: Atorvastatin Calcium 20 MG Tablet PO (20:28)
[2021-02-17] MEDS: MELATONIN 10 MG TABLET PO (20:28)
[2021-02-17 21:25] LABS: Bedside Glucose 126 mg/dL (70-110)
[2021-02-18 06:20] LABS: Bedside Glucose 125 mg/dL (70-110)
[2021-02-18] MEDS: levETIRAcetam 500 MG Tablet PO ×2 (07:05→17:22)
[2021-02-18] MEDS: Enoxaparin 40 MG/0.4 ML Syringe SC (07:05)
[2021-02-18] MEDS: Nystatin Powder 15gm Bottle 1 APPLIC TOPICAL ×2 (07:06→22:22)
[2021-02-18] MEDS: Pantoprazole Sodium 20 MG Tablet PO (07:06)
[2021-02-18] MEDS: Ciprofloxacin 0.3% 2.5ml Bottle 1 DRP LEFT EYE ×5 (07:06→22:24)
[2021-02-18] MEDS: Menthol/Lanolin/Calamine/Znox 113 GM Tube 1 APPLIC TOPICAL ×2 (07:08→17:22)
[2021-02-18 07:16] VITALS: BP 136/77; PULSE 71; RESP 16; TEMP 36.4; O2SAT 93
[2021-02-18] MEDS: Aspirin 81 MG TAB.CHEW PO (08:01)
[2021-02-18 10:56] LABS: Bedside Glucose 143 mg/dL (70-110)
[2021-02-18] MEDS: metFORMIN (XR) 500 MG Tablet PO (11:38)
--- NOTE | 2021-02-18 13:19 | NURSING ---
pt stated she updates family
[2021-02-18 14:02] VITALS: BP 153/73; PULSE 78; RESP 20; TEMP 36.4; O2SAT 97
[2021-02-18 16:11] LABS: Bedside Glucose 99 mg/dL (70-110)
[2021-02-18 21:36] LABS: Bedside Glucose 110 mg/dL (70-110)
[2021-02-18] MEDS: MELATONIN 10 MG TABLET PO (22:24)
[2021-02-18] MEDS: Atorvastatin Calcium 20 MG Tablet PO (22:24)
[2021-02-18] MEDS: Cholecalciferol (VIT D3) 25 MCG TABLET (1,000 UNITS) PO (22:25)
[2021-02-19 05:28] LABS: Absolute Lymphocyte Count 1.87 X10^3/uL (0.83-4.51); Absolute Neutrophil Count 4.5 X10^3/uL (2.0-7.7); Basophil# 0.07 X10^3/uL; Basophil% 0.9 % (0-1); Eosinophils% 5.3 % (0-5); Hematocrit 37.8 % (37-47); Hemoglobin 11.7 g/dL (12.0-15.0); Lymphocyte # 1.87 X10^3/ul (0.83-4.51); Lymphocyte % 24.6 % (19-41); Mean Corpuscular Volume 90.4 fL (81-99); Mean Platelet Vol. 11.1 fl (6.2-12.0); Monocyte# 0.75 X10^3/uL; Monocyte% 9.9 % (0-10); NRBC Flagged by Analyzer 0 % (0-5); Neutrophil # 4.47 X10^3/uL (2.7-7.7); Neutrophil % 58.9 % (47-70); Platelet Count 194 K/mm3 (150-450); RBC Distribution Width CV 14.6 % (11.6-14.6); RBC Distribution Width SD 47.4 fl (35.1-43.9); Red Blood Count 4.18 M/mm3 (4.2-5.4); White Blood Count 7.6 K/mm3 (4.4-11.0)
[2021-02-19 05:44] LABS: Anion Gap 5 (5-15); BUN 12 mg/dL (7-18); BUN/Creat Ratio 11.4 RATIO (10-20); Chloride 106 mmol/L (98-107); Creatinine, Serum 1.05 mg/dL (0.55-1.02); EST Glomerular Filtration Rate 55 mL/min (>60); Est Glom Filt Rate - Afr Amer 67 mL/min (>60); Estimated Creatinine Clearance 47.34 ml/min; Glucose 113 mg/dL (74-106); Potassium 3.8 mmol/L (3.5-5.1); Sodium Level 140 mmol/L (136-145)
[2021-02-19 06:41] LABS: Bedside Glucose 120 mg/dL (70-110)
[2021-02-19 06:46] VITALS: BP 139/77; PULSE 77; RESP 18; TEMP 37.2; O2SAT 92
[2021-02-19] MEDS: Ciprofloxacin 0.3% 2.5ml Bottle 1 DRP LEFT EYE ×5 (06:48→21:17)
[2021-02-19] MEDS: Enoxaparin 40 MG/0.4 ML Syringe SC (06:49)
[2021-02-19] MEDS: levETIRAcetam 500 MG Tablet PO ×2 (06:50→17:03)
[2021-02-19] MEDS: Pantoprazole Sodium 20 MG Tablet PO (06:50)
[2021-02-19] MEDS: Nystatin Powder 15gm Bottle 1 APPLIC TOPICAL ×2 (06:53→17:06)
[2021-02-19] MEDS: Menthol/Lanolin/Calamine/Znox 113 GM Tube 1 APPLIC TOPICAL ×2 (06:54→17:05)
[2021-02-19 06:58] VITALS: O2SAT 94
[2021-02-19] MEDS: Aspirin 81 MG TAB.CHEW PO (08:07)
[2021-02-19] MEDS: Tuberculin,Purif.prot.deriv. 50 TU/ML Vial 0.1 ML ID (09:49)
[2021-02-19 11:16] LABS: Bedside Glucose 114 mg/dL (70-110)
[2021-02-19] MEDS: metFORMIN (XR) 500 MG Tablet PO (13:18)
[2021-02-19 14:13] VITALS: BP 112/80; PULSE 78; RESP 20; TEMP 36.3; O2SAT 96
[2021-02-19 16:51] LABS: Bedside Glucose 132 mg/dL (70-110)
[2021-02-19] MEDS: Cholecalciferol (VIT D3) 25 MCG TABLET (1,000 UNITS) PO (21:17)
[2021-02-19] MEDS: Atorvastatin Calcium 20 MG Tablet PO (21:17)
[2021-02-19] MEDS: MELATONIN 10 MG TABLET PO (21:17)
[2021-02-19 22:10] LABS: Bedside Glucose 130 mg/dL (70-110)
[2021-02-20 01:39] VITALS: BP 127/65; PULSE 74; RESP 18; TEMP 36.7; O2SAT 93
[2021-02-20 06:16] LABS: Bedside Glucose 114 mg/dL (70-110)
[2021-02-20] MEDS: levETIRAcetam 500 MG Tablet PO ×2 (06:50→17:39)
[2021-02-20] MEDS: Enoxaparin 40 MG/0.4 ML Syringe SC (06:50)
[2021-02-20] MEDS: Ciprofloxacin 0.3% 2.5ml Bottle 1 DRP LEFT EYE ×5 (06:50→20:09)
[2021-02-20] MEDS: Nystatin Powder 15gm Bottle 1 APPLIC TOPICAL ×2 (06:50→17:38)
[2021-02-20] MEDS: Menthol/Lanolin/Calamine/Znox 113 GM Tube 1 APPLIC TOPICAL ×2 (06:51→17:38)
[2021-02-20] MEDS: Pantoprazole Sodium 20 MG Tablet PO (06:52)
[2021-02-20] MEDS: Aspirin 81 MG TAB.CHEW PO (09:28)
[2021-02-20 10:50] VITALS: PULSE 94; RESP 18; O2SAT 96
[2021-02-20] MEDS: metFORMIN (XR) 500 MG Tablet PO (11:02)
[2021-02-20 11:20] LABS: Bedside Glucose 153 mg/dL (70-110)
--- NOTE | 2021-02-20 13:20 | NURSING ---
pt stated she updates family
[2021-02-20 15:20] VITALS: BP 132/69; PULSE 68; RESP 16; TEMP 36.2; O2SAT 93
[2021-02-20 17:00] LABS: Bedside Glucose 119 mg/dL (70-110)
[2021-02-20] MEDS: MELATONIN 10 MG TABLET PO (20:13)
[2021-02-20] MEDS: Atorvastatin Calcium 20 MG Tablet PO (20:13)
[2021-02-20] MEDS: Cholecalciferol (VIT D3) 25 MCG TABLET (1,000 UNITS) PO (20:14)
[2021-02-20 21:55] LABS: Bedside Glucose 117 mg/dL (70-110)
[2021-02-21 05:00] VITALS: BP 123/80; PULSE 68; RESP 18; TEMP 36.4; O2SAT 95
[2021-02-21 06:36] LABS: Bedside Glucose 124 mg/dL (70-110)
[2021-02-21] MEDS: Enoxaparin 40 MG/0.4 ML Syringe SC (06:42)
[2021-02-21] MEDS: Menthol/Lanolin/Calamine/Znox 113 GM Tube 1 APPLIC TOPICAL ×2 (06:42→17:14)
[2021-02-21] MEDS: Pantoprazole Sodium 20 MG Tablet PO (06:42)
[2021-02-21] MEDS: levETIRAcetam 500 MG Tablet PO ×2 (06:42→17:15)
[2021-02-21] MEDS: Ciprofloxacin 0.3% 2.5ml Bottle 1 DRP LEFT EYE ×5 (06:42→21:05)
[2021-02-21] MEDS: Nystatin Powder 15gm Bottle 1 APPLIC TOPICAL ×2 (06:43→21:05)
[2021-02-21 07:25] VITALS: O2SAT 94
[2021-02-21] MEDS: Aspirin 81 MG TAB.CHEW PO (08:05)
[2021-02-21 11:20] LABS: Bedside Glucose 144 mg/dL (70-110)
[2021-02-21] MEDS: metFORMIN (XR) 500 MG Tablet PO (11:47)
[2021-02-21 14:58] VITALS: BP 115/62; PULSE 70; RESP 16; TEMP 36.7; O2SAT 97
--- NOTE | 2021-02-21 15:48 | NURSING ---
PT UPDATED FAMILY AT VISIT.
[2021-02-21 17:31] LABS: Bedside Glucose 138 mg/dL (70-110)
[2021-02-21] MEDS: Cholecalciferol (VIT D3) 25 MCG TABLET (1,000 UNITS) PO (21:05)
[2021-02-21] MEDS: MELATONIN 10 MG TABLET PO (21:05)
[2021-02-21] MEDS: Atorvastatin Calcium 20 MG Tablet PO (21:05)
[2021-02-21 21:25] LABS: Bedside Glucose 120 mg/dL (70-110)
[2021-02-22 05:00] VITALS: PULSE 75; RESP 18; O2SAT 96
[2021-02-22 06:30] LABS: Bedside Glucose 132 mg/dL (70-110)
[2021-02-22] MEDS: Ciprofloxacin 0.3% 2.5ml Bottle 1 DRP LEFT EYE ×5 (06:37→22:13)
[2021-02-22] MEDS: Enoxaparin 40 MG/0.4 ML Syringe SC (06:37)
[2021-02-22] MEDS: Menthol/Lanolin/Calamine/Znox 113 GM Tube 1 APPLIC TOPICAL ×2 (06:37→17:03)
[2021-02-22] MEDS: Pantoprazole Sodium 20 MG Tablet PO (06:38)
[2021-02-22] MEDS: Nystatin Powder 15gm Bottle 1 APPLIC TOPICAL ×2 (06:38→17:03)
[2021-02-22] MEDS: levETIRAcetam 500 MG Tablet PO ×2 (06:38→17:02)
[2021-02-22 06:57] VITALS: O2SAT 95
[2021-02-22] MEDS: Aspirin 81 MG TAB.CHEW PO (08:55)
[2021-02-22 11:21] LABS: Bedside Glucose 133 mg/dL (70-110)
[2021-02-22] MEDS: metFORMIN (XR) 500 MG Tablet PO (11:33)
[2021-02-22 14:01] VITALS: BP 136/71; PULSE 58; RESP 18; TEMP 36.1; O2SAT 98
[2021-02-22 17:15] LABS: Bedside Glucose 125 mg/dL (70-110)
--- NOTE | 2021-02-22 19:30 | NURSING ---
Ambulates to bathroom without difficulty w/ contact guard assist x1 using FWW. Returned to w/c and pt reclined LEs. Call light w/ in reach.
[2021-02-22 21:45] LABS: Bedside Glucose 159 mg/dL (70-110)
[2021-02-22] MEDS: Cholecalciferol (VIT D3) 25 MCG TABLET (1,000 UNITS) PO (22:12)
[2021-02-22] MEDS: Atorvastatin Calcium 20 MG Tablet PO (22:12)
[2021-02-22] MEDS: MELATONIN 10 MG TABLET PO (22:12)
--- NOTE | 2021-02-22 22:27 | PCA ---
All HS care for patient done by RN per patient requesting a female to help with care.
[2021-02-23 05:00] VITALS: BP 132/79; PULSE 63; RESP 18; TEMP 36.6; O2SAT 95
[2021-02-23] MEDS: Pantoprazole Sodium 20 MG Tablet PO (06:51)
[2021-02-23] MEDS: Enoxaparin 40 MG/0.4 ML Syringe SC (06:51)
[2021-02-23] MEDS: Menthol/Lanolin/Calamine/Znox 113 GM Tube 1 APPLIC TOPICAL ×2 (06:51→17:38)
[2021-02-23] MEDS: Ciprofloxacin 0.3% 2.5ml Bottle 1 DRP LEFT EYE ×2 (06:51→10:38)
[2021-02-23] MEDS: Nystatin Powder 15gm Bottle 1 APPLIC TOPICAL ×2 (06:52→17:37)
[2021-02-23] MEDS: levETIRAcetam 500 MG Tablet PO ×2 (06:58→17:34)
[2021-02-23] MEDS: Aspirin 81 MG TAB.CHEW PO (08:26)
--- NOTE | 2021-02-23 10:35 | MDS.RN ---
Information for the mds was obtained from review of the clinical record, interview of resident, staff, and direct observation of resident's care.
[2021-02-23] MEDS: metFORMIN (XR) 500 MG Tablet PO (11:36)
[2021-02-23 11:38] LABS: Bedside Glucose 115 mg/dL (70-110)
[2021-02-23 11:39] LABS: Bedside Glucose 140 mg/dL (70-110)
--- NOTE | 2021-02-23 13:42 | CASEMGMT ---
Social Work Spoke with pt about IDT setting DC date 02/26. Pt agreeable. Spoke with [facility] Sleep [facility] and pt is scheduled for sleep study 02/26. Pt agreeable. Pt has no DME needs. Pt prefers [facility] outpatient therapy. Referral made for PT/OT. to transport. [place] [facility] [place] with 02[place]26, sleep study, new O2, [facility] PT/OT Alycia Whiting, APPELL[employer]ER INSTALLER
[2021-02-23 13:46] VITALS: BP 121/73; PULSE 87; RESP 16; TEMP 36.7; O2SAT 96
[2021-02-23 14:30] VITALS: O2SAT 94
[2021-02-23 16:50] LABS: Bedside Glucose 133 mg/dL (70-110)
--- NOTE | 2021-02-23 16:58 | NURSING ---
while working with physical therapy on ra pulse ox 94-96% while doing nustep and after ambulating, per pt tolerated well.
[2021-02-23 17:05] VITALS: O2SAT 94
--- NOTE | 2021-02-23 17:39 | CPS ---
patient was wearing oxygen in a.m. of 02/23/2021
[2021-02-23] MEDS: MELATONIN 10 MG TABLET PO (19:52)
[2021-02-23] MEDS: Cholecalciferol (VIT D3) 25 MCG TABLET (1,000 UNITS) PO (19:52)
[2021-02-23] MEDS: Atorvastatin Calcium 20 MG Tablet PO (19:52)
[2021-02-23 21:40] LABS: Bedside Glucose 135 mg/dL (70-110)
--- NOTE | 2021-02-23 22:07 | PCM.DC.SUM ---
Providers Date of Admission: 02/11/21 Primary Care Physician: Dr. Braden Pappas MD Reason For Visit: SEIZURES Diagnosis Discharge Diagnosis (1) Debility: Status: Acute Code(s): R53.81 - Other malaise (2) Acute respiratory failure with hypoxia: Status: Acute Code(s): J96.01 - Acute respiratory failure with hypoxia (3) Seizure disorder: Status: Acute Code(s): G40.909 - Epilepsy, unspecified, not intractable, without status epilepticus (4) Diabetes mellitus type 2 in obese: Status: Acute Code(s): E11.69 - Type 2 diabetes mellitus with other specified complication; E66.9 - Obesity, unspecified (5) HTN (hypertension): Status: Chronic Code(s): I10 - Essential (primary) hypertension (6) Hyperlipidemia: Status: Acute Code(s): E78.5 - Hyperlipidemia, unspecified (7) Colonic polyp: Status: Acute Code(s): K63.5 - Polyp of colon (8) Gastroesophageal reflux disease: Status: Acute Code(s): K21.9 - Gastro-esophageal reflux disease without esophagitis Medications at Discharge Home Medications cholecalciferol (vitamin D3) 1,000 unit PO QHS 05/16/19 garlic 1,000 mg PO QHS 05/16/19 metformin 500 mg PO LUNCH 05/16/19 simvastatin 40 mg PO QHS 05/16/19 esomeprazole magnesium [Nexium] 20 mg PO DAILY 02/07/21 aspirin 81 mg PO DAILY@0800 02/11/21 levetiracetam 500 mg PO BID 30 Days #60 tab 02/23/21 melatonin 10 mg PO QHS #0 tab 02/23/21 Hospital Course Operations None Procedures None Summary of Care Provided Minutes Spent on Discharge: 35 Hospital Course: 70 year old female with below past medical history hospitalized for acute encephalopathy secondary to new onset seizure disorder, stroke ruled out, sepsis ruled out, infection ruled out, admitted to TCU with debility, here for rehabilitation, strengthening, prior to discharge home with . Discharge home with 02/26/2021, sleep study, new oxygen, [facility] PT/OT. ABG / Lab / Microbiology Data Result Diagrams: 02/19/21 05:10 02/19/21 05:10 Laboratory: Laboratory Results - last 24 hr 02/23/21 02/23/21 02/23/21 06:17 10:41 16:43 POC Glucose 115 H 140 H 133 H 02/23/21 21:27 POC Glucose 135 H D/C Instructions Discharge Diet: No restrictions Discharge Activity: Return to Normal Activity, May Shower and Use Walker Weight Bearing Status: Weight bearing as tolerated Call your doctor if you observe: Fever of 101 or Higher, Inability to urinate, Inability to have a bowel movement, Shortness of breath, Fainting spells, Chest pain and Uncontrolled pain Additional Instructions: Discharge home with 02/26/2021, sleep study, new oxygen, [facility] PT/OT. Please Follow Up With: Harsh Deras DO When: 2 weeks. Meaningful Use Info Meaningful Use Diagnoses (Choose all that apply): None applicable Discharge Plan Admission Admit Date/Time: 02/11/21 14:09 Primary Reason for Your Visit: Debility Attending Provider: Ben Aldana Chi Primary Care Provider: Braden Pappas Instructions Additional Instructions / Restrictions: Discharge home with 02/26/2021, sleep study, new oxygen, [facility] PT/OT. Discharge Orders/Prescriptions Prescriptions: New melatonin 10 mg Tablet, Sublingual 10 mg PO QHS Qty: 0 RF: 0 Continued simvastatin 40 MG tablet 40 mg PO QHS RF: 0 garlic 1,000 MG capsule 1,000 mg PO QHS RF: 0 metformin 500 MG tablet extended release 24 hr 500 mg PO LUNCH RF: 0 cholecalciferol (vitamin D3) 1,000 UNIT capsule 1,000 unit PO QHS RF: 0 esomeprazole magnesium [Nexium] 20 mg Capsule,Delayed Release(Dr/Ec) 20 mg PO DAILY RF: 0 aspirin 81 mg tablet,chewable 81 mg PO DAILY@0800 RF: 0 levetiracetam 500 mg tablet 500 mg PO BID 30 Days Qty: 60 RF: 0 Discontinued amitriptyline 25 MG tablet 25 mg PO QHS RF: 0 Referrals / Follow Up: Braden Pappas MD [Primary Care Provider] - Disposition Disposition (needs filled in before D/C Order can be placed): Home, self care
[2021-02-24] MEDS: levETIRAcetam 500 MG Tablet PO ×2 (06:07→17:04)
[2021-02-24] MEDS: Pantoprazole Sodium 20 MG Tablet PO (06:07)
[2021-02-24] MEDS: Nystatin Powder 15gm Bottle 1 APPLIC TOPICAL ×2 (06:07→17:07)
[2021-02-24] MEDS: Enoxaparin 40 MG/0.4 ML Syringe SC (06:07)
[2021-02-24] MEDS: Menthol/Lanolin/Calamine/Znox 113 GM Tube 1 APPLIC TOPICAL ×2 (06:08→17:07)
[2021-02-24 06:12] VITALS: BP 116/74; PULSE 74; RESP 16; TEMP 36.8; O2SAT 95
[2021-02-24 06:25] LABS: Bedside Glucose 117 mg/dL (70-110)
[2021-02-24 07:32] VITALS: O2SAT 93
[2021-02-24] MEDS: Aspirin 81 MG TAB.CHEW PO (08:32)
[2021-02-24 10:00] VITALS: O2SAT 93; O2SAT 95
[2021-02-24 10:50] LABS: Bedside Glucose 154 mg/dL (70-110)
[2021-02-24] MEDS: metFORMIN (XR) 500 MG Tablet PO (11:30)
--- NOTE | 2021-02-24 12:14 | CASEMGMT ---
Social Work Brief interview for mental status (BIMS) and resident mood assessment (PHQ-9) completed on this day. Romy DOTY, PENNYS
[2021-02-24 13:47] VITALS: BP 141/74; PULSE 72; RESP 18; TEMP 36.2; O2SAT 96
[2021-02-24 16:16] LABS: Bedside Glucose 128 mg/dL (70-110)
[2021-02-24 19:55] VITALS: BP 126/74; PULSE 73; RESP 16; TEMP 36.3; O2SAT 98
[2021-02-24] MEDS: MELATONIN 10 MG TABLET PO (20:00)
[2021-02-24] MEDS: Atorvastatin Calcium 20 MG Tablet PO (20:00)
[2021-02-24] MEDS: Cholecalciferol (VIT D3) 25 MCG TABLET (1,000 UNITS) PO (20:00)
[2021-02-24 21:26] LABS: Bedside Glucose 154 mg/dL (70-110)
[2021-02-24 21:44] VITALS: PULSE 85; O2SAT 95
[2021-02-25 05:00] VITALS: BP 119/82; PULSE 95; RESP 16; TEMP 36.8; O2SAT 95
[2021-02-25 06:20] LABS: Bedside Glucose 115 mg/dL (70-110)
[2021-02-25] MEDS: Enoxaparin 40 MG/0.4 ML Syringe SC (06:27)
[2021-02-25] MEDS: levETIRAcetam 500 MG Tablet PO ×2 (06:27→17:27)
[2021-02-25] MEDS: Pantoprazole Sodium 20 MG Tablet PO (06:27)
[2021-02-25] MEDS: Nystatin Powder 15gm Bottle 1 APPLIC TOPICAL ×2 (06:28→17:26)
[2021-02-25] MEDS: Menthol/Lanolin/Calamine/Znox 113 GM Tube 1 APPLIC TOPICAL ×2 (06:29→17:26)
[2021-02-25 07:27] VITALS: O2SAT 95
[2021-02-25] MEDS: Aspirin 81 MG TAB.CHEW PO (09:45)
[2021-02-25 10:00] VITALS: O2SAT 94; O2SAT 95; O2SAT 97
[2021-02-25 10:30] LABS: Bedside Glucose 167 mg/dL (70-110)
[2021-02-25] MEDS: Acetaminophen 500 MG Tablet 1000 MG PO (10:32)
[2021-02-25] MEDS: metFORMIN (XR) 500 MG Tablet PO (11:58)
[2021-02-25 13:55] VITALS: BP 139/80; PULSE 87; RESP 18; TEMP 36.3; O2SAT 96
[2021-02-25 16:10] LABS: Bedside Glucose 124 mg/dL (70-110)
[2021-02-25 21:30] LABS: Bedside Glucose 142 mg/dL (70-110)
[2021-02-25] MEDS: MELATONIN 10 MG TABLET PO (21:52)
[2021-02-25] MEDS: Atorvastatin Calcium 20 MG Tablet PO (21:52)
[2021-02-25] MEDS: Cholecalciferol (VIT D3) 25 MCG TABLET (1,000 UNITS) PO (21:53)
[2021-02-26 05:50] LABS: Absolute Lymphocyte Count 1.78 X10^3/uL (0.83-4.51); Basophil# 0.05 X10^3/uL; Basophil% 0.9 % (0-1); Eosinophil# 0.32 X10^3/uL; Eosinophils% 5.5 % (0-5); Hematocrit 40.4 % (37-47); Hemoglobin 12.3 g/dL (12.0-15.0); Lymphocyte # 1.78 X10^3/ul (0.83-4.51); Lymphocyte % 30.6 % (19-41); Mean Corp Hgb Conc 30.4 g/dL (32-36); Mean Corpuscular Hgb 28.1 pg (27.0-32.0); Mean Corpuscular Volume 92.4 fL (81-99); Mean Platelet Vol. 11.2 fl (6.2-12.0); Monocyte# 0.64 X10^3/uL; NRBC Flagged by Analyzer 0 % (0-5); Neutrophil # 3.01 X10^3/uL (2.7-7.7); Neutrophil % 51.7 % (47-70); Platelet Count 222 K/mm3 (150-450); RBC Distribution Width CV 14.3 % (11.6-14.6); RBC Distribution Width SD 48.5 fl (35.1-43.9); Red Blood Count 4.37 M/mm3 (4.2-5.4); White Blood Count 5.8 K/mm3 (4.4-11.0)
[2021-02-26 06:26] LABS: Bedside Glucose 115 mg/dL (70-110)
[2021-02-26 06:34] LABS: Anion Gap 4 (5-15); BUN 18 mg/dL (7-18); BUN/Creat Ratio 16.4 RATIO (10-20); Calcium,Total 9.1 mg/dL (8.5-10.1); Chloride 107 mmol/L (98-107); EST Glomerular Filtration Rate 52 mL/min (>60); Est Glom Filt Rate - Afr Amer 63 mL/min (>60); Estimated Creatinine Clearance 45.19 ml/min; Glucose 109 mg/dL (74-106); Sodium Level 141 mmol/L (136-145)
[2021-02-26 06:39] VITALS: BP 149/76; PULSE 71; RESP 16; TEMP 36.8; O2SAT 93
[2021-02-26] MEDS: Pantoprazole Sodium 20 MG Tablet PO (06:41)
[2021-02-26] MEDS: Enoxaparin 40 MG/0.4 ML Syringe SC (06:41)
[2021-02-26] MEDS: Nystatin Powder 15gm Bottle 1 APPLIC TOPICAL ×2 (06:41→17:59)
[2021-02-26] MEDS: levETIRAcetam 500 MG Tablet PO ×2 (06:41→17:58)
[2021-02-26] MEDS: Menthol/Lanolin/Calamine/Znox 113 GM Tube 1 APPLIC TOPICAL ×2 (06:43→17:59)
[2021-02-26] MEDS: Aspirin 81 MG TAB.CHEW PO (09:50)
[2021-02-26 11:23] VITALS: O2SAT 95
[2021-02-26 11:30] LABS: Bedside Glucose 170 mg/dL (70-110)
[2021-02-26] MEDS: metFORMIN (XR) 500 MG Tablet PO (11:43)
--- NOTE | 2021-02-26 13:42 | NURSING ---
received a call from sleep lab they would like pt to have all her night time medications prior to her appt.
[2021-02-26 14:46] VITALS: BP 121/67; PULSE 69; RESP 17; TEMP 36.2; O2SAT 97
[2021-02-26 16:55] LABS: Bedside Glucose 118 mg/dL (70-110)
[2021-02-26] MEDS: MELATONIN 10 MG TABLET PO (18:03)
[2021-02-26] MEDS: Cholecalciferol (VIT D3) 25 MCG TABLET (1,000 UNITS) PO (18:04)
[2021-02-26] MEDS: Atorvastatin Calcium 20 MG Tablet PO (18:04)
[2021-02-26 19:35] VITALS: BP 128/75; PULSE 84; RESP 16; TEMP 36.9; O2SAT 95
== END 2021-02-26 19:50 | disposition home or self-care (01) | DRG 100 ==
PROVIDERS: Admitting Provider Family Medicine Geriatric Medicine; PCP Family Medicine; Visit Provider Family Medicine Geriatric Medicine
DX: G40.909 Epilepsy, unspecified, not intractable, without status epilepticus (principal); J96.01 Acute respiratory failure with hypoxia; Z68.42 Body mass index [BMI] 45.0-49.9, adult; K21.9 Gastro-esophageal reflux disease without esophagitis; E78.5 Hyperlipidemia, unspecified; Z23 Encounter for immunization; E11.9 Type 2 diabetes mellitus without complications; E66.9 Obesity, unspecified; R29.810 Facial weakness; B35.4 Tinea corporis; E55.9 Vitamin D deficiency, unspecified; Z79.899 Other long term (current) drug therapy; Z79.82 Long term (current) use of aspirin; I10 Essential (primary) hypertension
CPT/HCPCS: 36415; 80048; 82962; 85025; 87635; 90732; 97110; 97116; 97162; 97166; 97530; 97535; 97802; G0009; U0002

== ENCOUNTER → 2021-02-26 20:46 | Outpatient (CLI) | payer MEDICARE, OTHER, SELFPAY ==
[2021-02-11 14:22] VITALS: BMI 48.9
== END ==
PROVIDERS: PCP Family Medicine; Visit Provider Family Medicine Geriatric Medicine
DX: G47.10 Hypersomnia, unspecified (principal)
CPT/HCPCS: 95810

== ENCOUNTER → 2021-03-09 18:37 | Outpatient (CLI) | payer MEDICARE, OTHER, SELFPAY ==
[2021-03-03 09:32] VITALS: BMI 48.3
== END ==
PROVIDERS: PCP Family Medicine; Visit Provider Nurse Practitioner Acute Care
DX: Z00.00 Encounter for general adult medical examination without abnormal findings (principal)

== ENCOUNTER 2021-04-29 15:00 | Outpatient (RCR) | payer MEDICARE, OTHER, SELFPAY ==
--- NOTE | 2021-03-01 13:50 | HP.PTEVAL_ITS ---
Patient's Visit Information LISA WAHL is a 70 year old F referred to Physical Therapy by Dr. Ben Aldana MD with a diagnosis of debility. Date of Evaluation: 03/01/21 Physical Therapist: Ignacio Blandon DPT, OCS, CSCS - Visit Plan Frequency: 3x /Week Duration: 4-6 Weeks Plan: Pt to walk 10 min at home multiple times per day as she already started this. Work on PT 3x/week for 3-6 weeks for... 1. machine based LE and postural strength ex and progress to I Silver Sneakers program with list and pics when able. monitor SOB and safety for I. - Subjective 3 weeks ago went to ER adn diagnosed with seizure. Called diego cano she wasn't breathing right and it was heavy and could not stand up . Could not talk right. Was completed out of it when got to hospital. Doesn't remember much about the trip to the hospital. Catscan was negative. MRI was negative. EKG was OK, x ray was OK but fluid outside of lungs. they caled it a seizure. Is on antiepiliepticmeds now. Currently has SOB worse than typical. Has oxygen at home if she needs it btu has not needed it. Needs wh walker at home due to fatigue and very tired. No walker needed prior to admission unless long trips. Balance feels OK. Sleep is OK, gets up to urinate. Bathroom I, shower out on own, helped her scrub back,s tanding and has tub to step over. Dresses self. 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 Does not need to clean. Hobbies include reading. No regular ex. Does sitting ex at home with weights. - Pain LBP Pain Intensity (Out of 10): 0 Pain Intensity Range: 0, 2 Comment: sometimes, not lately. - Objective 100 HR 97% sO2 after FGA and 2 steps. Walks with wh walker back to PT 200 feet mod I. Transition out of chair with UE needed I, Tired adn SOB once sitting. Steps x 2 reciprocal with two railings needed. LE AROM hips , knees, and ankles WFL, mild tightness post HS and gastroc. strength LE 4-/5 knees and ankles adn 3+ hip abd and ext and 4- hip flexion. reflexes 1/3 patella and achilles B. Sensation LE WNL to gross light touch. - Balance Scores Functional Gait Assessment Score: 24 % Disability: 20.0000 - Goals Goal 1:: 40/80 LEFS to show improved mobiity Goal Time Frame: 4-6 Weeks Goal 2:: Pt feel 75% back to normal mobility Goal Time Frame: 4-6 Weeks Goal 3:: I management of condition with gym based Silver Sneaker LE and postural strength ex. Goal Time Frame: 4-6 Weeks Goal 4:: FGA and one flight steps without SOB. Goal Time Frame: 4-6 Weeks - Rehabilitation Potential Physical Therapy Diagnosis: wakness and debility, difficulty with gait/mobility due to weakness/SOB Rehabilitation Potential: Fair - Anticipated Interventions Patient/Client Instruction: Educate patient on: Condition, Plan of Care For the Purpose of:: To improve muscle performance and motor function, To increase tolerance to activity/condition/position, To improve gait and locomotor functions Therapeutic Exercise to Include: Strength training, Postural training, Gait and locomotor training For the Purpose of:: To increase ROM, To improve nutrient delivery to tissue, To improve muscle performance and motor function, To increase tolerance to activity/condition/position, To improve gait and locomotor functions Thank you for the opportunity to evaluate your patient. For Medicare and Medicare HMO plans, please review the plan of care and approve it. It will need to be FAXED BACK to us at [phone] for Medicare purposes. For Medicare only, by signing this I certify the plan of care. Please let me know if there are questions or concerns regarding this plan of care. Physician Signature: Date:
--- NOTE | 2021-03-31 11:56 | HP.PTREVAL_ITS ---
Dr. Ben Aldana MD, It has been my pleasure to treat LSIA WAHL over the last 11 visits for debility. Please see the progress note below for an update on the physical therapy plan of care! Subjective: Too hot to walk this weekend but had been up to that point. Feels like she is getting stronger. Able with wh walker to walk to end of street to dtr in laws house. No f/u with doctor schedule. LBP is normal for her up to 02/01. Wants to be able to climb bus steps in June for bus trip. Basic ADLs are getting done OK. Bathroom I. Ready to be I in gym. Objective/Function: FGA and step with railing with out SOB today and continued talking the whole time. Balance and confidence with mobility is improving. f/u one month to ensure progress with fair prognosis, goals still appropriate. Plan Plan: Pt to [employer] gym ex 3x/week and call if problems, otherwise f/u for ex progression and d/c in 3-4 weeks as needed. Goals Goal 1:: 40/80 LEFS to show improved mobiity Goal Time Frame: 4-6 Weeks Goal Progress: slow progress Goal 2:: Pt feel 75% back to normal mobility Goal Time Frame: 4-6 Weeks Goal Progress: 70% Goal 3:: I management of condition with gym based Silver Sneaker LE and postural strength ex. Goal Time Frame: 4-6 Weeks Goal Progress: Goal Met gym Goal 4:: FGA and one flight steps without SOB. Goal Time Frame: 4-6 Weeks Goal Progress: Goal Met Anticipated Interventions Patient/Client Instruction: Educate patient on: Condition, Plan of Care For the Purpose of:: To improve muscle performance and motor function, To increase tolerance to activity/condition/position, To improve gait and locomotor functions Therapeutic Exercise to Include: Strength training, Postural training, Gait and locomotor training For the Purpose of:: To increase ROM, To improve nutrient delivery to tissue, To improve muscle performance and motor function, To increase tolerance to activity/condition/position, To improve gait and locomotor functions Please do not hesitate to contact me at [phone] by phone or if you have questions or concerns regarding this new plan of care! Sincerely, Ignacio Blandon, DPT, OCS, CSCS
--- NOTE | 2021-04-29 15:24 | HP.PTDCSUM_ITS ---
It has been my pleasure to treat LISA WAHL referred by Dr. Ben Aldana MD, with the diagnosis of debility for a total of 12 visit(s). Discharge Date: 04/29/21 Please see the following information for a summary of their discharge status. Subjective: I wish I could get a back trasnplant. Doing well adn doing exercises regularly in gym since last check. Did pretty good for the benjamin bui bumping up to 3 sets, 10 minutes on nustep. Feels like she is getting stronger adn getting out to walk more. Walking down to family down the road. Got adjust able bed yesterday and slept well with massage feature. LBP Pain Intensity (Out of 10): 3 % Improvement: 70 Objective/Function: FGA +2 from last month adn walking very well without AD. Steps reciprocal with two railing easily but SOB afterwards still. Goal 1:: 40/80 LEFS to show improved mobiity Goal Progress: slow progress Goal 2:: Pt feel 75% back to normal mobility Goal Progress: 70% Goal 3:: I management of condition with gym based Silver Sneaker LE and postural strength ex. Goal Progress: Goal Met gym Goal 4:: FGA and one flight steps without SOB. Goal Progress: Goal Met Plan: d/c to gym program Discharge Comments: pt to continue via gym ex as member at . If there are questions or concerns regarding this patient's physical therapy, please feel free to call me at [phone]. Thank you for the referral of this patient. Sincerely, Ignacio Blandon, DPT, OCS, CSCS Balance/Gait/Functional tests - Balance/Special Test Scores Functional Gait Assessment Score: 26 % Disability: 13.3400 Lower Extremity Functional Score: 22
== END 2021-04-29 19:00 | disposition home or self-care (01) ==
LOC: PT 15:00
PROVIDERS: PCP Family Medicine; Referring Provider Family Medicine Geriatric Medicine; Visit Provider Family Medicine Geriatric Medicine
DX: R53.83 Other fatigue (principal); R56.9 Unspecified convulsions; J96.90 Respiratory failure, unspecified, unspecified whether with hypoxia or hypercapnia
CPT/HCPCS: 97110; 97162; 97164; 97530

== ENCOUNTER → 2021-05-19 10:02 | Outpatient (CLI) | payer MEDICARE, OTHER, SELFPAY ==
[2021-05-19 12:54] LABS: Anion Gap 5 (5-15); BUN 21 mg/dL (7-18); BUN/Creat Ratio 18.4 RATIO (10-20); Calcium,Total 9.5 mg/dL (8.5-10.1); Chloride 105 mmol/L (98-107); Cholesterol 181 mg/dL (200); Creatinine, Serum 1.14 mg/dL (0.55-1.02); EST Glomerular Filtration Rate 50 mL/min (>60); Est Glom Filt Rate - Afr Amer 61 mL/min (>60); Glucose 114 mg/dL (74-106); High Density Lipoprotein 79 mg/dL; Potassium 4.1 mmol/L (3.5-5.1); Sodium Level 139 mmol/L (136-145); Triglycerides 109 mg/dL; Very Low Density Lipoprotein 22 mg/dL (5-40)
== END ==
PROVIDERS: PCP Family Medicine; Referring Provider Family Medicine; Visit Provider Family Medicine
DX: E11.9 Type 2 diabetes mellitus without complications (principal)
CPT/HCPCS: 36415; 80048; 80061

== ENCOUNTER → 2021-06-25 08:33 | Outpatient (CLI) | payer MEDICARE, OTHER, SELFPAY ==
[2021-06-30 14:41] LABS: KEPPRA (LEVETIRACETAM) 16.3 ug/mL (10.0-40.0)
== END ==
PROVIDERS: PCP Family Medicine; Referring Provider Nurse Practitioner Family; Visit Provider Nurse Practitioner Family
DX: G40.909 Epilepsy, unspecified, not intractable, without status epilepticus (principal)
CPT/HCPCS: 36415; 80177; 82140

== ENCOUNTER 2021-11-22 09:48 | Outpatient (CLI) | payer MEDICARE, OTHER, SELFPAY ==
[2021-11-22 12:28] LABS: Anion Gap 7 (5-15); BUN 21 mg/dL (7-18); BUN/Creat Ratio 16.3 RATIO (10-20); Calcium,Total 9.9 mg/dL (8.5-10.1); Chloride 109 mmol/L (98-107); Cholesterol 189 mg/dL (200); Creatinine, Serum 1.29 mg/dL (0.55-1.02); EST Glomerular Filtration Rate 43 mL/min (>60); Est Glom Filt Rate - Afr Amer 53 mL/min (>60); Glucose 153 mg/dL (74-106); High Density Lipoprotein 74 mg/dL; Potassium 3.7 mmol/L (3.5-5.1); Sodium Level 138 mmol/L (136-145); Triglycerides 154 mg/dL; Very Low Density Lipoprotein 31 mg/dL (5-40)
== END 2021-11-22 23:59 | disposition home or self-care (01) ==
LOC: MFPLAB 09:49
PROVIDERS: PCP Family Medicine; Referring Provider Family Medicine; Visit Provider Family Medicine
DX: E11.9 Type 2 diabetes mellitus without complications (principal)
CPT/HCPCS: 36415; 80048; 80061

== ENCOUNTER → 2022-03-29 | Outpatient (CLI) | payer MEDICARE, OTHER, SELFPAY ==
[2022-03-29 13:02] LABS: Anion Gap 7 (5-15); BUN 19 mg/dL (7-18); BUN/Creat Ratio 16.8 RATIO (10-20); Calcium,Total 9.5 mg/dL (8.5-10.1); Chloride 105 mmol/L (98-107); Creatinine, Serum 1.13 mg/dL (0.55-1.02); EST Glomerular Filtration Rate 51 mL/min (>60); Est Glom Filt Rate - Afr Amer 61 mL/min (>60); Glucose 141 mg/dL (74-106); Potassium 3.8 mmol/L (3.5-5.1); Sodium Level 138 mmol/L (136-145)
[2022-04-01 21:37] LABS: KEPPRA (LEVETIRACETAM) 18.3 ug/mL (10.0-40.0)
== END | disposition home or self-care (01) ==
LOC: MTLAB 10:40
PROVIDERS: PCP Family Medicine; Referring Provider Nurse Practitioner Family; Visit Provider Nurse Practitioner Family
DX: G40.909 Epilepsy, unspecified, not intractable, without status epilepticus (principal)
CPT/HCPCS: 36415; 80048; 80177; 82140

== ENCOUNTER → 2022-12-13 | Outpatient (CLI) | payer MEDICARE, OTHER, SELFPAY ==
[2022-12-13 12:59] LABS: Anion Gap 7 (5-15); BUN 25 mg/dL (7-18); Calcium,Total 9.4 mg/dL (8.5-10.1); Chloride 105 mmol/L (98-107); Cholesterol 187 mg/dL (200); Creatinine, Serum 1.19 mg/dL (0.55-1.02); EST Glomerular Filtration Rate 48 mL/min (>60); Est Glom Filt Rate - Afr Amer 58 mL/min (>60); Glucose 140 mg/dL (74-106); High Density Lipoprotein 73 mg/dL; Potassium 4.2 mmol/L (3.5-5.1); Sodium Level 141 mmol/L (136-145); Triglycerides 110 mg/dL; Very Low Density Lipoprotein 22 mg/dL (5-40)
[2022-12-13 13:55] LABS: Microalbumin,Random Urine 15.3 mg/L (NO RANGE EST.); Microalbumin:Creatinine Ratio 6.7 mg/g CRE (<30 mg/g CRE)
== END | disposition home or self-care (01) ==
LOC: MFPLAB 09:55
PROVIDERS: PCP Family Medicine; Referring Provider Family Medicine; Visit Provider Family Medicine
DX: E11.9 Type 2 diabetes mellitus without complications (principal)
CPT/HCPCS: 36415; 80048; 80061; 82043; 82570

== ENCOUNTER → 2023-01-06 | Outpatient (CLI) | payer MEDICARE, OTHER, SELFPAY ==
[2023-01-10 15:08] LABS: KEPPRA (LEVETIRACETAM) 14.9 ug/mL (10.0-40.0)
== END | disposition home or self-care (01) ==
LOC: MTLAB 11:39
PROVIDERS: PCP Family Medicine; Referring Provider Psychiatry & Neurology Neurology; Visit Provider Psychiatry & Neurology Neurology
DX: G40.409 Other generalized epilepsy and epileptic syndromes, not intractable, without status epilepticus (principal)
CPT/HCPCS: 36415; 80177; 82140

== ENCOUNTER → 2023-06-21 | Outpatient (CLI) | payer MEDICARE, OTHER, SELFPAY ==
[2023-06-21 13:07] LABS: Anion Gap 7 (5-15); BUN 21 mg/dL (7-18); BUN/Creat Ratio 17.4 RATIO (10-20); Chloride 106 mmol/L (98-107); Cholesterol 162 mg/dL (200); Creatinine, Serum 1.21 mg/dL (0.55-1.02); EST Glomerular Filtration Rate 47 mL/min (>60); Est Glom Filt Rate - Afr Amer 56 mL/min (>60); Glucose 149 mg/dL (74-106); High Density Lipoprotein 66 mg/dL; Sodium Level 138 mmol/L (136-145); Triglycerides 131 mg/dL; Very Low Density Lipoprotein 26 mg/dL (5-40)
[2023-06-21 13:28] LABS: Microalbumin:Creatinine Ratio 9.8 mg/g CRE (<30 mg/g CRE)
== END | disposition home or self-care (01) ==
LOC: MFPLAB 10:18
PROVIDERS: PCP Family Medicine; Referring Provider Family Medicine; Visit Provider Family Medicine
DX: E11.9 Type 2 diabetes mellitus without complications (principal)
CPT/HCPCS: 36415; 80048; 80061; 82043; 82570

== ENCOUNTER → 2023-06-23 | Outpatient (CLI) | payer MEDICARE, OTHER, SELFPAY ==
--- NOTE | 2023-06-23 12:52 | BI_ITS ---
MAMMOGRAPHY - BILATERAL SCREENING REASON FOR EXAM: Female, 72 years old. Routine annual screening examination. PERTINENT HISTORY: Sister with breast cancer. TECHNIQUE: Digital bilateral breast prabhakar (3D mammographic acquisition) in the CC and MLO projections. 2-D mediolateral oblique (MLO) and craniocaudad (CC) views of both breasts were obtained. CAD: Full Field Digital Mammography with Computer Added Detection was performed. COMPARISON: Comparison is made with prior study dated January 31, 2019 and August 24, 2016. FINDINGS: Breast Composition: The breasts are almost entirely fatty. There are no dominant masses or suspicious calcifications. Vascular calcifications in the upper midportion of the left breast. Small benign-appearing bilateral axillary lymph nodes. No other significant abnormalities are identified. There has been no significant change since the prior study. BI/SCRN MAMM (CAD)W/PRABHAKAR BILAT IMPRESSION: Stable bilateral screening mammogram. Yearly follow-up mammogram recommended. (A) ASSESSMENT CATEGORY: BIRADS Category 2: Benign. A letter regarding these results will be sent to the patient by the facility within 30 days. Approximately 10% of breast cancers are not detected by mammography. A normal mammogram should not delay biopsy of a clinically suspicious abnormality. [id number] Electronically Signed: Krunal Allen MD at 13:59 EDT ,
== END | disposition home or self-care (01) ==
LOC: OPBI 12:50
PROVIDERS: PCP Family Medicine; Visit Provider Family Medicine
DX: Z12.31 Encounter for screening mammogram for malignant neoplasm of breast (principal)
CPT/HCPCS: 77063; 77067

== ENCOUNTER → 2023-09-19 | Outpatient (CLI) | payer MEDICARE, OTHER, SELFPAY ==
[2023-09-19 14:09] LABS: Mucous, Urine 0 SEEN /hpf (<or=2+)
[2023-09-19 17:37] LABS: Color, Urine Yellow (Yellow); Glucose, Dipstick Normal (Normal); Ketone-Dipstick Negative (Negative); Leukocyte Esterase-Dipstick 500 /ul (Negative); Nitrite-Dipstick Negative (Negative); Occult Blood-Urine 25 /ul (Negative); Protein-Dipstick 15 mg/dl (Negative); Urine Bilirubin Dipstick Negative (Negative); Urine Clarity Cloudy (Clear); Urine Urobilinogen Normal (Normal); Urine pH 6.5 (5.0 - 8.0)
[2023-09-19 17:47] LABS: Amorphous Sediment 1+ URATE; Bacteria 1+ /hpf (None Seen); Red Blood Cells-Urine 0-5 SEEN /hpf (0-5); Squamous Epithelial Cells - UA 10-25 SEEN /hpf (5-10); White Blood Cells >100 SEEN /hpf (0-5)
== END | disposition home or self-care (01) ==
LOC: MFPLAB 14:08
PROVIDERS: Family Medicine; PCP Family Medicine; Visit Provider Family Medicine
DX: N39.0 Urinary tract infection, site not specified (principal)
CPT/HCPCS: 81001; 87077; 87086; 87088; 87186

== ENCOUNTER → 2023-10-02 | Outpatient (CLI) | payer MEDICARE, OTHER, SELFPAY ==
[2023-10-05 07:08] LABS: KEPPRA (LEVETIRACETAM) 15.9 ug/mL (10.0-40.0)
== END | disposition home or self-care (01) ==
LOC: MTLAB 11:52
PROVIDERS: PCP Family Medicine; Referring Provider Psychiatry & Neurology Neurology; Visit Provider Psychiatry & Neurology Neurology
DX: G40.909 Epilepsy, unspecified, not intractable, without status epilepticus (principal)
CPT/HCPCS: 36415; 80177; 82140

== ENCOUNTER → 2023-12-07 | Outpatient (CLI) | payer MEDICARE, OTHER, SELFPAY ==
[2023-12-07 18:15] LABS: Anion Gap 9 (5-15); BUN 19 mg/dL (7-18); BUN/Creat Ratio 15.6 RATIO (10-20); Calcium,Total 9.5 mg/dL (8.5-10.1); Chloride 105 mmol/L (98-107); Creatinine, Serum 1.22 mg/dL (0.55-1.02); EST Glomerular Filtration Rate 46 mL/min (>60); Est Glom Filt Rate - Afr Amer 56 mL/min (>60); Glucose 145 mg/dL (74-106); Potassium 3.9 mmol/L (3.5-5.1); Sodium Level 139 mmol/L (136-145)
== END | disposition home or self-care (01) ==
LOC: MFPLAB 14:17
PROVIDERS: PCP Family Medicine; Visit Provider Family Medicine
DX: E11.9 Type 2 diabetes mellitus without complications (principal)
CPT/HCPCS: 36415; 80048

== ENCOUNTER 2024-03-05 07:39 | Inpatient (IN) | payer MEDICARE, OTHER, SELFPAY ==
[2024-03-05] VITALS (9 sets, daily range): BP systolic 118–151; BP diastolic 77–99; PULSE 71–91; RESP 16–22; TEMP 36.2–37; O2SAT 90–97; BMI 47.0; BMI 46.1
--- NOTE | 2024-03-05 07:46 | EKG12_ITS ---
Test Reason : SOB Blood Pressure : / mmHG Vent. Rate : 085 BPM Atrial Rate : 085 BPM P-R Int : 220 ms QRS Dur : 120 ms QT Int : 396 ms P-R-T Axes : 037 -07 041 degrees QTc Int : 471 ms Sinus rhythm with 1st degree A-V block RSR' or QR pattern in V1 suggests right ventricular conduction delay Possible Anterior infarct , age undetermined Abnormal ECG Confirmed by Dalton Rasheed ([id number]), editorial writer BHARAT VILLALTA ([id number]) on 03/06/2024 8:45:26 AM Referred By: Confirmed By:Dalton Rasheed
--- NOTE | 2024-03-05 07:47 | ED.VIS.DYS ---
HPI History of Present Illness Chief Complaint: Shortness of Breath [facility] Medical History (Reviewed 05/22/23 @ 14:31 by Chuyita Go FIELD OPERATIONS TECHNICIAN, FIELD OPERATIONS TECHNICIAN-C) Arthritis Borderline diabetes mellitus Chronic pain Degenerative disc disease Gallstones GERD (gastroesophageal reflux disease) History of blood clots History of colonic polyps Hyperlipidemia IBS (irritable bowel syndrome) Migraines Pancreatitis Wears hearing aid in both ears Home Medications ?Medication ?Instructions ?Recorded ?Last Taken ?Type metformin 500 mg tablet,extended 500 mg PO LUNCH Diabetes 05/16/19 Unknown History release 24 hr simvastatin 40 mg tablet 40 mg PO QHS Cholesterol 05/16/19 Unknown History esomeprazole magnesium 20 mg 20 mg PO DAILY GERD 02/07/21 Unknown History capsule,delayed release (Nexium) aspirin 81 mg chewable tablet 81 mg PO DAILY@0800 [employer] [facility] 02/11/21 Unknown History solifenacin 5 mg tablet 5 mg PO DAILY 12/29/22 Unknown History levetiracetam 500 mg tablet 500 mg PO BID #180 tabs 09/28/23 Unknown Rx (Keppra) sumatriptan succinate 50 mg tablet See Rx Instructions PO .COMPLEX #9 09/28/23 Unknown Rx tabs carboxymethylcellulose sodium 1 drp ophthalmic (eye) 3XD 03/05/24 03/04/24 History cranberry 500 mg capsule 1,500 mg PO DAILY 03/05/24 03/04/24 History turmeric 400 mg capsule 800 mg PO DAILY 03/05/24 03/02/24 History Allergy/AdvReac Type Severity Reaction Status Date / Time celecoxib (From Celebrex) Allergy Severe Hives Verified 09/28/23 13:09 clindamycin Allergy Severe Burning Verified 09/28/23 13:09 Chest Pain/Vomiting phenazopyridine (From Azo) Allergy Intermediate Hives Verified 09/28/23 13:09 adhesive tape Allergy Mild Rash Verified 09/28/23 13:09 cefadroxil (From Duricef) Allergy Mild Swelling Verified 09/28/23 13:09 atorvastatin (From Lipitor) AdvReac Severe Muscle Verified 09/28/23 13:09 Spasms topiramate AdvReac Severe Other Verified 09/28/23 13:09 Family History (Reviewed 05/22/23 @ 14:31 by Chuyita Go FIELD OPERATIONS TECHNICIAN, FIELD OPERATIONS TECHNICIAN-C) Mother Arthritis Diabetes Depression Mental disorder Psychiatric care Uterine cancer Father Myocardial infarction, Onset Age: 48 Heart disease Grandfather Mental disorder Psychiatric care Surgical History (Reviewed 05/22/23 @ 14:31 by Chuyita Go FIELD OPERATIONS TECHNICIAN, FIELD OPERATIONS TECHNICIAN-C) History of colonoscopy (~05/20/19) History of hemorrhoidectomy History of left knee replacement History of tubal ligation Hx of cholecystectomy Social History (Reviewed 05/22/23 @ 14:31 by Chuyita Go FIELD OPERATIONS TECHNICIAN, FIELD OPERATIONS TECHNICIAN-C) household members: spouse Smoking Status: Never smoker Electronic Cigarette Use: not used second hand exposure: No alcohol intake: current alcohol intake frequency: holidays/special occasions only Alcohol type: wine substance use type: does not use nacho/uatsdin: None seatbelt use: always EXAM Physical Exam Const Vital Signs: 03/05/24 07:40 03/05/24 07:45 03/05/24 07:46 Temperature 98.1 F Temperature Source Oral Pulse Rate 90 91 Respiratory Rate 20 H 20 H Respiratory Effort Short of Breath Respiratory Depth Shallow Blood Pressure 143/99 H Blood Pressure Mean 113 Pulse Ox 90 90 Oxygen Delivery Method Room Air Room Air Room Air MDM MDM MDM Narrative Medical decision making narrative: HISTORY OF PRESENT ILLNESS: 73 F here with shortness of breath. Notes left leg swelling as well. She further states she has chronic left leg pain and swelling. No shortness of breath is worse with exertion. The patient denies recent surgery in the last 4 weeks or immobilization in the last 3 days, denies previous diagnosis of DVT or PE, hemoptysis, unilateral leg swelling or malignancy with treatment the last 6 months or palliative. No estrogen use noted. REVIEW OF SYSTEMS: Pertinent positives: Shortness of breath, dyspnea exertion, leg pain and swelling Pertinent negatives: Chest pain, bleeding diathesis, syncope PHYSICAL EXAM: Nursing triage notes reviewed, Vital signs reviewed Constitutional: please see mdm HENT: MMM Eyes: Pupils equal round and reactive to light, Extraocular muscles intact Neck: No stridor, no JVD, full neck ROM Lungs: Clear to auscultation, No wheezing or rales. No increased work of breathing, no conversational dyspnea, no accessory muscle use, no nasal flaring. No respiratory distress noted Heart: Regular rate and rhythm, No murmurs, No rubs and No gallops, 2+ distal pulses (radial, femoral, posterior tibial) in all extremities Abdomen: Soft, there is no tenderness, rigidity, rebound or guarding, no obvious peritoneal signs, no palpable pulsatile abdominal masses, no auscultated abdominal bruit : No CVAT Extremities: Left calf TTP, slight swelling of left lower extremity, intact pulses in bilateral lower extremities. Neuro: No focal neurological deficits, cranial nerves II through XII intact, 5/5 strength in all extremities. Intact sensation to light touch in all extremities, 2+ reflexes bilateral patella tendons. Normal gait. No ataxia. Skin: No rash or lesions noted MEDICAL DECISION MAKING: Chief Complaint: Shortness of breath, left leg swelling External records reviewed: Reviewed prior pulmonology visit from 2020 at this time is noted the patient with supplemental oxygen and her goal saturation was 89 to 92% per pulmonology Factors affecting care: hypertension, hyperlipidemia, type 2 diabetes, history of acute respiratory failure with hypoxia, seizure disorder on Keppra, SHELLIE, CVA Social determinants of health: none History obtained from others: Patient's Consults: Internal medicine (Dr. Sierra) MDM Narrative: Patient was initially hemodynamically stable she is afebrile she is satting 90% on room air. Lungs were clear, left calf tenderness and left leg swelling noted I considered the following differential diagnosis: ACS, arrhythmia, anemia, electrolyte disturbance, pneumonia, viral illness, VTE, PE ALL IMAGES (IF OBTAINED) HAVE BEEN PERSONALLY REVIEWED AND INTERPRETED BY MYSELF. EKG first-degree AV block, prolonged VA interval, normal left axis deviation, no STEMI DVT ultrasound positive for acute DVT and peroneal vein CBC without leukocytosis, severe anemia, no thrombocytopenia. I have personally reviewed the patient's chest x-ray. Chest x-ray is unremarkable for slight vascular congestion but no pneumothorax, pneumonia or focal cardiopulmonary abnormality. No coagulopathy BMP without evidence of significant electrolyte abnormalities, no anion gap, no acute kidney injury. Initial troponin elevated consistent with myocardial ischemia, likely secondary to PE causing demand ischemia rather than acute coronary artery occlusion BNP elevated consistent with ventricular stretch as result of pulmonary embolism I initially obtained a broad lab workup to rule out the after mentioned differentials. Given the patient's DVT study was positive and she was borderline hypoxic needing new oxygen requirement I did obtain a CTA to rule out PE. CT was positive for PE. The synthesis of the patient's history, physical exam, labs images suggest likely DVT/PE as a causative pathology. No signs of right heart strain. Appropriate for admission here to [facility]. The patient and/or family, caregivers express understanding. The patient and/or family, caregivers agrees with the plan. Shared decision making: I will have a discussion with the patient and or visitors regarding risk/benefits of further testing or admission. They will be made aware of of the risk/benefits inherent in this decision they will be given the opportunity to voice understanding. Total critical care time today provided was at least 35 minutes. This excludes separately billable procedures. Critical care time (if documented) is secondary to the patient having high probability of clinically significant/life threatening deterioration in the patient's condition which required my urgent intervention. Impression: 1. Dyspnea 2. Hypoxia 3. Acute pulmonary embolism Dispo: Admit to PCU This note was generated with [employer] dictation software. It may contain incorrect words, spelling, and punctuation that were not noted in review of the chart prior to signing. Discharge Plan Triage Chief Complaint: Shortness of Breath ED Provider: Yaya Khoury Dx/Rx/DC Orders Prescriptions: No Action solifenacin 5 mg tablet 5 mg PO DAILY levetiracetam [Keppra] 500 mg tablet 500 mg PO BID Qty: 180 3RF sumatriptan succinate 50 mg tablet See Rx Instructions PO .COMPLEX Qty: 9 7RF Rx Instructions: take 1 tab orally every 2 hours as needed for headache up to 2 tablets daily simvastatin 40 MG tablet 40 mg PO QHS metformin 500 MG tablet extended release 24 hr 500 mg PO LUNCH esomeprazole magnesium [Nexium] 20 mg Capsule,Delayed Release(Dr/Ec) 20 mg PO DAILY aspirin 81 mg tablet,chewable 81 mg PO DAILY@0800 cranberry 500 mg capsule 1,500 mg PO DAILY turmeric 400 mg capsule 800 mg PO DAILY carboxymethylcellulose sodium [Artificial Tears (cmc)] 1 drp ophthalmic (eye) 3XD Primary Care Provider: Braden Pappas Referrals: Braden Pappas MD [Primary Care Provider] - Print Language: [place]an
[2024-03-05 07:56] LABS: Absolute Lymphocyte Count 2.63 X10^3/uL (0.83-4.51); Absolute Neutrophil Count 5.5 X10^3/uL (2.0-7.7); Basophil# 0.08 X10^3/uL; Basophil% 0.9 % (0-1); Eosinophil# 0.32 X10^3/uL; Eosinophils% 3.4 % (0-5); Hematocrit 46.2 % (37-47); Hemoglobin 14.3 g/dL (12.0-15.0); Lymphocyte # 2.63 X10^3/ul (0.83-4.51); Lymphocyte % 28.2 % (19-41); Mean Corpuscular Hgb 28.3 pg (27.0-32.0); Mean Corpuscular Volume 91.5 fL (81-99); Mean Platelet Vol. 11.3 fl (6.2-12.0); Monocyte# 0.77 X10^3/uL; Monocyte% 8.3 % (0-10); NRBC Flagged by Analyzer 0 % (0-5); Neutrophil # 5.47 X10^3/uL (2.7-7.7); Neutrophil % 58.6 % (47-70); Platelet Count 233 K/mm3 (150-450); RBC Distribution Width CV 14.8 % (11.6-14.6); Red Blood Count 5.05 M/mm3 (4.2-5.4); White Blood Count 9.3 K/mm3 (4.4-11.0)
--- NOTE | 2024-03-05 08:00 | RAD_ITS ---
STUDY: X-RAY CHEST REASON FOR EXAM: Female, 73 years old. SOB TECHNIQUE: AP and lateral views of the chest. COMPARISON: Comparison is made with prior study dated February 09, 2021. FINDINGS: EKG electrodes are seen. Vascular congestion and a mild degree of CHF. Blunting of the left costophrenic angle. Normal size heart. Normal mediastinum and praneeth. Normal visualized pulmonary arteries. There is atherosclerotic tortuosity of the aortic arch and descending thoracic aorta. There are diffuse degenerative changes of the visualized thoracic spine. Normal visualized ribs, clavicles, and shoulders. There is no demonstrated abnormality of the visualized soft tissue structures of the upper abdomen. RAD/Chest PA and Lateral IMPRESSION: Mild degree of vascular congestion and CHF. Electronically Signed: Krunal Allen MD at 8:35 EDT ,
[2024-03-05 08:22] LABS: Anion Gap 6 (5-15); BUN 17 mg/dL (7-18); BUN/Creat Ratio 13.6 RATIO (10-20); Calcium,Total 9.9 mg/dL (8.5-10.1); Chloride 107 mmol/L (98-107); Creatinine, Serum 1.25 mg/dL (0.55-1.02); EST Glomerular Filtration Rate 45 mL/min (>60); Est Glom Filt Rate - Afr Amer 54 mL/min (>60); Glucose 157 mg/dL (74-106); Potassium 3.7 mmol/L (3.5-5.1); Sodium Level 138 mmol/L (136-145); Troponin-I HS 132 pg/mL (3.0-54.0)
--- NOTE | 2024-03-05 08:22 | ED.RN ---
lab called troponin 132. dr mendoza
--- NOTE | 2024-03-05 08:23 | VDLE_ITS ---
Reason For Study: Left leg swelling RIGHT LEFT CFV is compressible, spontaneous, phasic, GSV is normal. competent and demonstrates normal CFV is compressible, spontaneous, phasic, augmentation. competent, and demonstrates normal Procedure augmentation. This is a venous duplex using B-mode, color FV is compressible, spontaneous, phasic, flow and spectral Doppler. competent and demonstrates normal Exam performed portable in ED. augmentation. A preliminary report was called and/or faxed POP V is compressible, spontaneous, phasic, to Dr. Khoury. competent and demonstrates normal augmentation. T/P Trunk is compressible. PTV is compressible. Acute deep vein thrombosis is noted in the Per V. It is dilated and NONCOMPRESSIBLE. VL/Venous Duplex US, Unilateral Interpretation Summary Acute deep vein thrombosis is noted in the left peroneal vein. Ordering Physician: Yaya Khoury Referring Physician: Braden Pappas Performed By: Sadia Cardona RVT
[2024-03-05 08:35] LABS: BNP,B-Type NATRIURETIC PEPTIDE 117.2 pg/mL (0-100)
--- NOTE | 2024-03-05 08:46 | CT_ITS ---
STUDY: CTA CHEST REASON FOR EXAM: Female, 73 years old. Hypoxia, DVT r/o PE RADIATION DOSAGE (If Supplied By Facility): CTDIvol = ( 13.85 ) mGy, DLP = ( 568.35 ) mGycm TECHNIQUE: The examination was performed with the intravenous administration of IV 100mL [id number]-370. Post-processing of the angiographic images was performed, with multiplanar reformation and 3D reconstruction. Individualized dose optimization techniques were used for this CT. COMPARISON: Comparison is made with prior chest radiograph done earlier today. FINDINGS: Intraluminal filling defects are seen in the distal portion of the right pulmonary artery as well as the branches of the right upper lobe as well as the intermediate pulmonary artery and branches of the right lower lobe pulmonary arteries. Smaller filling defects are also seen in the left upper lobe pulmonary arterial branches. No evidence of right ventricular strain. Normal thoracic aorta and visualized great vessels. There is no demonstrated aortic dissection. Normal heart and pericardium. Normal mediastinum. Normal hilar regions. Normal visualized trachea and bronchi. The lungs are well expanded. Calcified granuloma in the superior aspect of the left upper lobe. Mild degree of the left basilar atelectasis. Normal pleura. Normal chest wall structures. There are degenerative changes of thoracic spine. Loss of the normal thoracic kyphosis. The patient is status post cholecystectomy. Calcified splenic granulomas. CT/CTA Chest W/WO Contrast IMPRESSION: Multiple bilateral pulmonary emboli worse in the right hemithorax. Mild degree of atelectasis at the left lung base. No evidence of right ventricular strain. Electronically Signed: Krunal Allen MD at 9:26 EDT ,
[2024-03-05] MEDS: Aspirin 325 MG Tablet PO (09:05)
--- NOTE | 2024-03-05 09:40 | NURSING ---
DR BISHOP FOR DR MCGEE
[2024-03-05 09:51] LABS: International Normalized Ratio 1.2; Prothrombin Time (Protime)PT. 15.3 SECONDS (11.7-14.9)
[2024-03-05 09:52] LABS: Partial Thromboplast Time 27.1 Seconds (24.1-36.2)
[2024-03-05] MEDS: APIXABAN 5 MG TABLET 10 MG PO ×2 (09:57→21:18)
--- NOTE | 2024-03-05 10:06 | NURSING ---
IMER BISHOP PE
[2024-03-05 10:12] LABS: Troponin-I HS 132 pg/mL (3.0-54.0)
--- NOTE | 2024-03-05 10:12 | ED.RN ---
critical trop 132, MD aware
[2024-03-05] MEDS: metFORMIN (XR) 500 MG Tablet PO (11:57)
[2024-03-05] MEDS: levETIRAcetam 500 MG Tablet PO ×2 (11:57→21:19)
[2024-03-05] MEDS: Pantoprazole Sodium 20 MG Tablet PO (11:58)
[2024-03-05 15:10] LABS: Troponin-I HS 100 pg/mL (3.0-54.0)
--- NOTE | 2024-03-05 17:11 | ECHOCS_ITS ---
Reason For Study: Dyspnea/SOB Left Ventricle Normal LV size. Left ventricular systolic function is normal. The left ventricular ejection fraction is 65 %. Stage 1 diastolic dysfunction. No regional wall motion abnormalities noted. Right Ventricle Mildly dilated right ventricle. Mildly decreased right ventricular systolic function. Apical sparing noted. Atria Normal left atrium. Normal right atrium. Mitral Valve Normal mitral valve. Tricuspid Valve Normal tricuspid valve. Moderate (2+) tricuspid valve insufficiency. Pulmonary artery systolic pressure is 54 mmHg. Aortic Valve Trisinus/trileaflet aortic valve. Pulmonic Valve Normal pulmonic valve. Great Vessels Normal aortic root. The pulmonary artery is normal size. Inferior vena cava collapse with respiration. Pericardium/Pleural No pericardial effusion. MMode/2D Measurements & Calculations LVIDd: 4.2 cm IVSd: 0.91 cm Ao root diam: 3.0 cm LVIDs: 2.9 cm LVPWd: 0.84 cm RVDd: 5.4 cm FS: 31.9 % LAV(MOD-bp): 34.1 ml LVAd ap4: 20.8 cm2 SV(MOD-sp4): 32.9 ml LAV(MOD-bp) Indexed: 14.3 ml/m2 LVLd ap4: 6.9 cm LAV(MOD-sp2): 33.3 ml EDV(MOD-sp4): 50.9 ml LAV(MOD-sp4): 35.3 ml EDV(sp4-el): 53.5 ml LVAs ap4: 11.4 cm2 LVLs ap4: 6.0 cm ESV(MOD-sp4): 18.1 ml ESV(sp4-el): 18.4 ml EF(MOD-sp4): 64.5 % EF(sp4-el): 65.6 % SV(sp4-el): 35.1 ml LA dimension(2D): 2.9 cm LA A4 area: 14.9 cm2 RA A4 area: 18.8 cm2 TAPSE: 2.5 cm Time Measurements MV dec time: 0.23 sec Doppler Measurements & Calculations MV E max geo: 58.6 cm/sec Lat Peak E' Geo: 7.5 cm/sec Med Peak E' Geo: 7.4 cm/sec MV A max geo: 78.7 cm/sec E/E' lat: 7.8 E/E' med: 7.9 MV E/A: 0.74 Ao V2 max: 135.7 cm/sec LV V1 max: 103.2 cm/sec MV dec slope: 259.7 cm/sec2 Ao max P.4 mmHg LV V1 max P.3 mmHg Ao V2 mean: 96.5 cm/sec Ao mean P.1 mmHg Ao V2 VTI: 25.7 cm PA V2 max: 72.7 cm/sec TR max geo: 354.6 cm/sec TR max P.3 mmHg ECHO/Echo Complete W/ Contrast Interpretation Summary Normal LV size. Left ventricular systolic function is normal. The left ventricular ejection fraction is 65 %. Mildly dilated right ventricle. Mildly decreased right ventricular systolic function Apical sparing noted Stage 1 diastolic dysfunction. Contrast injection was performed. Ordering Physician: Hayden Sierra Referring Physician: Braden Pappas Performed By: Ceci Flaherty RDCS, RVT
--- NOTE | 2024-03-05 17:15 | PCM.HP.STD ---
HPI - General General Date of Admission: 03/05/24 Date of Service: 03/05/24 Chief Complaint: Shortness of breath HPI Narrative LISA WAHL, is a 73 F who presents to the emergency room at [facility] for evaluation of increased shortness of breath since last night. Patient states that approximately 8 PM she noticed increased difficulty breathing, she has a history of obstructive sleep apnea and instead of coming to the ER she just went to bed. She woke up this morning was having continued shortness of breath and decided to come to the ER for evaluation. Workup in the ER included labs which revealed a normal white blood cell count, hemoglobin was also normal, chemistry profile revealed a creatinine of 1.25, and her glucose was 157. Patient's troponin was elevated at 132 and beta natruretic peptide was 117. EKG showed a normal sinus rhythm without evidence of ischemic changes. Patient required 4 L of oxygen to maintain her pulse ox above 90%, CTA of the chest showed multiple bilateral pulmonary emboli worse in the right hemithorax, there is a mild degree of atelectasis at the left lung base, no evidence of right ventricular strain was noted. Patient will be admitted to PCU, pulse ox will be monitored, she was started on Eliquis in the emergency room, I will obtain serial cardiac enzymes and obtain an echocardiogram to assess ventricular function. [facility] Medical History Arthritis Borderline diabetes mellitus Chronic pain Degenerative disc disease Gallstones GERD (gastroesophageal reflux disease) History of blood clots History of colonic polyps Hyperlipidemia IBS (irritable bowel syndrome) Migraines Pancreatitis Wears hearing aid in both ears Home Medications ?Medication ?Instructions ?Recorded ?Last Taken ?Type metformin 500 mg tablet,extended 500 mg PO LUNCH Diabetes 05/16/19 03/04/24 History release 24 hr simvastatin 40 mg tablet 40 mg PO QHS Cholesterol 05/16/19 03/04/24 History esomeprazole magnesium 20 mg 20 mg PO DAILY GERD 02/07/21 03/04/24 History capsule,delayed release (Nexium) aspirin 81 mg chewable tablet 81 mg PO DAILY@0800 [facility] 02/11/21 03/04/24 History solifenacin 5 mg tablet 5 mg PO DAILY 12/29/22 03/04/24 History levetiracetam 500 mg tablet 500 mg PO BID #180 tabs 09/28/23 03/04/24 Rx (Keppra) sumatriptan succinate 50 mg tablet See Rx Instructions PO .COMPLEX #9 09/28/23 Unknown Rx tabs carboxymethylcellulose sodium 1 drp ophthalmic (eye) 3XD 03/05/24 03/04/24 History cranberry 500 mg capsule 1,500 mg PO DAILY 03/05/24 03/04/24 History turmeric 400 mg capsule 800 mg PO DAILY 03/05/24 03/02/24 History Allergy/AdvReac Type Severity Reaction Status Date / Time celecoxib (From Celebrex) Allergy Severe Hives Verified 09/28/23 13:09 clindamycin Allergy Severe Burning Verified 09/28/23 13:09 Chest Pain/Vomiting phenazopyridine (From Azo) Allergy Intermediate Hives Verified 09/28/23 13:09 adhesive tape Allergy Mild Rash Verified 09/28/23 13:09 cefadroxil (From Duricef) Allergy Mild Swelling Verified 09/28/23 13:09 atorvastatin (From Lipitor) AdvReac Severe Muscle Verified 09/28/23 13:09 Spasms topiramate AdvReac Severe Other Verified 09/28/23 13:09 Family History Mother Arthritis Diabetes Depression Mental disorder Psychiatric care Uterine cancer Father Myocardial infarction, Onset Age: 48 Heart disease Grandfather Mental disorder Psychiatric care Surgical History History of colonoscopy (~05/20/19) History of hemorrhoidectomy History of left knee replacement History of tubal ligation Hx of cholecystectomy Social History household members: spouse Smoking Status: Never smoker Electronic Cigarette Use: not used second hand exposure: No alcohol intake: current alcohol intake frequency: holidays/special occasions only Alcohol type: wine substance use type: does not use nacho/advent: None seatbelt use: always ROS Constitutional Constitutional: Denies anorexia, change in weight, chills, fever(s), malaise, night sweats or weakness Eyes Eyes: Denies blurry vision, change in vision, discharge from eye(s) or eye pain Cardiovascular Cardiovascular: Reports dyspnea on exertion; Denies chest pain, claudication, edema or palpitations Respiratory/Chest Respiratory/Chest: Reports dyspnea, shortness of breath at rest and shortness of breath with exertion; Denies cough or hemoptysis Gastrointestinal Gastrointestinal: Denies abdominal pain, constipation, diarrhea, hematemesis, hematochezia, melena, nausea or vomiting Genitourinary Genitourinary: Denies dysuria, hematuria, urinary frequency, urinary hesitancy, urinary incontinence or urinary urgency Musculoskeletal Musculoskeletal: Reports back pain; Denies joint pain, joint stiffness, joint swelling, myalgias or neck pain Neurologic Neurologic: Denies abnormal gait, abnormal speech, confusion, dizziness, focal weakness, headache(s), loss of vision, numbness, other visual disturbances, paresthesias, syncope or tingling Psychiatric Psychiatric: Denies anxiety, cognitive impairment, depression, irritability, mood swings or suicidal ideation Endocrine Endocrinology: Denies change in body appearance, cold intolerance, excessive sweating, heat intolerance, polydipsia or polyuria Hematologic/Lymphatic Hematologic/Lymphatic: Denies none, anemia, easy bleeding, easy bruising or lymphadenopathy Allergic/Immunologic Allergic/Immunologic: Denies rhinitis, urticaria, eczemia or asthma Vital Signs Vital Signs Vital Signs: 03/05/24 07:40 03/05/24 07:45 03/05/24 07:46 Temperature 98.1 F Temperature Source Oral Pulse Rate 90 91 Respiratory Rate 20 H 20 H Respiratory Effort Short of Breath Respiratory Depth Shallow Respiratory Pattern Blood Pressure 143/99 H Blood Pressure Mean 113 Blood Pressure Source Blood Pressure Position Blood Pressure Location Pulse Ox 90 90 Oxygen Delivery Method Room Air Room Air Room Air Oxygen Flow Rate (L/min) 03/05/24 07:46 03/05/24 07:49 03/05/24 08:44 Temperature 98 F Temperature Source Oral Pulse Rate 71 Respiratory Rate 22 H Respiratory Effort Respiratory Depth Respiratory Pattern Blood Pressure 147/77 H Blood Pressure Mean 100 Blood Pressure Source Blood Pressure Position Blood Pressure Location Pulse Ox 95 94 Oxygen Delivery Method Nasal Cannula Nasal Cannula Nasal Cannula Oxygen Flow Rate (L/min) 2 2 4 03/05/24 10:07 03/05/24 11:26 03/05/24 11:28 Temperature 98.6 F 98.1 F Temperature Source Temporal Pulse Rate 76 77 Respiratory Rate 20 H 16 Respiratory Effort Normal Non-Labored Respiratory Depth Normal Respiratory Pattern Normal Blood Pressure 131/83 H 118/87 H Blood Pressure Mean 99 97 Blood Pressure Source Monitor Blood Pressure Position Semi-Fowlers Blood Pressure Location Right Arm Pulse Ox 95 96 Oxygen Delivery Method Nasal Cannula Nasal Cannula Oxygen Flow Rate (L/min) 2 2 03/05/24 13:58 03/05/24 16:48 Temperature 97.1 F L Temperature Source Temporal Pulse Rate 75 Respiratory Rate 16 Respiratory Effort Respiratory Depth Respiratory Pattern Blood Pressure 144/80 H Blood Pressure Mean 101 Blood Pressure Source Monitor Blood Pressure Position Semi-Fowlers Blood Pressure Location Right Forearm Pulse Ox 97 Oxygen Delivery Method Nasal Cannula Nasal Cannula Oxygen Flow Rate (L/min) 2 2 Weight Weight: 133.7 kg Body Mass Index (BMI) 46.1 Physical Exam Const alert, oriented x3, no apparent distress, healthy appearing and well nourished Constitutional Narrative: Patient is morbidly obese General Appearance: cooperative, well kempt and well developed Orientation / Consciousness: awake, oriented to person, oriented to place and oriented to time HEENT normocephalic, head/scalp atraumatic, hearing grossly normal bilaterally and moist oral mucous membranes Eyes PERRL, EOMs intact bilaterally and conjunctivae normal Neck supple, no JVD, thyroid normal and no carotid bruits General: trachea midline Resp normal respiratory effort, no retractions, no use of accessory muscles and clear to auscultation bilaterally Auscultation: Negative for rales, rhonchi or wheezes Cardio regular rate, regular rhythm, S1 normal heart sound, S2 normal heart sound, no murmurs, no rub and no gallops GI normal to inspection, nondistended, normoactive bowel sounds, soft to palpation, non-tender and non-distended Extremity no clubbing, cyanosis or edema Skin no rashes or lesions noted General Skin Exam: no breakdown Neuro oriented x3, CN's II-XII intact bilaterally, moves all extremities, no focal motor deficits and no sensory deficits noted Sensorium / Orientation: awake and alert Speech: speech normal Psych affect normal Results Lab / Micro Data 03/05/24 07:28 03/05/24 07:28 Labs: Laboratory Results - last 24 hr 03/05/24 07:28: WBC 9.3, RBC 5.05, Hgb 14.3, Hct 46.2, MCV 91.5, MCH 28.3, MCHC 31.0 L, RDW Std Deviation 50.0 H, RDW Coeff of Epifanio 14.8 H, Plt Count 233, MPV 11.3, Immature Gran % (Auto) 0.600, Neut % (Auto) 58.6, Lymph % (Auto) 28.2, [place] % (Auto) 8.3, Eos % (Auto) 3.4, Baso % (Auto) 0.9, Absolute Neuts (auto) 5.5, Absolute Lymphs (auto) 2.63, Nucleated RBC % 0, Sodium 138, Potassium 3.7, Chloride 107, Carbon Dioxide 25.0, Anion Gap 6, BUN 17, Creatinine 1.25 H, Estim Creat Clear Calc 58.70, Est GFR (MDRD) Af Amer 54 L, Est GFR (MDRD) Non-Af 45 L, BUN/Creatinine Ratio 13.6, Glucose 157 H, Calcium 9.9, Troponin I High Sens 132 H*, B-Natriuretic Peptide 117.2 H 03/05/24 09:30: Troponin I High Sens 132 H* 03/05/24 09:34: PT 15.3 H, INR 1.2, APTT 27.1 03/05/24 14:10: Troponin I High Sens 100 H Imaging Radiology Impression Chest X-Ray 03/05/24 08:00 IMPRESSION: Mild degree of vascular congestion and CHF. Electronically Signed: Krunal Allen MD at 8:35 EDT , Chest CTA 03/05/24 08:46 IMPRESSION: Multiple bilateral pulmonary emboli worse in the right hemithorax. Mild degree of atelectasis at the left lung base. No evidence of right ventricular strain. Electronically Signed: Krunal Allen MD at 9:26 EDT , Assessment & Plan Assessment/Plan (1) Hypoxia: PLAN: Plan 1. Bilateral pulmonary emboli-patient will be admitted to PCU, she was placed on Eliquis, echocardiogram will be obtained #2 hypoxia secondary to #1-pulse ox will be monitored, oxygen will be adjusted as needed #3 elevated troponin-probably secondary to PE, patient had no complaints of any chest pain and her EKG showed no ST-T wave changes, enzymes will be cycled #4 obstructive sleep apnea-patient will use her CPAP machine in the hospital #5 seizure disorder-patient will remain on her current seizure medications #6 morbid obesity-complicates care, management, recovery, and prognosis #7 hyperlipidemia-patient is on statin #8 left leg VTE-again patient is on Eliquis Total clinical time spent by myself addressing the patient's medical issues, reviewing all of her data, and collaborating with patient's care team: 75 minutes Charges/Coding Visit Charges Inpatient E&M: 72214 Init Hosp L3
[2024-03-05] MEDS: Simvastatin 20 MG Tablet 40 MG PO (21:18)
[2024-03-06] VITALS (7 sets, daily range): BP systolic 134–147; BP diastolic 64–91; PULSE 76–82; RESP 16–19; TEMP 36.4–36.9; O2SAT 92–96
--- NOTE | 2024-03-06 10:45 | CASEMGMT ---
PATRICA DAO Face to Face with patient for initial transition planning/care coordination assessment. RN CM introduced self and role at [facility]. Patient lying in bed, alert and oriented, nephew at bedside. Patient willing to participate in assessment and is able to answer all questions appropriately. Care providers, pharmacy, and demographics verified. PCP: Elyse Specialists: Rubia Deras, manager of employee relations; Tadeo, neurologist; John, urology Preferred Pharmacy: [facility] Insurance: [facility], [facility] Prescription Benefit: yes Living Will/HPOA: yes, Cooper Wilson LNOK: Living Arrangements: Patient lives with in a single story home with 4 steps and railing to enter the home. Patient is independent at home Transportation: self, DME/HHC: Patient has raised toilet, cane, walker, cpap, pulse ox at home. No previous HHC or SNF. Will monitor for home oxygen, patient prefers [employer]. Patient wishes to discharge home, denies need for home health at this time. Patient states he has no further needs or concerns at this time. CM to follow for discharge planning needs that may arise. Disposition Plan: Patient to discharge home with family support and follow-up plans in place. Will monitor for home oxygen. Sadia GOLDEN, RN, CM
--- NOTE | 2024-03-06 11:02 | PCM.PN.HOSP ---
Reason for Visit Reason for Visit: Diagnoses Hypoxemia (03/05/24) Subjective Subjective Patient was seen and examined today, she is now on 3 L of nasal cannula oxygen, she is ambulatory in the room, she does not complain of any shortness of breath at rest. Patient will have an echocardiogram performed today, patient's cardiac enzymes were flat yesterday and I do not think this indicated a type II [place]. Objective Data Objective Data Vital Signs: Vital Signs Temp Pulse Resp BP Pulse Ox O2 Del Method O2 Flow Rate 97.9 F 76 18 147/78 H 94 Nasal Cannula 3 03/06/24 03:51 03/06/24 03:51 03/06/24 03:51 03/06/24 03:51 03/06/24 07:06 03/06/24 09:29 03/06/24 07:06 Oxygen Flow Rate (L/min) 3 Oxygen Delivery Method Nasal Cannula Weight: 133.7 kg Body Mass Index (BMI) 46.1 Intake & Output: Intake and Output for Last 24 Hours 03/04/24 03/05/24 03/06/24 23:59 23:59 23:59 Intake Total 330 / 330 Output Total 465 / 465 450 / 450 Balance -135 / -135 -450 / -450 Lab / Micro Data 03/05/24 07:28 03/05/24 07:28 Labs: Laboratory Results - last 24 hr 03/05/24 14:10: Troponin I High Sens 100 H Radiography Diagnostic Testing: Radiology Impression Venous Doppler Study 03/05/24 08:23 Interpretation Summary Acute deep vein thrombosis is noted in the left peroneal vein. Ordering Physician: Yaya Khoury Referring Physician: Braden Pappas Performed By: Sadia Cardona RVT Physical Exam Narrative alert, oriented x3, no apparent distress, healthy appearing and well nourished Constitutional Narrative: Patient is morbidly obese General Appearance: cooperative, well kempt and well developed Orientation / Consciousness: awake, oriented to person, oriented to place and oriented to time HEENT normocephalic, head/scalp atraumatic, hearing grossly normal bilaterally and moist oral mucous membranes Eyes PERRL, EOMs intact bilaterally and conjunctivae normal Neck supple, no JVD, thyroid normal and no carotid bruits General: trachea midline Resp normal respiratory effort, no retractions, no use of accessory muscles and clear to auscultation bilaterally Auscultation: Negative for rales, rhonchi or wheezes Cardio regular rate, regular rhythm, S1 normal heart sound, S2 normal heart sound, no murmurs, no rub and no gallops GI normal to inspection, nondistended, normoactive bowel sounds, soft to palpation, non-tender and non-distended Extremity no clubbing, cyanosis or edema Skin no rashes or lesions noted General Skin Exam: no breakdown Neuro oriented x3, CN's II-XII intact bilaterally, moves all extremities, no focal motor deficits and no sensory deficits noted Sensorium / Orientation: awake and alert Speech: speech normal Psych affect normal Assessment & Plan Assessment/Plan (1) Hypoxia: PLAN: Plan 1. Bilateral pulmonary emboli-patient will be admitted to PCU, she was placed on Eliquis, echocardiogram will be obtained #2 hypoxia secondary to #1-pulse ox will be monitored, oxygen will be adjusted as needed #3 elevated troponin-probably secondary to PE, patient had no complaints of any chest pain and her EKG showed no ST-T wave changes, enzymes will be cycled #4 obstructive sleep apnea-patient will use her CPAP machine in the hospital #5 seizure disorder-patient will remain on her current seizure medications #6 morbid obesity-complicates care, management, recovery, and prognosis #7 hyperlipidemia-patient is on statin #8 left leg peroneal VTE-again patient is on Eliquis #9 chronic kidney disease stage IIIa #10 type 2 diabetes-patient is on metformin, I have elected to keep her on it at this time, I have elected not to check her blood sugars at this time Total clinical time spent by myself addressing the patient's medical issues, reviewing all of her data, and collaborating with patient's care team: 35 minutes Charges/Coding Visit Charges Inpatient E&M: 17189 Subs Hosp L2
[2024-03-06] MEDS: levETIRAcetam 500 MG Tablet PO ×2 (11:20→20:49)
[2024-03-06] MEDS: APIXABAN 5 MG TABLET 10 MG PO ×2 (11:21→20:48)
[2024-03-06] MEDS: Pantoprazole Sodium 20 MG Tablet PO (11:21)
[2024-03-06] MEDS: Tolterodine Tartrate 2 MG CAP.SA PO (11:21)
--- NOTE | 2024-03-06 12:18 | CHAPLAIN ---
Type of Pastoral Visit _x__ Initial Visit ___ Follow-up Visit ___ On-call Visit ___ General Patient Visit ___ Spiritual Assessment ___ Family Conference ___ Bereavement ___ Rapid Response ___ Code Blue ___ Other (describe below) Pastoral Care Referral From _x__ Patient ___ Family ___ Nurse ___ Physician ___ [employer] Assistant Teacher ___ Group Account Director ___ Other (describe below) Sacrament/Intervention _x__ Active listening ___ Anointing ___ Mandaen ___ Bereavement ___ Communion ___ Itzel exploration ___ _x__ Life review _x__ Prayer ___ Reconciliation ___ Sacrament of Sick ___ Supportive presence ___ Wedding ___ Other (describe below) Pastoral Comments this 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
[2024-03-06] MEDS: Furosemide 40 MG Tablet PO (16:14)
[2024-03-06 17:15] LABS: Bedside Glucose 145 mg/dL (74-106)
[2024-03-06] MEDS: Acetaminophen 325 MG Tablet 650 MG PO (20:48)
[2024-03-06] MEDS: Simvastatin 20 MG Tablet 40 MG PO (20:49)
[2024-03-07 03:50] VITALS: BP 135/78; PULSE 79; RESP 17; TEMP 36.7; O2SAT 94
[2024-03-07 08:10] VITALS: O2SAT 95
[2024-03-07 10:00] VITALS: BP 134/76; PULSE 77; RESP 16; TEMP 36.4; O2SAT 93
[2024-03-07] MEDS: Pantoprazole Sodium 20 MG Tablet PO (10:48)
[2024-03-07] MEDS: levETIRAcetam 500 MG Tablet PO (10:48)
[2024-03-07] MEDS: Furosemide 40 MG Tablet PO (10:48)
[2024-03-07] MEDS: Tolterodine Tartrate 2 MG CAP.SA PO (10:48)
[2024-03-07] MEDS: APIXABAN 5 MG TABLET 10 MG PO (10:48)
[2024-03-07] MEDS: metFORMIN (XR) 500 MG Tablet PO (12:33)
[2024-03-07 12:34] VITALS: O2SAT 84; O2SAT 86; O2SAT 88; O2SAT 90; O2SAT 91
--- NOTE | 2024-03-07 14:31 | DCINST_ITS ---
Discharge Instructions Diet Discharge Diet: 1800 Calorie Control Diet Activity Discharge Activity: Return to Normal Activity Weight Bearing Status: Full weight bearing Follow Up Care Test Results: Test results from this visit will be discussed in further detail at your follow- up appointment, if applicable. Discharge Plan Admission Admit Date/Time: 03/05/24 09:45 Primary Reason for Your Visit: Pulmonary embolism Attending Provider: Hayden Sierra Primary Care Provider: Braden Pappas Instructions Additional Instructions / Restrictions: Use 4 L of oxygen during ambulation, you do not require oxygen at rest Discharge Orders/Prescriptions Prescriptions: New Eliquis 5 mg Tablet 10 mg PO BID Qty: 68 0RF Rx Instructions: Two twice a day starting the evening of 03/07/2024 through the evening of 03/11/2024, then reduce the dose to 1 twice a day thereafter starting 03/12/2024 furosemide 40 mg Tablet 40 mg PO DAILY Qty: 30 0RF potassium chloride 10 mEq tablet extended release 20 meq PO DAILY Qty: 60 0RF Continued solifenacin 5 mg tablet 5 mg PO DAILY levetiracetam [Keppra] 500 mg tablet 500 mg PO BID Qty: 180 3RF sumatriptan succinate 50 mg tablet See Rx Instructions PO .COMPLEX Qty: 9 7RF Rx Instructions: take 1 tab orally every 2 hours as needed for headache up to 2 tablets daily simvastatin 40 MG tablet 40 mg PO QHS metformin 500 MG tablet extended release 24 hr 500 mg PO LUNCH esomeprazole magnesium [Nexium] 20 mg Capsule,Delayed Release(Dr/Ec) 20 mg PO DAILY cranberry 500 mg capsule 1,500 mg PO DAILY turmeric 400 mg capsule 800 mg PO DAILY carboxymethylcellulose sodium [Artificial Tears (cmc)] 1 drp ophthalmic (eye) 3XD Discontinued aspirin 81 mg tablet,chewable 81 mg PO DAILY@0800 Referrals / Follow Up: Braden Pappas MD [Primary Care Provider] - Within 1 Month Harsh Deras DO [Med Staff - Active Staff] - See Referral Note (In 2 weeks) Disposition Disposition (needs filled in before D/C Order can be placed): Home, Self Care
--- NOTE | 2024-03-07 14:44 | PCM.DC.SUM ---
Providers Date of Admission: 03/05/24 Date of Discharge: 03/07/24 Primary Care Physician: Dr. Braden Pappas MD Reason For Visit: HYPOXIA, PE Diagnosis Discharge Diagnosis (1) Hypoxia: Status: Acute Code(s): R09.02 - Hypoxemia Plan 1. Bilateral pulmonary emboli-patient will be admitted to PCU, she was placed on Eliquis, echocardiogram will be obtained #2 hypoxia secondary to #1-pulse ox will be monitored, oxygen will be adjusted as needed #3 elevated troponin-probably secondary to PE, patient had no complaints of any chest pain and her EKG showed no ST-T wave changes, enzymes will be cycled #4 obstructive sleep apnea-patient will use her CPAP machine in the hospital #5 seizure disorder-patient will remain on her current seizure medications #6 morbid obesity-complicates care, management, recovery, and prognosis #7 hyperlipidemia-patient is on statin #8 left leg peroneal VTE-again patient is on Eliquis #9 chronic kidney disease stage IIIa #10 type 2 diabetes-patient is on metformin, I have elected to keep her on it at this time, I have elected not to check her blood sugars at this time Total clinical time spent by myself addressing the patient's medical issues, reviewing all of her data, and collaborating with patient's care team: 35 minutes Medications at Discharge Home Medications metformin 500 mg tablet,extended release 24 hr 500 mg PO LUNCH Diabetes 05/16/19 simvastatin 40 mg tablet 40 mg PO QHS Cholesterol 05/16/19 esomeprazole magnesium 20 mg capsule,delayed release (Nexium) 20 mg PO DAILY GERD 02/07/21 solifenacin 5 mg tablet 5 mg PO DAILY bladder 12/29/22 levetiracetam 500 mg tablet (Keppra) 500 mg PO BID seizures #180 tabs 09/28/23 sumatriptan succinate 50 mg tablet See Rx Instructions PO .COMPLEX headache #9 tabs 09/28/23 carboxymethylcellulose sodium 1 drp ophthalmic (eye) 3XD eye health 03/05/24 cranberry 500 mg capsule 1,500 mg PO DAILY supplement 03/05/24 turmeric 400 mg capsule 800 mg PO DAILY supplement 03/05/24 apixaban 5 mg tablet (Eliquis) 10 mg (2 x 5 mg) PO BID #68 tabs 06/13/24 furosemide 40 mg tablet 40 mg PO DAILY #30 tabs 03/07/24 potassium chloride 10 mEq tablet,extended release 20 meq (2 x 10 mEq) PO DAILY #60 tabs 03/07/24 Hospital Course Operations None Procedures 2-D Echocardiogram Summary of Care Provided Minutes Spent on Discharge: 32 Hospital Course: This 73-year-old white female was seen in the emergency room complaining of shortness of breath since the night before. Patient denies any chest pain. EKG showed no evidence of ischemic changes, troponin was elevated at 132, patient had a CT of the chest which showed multiple pulmonary emboli bilaterally. There is no evidence of any heart strain noted on CT. Patient required 4 L of oxygen to maintain her pulse ox above 90%. Patient was given Eliquis and admitted to PCU, she underwent an echocardiogram which showed a normal EF with evidence of pulmonary hypertension. Patient was seen by PT and OT, oxygen was weaned during her hospital stay, cardiac enzymes were repeated and were elevated and a flat pattern-I did not feel the patient had a myocardial infarction. Patient had a venous duplex scan done which showed a left leg DVT. On 03/07/2024, patient was seen and examined: On examination she appeared in good health and spirits, she does not appear to be in any distress. Vital signs as documented. Skin warm and dry and without overt rashes. Neck without JVD, thyroid appears normal, trachea is midline, neck is supple. Lungs clear, normal air movement was noted. Heart exam notable for regular rhythm, normal sounds and absence of murmurs, rubs or gallops. Abdomen unremarkable and without evidence of organomegaly, masses, or abdominal aortic enlargement, bowel sounds are present in all 4 quadrants, no abdominal tenderness was noted. Extremities nonedematous, no cyanosis was noted, no clubbing was noted. Neuro: Cranial nerves II through XII are grossly intact, no focal motor deficits were noted, sensation to light touch and pinprick is intact, motor exam 5/5 throughout. Psych: Patient is alert and oriented x3, she does not appear anxious or depressed, she does not appear agitated. Patient appear to be stable for discharge home on 03/07/2024, she required 4 L of oxygen during ambulation but none at rest. Home oxygen was set up for the patient. Weight / BMI Weight Weight: 133.7 kg Body Mass Index (BMI) 46.1 ABG / Lab / Microbiology Data 03/05/24 07:28 03/05/24 07:28 Laboratory: Laboratory Results - last 24 hr 03/06/24 16:43: POC Glucose 145 H D/C Instructions Discharge Diet: 1800 Calorie Control Diet Weight Bearing Status: Full weight bearing Meaningful Use Info Meaningful Use Meaningful Use Diagnoses (Choose all that apply): VTE Ischemic Stroke Statin Dosing Therapy Reference: STATIN DOSE THERAPY REFERENCE: * Patients > 75 years receive moderate or high dose statin therapy. * Patients 75 years or YOUNGER should receive HIGH intensity statin dose unless contraindicated. You will be required to document reason for non-treatment if statin daily dose does not meet guidelines. HIGH DOSE STATIN THERAPY DAILY Atorvastatin > than or = to 40 mg Rosuvastatin > than or = to 20 mg Amlodipine + Atorvastatin > than or = to 2.5/40 mg Ezetimibe + Simvastatin 10/80 mg Simvastatin 80mg VTE Anticoag overlap given w/in hospital stay or rx'd at dc?: No Pt receive overlap for 5 days?: No Reason overlap not ordered, prescribed, or given for 5 days: Procedure Not Indicated Discharge Plan Admission Admit Date/Time: 03/05/24 09:45 Primary Reason for Your Visit: Pulmonary embolism Attending Provider: Hayden Sierra Primary Care Provider: Braden Pappas Instructions Additional Instructions / Restrictions: Use 4 L of oxygen during ambulation, you do not require oxygen at rest Discharge Orders/Prescriptions Prescriptions: New Eliquis 5 mg Tablet 10 mg PO BID Qty: 68 0RF Rx Instructions: Two twice a day starting the evening of 03/07/2024 through the evening of 03/11/2024, then reduce the dose to 1 twice a day thereafter starting 03/12/2024 furosemide 40 mg Tablet 40 mg PO DAILY Qty: 30 0RF potassium chloride 10 mEq tablet extended release 20 meq PO DAILY Qty: 60 0RF Continued solifenacin 5 mg tablet 5 mg PO DAILY levetiracetam [Keppra] 500 mg tablet 500 mg PO BID Qty: 180 3RF sumatriptan succinate 50 mg tablet See Rx Instructions PO .COMPLEX Qty: 9 7RF Rx Instructions: take 1 tab orally every 2 hours as needed for headache up to 2 tablets daily simvastatin 40 MG tablet 40 mg PO QHS metformin 500 MG tablet extended release 24 hr 500 mg PO LUNCH esomeprazole magnesium [Nexium] 20 mg Capsule,Delayed Release(Dr/Ec) 20 mg PO DAILY cranberry 500 mg capsule 1,500 mg PO DAILY turmeric 400 mg capsule 800 mg PO DAILY carboxymethylcellulose sodium [Artificial Tears (cmc)] 1 drp ophthalmic (eye) 3XD Discontinued aspirin 81 mg tablet,chewable 81 mg PO DAILY@0800 Referrals / Follow Up: Harsh Deras DO [Med Staff - Active Staff] - See Referral Note (In 2 weeks) Braden Pappas MD [Primary Care Provider] - Within 1 Month Disposition Disposition (needs filled in before D/C Order can be placed): Home, Self Care Charges/Coding Visit Charges Inpatient E&M: 32848 Disch Hosp >30min
--- NOTE | 2024-03-07 14:44 | PCM.HOSP.N ---
Hospitalist Note Oxygen testing reviewed, patient is ambulatory in the home and community and requires home oxygen with portability
--- NOTE | 2024-03-07 14:50 | CASEMGMT ---
Patient has order for discharge. Patient qualifies for home oxygen. RN CM in to discuss needs at discharge. Patient states she prefers [facility] for DME. Patient is also discharging on Eliquis, hospitalist provided patient with savings card. RN SYLWIA informed patient that should Eliquis be too expensive after using 30 day savings card to follow-up with PCP, patient voiced understanding. Patient denies further needs or concerns. SCript received for oxygen and sent to [facility] via [employer], portable tank provided from [employer].
[2024-03-07 16:00] VITALS: BP 150/84; PULSE 93; RESP 16; TEMP 37.1; O2SAT 95
== END 2024-03-07 16:24 | disposition home or self-care (01) | DRG 176 ==
LOC: ED 08:25 → PCU 10:31
PROVIDERS: Admitting Provider Internal Medicine; Emergency Provider Emergency Medicine; PCP Family Medicine; Visit Provider Internal Medicine
DX: I26.99 Other pulmonary embolism without acute cor pulmonale (principal); I82.402 Acute embolism and thrombosis of unspecified deep veins of left lower extremity; Z68.42 Body mass index [BMI] 45.0-49.9, adult; E11.22 Type 2 diabetes mellitus with diabetic chronic kidney disease; G40.909 Epilepsy, unspecified, not intractable, without status epilepticus; N18.31 Chronic kidney disease, stage 3a; E66.01 Morbid (severe) obesity due to excess calories; E78.5 Hyperlipidemia, unspecified; G43.909 Migraine, unspecified, not intractable, without status migrainosus; G47.33 Obstructive sleep apnea (adult) (pediatric); Z79.82 Long term (current) use of aspirin; G89.29 Other chronic pain; Z79.01 Long term (current) use of anticoagulants; Z98.51 Tubal ligation status; Z90.49 Acquired absence of other specified parts of digestive tract
CPT/HCPCS: 36415; 71046; 71275; 80048; 82962; 83880; 84484; 85025; 85610; 85730; 93005; 93306; 93971; 97162; 97166; 99252; 99284; Q9957; Q9967; A4216; C8929; G0463

== ENCOUNTER → 2024-04-12 | Outpatient (CLI) | payer MEDICARE, OTHER, SELFPAY ==
[2024-04-12 12:21] LABS: Anion Gap 11 (5-15); BUN 20 mg/dL (7-18); BUN/Creat Ratio 14.2 RATIO (10-20); Calcium,Total 9.3 mg/dL (8.5-10.1); Chloride 104 mmol/L (98-107); Creatinine, Serum 1.41 mg/dL (0.55-1.02); EST Glomerular Filtration Rate 39 mL/min (>60); Est Glom Filt Rate - Afr Amer 47 mL/min (>60); Glucose 157 mg/dL (74-106); Potassium 3.7 mmol/L (3.5-5.1); Sodium Level 140 mmol/L (136-145)
== END | disposition home or self-care (01) ==
LOC: MTLAB 10:14
PROVIDERS: PCP Family Medicine; Referring Provider Family Medicine; Visit Provider Family Medicine
DX: R60.9 Edema, unspecified (principal)
CPT/HCPCS: 36415; 80048

== ENCOUNTER → 2024-06-12 | Outpatient (CLI) | payer MEDICARE, OTHER, SELFPAY ==
[2024-06-12 18:21] LABS: Anion Gap 7 (5-15); BUN 23 mg/dL (7-18); BUN/Creat Ratio 16.2 RATIO (10-20); Calcium,Total 9.8 mg/dL (8.5-10.1); Chloride 104 mmol/L (98-107); Creatinine, Serum 1.42 mg/dL (0.55-1.02); EST Glomerular Filtration Rate 39 mL/min (>60); Est Glom Filt Rate - Afr Amer 47 mL/min (>60); Glucose 119 mg/dL (74-106); Potassium 3.7 mmol/L (3.5-5.1); Sodium Level 138 mmol/L (136-145)
== END | disposition home or self-care (01) ==
LOC: MFPLAB 16:26
PROVIDERS: PCP Family Medicine; Visit Provider Family Medicine
DX: R60.9 Edema, unspecified (principal)
CPT/HCPCS: 36415; 80048

== ENCOUNTER → 2024-06-26 | Outpatient (CLI) | payer MEDICARE, OTHER, SELFPAY ==
--- NOTE | 2024-06-26 13:14 | BI_ITS ---
MAMMOGRAPHY - BILATERAL SCREENING REASON FOR EXAM: Female, 73 years old. Routine annual screening examination. PERTINENT HISTORY: TECHNIQUE: Digital bilateral breast prabhakar (3D mammographic acquisition) in the CC and MLO projections. 2-D mediolateral oblique (MLO) and craniocaudad (CC) views of both breasts were obtained. CAD: Full Field Digital Mammography with Computer Added Detection was performed. COMPARISON: None. FINDINGS: Breast Composition: The breasts are almost entirely fatty. Since prior study, there has been progressive calcifications in the mid aspect of the left breast. Biopsy recommended. No other significant abnormalities are identified. BI/SCRN MAMM (CAD)W/PRABHAKAR BILAT IMPRESSION: Progressive calcifications in the left mid breast as described. Biopsy recommended. ASSESSMENT CATEGORY: BIRADS Category 4: Suspicious - Biopsy Should Be Considered. A letter regarding these results will be sent to the patient by the facility within 30 days. Approximately 10% of breast cancers are not detected by mammography. A normal mammogram should not delay biopsy of a clinically suspicious abnormality. [id number] Electronically Signed: Krunal Allen MD at 14:01 EDT ,
== END | disposition home or self-care (01) ==
LOC: OPBI 13:13
PROVIDERS: PCP Family Medicine; Referring Provider Family Medicine; Visit Provider Family Medicine
DX: Z12.31 Encounter for screening mammogram for malignant neoplasm of breast (principal)
CPT/HCPCS: 77063; 77067

== ENCOUNTER → 2024-07-08 | Outpatient (CLI) | payer MEDICARE, OTHER, SELFPAY ==
--- NOTE | 2024-07-08 10:20 | BRBX_PTH ---
PATIENT: LISA WAHL LOC: [facility] U#:[id number] AGE/SX: 73/F ROOM: RE07/08/[address]: Dr. Colin Mancilla MD : 1950 BED: DIS: 07/08/2024 SPEC #: [id number] RECD: 07/08/24 10:50 STATUS: CHARLENE REQ #: [id number] KALLI: 07/08/24 10:[address]: Colin Mancilla DEPT: SURGICAL PATHOLOGY RECD BY: Nathalia Maldonado ENTERED: 07/08/24 13:15 SP TYPE: BREAST BX OTHR DR: Dr. Braden Pappas MD Tissues: Left breast, NOS Procedures: Surgery Specimen Level IV HEADER OPERATION: Left breast stereotactic biopsy PRE-OP DIAGNOSIS: Left breast calcifications TISSUE SUBMITTED: Left breast tissue Ischemic Time: 1 minute Fixation Time: 10 hours MICROSCOPIC DIAGNOSIS Left breast, stereotactic biopsy: Hyalinized microfibroadenoma with associated banal clustered microcalcifications. AM. 07/09/2024 MICROSCOPIC DESCRIPTION Slides are reviewed. GROSS DESCRIPTION Received is one container labeled with the patient's name and not further designated. The specimen consists of multiple elongated fragments of reynoso-yellow fibroadipose tissue that in aggregate measure 7.0 x 3.0 x 0.3 cm. The specimen is totally submitted in three cassettes. 07/08/2024 TC: 5 CPT:13040
--- NOTE | 2024-07-08 10:36 | OP.PCM_ITS ---
Problems Associated Problem List Diagnoses (1) Abnormal mammogram of left breast: Report of Operation Date of Procedure: 07/08/24 Pre-Operative Diagnosis: Abnormal left breast mammogram/microcalcifications Post-Operative Diagnosis: Abnormal left breast mammogram/microcalcifications. Surgery/Procedure Performed:: Stereotactic left breast biopsy x 1 site Description of Surgical Findings:: Microcalcifications successfully biopsied Surgeon: Colin Mancilla tube bender hand: None Type of Anesthesia: Local Specimen's removed: Left breast tissue with microcalcifications Drains: None Estimated Blood Loss (mL): Minimal Fluids Replaced: None Description of Procedure: The patient is a 73-year-old female who recently underwent routine screening mammography. An area of microcalcifications in the central aspect of the left breast was noted to be increasing in density of calcifications. This finding triggered a BI-RADS 4 reading and so biopsy was recommended. Patient was seen in my office recently and I offered her stereotactic biopsy. We discussed the details of the planned procedure and she wished to proceed. The patient was brought to the mammography suite. After obtaining consent to perform the left breast stereotactic biopsy, the patient was then positioned in a prone position on the stereotactic biopsy table. Her left breast was then suspended through the opening in the table. The left breast was then placed into compression. Images were obtained until the area of calcifications were clearly identified on imaging. Once this was successfully performed, 2 stereotactic views were obtained of the area to be biopsied. With these 2 images we were able to then target the lesion. Next, the skin of the left breast was then prepped and draped in the usual sterile manner. Local anesthetic was then infiltrated. A #11 blade was then used to make a small skin incision. The biopsy probe was then inserted to the desired depth. 2 more x- ray views were obtained and appeared that the biopsy probe was in appropriate position to be fired and perform the biopsies. The probe was then fired/deployed. Next, multiple suction biopsies were obtained mostly from the 8 the 4 o'clock position. There was good tissue sampling. The patient tolerated the sampling process very well. The tissue obtained was then plated and an x- ray was performed. This confirmed numerous microcalcifications in the specimen tissue. A marking clip was then deployed. The biopsy probe was then withdrawn and then manual pressure was held on the site of the biopsy to minimize bruising and improve hemostasis. Mastisol and Steri-Strips were applied as dressing. She then underwent a post procedure mammogram. Overall she tolerated the procedure extremely well. I will contact her with biopsy results when they become available. Grafts/Implants Used: Marking clip deployed postbiopsy Complications None Admit VTE Documentation VTE Present on Admission: No Procedures Integumentary [id number]: [id number] Bx breast 1st lesion strtctc
== END | disposition home or self-care (01) ==
LOC: BIRAD 09:24
PROVIDERS: PCP Family Medicine; Referring Provider Surgery; Visit Provider Surgery
DX: R92.8 Other abnormal and inconclusive findings on diagnostic imaging of breast (principal)
CPT/HCPCS: 19081; 88305; J7050; A4648

== ENCOUNTER → 2024-09-11 | Outpatient (CLI) | payer MEDICARE, OTHER, SELFPAY ==
[2024-09-11 18:36] LABS: ALB/GLOB Ratio 0.8 RATIO (0.9-2.4); AST(SGOT) 13 U/L (15-37); Alanine Aminotransfer ALT/SGPT 12 U/L (13-56); Albumin, Serum 3.4 g/dL (3.2-5.0); Alkaline Phosphatase 92 U/L (45-117); Anion Gap 7 (5-15); BUN 20 mg/dL (7-18); BUN/Creat Ratio 14.6 RATIO (10-20); Calcium,Total 9.7 mg/dL (8.5-10.1); Chloride 106 mmol/L (98-107); Cholesterol 180 mg/dL (200); Creatinine, Serum 1.37 mg/dL (0.55-1.02); EST Glomerular Filtration Rate 40 mL/min (>60); Est Glom Filt Rate - Afr Amer 49 mL/min (>60); Globulin 4.5 g/dL (2.2-4.2); Glucose 95 mg/dL (74-106); High Density Lipoprotein 75 mg/dL; Potassium 3.6 mmol/L (3.5-5.1); Protein, Total 7.9 g/dL (6.4-8.2); Sodium Level 138 mmol/L (136-145); Triglycerides 122 mg/dL; Very Low Density Lipoprotein 24 mg/dL (5-40)
== END | disposition home or self-care (01) ==
LOC: MFPLAB 16:30
PROVIDERS: PCP Family Medicine; Referring Provider Family Medicine; Visit Provider Family Medicine
DX: E11.9 Type 2 diabetes mellitus without complications (principal)
CPT/HCPCS: 36415; 80053; 80061; 83036

== ENCOUNTER → 2024-12-11 | Outpatient (CLI) | payer MEDICARE, OTHER, SELFPAY ==
[2024-12-11 19:11] LABS: Anion Gap 14 (5-15); BUN 20 mg/dL (4-19); BUN/Creat Ratio 15.9 RATIO (10-20); Calcium,Total 9.4 mg/dL (7.6-11.0); Carbon Dioxide 20.8 mmol/L (21.0-32.0); Chloride 103 mmol/L (98-108); Creatinine, Serum 1.23 mg/dL (0.70-1.20); EST Glomerular Filtration Rate 46 (>60); Glucose 126 mg/dL (70-99); Potassium 4.2 mmol/L (3.3-5.1); Sodium Level 138 mmol/L (133-145)
== END | disposition home or self-care (01) ==
LOC: MFPLAB 15:07
PROVIDERS: PCP Family Medicine; Referring Provider Family Medicine; Visit Provider Family Medicine
DX: R60.9 Edema, unspecified (principal)
CPT/HCPCS: 36415; 80048

== ENCOUNTER → 2025-03-25 | Outpatient (CLI) | payer MEDICARE, OTHER, SELFPAY ==
[2025-03-25 13:23] LABS: Creatinine, Urine (random) 235.00 mg/dL (28.00-217.00); Microalbumin,Random Urine < 12.0 mg/L (NO RANGE EST.)
[2025-03-25 13:42] LABS: AST(SGOT) 18 U/L (<=31); Alanine Aminotransfer ALT/SGPT 9 U/L (<=34); Albumin, Serum 3.7 g/dL (3.4-4.8); Alkaline Phosphatase 92 U/L (35-104); Anion Gap 13 (5-15); BUN 22 mg/dL (4-19); BUN/Creat Ratio 17.6 RATIO (10-20); Calcium,Total 9.4 mg/dL (7.6-11.0); Carbon Dioxide 24.5 mmol/L (21.0-32.0); Chloride 103 mmol/L (98-108); Cholesterol 171 mg/dL (<=200); Globulin 3.4 g/dL (2.2-4.2); Glucose 136 mg/dL (70-99); Low Density Lipoprotein Calc. 92 mg/dL; Potassium 4.0 mmol/L (3.3-5.1); Triglycerides 96 mg/dL; Very Low Density Lipoprotein 19 mg/dL (5-40); cholesterol:hdl ratio screen 2.86
== END | disposition home or self-care (01) ==
LOC: MFPLAB 10:20
PROVIDERS: PCP Family Medicine; Referring Provider Family Medicine; Visit Provider Family Medicine
DX: E11.9 Type 2 diabetes mellitus without complications (principal)
CPT/HCPCS: 36415; 80053; 80061; 82043; 82570

== ENCOUNTER → 2025-04-25 | Outpatient (CLI) | payer MEDICARE, OTHER, SELFPAY ==
--- NOTE | 2025-04-25 14:26 | SP.MBSS_ITS ---
Modified Barium Swallow Patient Information Study Date: 04/25/25 Study Time: 13:00 Direct Billable Minutes: 107 Total Minutes procedure & reportin Diagnosis: Dysphagia R13.10 Referring Physician: Braden Pappas Reason for Referral: Assess swallow function, assess risk for aspiration, and determine recommendations for any necessary dysphagia interventions. Medical History: Pt was referred for MBSS by PCP after she informed him she was having swallowing difficulty. Pt reports having swallowing difficulty for ~30 years; however, in the past 3 months it has become substantially worse. Pills and foods will feel stuck in the base of her throat/upper esophagus, which causes gagging and coughing. Gagging, coughing don't typically resolve the issue, and she is fearful of choking. Liquid wash tends to make the issue worse and she will cough on and expectorate the water. Fortunately, she has not become breathless or required the Heimlich. This swallowing difficulty occurs 2-3X/month, but she has not had issues in the past month. Of note, pt reports having a GI work up w/ scope ~30 years ago. She reported being told she had a UES that wasn't closing to keep foods down, that she had a stomach infection (treated w/ antibiotics), and then she was placed on GERD medication. No follow up w/ GI since. Hx of PNA in childhood. Follows w/ Dr. Piedra in neurology for hx of seizures. Pt reports often having a sore throat w/ recurring laryngitis. No hx of ENT. Medical History (Reviewed 03/24/25 @ 14:49 by Chuyita Go PUBLIC HEALTH OUTREACH WORKER, PUBLIC HEALTH OUTREACH WORKER-C) DVT (deep venous thrombosis) Abnormal mammogram of left breast Abnormal ultrasound Hypoxia IBS (irritable bowel syndrome) Gallstones History of blood clots Arthritis Wears hearing aid in both ears Chronic pain Pancreatitis GERD (gastroesophageal reflux disease) Migraines Hyperlipidemia Degenerative disc disease Borderline diabetes mellitus History of colonic polyps Current Diet Ordered: Regular textures / Thin liquids Dentition: Natural Teeth (bridge) Mental Status: WNL Respiratory Status: Oxygenating on Room Air Penetration-Aspiration Scale Penetration-Aspiration Scale: OBJECTIVE ASSESSMENT OF SWALLOW FUNCTION (QUANTITATIVE ? PER TRIAL): PENETRATION / ASPIRATION SCALE (CURTIS): 1 = does not enter airway 2 = enters airway/above vocal folds/ejected 3 = enters airway/above vocal folds/not ejected 4 = enters airway/contacts vocal folds/ejected 5 = enters airway/contacts vocal folds/not ejected 6 = enters airway/below vocal folds/ejected 7 = enters airway/below vocal folds/not ejected despite effort 8 = enters airway/below vocal folds/no effort VIDEOFLOROSCOPIC SCALE SCORE (CURTIS): Grade I = aspiration of material that has penetrated into the laryngeal vestibule, intact cough reflex Grade II = aspiration < 10 % of the bolus, intact cough reflex Grade III = aspiration of < 10 % of the bolus, reduced cough reflex or aspiration of > 10 % of the bolus, intact cough reflex Grade IV = aspiration of > 10 % of the bolus, reduced cough reflex Penetration-Aspiration Scale Score Thin Liquid via teaspoon: Result: 1= does not enter airway Thin Liquid via teaspoon Trial 2: Result: 1= does not enter airway Thin Liquid via small single sip: cup: Result: 2= enter airway/above vocal folds/ejected Thin Liquid via sequential sips: cup: Result: 1= does not enter airway [place] Thick Liquid via small single sip: cup: Result: 1= does not enter airway Pudding via teaspoon: Result: 1= does not enter airway 1/2 Cookie: Result: 1= does not enter airway Comment: Esophageal screen - Retention throughout the middle and lower esophagus. Thin Liquid via single sip: straw: Result: 1= does not enter airway Comment: Esophageal screen - Liquid wash cleared much of the cookie retention. Second liquid wash somewhat cleared more cookie. Third liquid wash did not further improve patients. Barium Tablet w/ Liquid Wash (Water): Result: 1= does not enter airway Comment: Esophageal screen - Retention of barium tablet in the upper esophagus, which did not clear w/ a single liquid wash, pudding wash, or sequential sips of water. 1/2 a Meka Doone cookie was then provided; however, there was retention of the cookie in the upper esophagus w/ retrograde flow to the pyriform sinuses, which then cleared through the UES w/ multiple swallows. The cookie did successfully clear the barium tablet through the LES; however, retention of cookie remained in the middle and upper esophagus. Oral Phase Labial Seal: No Labial Escape Tongue Control During Bolus Hold: Posterior escape of less than half of bolus Bolus Preparation/Mastication: Timely and efficient chewing and mashing Bolus Transport/Lingual Motion: Brisk tongue motion Oral Residue: Residue collection on oral structures Pharyngeal Phase Initiation of Pharyngeal Swallow: Bolus head in valleculae Soft Palate Elevation: Trace column of contrast/air between soft palate and pharyngeal wall Laryngeal Elevation: Comp. Superior move thyroid cart w/comp. apprx arytenoid cart-epig pet Anterior Hyoid Excursion: Partial anterior movement Epiglottic Movement: Complete inversion Laryngeal Vestibule Closure at Height of Swallow: Incomplete; narrow column of air/contrast in laryngeal vestibule (trace laryngeal penetration w/ complete ejection) Pharyngeal Stripping Wave: Present - complete Pharyngoesophageal Segment Opening: Parital distension and partial duration; parital obstruction of flow Tongue Base Retraction: Narrow column of contrast between tongue base & post. pharyngeal wall Pharyngeal Residue: Collection of residue within or on pharyngeal structures Esophageal Phase Esophageal Clearance: Esophageal retention w/ retrograde flow through pharyngoesophageal seg Diagnosis/Impression Diagnosis: Esophageal dysphagia R13.12 MBS Impressions: Oropharyngeal swallow function grossly WNL. The esophageal phase is marked by... -Retention of cookie throughout the middle and lower esophagus, which mostly cleared w/ two liquid washes. -Retention of barium tablet in the upper esophagus, which did not clear w/ single liquid wash, pudding wash, or sequential sips of thin liquids. 1/2 a Meka Doone cookie was then provided; however, there was retention of the cookie in the upper esophagus w/ retrograde flow to the pyriform sinuses, which then cleared through the UES w/ multiple swallows. The cookie did successfully clear the barium tablet through the LES; however, retention of cookie remained in the middle and upper esophagus. Recommendations Diet: Regular Textures (Moist Dry Textures) and Thin Liquids Comment: CRUSH MEDICATIONS ABLE. If unable to crush, follow the medication w/ a cracker or small cookie, use multiple swallows, and then a liquid wash. Compensatory Strategies: Small Bites (Chew thoroughly), Small Sips, Slow Rate, Alternate bites/solids and sips/liquids (1-2 sips after each bite) and Sitting upright (During and 60min after po intake) Recommend Repeat Modified Barium Swallow: No Need for Skilled Speech Therapy Services: No Recommended Referrals: GI Consult Education Completed: 1. Described result of evaluation. and 2. Pt understands evaluation & agrees with goals and treatment plan. Status Active ST Patient: Active Contact Information [facility] Speech Therapy:: Verito Lee M.A. [facility]-BIOMEDICAL PHOTOGRAPHER? Speech-Language Pathologist?? [facility] [address] [place] [address]? [email or web address]?? [phone]
== END | disposition home or self-care (01) ==
LOC: RAD 12:44
PROVIDERS: PCP Family Medicine; Referring Provider Family Medicine; Visit Provider Family Medicine
DX: R13.10 Dysphagia, unspecified (principal)
CPT/HCPCS: 74230; 92611

== ENCOUNTER → 2025-05-27 | Outpatient (CLI) | payer MEDICARE, OTHER, SELFPAY ==
[2025-05-27 14:23] LABS: Ammonia 17.4 umol/L (11-51)
--- OUTSIDE RECORDS SUMMARY | 2025-05-27 22:39 | XMS RPT_ITS | CCD ---
Author Organization [facility] CliniSyt[facility] Care Team Providers Care Technical Operations Manager Name Role Phone ROSALINO BOSS Referring Unavailable BRADEN BRAGG Primary Care Unavailable Braden Bragg MD Primary Care Provider [phone] Elyse, Dr. Feliciano Primary Care Provider Elyse, Dr. Feliciano Referring Provider [phone] Arianna CARPIO, INFANT CHILDCARE PROVIDER-C Nichole Attending Provider Dr. Braden Bragg Primary Care Provider Elyse, Dr. Feliciano Referring Provider [phone] Sadi Piedra Attending Provider Dr. Braden Bragg Primary Care Provider Dr. Braden Bragg Referring Provider [phone] Donavan CARPIO NP-Doc Boogie Attending Provider Dr. Braden Bragg Primary Care Provider Dr. Braden Bragg Referring Provider [phone] Sadi Piedra Attending Provider [phone] BRADEN BRAGG Primary Care Unavailable CHERYL BURKS Attending Unavailable Braden Bragg MD Primary Care Provider Dr. Star Berrios MD Primary Care Provider Dr. Braden Bragg MD Primary Care Provider Dr. Braden Bragg MD Attending Provider Dr. Brdaen Bragg MD Referring Provider Donavan CARPIO-CChuyita Attending Provider Dr. Braden Bragg MD Primary Care Provider Elyse LUGO, Dr. Feliciano Attending Provider Elyse LUGO, Dr. Feliciano Referring Provider Donavan INFANT CHILDCARE PROVIDER-C, Chuyita Attending Provider Elyse LUGO, Dr. Feliciano Primary Care Provider [phone] Elyse LUGO, Dr. Feliciano Referring Provider John LUGO, Dr. Mason Attending Provider Elyse LUGO, Dr. Feliciano Attending Provider [phone] John LUGO, Dr. Mason Attending Provider Tadeo LUGO, Dr. Avitia Attending Provider Bragg, Braden Referring Unavailable Bragg, Braden Attending Unavailable Bragg, Braden Primary Care Unavailable Bragg, Braden Referring Unavailable Bragg, Bradne Attending Unavailable Bragg, Braden Primary Care Unavailable Bragg, Braden Referring Unavailable Bragg, Braden Attending Unavailable Bragg, Braden Primary Care Unavailable Bragg, Braden Attending Unavailable Bragg, Braden Primary Care Unavailable Bragg, Braden Referring Unavailable Donavan INFANT CHILDCARE PROVIDER, Chuyita Attending Unavailable Bragg, Braden Primary Care Unavailable Donavan INFANT CHILDCARE PROVIDER, Chuyita Attending Unavailable Bragg, Braden Referring Unavailable Bragg, Braden Primary Care Unavailable Bragg, Braden Referring Unavailable AmyAnnette Attending Unavailable Bragg, Braden Primary Care Unavailable Wanek, Colin Osullivan Referring Unavailable Wanek, Colin Osullivan Attending Unavailable Wanek, Colin Osullivan Consulting Unavailable Bragg, Braden Primary Care Unavailable Baddour, Sadi Attending Unavailable Bragg, Braden Referring Unavailable Bragg, Braden Primary Care Unavailable Bragg, Braden Referring Unavailable Wanek, Colin Osullivan Attending Unavailable Bragg, Braden Primary Care Unavailable Bragg, Braden Referring Unavailable Baddour, Sadi Attending Unavailable Bragg, Braden Primary Care Unavailable Bragg, Braden Referring Unavailable Bragg, Braden Attending Unavailable Bragg, Braden Primary Care Unavailable Wanek, Colin A Referring Unavailable Wanek, Colin Osullivan Attending Unavailable Bragg, Braden Primary Care Unavailable Bragg, Braden Referring Unavailable Bragg, Braden Attending Unavailable Bragg, Braden Primary Care Unavailable Allergies Allergy Classification Reported Allergen(s) Allergy Type Date of Onset Reaction(s) Facility (16 sources) atorvastatin; Translations: [ATORVASTATIN] Drug Allergy 1 Unknown [facility] (16 sources) Cefadroxil; Translations: [CEFADROXIL] Drug Allergy 9 [facility] Work Phone: (16 sources) celecoxib; Translations: [CELECOXIB] Drug Allergy 1 [facility] (16 sources) Clindamycin; Translations: [CLINDAMYCIN] Drug Allergy 1 [facility] (10 sources) Latex; Translations: [LATEX] Drug Allergy 1 [facility] (5 sources) Phenazopyridine; Translations: [PHENAZOPYRIDINE HCL] Drug Allergy 2 [facility] (15 sources) topiramate; Translations: [TOPIRAMATE] Drug Allergy 2 [facility] Comment on above: hypersensitivity to light rosacea in her eyes (7 sources) Adhesive Tape; Translations: [adhesive tape] Allergy to substance 2 [facility] (11 sources) Phenazopyridine Drug Allergy 2 [facility] (1 source) atorvastatin Drug Allergy 5 [facility] (1 source) Cefadroxil Drug Allergy 5 [facility] (1 source) celecoxib Drug Allergy 5 [facility] (1 source) Clindamycin Drug Allergy 5 [facility] (1 source) Latex Drug allergy (disorder) 5 [facility] (1 source) Phenazopyridine Drug Allergy 5 [facility] (1 source) topiramate Drug Allergy 5 [facility] Medications Current Medications Medication Drug Class(es) Dates Sig (Normalized) Sig (Original) COMPOUNDED PRESCRIPTION (4 sources) take 1 drop(s) into the eye(s) every eight hours as needed COMPOUNDED PRESCRIPTION Use 1 Drop in both eyes three times daily as needed. for rosacea in eyes Active take 1 drop(s) into the eye(s) three times daily as needed COMPOUNDED PRESCRIPTION Use 1 Drop in arik th eyes three times daily as needed. for rosacea in eyes 0 Active Comment on above: Use 1 Drop in both e yes three times daily as needed. for rosacea in eyes Cranberry (10 sources) Non-Standardized Food Allergenic Extract, Non-Standardized Plant Allergenic Extract Start: 03-24-2025 take 1 capsule by mouth once daily Cranberry 500 mg capsule Active 500 mg PO DAILY March 24, 2025 2:41pm supplement Start: 03-05-2024 End: 03-24-2025 take 1 capsule by mouth once daily Cranberry 500 mg capsule Discontinued 1500 mg PO DAILY March 05, 2024 12:00am March 24, 2025 2:44pm supplement Start: 03-05-2024 take 1 capsule by mo uth once daily Cranberry 500 mg capsule Active 1500 mg PO DAILY March 05, 2024 12:00am take 1 capsule by mo uth once daily Cranberry 500 mg cap Take 1 capsule by mouth once daily. Active Cyclosporine 0.05 % dropperette (4 sources) Start: 03-24-2025 Cyclosporine 0.05 % dropperette Active 1 NMA OPHTHALMIC Q12H March 24, 2025 12:00am erythromycin 0.005 mg/mg ophthalmic ointment (4 sources) Macrolide, Macrolide Antimicrobial Start: 03-24-2025 Erythromycin 5 mg/gram (0.5 %) ointment Active 1 NMA OPHTHALMIC daily March 24, 2025 12:00am esomeprazole 20 mg delayed release oral capsule (20 sources) Proton Pump Inhibitor Start: 03-22-2024 take 2 capsules by mouth once daily Esomeprazole Magnesium (Nexium) 20 mg capsule,delayed release(DR/EC) Active 40 mg PO DAILY March 22, 2024 8:05am GERD Start: 02-07-2021 End: 03-22-2024 take 1 capsule by mouth once daily Esomeprazole Magnesium (Nexium) 20 mg Capsule,Delayed Release(Dr/Ec) Discontinued 20 mg PO DAILY February 07, 2021 12:00am March 22, 2024 8:07am GERD Start: 12-16-2008 esomeprazole m ag trihydrate(NEXIUM 40 MG CAP) Take one(1) capsule daily. 0 12/16/2008 Active Comment on above: Take one(1) capsule daily. furosemide 40 mg oral tablet (5 sources) Loop Diuretic Start: 03-07-20 take 1 tablet by mouth once daily Furosemide 40 mg Tablet Active 40 mg PO DAILY 30 0 March 07, 2024 12:00am glimepiride 1 mg oral tablet (5 sources) Sulfonylurea Start: 09-23-20 24 Glimepiride 1 mg tablet Active mg PO September 23, 2024 1:00am ketoconazole 20 mg/ml topical cream (4 sources) Azole Antifungal Start: 03-24-20 Ketoconazole 2 % cream Active 1 NMA TOPICAL March 24, 2025 12:00am metroNIDAZOLE 0.01 mg/mg topical gel (9 sources) Nitroimidazole Antimicrobial Start: 03-22-20 24 Metronidazole 1 % gel Active 1 NMA TOPICAL DAILY March 22, 2024 12:00am metroNIDAZOLE 1 % TOPICAL gel Apply to affected area once daily. Active Comment on above: Apply to affected ar ea once daily. naproxen sodium 220 mg oral tablet (4 sources) Nonsteroidal Anti-inflammatory Drug take 1 tablet by mouth twice daily at mealtime naproxen sodium (ALEVE) 220 mg tablet Take 220 mg by mouth twice daily with meals. Active Comment on above: Take 220 mg by mouth twice daily with meals. polyethylene glycol 3350 [id number] mg / potassium chloride 2970 mg / sodium bicarbonate 6740 mg / sodium chloride 5860 mg / sodium sulfate 40162 mg powder for oral solution (4 sources) Osmotic Laxative Start: 03-07-20 peg 3350-Electrolytes (GOLYTELY) 236-22.74-6.74 -5.86 gram suspension Indications: History of colonic polyps , Diarrhea, unspecified type Refer to printed prep instructions from your provider. 4000 mL 03/07/2022 Active Comment on above: Refer to printed pre p instructions from your provider. potassium chloride 10 meq extended release oral tablet (5 sources) Start: 03-07-20 24 take 2 tablets by mouth once daily Potassium Chloride 10 mEq tablet extended release Active 20 meq PO DAILY 60 0 March 07, 2024 12:00am prednisoLONE acetate 10 mg/ml ophthalmic suspension (5 sources) Corticosteroid Start: 03-22-20 24 Prednisolone Acetate 1 % drops,suspension Active 2 NMA OPHTHALMIC DAILY March 22, 2024 12:00am propylene glycol 6 mg/ml ophthalmic solution (4 sources) Start: 03-24-20 take 0.6 drop(s) into the eye(s) three times daily as needed Propylene Glycol (Systane Balance) 0.6 % drops Active 1 NMA OPHTHALMIC THREE TIMES A DAY as needed March 24, 2025 12:00am simvastatin 40 mg oral tablet (15 sources) HMG-CoA Reductase Inhibitor Start: 12-17-19 take 1 tablet by mouth at bedtime Simvastatin 40 MG tablet Active 40 mg PO AT BEDTIME May 16, 2019 12:00am Cholesterol Comment on above: Take one(1) tablet d aily at bedtime. solifenacin succinate 5 mg oral tablet (10 sources) Cholinergic Muscarinic Antagonist Start: 12-30-19 take 1 tablet by mouth once daily Solifenacin 5 mg tablet Active 5 mg PO DAILY December 29, 2022 12:00am bladder SUMAtriptan 50 mg oral tablet (20 sources) Serotonin-1b and Serotonin-1d Receptor Agonist Start: 03-24-20 take 1 tablet by mouth every two hours Sumatriptan Succinate 50 mg tablet Active 0 PO .COMPLEX March 24, 2025 12:00am take 1 tab at onset of headache; if no relief may repeat 1 tab after at least 2 hrs; max = 4 tabs/24 hr PO Start: 11-02-2021 End: 07-25-2024 take 1 tablet by mouth every two hours as needed for headache, then take 2 tablets by mouth once daily as needed for headache Sumatriptan Succinate 50 mg tablet Discontinued 0 PO .COMPLEX 9 August 09, 2023 6:17pm September 28, 2023 2:29pm take 1 tab orally every 2 hours as needed for headache up to 2 tablets daily ubrogepant 100 mg oral tablet (16 sources) Start: 07-25-2024 take 1 tablet by mouth once daily as needed for headache Ubrogepant (Ubrelvy) 100 mg tablet Active 100 mg PO DAILY as needed for headache 8 July 25, 2024 12:00am Start: 10-26-2021 End: 11-02-2021 take 2 tablets by mouth once daily as needed for headache Ubrogepant (Ubrelvy) 100 mg tablet Discontinued 100 mg PO ONCE as needed for migraine headache 16 2 October 26, 2021 1:00am November 02, 2021 12:26pm may repeat once at least 2 hours after first dose if needed; max 2 doses/day Vitamins A,C,R-Daui-Engyav (Preservision Areds) 4,296 mcg-226 mg-90 mg capsule (4 sources) Start: 03-24-2025 Vitamins A,C,E -Zinc-Copper (Preservision Areds) 4,296 mcg-226 mg-90 mg capsule Active 2 NMA PO TWICE A DAY March 24, 2025 12:00am Completed/Discontinued Medications Medication Drug Class(es) Dates Sig (Normalized) Sig (Original) amitriptyline hydrochloride 25 mg oral tablet (11 sources) Tricyclic Antidepressant Start: End: take 1 tablet by mouth at bedtime Amitriptyline 25 MG tablet Discontinued 25 mg PO AT BEDTIME May 16, 2019 12:00am February 23, 2021 10:09pm Mental Health apixaban 5 mg oral tablet (5 sources) Factor Xa Inhibitor Start: End: take 2 tablets by mouth twice daily, then take 1 tablet by mouth twice daily Apixaban (Eliquis) 5 mg Tablet Discontinued 10 mg PO TWICE A DAY 68 0 March 07, 2024 12:00am July 03, 2024 1:34pm Two twice a day starting the evening of 03/07/2024 through the evening of 03/11/2024, then reduce the dose to 1 twice a day thereafter starting 03/12/2024 aspirin 81 mg chewable tablet (20 sources) Platelet Aggregation Inhibitor, Nonsteroidal Anti-inflammator y Drug Start: End: take 1 tablet by mouth once daily Aspirin 81 mg tablet,chewable Discontinued 81 mg PO DAILY@0800 February 11, 2021 2:31pm March 07, 2024 2:32pm Heart Health Comment on above: Take 81 mg by mouth once daily. bacillus coagulans [id number] unt chewable tablet (11 sources) Start: End: Bacillus Coagulans (Probiotic (B. Coagulans)) 250 million cell tablet,chewable Discontinued 250 NMA PO DAILY October 26, 2021 1:00am May 25, 2022 11:16am Carboxymethylcellulose (5 sources) Start: End: carboxymethylcellulose sodium (Artificial Tears (cmc)) Discontinued 1 NMA OPHTHALMIC 3 times daily March 05, 2024 12:00am March 24, 2025 2:44pm eye health Start: 03-05-2024 carboxymethylc ellulose sodium Active 1 NMA OPHTHALMIC 3 times daily March 05, 2024 12:00am cholecalciferol 0.025 mg oral capsule (15 sources) Vitamin D Start: 05-16-2019 End: 05-25-2022 take 1 capsule by mouth at bedtime Cholecalciferol (Vitamin D3) 1,000 UNIT capsule Discontinued 1000 U PO AT BEDTIME May 16, 2019 12:00am May 25, 2022 11:17am Supplement take 1 tablet by mouth once ebenezer y cholecalciferol (VITAMIN D) 1,000 unit tab tablet Take 1,000 Units by mouth once daily. Active Comment on above: Take 1,000 Units by mouth once daily. Garlic (15 sources) Non-Standardized Food Allergenic Extract Start: 05-16-2019 End: 12-28-2021 take 1 capsule by mouth at bedtime Garlic 1,000 MG capsule Discontinued 1000 mg PO AT BEDTIME May 16, 2019 12:00am December 28, 2021 1:23pm Supplement Start: 05-16-2019 End: 12-28-2021 take 1 capsule by mouth at bedtime Garlic 1,000 MG capsule Discontinued 1000 mg PO AT BEDTIME May 16, 2019 12:00am December 28, 2021 1:23pm Start: 05-16-2019 End: 12-28-2021 take 1000 mg by mouth at bedtime Garlic Discontinued 1000 MG PO AT BEDTIME May 15, 2019 11:00pm December 28, 2021 12:23pm Start: 05-16-2019 End: 12-28-2021 take 1000 mg by mouth at bedtime Garlic Discontinued 1000 MG PO AT BEDTIME May 16, 2019 12:00am December 28, 2021 1:23pm Garlic 1,000 mg cap Take by mouth. Active Garlic 1,000 mg cap Take by mouth. 0 Active Comment on above: Take by mouth. levETIRAcetam 500 mg oral tablet (20 sources) Start: 11-02-2021 End: 05-22-2025 take 1 tablet by mouth twice daily Levetiracetam (Keppra) 500 mg tablet Discontinued 500 mg PO TWICE A DAY 180 1 April 01, 2024 4:54pm July 25, 2024 1:32pm seizures Start: 10-26-2021 End: 11-02-2021 Levetiracetam 500 mg tablet Discontinued 500 mg PO DAILY 0 7 0 October 26, 2021 2:59pm November 01, 2021 1:00am November 02, 2021 1:03am Seizures decrease dose to 1 tab daily x 1 week, then DC Start: 02-11-2021 End: 10-26-2021 take 1 tablet by mouth twice daily Levetiracetam 500 mg tablet Discontinued 500 mg PO TWICE A DAY 60 30 0 February 23, 2021 10:10pm March 23, 2021 9:37pm Seizures Comment on above: Take 500 mg by mouth twice daily. melatonin 10 mg sublingual tablet (15 sources) Start: 02-23-2021 End: 12-28-2021 take 1 tablet by mouth at bedtime Melatonin 10 mg Tablet, Sublingual Discontinued 10 mg PO AT BEDTIME 0 0 February 23, 2021 12:00am December 28, 2021 1:23pm melatonin 3 mg c apsules Take by mouth. Active Comment on above: Take by mouth. 24 hr metFORMIN hydrochloride 500 mg extended release oral tablet (15 sources) Biguanide Start: 05-16-2019 End: 09-23-2024 take 1 tablet by mouth every twenty-four hours at lunch Metformin 500 MG tablet extended release 24 hr Discontinued 500 mg PO WITH LUNCH May 16, 2019 12:00am September 23, 2024 3:22pm Diabetes take 1 tablet by chantal th once daily at breakfast metFORMIN (GLUCOPHAGE) 500 mg tablet Eleuterio e 500 mg by mouth daily with breakfast. Active Comment on above: Take 500 mg by mouth daily with breakfast. Hyqwypai-Kuu-Ds-Lycop en-Lutein (Complete Mv Adult 50 Plus) 0.4-300-250 mg-mcg-mcg tablet (11 sources) Start: 03-23-2021 End: 12-28-2021 Veaxzqvt-Mvl-Mi-Lycopen-L utein (Complete Mv Adult 50 Plus) 0.4-300-250 mg-mcg-mcg tablet Discontinued 1 {tbl} PO DAILY March 23, 2021 12:00am December 28, 2021 1:24pm Start: 03-23-2021 End: 12-28-2021 take 1 tablet by mouth once daily Dfyfksvz-Nnr-Dg-Lycopen-Lutein (Complete Mv Adult 50 Plus) 0.4-300-250 mg-mcg-mcg tablet Discontinued 1 TABLET PO DAILY March 22, 2021 11:00pm December 28, 2021 12:24pm Start: 03-23-2021 End: 12-28-2021 take 1 tablet by mouth once daily Bifcknfj-Hho-Mc-Lycopen-Lutein (Complete Mv Adult 50 Plus) 0.4-300-250 mg-mcg-mcg tablet Discontinued 1 TABLET PO DAILY March 23, 2021 12:00am December 28, 2021 1:24pm topiramate 50 mg oral tablet (20 sources) Start: 12-28-2021 End: 04-04-2022 take 1 tablet by mouth twice daily Topiramate 50 mg tablet Discontinued 50 mg PO TWICE A DAY 60 3 December 28, 2021 2:03pm April 04, 2022 1:19pm Migraine headache Migraine, unspecified, not intractable, without status migrainosus Start: 10-26-2021 End: 12-28-2021 take 1 tablet by mouth once daily, then take 1 tablet by mouth twice daily Topiramate 50 mg tablet Discontinued 50 mg PO TWICE A DAY 60 2 October 26, 2021 1:00am December 28, 2021 2:03pm Migraine headache Migraine, unspecified, not intractable, without status migrainosus Take 1 tab daily x 1 week, then 1 tab BID thereafter Turmeric extract (5 sources) Start: 03-05-2024 End: 09-23-2024 take 1 capsule by mouth once daily Turmeric 400 mg capsule Discontinued 800 mg PO DAILY March 05, 2024 12:00am September 23, 2024 3:22pm supplement Start: 03-05-2024 End: 09-23-2024 take 1 capsule by mouth once daily Turmeric 400 mg capsule Discontinued 800 mg PO DAILY March 05, 2024 12:00am September 23, 2024 3:22pm Problems Active Problems Problem Classification Problem Date Documented Da te Episodic/Chronic Diabetes mellitus with complications (15 sources) Type 2 diabetes mellitus in obese; Translations: [Type 2 diabetes mellitus with other specified complication] Onset: 06-25-2021 Chronic Diabetes mellitus without complication (5 sources) Type 2 diabetes mellitus without complication; Translations: [Type 2 diabetes mellitus without complications] Onset: 1 06-25-2021 Chronic Disorders of lipid metabolism (15 sources) Hyperlipidemia; Translations: [Hyperlipidemia, unspecified] Onset: 1 06-25-2021 Chronic Epilepsy; convulsions (20 sources) Epilepsy; Translations: [Epilepsy, unspecified, not intractable, without status epilepticus] Onset: 5 Chronic Epilepsy; convulsions (15 sources) Seizure; Translations: [Unspecified convulsions] Onset: 1 06-25-2021 Episodic Esophageal disorders (15 sources) Gastroesophageal reflux disease; Translations: [Gastro-esophageal reflux disease without esophagitis] Onset: 1 06-25-2021 Chronic Essential hypertension (11 sources) Hypertensive disorder; Translations: [Essential (primary) hypertension] 02-09-2021 Chronic Headache; including migraine (15 sources) Migraine; Translations: [Migraine, unspecified, not intractable, without status migrainosus] Chronic Malaise and fatigue (20 sources) Fatigue; Translations: [Other fatigue] 03-23-2021 Episodic Nonmalignant breast conditions (1 source) Mammographic calcification of breast; Translations: [Mammographic calcification found on diagnostic imaging of breast] 07-04-2024 Episodic Other and ill-defined cerebrovascular disease (15 sources) Cerebrovascular disease; Translations: [Cerebrovascular disease, unspecified] Onset: 1 06-25-2021 Chronic Other and unspecified benign neoplasm (11 sources) Polyp of colon; Translations: [Polyp of colon] 02-11-2021 Episodic Other gastrointestinal disorders (3 sources) Diarrhea; Translations: [Diarrhea, unspecified] Episodic Other gastrointestinal disorders (1 source) Dysphagia, unspecified; Translations: [Dysphagia, unspecified] Onset: 5 Episodic Other lower respiratory disease (5 sources) Hypoxia; Translations: [Hypoxemia] 03-15-2024 Episodic Other nutritional; endocrine; and metabolic disorders (4 sources) Severe obesity; Translations: [Morbid (severe) obesity due to excess calories] Onset: 1 06-25-2021 Chronic Other nutritional; endocrine; and metabolic disorders (12 sources) Obesity; Translations: [Obesity, unspecified] 05-22-2023 Chronic Other nutritional; endocrine; and metabolic disorders (1 source) Obesity, unspecified; Translations: [Obesity, unspecified] 05-22-2023 Chronic Other nutritional; endocrine; and metabolic disorders (5 sources) Body mass index 40+ - severely obese 03-03-2021 Chronic Other screening for suspected conditions (not mental disorders or infectious disease) (5 sources) Ultrasound scan abnormal; Translations: [Abnormal findings on diagnostic imaging of other specified body structures] 07-03-2024 Chronic Pulmonary heart disease (9 sources) Pulmonary hypertension; Translations: [Pulmonary hypertension, unspecified] 09-23-2024 Chronic Comment on above: PASP 54 mmHg Pulmonary heart disease (5 sources) Pulmonary embolism; Translations: [Other pulmonary embolism without acute cor pulmonale] 03-22-2024 Episodic Comment on above: Likely due to sedent brain lifestyle, consider lifelong anticoagulation Residual codes; unclassified (19 sources) Obstructive sleep apnea syndrome; Translations: [Obstructive sleep apnea (adult) (pediatric)] Onset: 06-25-2021 Chronic Comment on above: Overall AHI 11.8 Residual codes; unclassified (1 source) Obstructive sleep apnea (adult) (pediatric); Translations: [Obstructive sleep apnea (adult)(pediatric)] 05-22-2023 Chronic Respiratory failure; insufficiency; arrest (adult) (6 sources) Chronic hypoxemic respiratory failure; Translations: [Chronic respiratory failure with hypoxia] 03-22-2024 Chronic Respiratory failure; insufficiency; arrest (adult) (11 sources) Acute respiratory failure; Translations: [Acute respiratory failure with hypoxia] 02-07-2021 Episodic Unclassified (6 sources) Body mass index 40+ - severely obese; Translations: [Body mass index (BMI) greater than 40] 03-03-2021 Past or Other Problems Problem Classification Problem Date Documented Da te Episodic/Chronic Abdominal hernia (1 source) Incisional hernia; Translations: [Incisional hernia without obstruction or gangrene] Onset: 06-25-2021 Resolved: 06-30-2021 06-30-2021 Episodic Gastrointestinal hemorrhage (4 sources) Hemorrhage of rectum and anus; Translations: [Hemorrhage of anus and rectum] Onset: 01-14-2009 01-14-2009 Episodic Other and unspecified benign neoplasm (7 sources) History of polyp of colon; Translations: [Personal history of colonic polyps] Onset: 10-25-2011 Episodic Other and unspecified benign neoplasm (4 sources) Benign neoplasm of colon; Translations: [Benign neoplasm of colon, unspecified] Onset: 01-14-2009 01-14-2009 Episodic Other screening for suspected conditions (not mental disorders or infectious disease) (8 sources) Mammography abnormal; Translations: [Other abnormal and inconclusive findings on diagnostic imaging of breast] Onset: 07-18-2024 07-03-2024 Episodic Pancreatic disorders (not diabetes) (4 sources) Pancreatitis; Translations: [Acute pancreatitis without necrosis or infection, unspecified] Onset: 06-11-2013 06-11-2013 Episodic Residual codes; unclassified (1 source) Edema, unspecified; Translations: [Edema, unspecified] Onset: 12-18-2024 Episodic Spondylosis; intervertebral disc disorders; other back problems (4 sources) Backache; Translations: [Dorsalgia, unspecified] Onset: 02-23-2012 02-23-2012 Episodic Results Test Name Value Interpretation Reference Range Facility Neurology Visit Reporton Neurology Visit Report [facility] [address] [place] [address], [address] [place] [address] OFFICE VISIT Date of Service: 05/22/25 MR#: [id number] Acct: [id number] Name: ANTOINETTE WILSON Rep #: [id number] : 1950 Provider: Dr. Sadi mcpherson MD Age/Sex: 74/F [place] [facility] [place] Signed [facility] HPI Chief Complaint: Details: Interim History: Antoinette returns for follow-up. She has a history of hypertension, diabetes mellitus, GERD, hyperlipidemia, obstructive sleep apnea and epilepsy. On 02/07/2021, she had an episode of shortness of breath, nausea, impaired speech, and confusion. Her called EMS and when EMS arrived, she lost consciousness. She was amnestic to events of at least the following hour. In the emergency room, she was found to be hypoxic with an O2 sat 82% on room air. Cardiac enzymes were normal. She was not hypotensive. Her lactic acid was elevated. Her chest x-ray showed mild pulmonary vascular congestion and a questionable, small left pleural effusion. She did not have leukocytosis. The etiology of her hypoxic respiratory failure was unclear. She was treated with broad-spectrum antibiotics. During her ER assessment, she had a witnessed tonic-clonic seizure lasting about 20 seconds. Prior to loss of consciousness with this seizure, she had an ill-defined weird feeling. She was hospitalized and treated with levetiracetam. Her head MRI revealed moderate chronic small vessel ischemic disease, however no acute stroke was identified. The patient reported that no acute cardiac abnormality was identified. She does not take aspirin. Her EEG (02/08/21) was unremarkable. On 02/09/2021, she had a third episode of loss of consciousness. This was previously reported as a seizure, though she previously reported that another doctor, Dr. Aldana, felt it was a syncopal episode. The only documentation in her chart regarding this event stated that the patient was ambulating to her chair after having her hair washed at the sink when she became diaphoretic and stated she didn't feel well. It does not mention syncope or a fall. She stated that she lost consciousness briefly but did not exhibit any abnormal movements or experience postictal lethargy or confusion. Levetiracetam 500mg BID was continued. She has had no further seizures since that time. She is tolerating levetiracetam well. She had been on amitriptyline since around 2000 for treatment of insomnia; this medication can lower the seizure threshold and it was discontinued following the onset of her suspected seizures. She denied having tongue biting or urinary incontinence during her seizures. During her initial episode, she may have had left upper extremity weakness and transient right facial weakness. She had a tooth infection in January 2021 and this was treated in February 2021 with a dental procedure and antibiotic. 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 On later assessment during her hospitalization, her respiratory difficulty was felt to be due to obesity hypoventilation and/or sleep apnea; CPAP was initiated. Her most recent levetiracetam level was within therapeutic range and her ammonia level was normal (September 2023). In years past, she had migraine headaches with associated photophobia and phonophobia. When she quit working around 2004, her migraines diminished. Emotional stress is a trigger for her migraines. In 2020, she had an increase in her headaches, which began occurring at least every other day. She took topiramate for a period of time however this was not tolerated due to ocular/visual side effects and was discontinued. Since 2022, she had about 1 to 2 days of headache per month for which she takes the counter ibuprofen and this is of benefit since 2019 for her headaches of decreased further and now occur about 1 day every 2 weeks and are mild. She has not tried Ubrelvy as yet. Sumatriptan 50 mg has also been of benefit. She had a lower extremity DVT and pulmonary embolism earlier in 2023 and was treated with Eliquis for a period of time; Eliquis was subsequently discontinued. An EKG in February 2024 revealed sinus rhythm with first-degree AV block, RSV' or QR pattern in V1 suggests right ventricular conduction delay, and possible anterior infarct - age undetermined. Physical Exam: Neuro: The patient is awake and alert and responds appropriately Neck: No bruits Heart: Regular rate and rhythm Supplemental Info CBC, PT/PTT, BMP, lactic acid (02/07/2021): BUN 21, creatinine 1.47, EGFR 37, glucose 272, lactic acid 3.7 (elevated). Brain CT 02/07/21 Normal soft tissue structures. Normal calvarium. Normal size ventricles and extra-axial spaces for the patient''s age. There is moderate periventricular and subcortical white matter lucency suggestive of small vessel ischemic disease. Normal basal ganglia and thalami. Normal bra (more content not included)... 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 Medical History: Pt was referred for MBSS by PCP after she informed him she was having swallowing difficulty. Pt reports having swallowing difficulty for 30 years; however, in the past 3 months it has become substantially worse. Pills and foods will feel stuck in the base of her throat/upper esophagus, which causes gagging and coughing. Gagging, coughing don't typically resolve the issue, and she is fearful of choking. Liquid wash tends to make the issue worse and she will cough on and expectorate the water. Fortunately, she has not become breathless or required the Heimlich. This swallowing difficulty occurs 2-3X/month, but she has not had issues in the past month. Of note, pt reports having a GI work up w/ scope 30 years ago. She reported being told she had a UES that wasn't closing to keep foods down, that she had a stomach infection (treated w/ antibiotics), and then she was placed on GERD medication. No follow up w/ GI since. Hx of PNA in childhood. Follows w/ Dr. Piedra in neurology for hx of seizures. Pt reports often having a sore throat w/ recurring laryngitis. No hx of ENT. Medical History (Reviewed 03/24/25 @ 14:49 by Chuyita Go INFANT CHILDCARE PROVIDER, INFANT CHILDCARE PROVIDER-C) DVT (deep venous thrombosis) Abnormal mammogram of left breast Abnormal ultrasound Hypoxia IBS (irritable bowel syndrome) Gallstones History of blood clots Arthritis Wears hearing aid in both ears Chronic pain Pancreatitis GERD (gastroesophageal reflux disease) Migraines Hyperlipidemia Degenerative disc disease Borderline diabetes mellitus History of colonic polyps Current Diet Ordered: Regular textures / Thin liquids Dentition: Natural Teeth (bridge) Mental Status: WNL Respiratory Status: Oxygenating on Room Air Penetration-Aspiration Scale Penetration-Aspiration Scale: OBJECTIVE ASSESSMENT OF SWALLOW FUNCTION (QUANTITATIVE ??? PER TRIAL): PENETRATION / ASPIRATION SCALE (CURTIS): 1 = does not enter airway 2 = enters airway/above vocal folds/ejected 3 = enters airway/above vocal folds/not ejected 4 = enters airway/contacts vocal folds/ejected 5 = enters airway/contacts vocal folds/not ejected 6 = enters airway/below vocal folds/ejected 7 = enters airway/below vocal folds/not ejected despite effort 8 = enters airway/below vocal folds/no effort VIDEOFLOROSCOPIC SCALE SCORE (CURTIS): Grade I = aspiration of material that has penetrated into the laryngeal vestibule, intact cough reflex Grade II = aspiration < 10 % of the bolus, intact cough reflex Grade III = aspiration of < 10 % of the bolus, reduced cough reflex or aspiration of > 10 % of the bolus, intact cough reflex Grade IV = aspiration of > 10 % of the bolus, reduced cough reflex Penetration-Aspiration Scale Score Thin Liquid via teaspoon: Result: 1= does not enter airway Thin Liquid via teaspoon Trial 2: Result: 1= does not enter airway Thin Liquid via small single sip: cup: Result: 2= enter airway/above vocal folds/ejected Thin Liquid via sequential sips: cup: Result: 1= does not enter airway [place] Thick Liquid via small single sip: cup: Result: 1= does not enter airway Pudding via teaspoon: Result: 1= does not enter airway 1/2 Cookie: Result: 1= does not enter airway Comment: Esophageal screen - Retention throughout the middle and lower esophagus. Thin Liquid via single sip: straw: Result: 1= does not enter airway Comment: Esophageal screen - Liquid wash cleared much of the cookie retention. Second liquid wash somewhat cleared more cookie. Third liquid wash did not further improve patients. Barium Tablet w/ Liquid Wash (Water): Result: 1= does not enter airway Comment: Esophageal screen - Retention of barium tablet in the upper esophagus, which did not clear w/ a single liquid wash, pudding wash, or sequential sips of water. 1/2 a Meka Doone cookie was then provided; however, there was retention of the cookie in the upper esophagus w/ retrograde flow to the pyriform sinuses, which then cleared through the UES w/ multiple swallows. The cookie did successfully clear the barium tablet through the LES; however, retention of cookie remained in the middle and upper esophagus. Oral Phase Labial Seal: No Labial Escape Tongue Control During Bolus Hold: Posterior escape of less than half of bolus Bolus P (more content not included)... Normal [facility] Anion gap in Serum or Plasma Ordered By: Braden Bragg on 03-25-2025 Anion gap [Moles/Vol] 13 mmol/L 5-15 [facility] BUN/creatinine ratioOrdered By: Braden Bragg on 03-25-2025 Urea nitrogen/Creatinine [Mass ratio] 17.6 mg/mg 10-20 [facility] Bilirubin, totalOrdered By: Braden Bragg on 03-25-2025 Bilirubin [Mass/Vol] 0.71 mg/dL 0.00-1.30 [facility] Calculated very low density lipoprotein (VLDL) cholesterol measurementOrdered By: Braden Bragg on 03-25-2025 Calculated very low density lipoprotein (VLDL) cholesterol measurement 19 mg/dL 5-40 [facility] Carbon dioxide, total [Moles /volume] in Central venous bloodOrdered By: Braden Bragg on 03-25-2025 CO2 [Moles/Vol] 24.5 mmol/L 21.0-32.0 [facility] Chloride assayOrdered By: Dakota Bragg on 03-25-2025 Chloride [Moles/Vol] 103 mmol/L 98-108 [facility] Comprehensive Metabolic Prof ilon 03-25-2025 Albumin [Mass/Vol] 3.7 g/dL Normal 3.4-4.8 [facility] Comment on above: Performed By: #### L 500.4050, L500.4100, L502.0250 #### [facility] [address] [place], [address] Albumin/Globulin [Mass ratio] 1.1 {ratio} Normal 0.9-2.4 [facility] Comment on above: Performed By: #### L 500.4050, L500.4100, L502.0250 #### [facility] [address] [place], [address] ALK PHOS 92 U/L Normal 35-104 [facility] Comment on above: Performed By: #### L 500.4050, L500.4100, L502.0250 #### [facility] [address] [place], [address] ALT [Catalytic activity/Vol] 9 U/L Normal <=34 [facility] Comment on above: Performed By: #### L 500.4050, L500.4100, L502.0250 #### [facility] [address] [place], [address] AST [Catalytic activity/Vol] 18 U/L Normal <=31 [facility] Comment on above: Performed By: #### L 500.4050, L500.4100, L502.0250 #### [facility] [address] [place], [address] Bilirubin [Mass/Vol] 0.71 mg/dL Normal 0.00-1.30 [facility] Comment on above: Performed By: #### L 500.4050, L500.4100, L502.0250 #### [facility] [address] [place], [address] BUN/CRE 17.6 RATIO Normal 10-20 [facility] Comment on above: Performed By: #### L 500.4050, L500.4100, L502.0250 #### [facility] [address] [place], [address] Calcium [Mass/Vol] 9.4 mg/dL Normal 7.6-11.0 [facility] Comment on above: Performed By: #### L 500.4050, L500.4100, L502.0250 #### [facility] [address] [place], [address] Chloride [Moles/Vol] 103 mmol/L Normal 98-108 [facility] Comment on above: Performed By: #### L 500.4050, L500.4100, L502.0250 #### [facility] [address] [place], [address] CO2 [Moles/Vol] 24.5 mmol/L Normal 21.0-32.0 [facility] Comment on above: Performed By: #### L 500.4050, L500.4100, L502.0250 #### [facility] [address] [place], [address] Creatinine [Mass/Vol] 1.26 mg/dL High 0.70-1.20 [facility] Comment on above: Performed By: #### L 500.4050, L500.4100, L502.0250 #### [facility] [address] [place], [address] GAP 13 Normal 5-15 [facility] Comment on above: Performed By: #### L 500.4050, L500.4100, L502.0250 #### [facility] [address] [place], [address] GFR/1.73 sq M.predicted among non-blacks MDRD (S/P/Bld) [Vol rate/Area] 45 mL/min/{1.73_m2} Low >60 [facility] Comment on above: Result Comment: mL/m in/1.73m2 CKD-EPI Creatinine Equation (2020) Performed By: #### L 500.4050, L500.4100, L502.0250 #### [facility] [address] [place], [address] Globulin (S) [Mass/Vol] 3.4 g/dL Normal 2.2-4.2 [facility] Comment on above: Performed By: #### L 500.4050, L500.4100, L502.0250 #### [facility] [address] [place], [address] Glucose [Mass/Vol] 136 mg/dL High 70-99 [facility] Comment on above: Performed By: #### L 500.4050, L500.4100, L502.0250 #### [facility] [address] [place], [address] Potassium [Moles/Vol] 4.0 mmol/L Normal 3.3-5.1 [facility] Comment on above: Performed By: #### L 500.4050, L500.4100, L502.0250 #### [facility] [address] [place], [address] Sodium [Moles/Vol] 141 mmol/L Normal 133-145 [facility] Comment on above: Performed By: #### L 500.4050, L500.4100, L502.0250 #### [facility] [address] [place], [address] T PROT 7.1 g/dL Normal 5.9-8.4 [facility] Comment on above: Performed By: #### L 500.4050, L500.4100, L502.0250 #### [facility] [address] [place], [address] Urea nitrogen [Mass/Vol] 22 mg/dL High 4-19 [facility] Comment on above: Performed By: #### L 500.4050, L500.4100, L502.0250 #### [facility] [address] [place], [address] Glomerular filtration rate ( GFR) estimation/1.73 sq m using serum, plasma, or whole bOrdered By: Braden Bragg on 03-25-2025 GFR/1.73 sq M.predicted among non-blacks MDRD (S/P/Bld) [Vol rate/Area] 45 mL/min/{1.73_m2} Low >60 [facility] Comment on above: mL/min/1.73m2 CKD-EP I Creatinine Equation (2020) LDL calc ser/plasOrdered By: Braden Bragg on 03-25-2025 Cholesterol in LDL [Mass/Vol] 92 mg/dL [facility] Comment on above: Tnekebkmvp=432-412 m g/dL & Higher Eekd=055 mg/dL or greater Laboratory - Chemistry and C hemistry - challengeOrdered By: Braden Bragg on 03-25-2025 AST [Catalytic activity/Vol] 18 U/L <32 [facility] Lipid Profileon 03-25-2025 CHOL:HDL 2.86 Normal [facility] Comment on above: Performed By: #### L 500.4050, L500.4100, L502.0250 #### [facility] [address] [place], [address] Cholesterol [Mass/Vol] 171 mg/dL Normal <=200 [facility] Comment on above: Result Comment: Chol esterol level, Desirable <200 mg/dL Borderline high cholesterol 200-239 mg/dL High cholesterol >=240 mg/dL Recommendations of the NCEP Adult Treatment Panel for the following risk-cutoff thresholds for the [place] population. Performed By: #### L 500.4050, L500.4100, L502.0250 #### [facility] [address] [place], [address] Cholesterol in HDL [Mass/Vol] 60 mg/dL Normal [facility] Comment on above: Result Comment: Zeenat onal Cholesterol Education Program (NCEP) guidelines: <40 mg/dL: Low HDL-cholesterol (major risk factor for CHD) >= 60 mg/dL: High HDL-cholesterol (negative risk factor for CHD) HDL-cholesterol is affected by a number of factors, e.g. smoking, exercise, hormones, sex and age. Performed By: #### L 500.4050, L500.4100, L502.0250 #### [facility] [address] [place], [address] Cholesterol in LDL [Mass/Vol] 92 mg/dL Normal [facility] Comment on above: Result Comment: Bord showlg=279-168 mg/dL Higher Vpfi=911 mg/dL or greater Performed By: #### L 500.4050, L500.4100, L502.0250 #### [facility] [address] [place], [address] Cholesterol in VLDL [Mass/Vol] 19 mg/dL Normal 5-40 [facility] Comment on above: Performed By: #### L 500.4050, L500.4100, L502.0250 #### [facility] [address] [place], [address] Triglyceride [Mass/Vol] 96 mg/dL Normal [facility] Comment on above: Result Comment: The drugs N-Acetylcysteine and Metamizole may falsely depress this assay. Normal range: <150 mg/dL Borderline High: 150-199 mg/dL High: 200-499 mg/dL Very High: >500 mg/dL Performed By: #### L 500.4050, L500.4100, L502.0250 #### [facility] [address] [place], [address] Microalb:Creat Ratio,Random URon 03-25-2025 Creatinine [Mass/Vol] 235.00 mg/dL High 28.00-217.00 [facility] Comment on above: Performed By: #### L 500.4050, L500.4100, L502.0250 #### [facility] [address] [place], [address] MALB:CREAT UNABLE TO CALCULATE Normal [facility] Comment on above: Performed By: #### L 500.4050, L500.4100, L502.0250 #### [facility] [address] [place], [address] MICROALBUMIN,UR < 12.0 Normal NO RANGE EST. [facility] Comment on above: Performed By: #### L 500.4050, L500.4100, L502.0250 #### [facility] [address] [place], [address] Microalbumin/creat ratio urO rdered By: Braden Bragg on 03-25-2025 Urine microalbumin/creatinine ratio measurement UNABLE TO CALCULATE mg/g CRE [facility] Potassium measurement (mass/ volume)Ordered By: Braden Bragg on 03-25-2025 Potassium (Unsp spec) [Mass/Vol] 4.0 mmol/L 3.3-5.1 [facility] Random urine creatinine chino urement (mass/volume)Ordered By: Braden Bragg on 03-25-2025 Creatinine Unsp time (U) [Mass/Vol] 235.00 mg/dL High 28.00-217.00 [facility] Screening total cholesterol/ high density lipoprotein (HDL) cholesterol ratioOrdered By: Braden Bragg on 03-25-2025 Cholesterol.total/Choles terol in HDL [Mass ratio] 2.86 {ratio} [facility] Serum creatinine measurement (mass/volume)Ordered By: Braden Bragg on 03-25-2025 Creatinine [Mass/Vol] 1.26 mg/dL High 0.70-1.20 [facility] Serum globulin measurementOr dered By: Braden Bragg on 03-25-2025 Globulin (S) [Mass/Vol] 3.4 g/dL 2.2-4.2 [facility] Serum glucose measurement (m ass/volume)Ordered By: Braden Bragg on 03-25-2025 Glucose [Mass/Vol] 136 mg/dL High 70-99 [facility] Serum or plasma alanine bryant otransferase (ALT) measurementOrdered By: Braden Bragg on 03-25-2025 ALT [Catalytic activity/Vol] 9 U/L <35 [facility] Serum or plasma albumin chino urement (mass/volume)Ordered By: Braden Bragg on 03-25-2025 Albumin [Mass/Vol] 3.7 g/dL 3.4-4.8 [facility] Serum or plasma albumin/glob ulin mass ratioOrdered By: Braden Bragg on 03-25-2025 Albumin/Globulin [Mass ratio] 1.1 {ratio} 0.9-2.4 [facility] Serum or plasma alkaline marissa sphatase measurementOrdered By: Braden Bragg on 03-25-2025 ALP [Catalytic activity/Vol] 92 U/L 35-104 [facility] Serum or plasma calcium chino urement (mass/volume)Ordered By: Braden Bragg on 03-25-2025 Calcium [Mass/Vol] 9.4 mg/dL 7.6-11.0 [facility] Serum or plasma cholesterol in HDL measurement (mass/volume)Ordered By: Braden Bragg on 03-25-2025 Cholesterol in HDL [Mass/Vol] 60 mg/dL >40 [facility] Comment on above: National Cholesterol Education Program (NCEP) guidelines:<40 mg/dL: Low HDL-cholesterol (major risk factor for CHD)>= 60 mg/dL: High HDL-cholesterol (negative risk factor for CHD)HDL-cholesterol is affected by a number of factors, e.g. smoking, exercise, hormones, sex and age. Serum or plasma cholesterol measurement (mass/volume)Ordered By: Braden Bragg on 03-25-2025 Cholesterol [Mass/Vol] 171 mg/dL <201 [facility] Comment on above: Cholesterol level, D esirable <200 mg/dLBorderline high cholesterol 200-239 mg/dLHigh cholesterol >=240 mg/dLRecommendations of the NCEP Adult Treatment Panel for the following risk-cutoff thresholds for the [place] population. Serum or plasma urea nitroge n measurement (mass/volume)Ordered By: Braden Bragg on 03-25-2025 Urea nitrogen [Mass/Vol] 22 mg/dL High 4-19 [facility] Sodium levelOrdered By: Braden Bragg on 03-25-2025 Sodium [Moles/Vol] 141 mmol/L 133-145 [facility] Total proteinOrdered By: Ayla Bragg on 03-25-2025 Protein [Mass/Vol] 7.1 g/dL 5.9-8.4 [facility] Triglycerides measurementOrd ered By: Braden Bragg on 03-25-2025 Triglyceride [Mass/Vol] 96 mg/dL <199 [facility] Comment on above: The drugs N-Acetylcy steine and Metamizole may falsely depress this assay. Normal range: <150 mg/dLBorderline High: 150-199 mg/dLHigh: 200-499 mg/dLVery High: >500 mg/dL Urine albumin measurement [facility] detection limit of 20 mg/L or less (mass/volume)Ordered By: Braden Bragg on 03-25-2025 Albumin DL <= 20 mg/L (U) [Mass/Vol] < 12.0 mg/L NO RANGE EST. [facility] Pulmonary Visit Reporton Pulmonary Visit Report [facility] [place] [address] [place], [place] [address] OFFICE VISIT Date of Service: 03/24/25 MR#: [id number] Acct: [id number] Name: ANTOINETTE WILSON Rep #: [id number] : 1950 Provider: MARIKA Go Age/Sex: 74/F [place] [facility] [place] Status: Signed Assessment and Plan Assessment and Plan (1) SHELLIE (obstructive sleep apnea): Status: Chronic Comment: Overall AHI 11.8 Plan: She is using and benefiting from Pap therapy. No indication for titration study at this time. Contact the office for any new or worsening symptoms in the meantime. Follow-up in 6 months. (2) Pulmonary hypertension: Status: Chronic Comment: PASP 54 mmHg Plan: Possibly improved. The patient has been put on a diuretic since her last office visit. She is reporting compliance with recommended medication and notices that it does cause her to urinate more frequently. (3) Obesity: Status: Chronic Qualifiers: Obesity type: due to excess calories Obesity classification: adult class 3 (BMI >= 40) Serious obesity comorbidity presence: with serious comorbidity Body mass index: BMI 45.0-49.9 Qualified Code(s): E66.01 - Morbid (severe) obesity due to excess calories; Z68.42 - Body mass index [BMI] 45.0-49.9, adult Plan: Continue to encourage healthy weight loss. The patient reports that her primary care doctor recently asked her if she would be open to considering a weight loss medication, such as Ozempic. I instructed her that Zepbound also has an obstructive sleep apnea indication. She is concerned about medication side effects. Unfortunately, I was not able to speak to the medication side effects but I did reassure her that she needs to consider her overall health and the impact that the excess weight has. For example, weight loss would have benefit with regard to lowering her blood pressure, reducing strain to the heart and improving pressures needed to manage obstructive sleep apnea. Plan Details Additional Comments: This note was generated with [employer] dictation software. It may contain incorrect words, spelling, and punctuation that were not noted in checking the note before signing. Follow Up: 1 Year HPI 6 M FU Chief Complaint: Shortness of breath on exertion HPI Comments Details: This patient presents to the office today for follow-up on her pulmonary hypertension, chronic hypoxic respiratory failure, pulmonary embolism and obstructive sleep apnea. She is ambulatory with the use of a wheeled walker. She is on room air. She has not recently been seen in the ED or urgent care for any respiratory illness. She has not required any antibiotics or prednisone for any breathing problems. f you recall, she is a lifelong never smoker. She does have shortness of breath on exertion, this has not progressed. She has an occasional dry cough. She denies any hemoptysis. She denies any wheezing, chest tightness, chest pain or palpitations. She has not had any fever, chills or body aches. She wakes feeling rested and refreshed with the use of her PAP device. She is not having difficulty with morning headaches. She continues to experience dry mouth. She reports using her PAP device if requiring a nap. She is not nodding off to sleep unintentionally. Compliance report for the past 30 days shows 100% compliance with an average use of 9 hours and 8 minutes per night. Current setting is AutoPap 7-20 cmH2O pressures typically being utilized at 10.2-15.3 centimeters of water. Residual AHI of 1.0 event per hour. Leaks do not appear to be problematic. Intake Vital Signs 09/23/24 07:55 03/24/25 09:21 Height 5 ft 5 in 5 ft 5 in Weight: 285 lb BMI 47.4 BP 115/77 Blood Pressure Location Rt brachial Position Sitting Respiration 18 Pulse 86 Pulse Source Monitor Temp 97.2 F L Temperature Source Temporal Artery Pulse Oximetry (%) 95 Oxygen Delivery Method room air Intake Visit Reasons: 6 M FU Chief Complaint: Bed Control Specialist Required: No DME Vendor: No Accompanied by: Self Allergies celecoxib (From Celebrex) Allergy (Severe, Verified 03/24/25 14:39) Hives clindamycin Allergy (Severe, Verified 03/24/25 14:39) Burning Chest Pain/Vomiting phenazopyridine (From Azo) Allergy (Intermediate, Verified 03/24/25 14:39) Hives cefadroxil (From Duricef) Allergy (Mild, Verified 03/24/25 14:39) Swelling latex Allergy (Mild, Verified 03/24/25 14:39) Rash atorvastatin (From Lipitor) Adverse Reaction (Severe, Verified 03/24/25 14:39) Muscle Spasms topiramate Adverse Reaction (Severe, Verified 03/24/25 14:39) Other Medications ???Medication ???Instructions ???Recorded ???Confirmed ???Type simvastatin 40 mg tablet 40 mg PO QHS Cholesterol 05/16/19 03/24/25 History solifenacin 5 mg tablet 5 mg PO DAILY bladder 04 (more content not included)... Normal [facility] Anion gap in Serum or Plasma Ordered By: Braden Bragg on 12-11-2024 Anion gap [Moles/Vol] 14 mmol/L 02-06 [facility] BUN/creatinine ratioOrdered By: Braden Bragg on 12-11-2024 Urea nitrogen/Creatinine [Mass ratio] 15.9 mg/mg 07-14 [facility] Basic Metabolic Profile (BMP )on 12-11-2024 BUN/CRE 15.9 RATIO Normal 07-14 [facility] Comment on above: Performed By: #### L 500.2500 #### [facility] [address] [place], [address] Calcium [Mass/Vol] 9.4 mg/dL Normal 7.6-11.0 [facility] Comment on above: Performed By: #### L 500.2500 #### [facility] [address] [place], [address] Chloride [Moles/Vol] 103 mmol/L Normal 98-108 [facility] Comment on above: Performed By: #### L 500.2500 #### [facility] [address] [place], [address] CO2 [Moles/Vol] 20.8 mmol/L Low 21.0-32.0 [facility] Comment on above: Performed By: #### L 500.2500 #### [facility] [address] [place], [address] Creatinine [Mass/Vol] 1.23 mg/dL High 0.70-1.20 [facility] Comment on above: Performed By: #### L 500.2500 #### [facility] [address] [place], [address] GAP 14 Normal 02-06 [facility] Comment on above: Performed By: #### L 500.2500 #### [facility] [address] [place], [address] GFR/1.73 sq M.predicted among non-blacks MDRD (S/P/Bld) [Vol rate/Area] 46 mL/min/{1.73_m2} Low >60 [facility] Comment on above: Result Comment: mL/m in/1.73m2 CKD-EPI Creatinine Equation (2020) Performed By: #### L 500.2500 #### [facility] [address] [place], [address] Glucose [Mass/Vol] 126 mg/dL High 70-99 [facility] Comment on above: Performed By: #### L 500.2500 #### [facility] [address] [place], [address] Potassium [Moles/Vol] 4.2 mmol/L Normal 3.3-5.1 [facility] Comment on above: Performed By: #### L 500.2500 #### [facility] [address] [place], [address] Sodium [Moles/Vol] 138 mmol/L Normal 133-145 [facility] Comment on above: Performed By: #### L 500.2500 #### [facility] [address] [place], [address] Urea nitrogen [Mass/Vol] 20 mg/dL High 4-19 [facility] Comment on above: Performed By: #### L 500.2500 #### [facility] [address] [place], [address] Carbon dioxide, total [Moles /volume] in Central venous bloodOrdered By: Braden Bragg on 12-11-2024 CO2 [Moles/Vol] 20.8 mmol/L Low 21.0-32.0 [facility] Chloride assayOrdered By: Dakota Bragg on 12-11-2024 Chloride [Moles/Vol] 103 mmol/L 98-108 [facility] GFR/1.73 sq M.predicted nisreen g non-blacks MDRD (S/P/Bld) [Vol rate/Area]Ordered By: Braden Bragg on 12-11-2024 Estimated GFR (MDRD) Non-Af Amer 46 Low >60 [facility] Comment on above: mL/min/1.73m2 CKD-EP I Creatinine Equation (2020) Glomerular filtration rate ( GFR) estimation/1.73 sq m using serum, plasma, or whole bOrdered By: Braden Bragg on 12-11-2024 GFR/1.73 sq M.predicted among non-blacks MDRD (S/P/Bld) [Vol rate/Area] 46 mL/min/{1.73_m2} Low >60 [facility] Comment on above: mL/min/1.73m2 CKD-EP I Creatinine Equation (2020) Potassium (Unsp spec) [Mass/ Vol]Ordered By: Braden Bragg on 12-11-2024 Potassium [Moles/Vol] 4.2 mmol/L 3.3-5.1 [facility] Potassium measurement (mass/ volume)Ordered By: Braden Bragg on 12-11-2024 Potassium (Unsp spec) [Mass/Vol] 4.2 mmol/L 3.3-5.1 [facility] Serum creatinine measurement (mass/volume)Ordered By: Braden Bragg on 12-11-2024 Creatinine [Mass/Vol] 1.23 mg/dL High 0.70-1.20 [facility] Serum glucose measurement (m ass/volume)Ordered By: Braden Bragg on 12-11-2024 Glucose [Mass/Vol] 126 mg/dL High 70-99 [facility] Serum or plasma calcium chino urement (mass/volume)Ordered By: Braden Bragg on 12-11-2024 Calcium [Mass/Vol] 9.4 mg/dL 7.6-11.0 [facility] Serum or plasma urea nitroge n measurement (mass/volume)Ordered By: Braden Bragg on 12-11-2024 Urea nitrogen [Mass/Vol] 20 mg/dL High -19 [facility] Sodium levelOrdered By: Braden Bragg on 12-11-2024 Sodium [Moles/Vol] 138 mmol/L 133-145 [facility] Pulmonary Visit Reporton Pulmonary Visit Report [facility] [place] [address] [place], [place] [address] [place] [address] OFFICE VISIT Date of Service: 09/23/24 MR#: [id number] Acct: [id number] Name: ANTOINETTE WILSON Rep #: [id number] : 1950 Provider: MARIKA Go Age/Sex: 73/F Location: [facility] Status: Signed Assessment and Plan Assessment and Plan (1) Pulmonary hypertension: Status: Chronic Comment: PASP 54 mmHg Plan: Deteriorated. She is noncompliant with recommended therapies. She has a reason why she can not comply with every recommendation that she is not following. (2) SHELLIE (obstructive sleep apnea): Status: Chronic Comment: Overall AHI 11.8 Plan: She is using and benefiting from Pap therapy. No indication for titration study at this time. Continue to encourage weight loss. Contact the office for any new or worsening symptoms in the meantime. Follow-up in 6 months. (3) Obesity: Status: Chronic Qualifiers: Obesity type: due to excess calories Obesity classification: adult class 3 (BMI >= 40) Serious obesity comorbidity presence: with serious comorbidity Body mass index: BMI 45.0-49.9 Qualified Code(s): E66.01 - Morbid (severe) obesity due to excess calories; Z68.42 - Body mass index [BMI] 45.0-49.9, adult Plan: Continue to encourage healthy weight loss. (4) Chronic hypoxic respiratory failure: Status: Chronic Plan: Deteriorated. She does not believe oxygen is necessary since she is not very ambulatory. HPI 6 M FU Chief Complaint: Shortness of breath HPI Comments Details: This patient presents to the office today for follow-up on her pulmonary hypertension, chronic hypoxic respiratory failure, pulmonary embolism and obstructive sleep apnea. She is ambulatory with the use of a wheeled walker. She is currently on room air. She has not recently been seen in the ED or urgent care for any respiratory illness. She has not required any antibiotics or prednisone for any breathing problems. The patient reports that she is compliant with her Lasix. She does not watch a low salt diet. She gets a ham and cheese sandwich most days, she also eat commercial canned tomato soup. They also order Pizza about once every other week. She admits that food is not appetizing without salt. She no longer has oxygen at home. She reports that she had it picked up. She also didn't need it anymore. She has a portable pulse oximeter at home. She states that any time it was checked it was 94-95%. However, she did not ever check it on ambulation but she doesn't walk very much. She reports excellent compliance with her PAP device. She is not having difficulty with morning headaches. She continues to experience dry mouth. She does occasionally nap and does not utilize her PAP device for napping. She is not nodding off to sleep unintentionally. She does have shortness of breath on exertion. She has an occasional dry cough. She denies any hemoptysis. She denies any wheezing, chest tightness, chest pain or palpitations. She has not had any fever, chills or body aches. If you recall, she is a lifelong never smoker. Compliance report for the past 30 days shows 100% compliance with an average use of 9 hours and 56 minutes per night. Current setting is AutoPap 7-20 cmH2O pressures typically being utilized at 10.3-15.8 centimeters of water. Residual AHI of 1.1 event per hour. Leaks do not appear to be problematic. Intake Vital Signs 03/22/24 07:56 07/25/24 13:04 09/23/24 07:55 Height 5 ft 5.5 in 5 ft 5 in 5 ft 5 in Weight: 278 lb 8 oz BMI 46.3 BP 126/82 H Blood Pressure Location Lt brachial Position Sitting Respiration 18 Pulse 90 Pulse Source Monitor Temp 96.4 F L Temperature Source Temporal Artery Pulse Oximetry (%) 95 Oxygen Delivery Method room air Intake Visit Reasons: 6 M FU Chief Complaint: Bed Control Specialist Required: No DME Vendor: [employer] Accompanied by: Self Allergies celecoxib (From Celebrex) Allergy (Severe, Verified 09/23/24 14:21) Hives clindamycin Allergy (Severe, Verified 09/23/24 14:21) Burning Chest Pain/Vomiting phenazopyridine (From Azo) Allergy (Intermediate, Verified 09/23/24 14:21) Hives cefadroxil (From Duricef) Allergy (Mild, Verified 09/23/24 14:21) Swelling latex Allergy (Mild, Verified 09/23/24 14:21) Rash atorvastatin (From Lipitor) Adverse Reaction (Severe, Verified 09/23/24 14:21) Muscle Spasms topiramate Adverse Reaction (Severe, Verified 09/23/24 14:21) Other Medications ???Medication ???Instructions ???Recorded ???Confirmed ???Type simvastatin 40 mg tablet 40 mg PO QHS Cholesterol 05/16/19 09/23/24 History solifenacin 5 mg tablet 5 mg PO DAILY bladder 12/29/22 09/23/24 History carboxymethylcellulose sodium 1 drp ophthalmic (eye) 3XD eye 03/05/24 09/23/24 History heal (more content not included)... Normal [facility] Albumin to globulin ratioOrd ered By: Braden Bragg on 09-11-2024 Albumin/Globulin [Mass ratio] 0.8 {ratio} Low 0.9-2.4 [facility] Bilirubin, totalOrdered By: Braden Bragg on 09-11-2024 Bilirubin [Mass/Vol] 0.70 mg/dL 0.20-1.00 [facility] Comment on above: For patients on eltr ombopag therapy, use of Dimension [place] TBIL is not recommended. Blood urea nitrogen (BUN)/cr eatinine ratioOrdered By: Braden Bragg on 09-11-2024 Urea nitrogen/Creatinine [Mass ratio] 14.6 mg/mg 10- [facility] Carbon dioxide measurementOr dered By: Braden Bragg on 09-11-2024 CO2 [Moles/Vol] 25.0 mmol/L 21.0-32.0 [facility] Chloride measurementOrdered By: Braden Bragg on 09-11-2024 Chloride [Moles/Vol] 106 mmol/L 98-107 [facility] Comprehensive Metabolic Prof ilon 09-11-2024 Albumin [Mass/Vol] 3.4 g/dL Normal 3.2-5.0 [facility] Comment on above: Performed By: #### L 500.7674, L585.7420, L500.7519 #### [facility] [place], [place], [id number] Albumin/Globulin [Mass ratio] 0.8 {ratio} Low 0.9-2.4 [facility] Comment on above: Performed By: #### L 500.4100, L501.9985, L500.4050 #### [facility] [address] [place], [address] ALK P 92 U/L Normal 45-117 [facility] Comment on above: Performed By: #### L 500.4100, L501.9985, L500.4050 #### [facility] [address] [place], [address] ALT [Catalytic activity/Vol] 12 U/L Low 13-56 [facility] Comment on above: Performed By: #### L 500.4100, L501.9985, L500.4050 #### [facility] [address] [place], [address] AST [Catalytic activity/Vol] 13 U/L Low 15-37 [facility] Comment on above: Performed By: #### L 500.4100, L501.9985, L500.4050 #### [facility] [address] [place], [address] Bilirubin [Mass/Vol] 0.70 mg/dL Normal 0.20-1.00 [facility] Comment on above: Result Comment: For patients on eltrombopag therapy, use of Dimension [place] TBIL is not recommended. Performed By: #### L 500.4100, L501.9985, L500.4050 #### [facility] [address] [place], [address] BUN/CRE 14.6 RATIO Normal 10-20 [facility] Comment on above: Performed By: #### L 500.4100, L501.9985, L500.4050 #### [facility] [address] [place], [address] CA,Total 9.7 mg/dL Normal 8.5-10.1 [facility] Comment on above: Performed By: #### L 500.4100, L501.9985, L500.4050 #### [facility] [address] [place], [address] Chloride [Moles/Vol] 106 mmol/L Normal 98-107 [facility] Comment on above: Performed By: #### L 500.4100, L501.9985, L500.4050 #### [facility] [address] [place], [address] CO2 [Moles/Vol] 25.0 mmol/L Normal 21.0-32.0 [facility] Comment on above: Performed By: #### L 500.4100, L501.9985, L500.4050 #### [facility] [address] [place], [address] Creatinine [Mass/Vol] 1.37 mg/dL High 0.55-1.02 [facility] Comment on above: Result Comment: The validity of the calculated GFR GFRAA in patients over 70 years has not been determined. Clinical correlation is essential. Performed By: #### L 500.4100, L501.9985, L500.4050 #### [facility] [address] [place], [address] EST GFR - AA 49 mL/min Low >60 [facility] Comment on above: Result Comment: Afri can Slovenian GFR Calc Performed By: #### L 500.4100, L501.9985, L500.4050 #### [facility] [address] [place], [address] GAP 7 Normal 5-15 [facility] Comment on above: Performed By: #### L 500.4100, L501.9985, L500.4050 #### [facility] [address] [place], [address] GFR/1.73 sq M.predicted among non-blacks MDRD (S/P/Bld) [Vol rate/Area] 40 mL/min/{1.73_m2} Low >60 [facility] Comment on above: Result Comment: Non- GFR Calc Performed By: #### L 500.4100, L501.9985, L500.4050 #### [facility] [address] [place], [address] Globulin (S) [Mass/Vol] 4.5 g/dL High 2.2-4.2 [facility] Comment on above: Performed By: #### L 500.4100, L501.9985, L500.4050 #### [facility] [address] [place], [address] Glucose [Mass/Vol] 95 mg/dL Normal 74-106 [facility] Comment on above: Performed By: #### L 500.4100, L501.9985, L500.4050 #### [facility] [address] [place], [address] Potassium [Moles/Vol] 3.6 mmol/L Normal 3.5-5.1 [facility] Comment on above: Performed By: #### L 500.4100, L501.9985, L500.4050 #### [facility] [address] [place], [address] Sodium [Moles/Vol] 138 mmol/L Normal 136-145 [facility] Comment on above: Performed By: #### L 500.4100, L501.9985, L500.4050 #### [facility] [address] [place], [address] T PROT 7.9 g/dL Normal 6.4-8.2 [facility] Comment on above: Performed By: #### L 500.4100, L501.9985, L500.4050 #### [facility] [address] [place], [address] Urea nitrogen [Mass/Vol] 20 mg/dL High 04-11 [facility] Comment on above: Performed By: #### L 500.4100, L501.9985, L500.4050 #### [facility] [address] [place], [place], [id number] Estimated glomerular filtrat ion rate (GFR) AmericanOrdered By: Braden Bragg on 09-11-2024 Estimated GFR (MDRD) Amer 49 mL/min Low >60 [facility] Comment on above: GFR Calc Glomerular filtration rate ( GFR) estimationOrdered By: Braden Bragg on 09-11-2024 Estimated GFR (MDRD) Non-Af Amer 40 mL/min Low >60 [facility] Comment on above: Non- GFR Calc Glucose measurementOrdered B y: Braden Bragg on 09-11-2024 Glucose [Mass/Vol] 95 mg/dL 74-106 [facility] Hemoglobin A1con 09-11-2024 HbA1c (Bld) [Mass fraction] 6.0 % High 3.8-5.6 [facility] Comment on above: Result Comment: Norm al < 5.7 % Prediabetic 5.7 - 6.4 % Diabetic >or= 6.5 % Please note range changes. Performed By: #### L 500.4100, L501.9985, L500.4050 #### [facility] [address] [place], [place], [id number] Hemoglobin A1c percentageOrd ered By: Braden Bragg on 09-11-2024 HbA1c (Bld) [Mass fraction] 6.0 % High 3.8-5.6 [facility] Comment on above: Normal < 5.7 % Predi abetic 5.7 - 6.4 % Diabetic >or= 6.5 % Please note range changes. High density lipoprotein (HD L) measurementOrdered By: Braden Bragg on 09-11-2024 Cholesterol in HDL [Mass/Vol] 75 mg/dL >40 [facility] Comment on above: The drugs N-Acetylcy steine and Metamizole may falsely depress this assay. Reference Range HDL <40 mg/dL Low HDL Cholesterol HDL >or= 60 mg/dL High HDL Cholesterol Laboratory - Chemistry and C hemistry - challengeOrdered By: Braden Bragg on 09-11-2024 AST [Catalytic activity/Vol] 13 U/L Low 15-37 [facility] Lipid Profileon 09-11-2024 Cholesterol [Mass/Vol] 180 mg/dL Normal 200 [facility] Comment on above: Result Comment: <200 mg/dL Desirable 200-240 mg/dL Borderline >240 mg/dL High Risk Performed By: #### L 500.4100, L501.9985, L500.4050 #### [facility] [address] [place], [address] Cholesterol in HDL [Mass/Vol] 75 mg/dL Normal [facility] Comment on above: Result Comment: The drugs N-Acetylcysteine and Metamizole may falsely depress this assay. Reference Range HDL <40 mg/dL Low HDL Cholesterol HDL >or= 60 mg/dL High HDL Cholesterol Performed By: #### L 500.4100, L501.9985, L500.4050 #### [facility] [address] [place], [address] Cholesterol in LDL [Mass/Vol] 81 mg/dL Normal 0-130 [facility] Comment on above: Performed By: #### L 500.4100, L501.9985, L500.4050 #### [facility] [address] [place], [address] Cholesterol in VLDL [Mass/Vol] 24 mg/dL Normal 5-40 [facility] Comment on above: Performed By: #### L 500.4100, L501.9985, L500.4050 #### [facility] [address] [place], [address] Triglyceride [Mass/Vol] 122 mg/dL Normal [facility] Comment on above: Result Comment: The drugs N-Acetylcysteine and Metamizole may falsely depress this assay. Serum Triglycerides Reference Interval Normal <150 mg/dL Borderline high 150 - 199 mg/dL High 200 - 499 mg/dL Very High > or = 500 mg/dL Performed By: #### L 500.4102, L501.9976, L500.4050 #### [facility] [address] [place], [address] Low density lipoprotein (LDL ) cholesterol measurementOrdered By: Braden Bragg on 09-11-2024 Cholesterol in LDL [Mass/Vol] 81 mg/dL 0-130 [facility] Potassium measurementOrdered By: Braden Bragg on 09-11-2024 Potassium [Moles/Vol] 3.6 mmol/L 3.5-5.1 [facility] Serum anion gap measurementO rdered By: Braden Bragg on 09-11-2024 Anion gap [Moles/Vol] 7 mmol/L 5-15 [facility] [facility] Serum globulin measurementOr dered By: Braden Bragg on 09-11-2024 Globulin (S) [Mass/Vol] 4.5 g/dL High 2.2-4.2 [facility] Serum or plasma alanine bryant otransferase (ALT) measurementOrdered By: Braden Bragg on 09-11-2024 ALT [Catalytic activity/Vol] 12 U/L Low 13-56 [facility] Serum or plasma albumin chino urement (mass/volume)Ordered By: Braden Bragg on 09-11-2024 Albumin [Mass/Vol] 3.4 g/dL 3.2-5.0 [facility] Serum or plasma alkaline marissa sphatase measurementOrdered By: Braden Bragg on 09-11-2024 ALP [Catalytic activity/Vol] 92 U/L 45-117 [facility] Serum or plasma calcium chino urement (mass/volume)Ordered By: Braden Bragg on 09-11-2024 Calcium [Mass/Vol] 9.7 mg/dL 8.5-10.1 [facility] Serum or plasma cholesterol measurement (mass/volume)Ordered By: Braden Bragg on 09-11-2024 Cholesterol [Mass/Vol] 180 mg/dL <200 [facility] Comment on above: <200 mg/dL Desirable 200-240 mg/dL Borderline >240 mg/dL High Risk Serum or plasma creatinine m easurement (mass/volume)Ordered By: Braden Bragg on 09-11-2024 Creatinine [Mass/Vol] 1.37 mg/dL High 0.55-1.02 [facility] Comment on above: The validity of the calculated GFR & GFRAA in patients over 70 years has not been determined. Clinical correlation is essential. Serum or plasma urea nitroge n measurement (mass/volume)Ordered By: Braden Bragg on 09-11-2024 Urea nitrogen [Mass/Vol] 20 mg/dL High 7-18 [facility] Sodium levelOrdered By: Braden Bragg on 09-11-2024 Sodium [Moles/Vol] 138 mmol/L 136-145 [facility] Total proteinOrdered By: Ayla Bragg on 09-11-2024 Protein [Mass/Vol] 7.9 g/dL 6.4-8.2 [facility] Triglycerides measurementOrd ered By: Braden Bragg on 09-11-2024 Triglyceride [Mass/Vol] 122 mg/dL <199 [facility] Comment on above: The drugs N-Acetylcy steine and Metamizole may falsely depress this assay.Serum Triglycerides Reference Interval Normal <150 mg/dL Borderline high 150 - 199 mg/dL High 200 - 499 mg/dL Very High > or = 500 mg/dL Very low density lipoprotein (VLDL) cholesterol measurementOrdered By: Braden Bragg on 09-11-2024 VLDL Cholesterol 24 mg/dL 5-40 [facility] Neurology Visit Reporton Neurology Visit Report [facility] [address], [address] [place] [address] OFFICE VISIT Date of Service: 07/25/24 MR#: [id number] Acct: [id number] Name: ANTOINETTE WILSON Rep #: [id number] : 1950 Provider: Dr. Sadi mcpherson MD Age/Sex: 73/F [place] [facility] [place] Status: Signed [facility] Chief Complaint: Details: Interim History: Antoinette returns for follow-up. She has a history of hypertension, diabetes mellitus, GERD, hyperlipidemia, obstructive sleep apnea and epilepsy. On 02/07/2021, she had an episode of shortness of breath, nausea, impaired speech and confusion. Her called EMS and when EMS arrived, she lost consciousness. She was amnestic to events of at least the following hour. In the emergency room, she was found to be hypoxic with an O2 sat 82% on room air. Cardiac enzymes were normal. She was not hypotensive. Her lactic acid was elevated. Her chest x-ray showed mild pulmonary vascular congestion and a questionable, small left pleural effusion. She did not have leukocytosis. The etiology of her hypoxic respiratory failure was unclear. She was treated with broad-spectrum antibiotics. During her ER assessment, she had a witnessed tonic-clonic seizure lasting about 20 seconds. Prior to loss of consciousness with this seizure, she had an ill-defined weird feeling. She was hospitalized and treated with levetiracetam. Her head MRI revealed moderate chronic small vessel ischemic disease, however no acute stroke was identified. The patient reported that no acute cardiac abnormality was identified. She takes aspirin 81mg daily. Her EEG (02/08/21) was unremarkable. On 02/09/2021, she had a third episode of loss of consciousness. This was previously reported as a seizure, though she previously reported that another doctor, Dr. Aldana, felt it was a syncopal episode. The only documentation in her chart regarding this event stated that the patient was ambulating to her chair after having her hair washed at the sink when she became diaphoretic and stated she didn't feel well. It does not mention syncope, fall or loss of consciousness. She stated that she lost consciousness briefly but did not exhibit any abnormal movements or experience postictal lethargy or confusion. Levetiracetam 500mg BID was continued. She has had no further seizures since that time. She is tolerating levetiracetam well. She had been on amitriptyline since around 2000 for treatment of insomnia; this medication can lower the seizure threshold and it was discontinued following her new onset seizures. She denied having tongue biting or urinary incontinence during her seizures. During her initial episode, she may have had left upper extremity weakness and transient right facial weakness. She had a tooth infection in January 2021 and this was treated in February 2021 with a dental procedure and antibiotic. 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 On later assessment during her hospitalization, her respiratory difficulty was felt to be due to obesity hypoventilation and/or sleep apnea; CPAP was initiated. Her most recent levetiracetam level was within therapeutic range and her ammonia level was normal (September 2023). In years past, she had migraine headaches with associated photophobia and phonophobia. When she quit working around 2004, her migraines diminished. Emotional stress is a trigger for her migraines. In 2020, she had an increase in her headaches, which began occurring at least every other day. She took topiramate for a period of time however this was not tolerated due to ocular/visual side effects and was discontinued. Since 2022 she has had about 1 to 2 days of headache per month for which she takes acetaminophen or ibuprofen and these are of benefit. Sumatriptan 50 mg has also been of benefit. She had a lower extremity DVT and pulmonary embolism earlier in 2023 and was treated with Eliquis for a period of time; Eliquis was subsequently discontinued. An EKG in February 2024 revealed sinus rhythm with first-degree AV block, RSV' or QR pattern in V1 suggests right ventricular conduction delay, and possible anterior infarct - age undetermined. Physical Exam: Neuro: The patient is awake and alert and responds appropriately Neck: No bruits Heart: Regular rate and rhythm Supplemental Info CBC, PT/PTT, BMP, lactic acid (02/07/2021): BUN 21, creatinine 1.47, EGFR 37, glucose 272, lactic acid 3.7 (elevated). Brain CT 02/07/21 Normal soft tissue structures. Normal calvarium. Normal size ventricles and extra-axial spaces for the patient''s age. There is moderate periventricular and subcortical white matter lucency suggestive of small vessel ischemic disease. Normal basal ganglia and thalami. Normal brainstem. Normal cerebellum. There is no intracranial hemorrhage. There are no findings of an acute ischemic infarcti (more content not included)... Normal [facility] Operative Reporton 4 Operative Report [facility] Medical Records Department [address] [place] [address] Operative Report 07/08/24 1036 MR#: [id number] Acct: [id number] Name: ANTOINETTE WILSON Rep #: [id number] : 1950 73 From: Colin Mancilla MD PCP: Dr. Braden Bragg MD Status:REG CLI Location: [facility] Problems Associated Problem List Diagnoses (1) Abnormal mammogram of left breast: Report of Operation Date of Procedure: 07/08/24 Pre-Operative Diagnosis: Abnormal left breast mammogram/microcalcifi cations Post-Operative Diagnosis: Abnormal left breast mammogram/microcalcifi cations. Surgery/Procedure Performed:: Stereotactic left breast biopsy x 1 site Description of Surgical Findings:: Microcalcifications successfully biopsied Surgeon: Colin Mancilla mophead sewer: None Type of Anesthesia: Local Specimen's removed: Left breast tissue with microcalcifications Drains: None Estimated Blood Loss (mL): Minimal Fluids Replaced: None Description of Procedure: The patient is a 73-year-old female who recently underwent routine screening mammography. An area of microcalcifications in the central aspect of the left breast was noted to be increasing in density of calcifications. This finding triggered a BI-RADS 4 reading and so biopsy was recommended. Patient was seen in my office recently and I offered her stereotactic biopsy. We discussed the details of the planned procedure and she wished to proceed. The patient was brought to the mammography suite. After obtaining consent to perform the left breast stereotactic biopsy, the patient was then positioned in a prone position on the stereotactic biopsy table. Her left breast was then suspended through the opening in the table. The left breast was then placed into compression. Images were obtained until the area of calcifications were clearly identified on imaging. Once this was successfully performed, 2 stereotactic views were obtained of the area to be biopsied. With these 2 images we were able to then target the lesion. Next, the skin of the left breast was then prepped and draped in the usual sterile manner. Local anesthetic was then infiltrated. A #11 blade was then used to make a small skin incision. The biopsy probe was then inserted to the desired depth. 2 more x-ray views were obtained and appeared that the biopsy probe was in appropriate position to be fired and perform the biopsies. The probe was then fired/deployed. Next, multiple suction biopsies were obtained mostly from the 8 the 4 o'clock position. There was good tissue sampling. The patient tolerated the sampling process very well. The tissue obtained was then plated and an x-ray was performed. This confirmed numerous microcalcifications in the specimen tissue. A marking clip was then deployed. The biopsy probe was then withdrawn and then manual pressure was held on the site of the biopsy to minimize bruising and improve hemostasis. Mastisol and Steri-Strips were applied as dressing. She then underwent a post procedure mammogram. Overall she tolerated the procedure extremely well. I will contact her with biopsy results when they become available. Grafts/Implants Used: Marking clip deployed postbiopsy Complications None Admit VTE Documentation VTE Present on Admission: No Procedures Integumentary 16xxx-193xx: 11952 Bx breast 1st lesion [facility] 07/08/24 1045 Cosigner Signature (if applicable): CC: Dr. Braden Bragg MD; Dr. Colin Mancilla MD Signed Normal [facility] Surgery Specimen Level Aleksey 07-08-2024 Surgery Specimen Level IV ---- Patient Age/Sex Location Account Attending Physician ---- ANTOINETTE WILSON 73/F RUDY [id number] Dr. Colin Mancilla MD ---- Specimen: [id number] Received: 07/08/24 Status: CHARLENE Lozoya Num: [id number] Spec Type: BREAST BX Subm Dr: Dr. Colin Mancilla MD HEADER OPERATION: Left breast stereotactic biopsy PRE-OP DIAGNOSIS: Left breast calcifications TISSUE SUBMITTED: Left breast tissue Ischemic Time: 1 minute Fixation Time: 10 hours ---- MICROSCOPIC DIAGNOSIS Left breast, stereotactic biopsy: Hyalinized microfibroadenoma with associated banal clustered microcalcifications. AM. 07/09/2024 MICROSCOPIC DESCRIPTION Slides are reviewed. GROSS DESCRIPTION Received is one container labeled with the patient's name and not further designated. The specimen consists of multiple elongated fragments of reynoso-yellow fibroadipose tissue that in aggregate measure 7.0 x 3.0 x 0.3 cm. The specimen is totally submitted in three cassettes. SJ. 07/08/2024 TC: 5 CPT:61313 ---- Patient Age/Sex Location Account Attending Physician ---- ANTOINETTE WILSON 73/F RUDY [id number] Dr. Colin Mancilla MD ---- Signed (signature on file) Dr. Jorge Luis Coburn DO 07/09/24 1119 ---- Normal [facility] Comment on above: Performed By: #### P SUIV ####[facility] [address] [place], [place], [address] Surgery Visit Reporton 07-03 Surgery Visit Report [facility] [address] [place], [place] [address] OFFICE VISIT Date of Service: 07/03/24 MR#: [id number] Acct: [id number] Name: ANTOINETTE WILSON Rep #: [id number] : 1950 Provider: Dr. Colin nance MD Age/Sex: 73/F Location: [facility] Status: Signed Intake Vital Signs 03/22/24 07:56 07/03/24 13:32 Height 5 ft 5.5 in 5 ft 5 in Weight: 290 lb 288 lb 6 oz BMI 47.5 47.9 BP 109/70 112/75 Blood Pressure Location Lt brachial Rt brachial Position Sitting Sitting Respiration 18 18 Pulse 108 H 100 Pulse Source Monitor Monitor Temp 98.0 F 97.6 F L Temp Source Temporal Pulse Oximetry (%) 98 98 Oxygen Delivery Method nasal canula room air Oxygen Flow Rate (L/min) 3 Intake Visit Reasons: BIRADS 4, CALCIFICATIONS Chief Complaint: BIRADS 4, CALCIFICATIONS Is patient in pain?: No Allergies celecoxib (From Celebrex) Allergy (Severe, Verified 07/03/24 13:33) Hives clindamycin Allergy (Severe, Verified 07/03/24 13:33) Burning Chest Pain/Vomiting phenazopyridine (From Azo) Allergy (Intermediate, Verified 07/03/24 13:33) Hives adhesive tape Allergy (Mild, Verified 07/03/24 13:33) Rash cefadroxil (From Duricef) Allergy (Mild, Verified 07/03/24 13:33) Swelling atorvastatin (From Lipitor) Adverse Reaction (Severe, Verified 07/03/24 13:33) Muscle Spasms topiramate Adverse Reaction (Severe, Verified 07/03/24 13:33) Other Medications ???Medication ???Instructions ???Recorded ???Confirmed ???Type metformin 500 mg tablet,extended 500 mg PO LUNCH Diabetes 05/16/19 07/03/24 History release 24 hr simvastatin 40 mg tablet 40 mg PO QHS Cholesterol 05/16/19 07/03/24 History solifenacin 5 mg tablet 5 mg PO DAILY bladder 12/29/22 07/03/24 History sumatriptan succinate 50 mg tablet See Rx Instructions PO .COMPLEX 09/28/23 07/03/24 Rx headache #9 tabs carboxymethylcellulose sodium 1 drp ophthalmic (eye) 3XD eye 03/05/24 07/03/24 History health cranberry 500 mg capsule 1,500 mg PO DAILY supplement 03/05/24 07/03/24 History turmeric 400 mg capsule 800 mg PO DAILY supplement 03/05/24 07/03/24 History furosemide 40 mg tablet 40 mg PO DAILY #30 tabs 03/07/24 07/03/24 Rx potassium chloride 10 mEq 20 meq (2 x 10 mEq) PO DAILY #60 03/07/24 07/03/24 Rx tablet,extended release tabs esomeprazole magnesium 20 mg 40 mg PO DAILY GERD 03/22/24 07/03/24 History capsule,delayed release (Nexium) metronidazole 1 % topical gel 1 applic topical DAILY 03/22/24 07/03/24 History prednisolone acetate 1 % eye 2 drp ophthalmic (eye) DAILY 03/22/24 07/03/24 History drops,suspension levetiracetam 500 mg tablet 500 mg PO BID seizures #180 tabs 04/01/24 07/03/24 Rx (Keppra) Have you fallen in the past year?: No [facility] Medical History (Updated 07/03/24 @ 15:[address] Colin Mancilla MD) Abnormal mammogram of left breast Abnormal ultrasound Hypoxia IBS (irritable bowel syndrome) Gallstones History of blood clots Arthritis Wears hearing aid in both ears Chronic pain Pancreatitis GERD (gastroesophageal reflux disease) Migraines Hyperlipidemia Degenerative disc disease Borderline diabetes mellitus History of colonic polyps Surgical History History of left knee replacement History of tubal ligation History of hemorrhoidectomy Hx of cholecystectomy History of colonoscopy ( 05/20/19) Family History Mother Arthritis Diabetes Depression Mental disorder Psychiatric care Uterine cancer Father Myocardial infarction, Onset Age: 48 Heart disease Grandfather Mental disorder Psychiatric care Social History household members: spouse Smoking Status: Never smoker Electronic Cigarette Use: not used second hand exposure: No alcohol intake: current alcohol intake frequency: holidays/special occasions only Alcohol type: wine substance use type: does not use nacho/islam: None seatbelt use: always HPI HPI HPI: The patient is a 73-year-old female who presents today for an abnormal left breast mammogram showing an increasing area of microcalcifications in the left breast. She has no breast issues or complaints. She denies any nipple discharge or drainage. No masses. No family history of breast cancer. She presents today to discuss biopsy of these calcifications. ROS General General: Yes fatigue; No weight change, appetite, colon cancer, breast cancer or weakness HEENT HEENT: No difficulty swallowing, eye injury, eye surgery, swollen glands or hoarseness Endo Endocrine: Yes diabetes mellitus; No thyroid disease, thyroid cancer, Hair loss, heat intolerance or cold (more content not included)... Normal [facility] CNOVon 07-01-2024 CNOV Office Visit (GENSWS ) ANTOINETTE WILSON ([id number]) 1950 [place] [employer]* Date Time Provider Department 07/01/24 2:00 PM CHERYL BURKS During your visit today, we recorded the following information about you: Temperature Pulse Respiration Blood pressure 97.7 degrees 96/minute 14/minute 116/78 Weight Height 129.7 kg 1.63 m Cheryl Burks MD 07/04/2024 3:04 PM Signed Antoinette Wilson 1950 REFERRING PHYSICIAN: No ref. provider found CHIEF COMPLAINT: Follow Up (Left Breast Biopsy) HPI: The patient is a 73 year old female presents with abnormal calcifications seen on left breast mammograms. These are from films outside [facility] system. 06/26/2024 Outside mammograms - progressive calcifications in left mid breast for which biopsy is recommended, BIRADS 4 She states that she doesn't want to go to [facility] for biopsy (or [place]) for any procedure and would like to have procedure done in [place]. PAST MEDICAL HISTORY Diagnosis Date Arthritis Benign neoplasm of colon Diabetes mellitus (HCC) 09/25/2015 DVT (deep venous thrombosis) (HCC) lower left leg Esophageal reflux Gastroesophageal reflux Generalized osteoarthrosis, unspecified site General Osteoarthritis Headache(784.0) Headaches Other and unspecified hyperlipidemia Hyperlipidemia Personal history of unspecified urinary disorder Snoring Unspecified constipation Constipation Unspecified hemorrhoids without mention of complication Hemorrhoids PAST SURGICAL HISTORY Procedure Laterality Date ABDOMINAL SURGERY HX ARTHRP KNE CONDYLEANDPLATU MEDIALANDLAT COMPARTMENTS 2007 Knee replacement, total,left COLONOSCOPY 05/20/2019 COLONOSCOPY DIAGNOSTIC 2006 COLONOSCOPY FLX DX W/COLLJ SPEC WHEN PFRMD 01/14/2009 Colonoscopy COLONOSCOPY FLX DX W/COLLJ SPEC WHEN PFRMD 11/23/2011 Repeat in 3 yrs (2-2014) COLONOSCOPY SCREENING 03/17/2022 repeat in 5 years due to previous history of polyps COLSC FLX W/RMVL OF TUMOR POLYP LESION SNARE TQ 05/09/2016 FRACTURE SURGERY HEMORRHOIDECTOMY XTRNL 2/> COLUMN/GROUP 1982 HERNIA REPAIR HX JOINT REPLACEMENT HX LAPS SURG CHOLECYSTECTOMY W/CHOLANGIOGRAPHY 06/11/2013 Normal IOC LIG/TRNSXJ FLP TUBE ABDL/VAG APPR UNI/BI Tubal ligation PAST SURGICAL HISTORY OF 2002 left ankle surgery PAST SURGICAL HISTORY OF epidurals for back pain REPAIR INCISIONAL HERNIA,REDUCIBLE 06/30/2021 VASCULAR SURGERY PROCEDURE Current Outpatient Medications Medication Sig solifenacin (VESICARE) 5 mg tablet Take 5 mg by mouth once daily. SUMAtriptan (IMITREX) 50 mg tablet Take 50 mg by mouth as needed for migraine headache (see administration instructions). May repeat dose after 2 hours if needed. Maximum daily dose is 200 mg per day. Cranberry 500 mg cap Take 1 capsule by mouth once daily. levETIRAcetam (KEPPRA) 500 mg tablet Take 500 mg by mouth twice daily. COMPOUNDED PRESCRIPTION Use 1 Drop in both eyes three times daily as needed. for rosacea in eyes metroNIDAZOLE 1 % TOPICAL gel Apply to affected area once daily. esomeprazole mag trihydrate(NEXIUM 40 MG CAP) Take one(1) capsule daily. simvastatin(ZOCOR 40 MG TAB) Take one(1) tablet daily at bedtime. peg 3350-Electrolytes (GOLYTELY) 236-22.74-6.74 -5.86 gram suspension Refer to printed prep instructions from your provider. (Patient not taking: Reported on 04/04/2022) metFORMIN (GLUCOPHAGE) 500 mg tablet Take 500 mg by mouth daily with breakfast. (Patient not taking: Reported on 07/01/2024) aspirin 81 mg chewable tablet Take 81 mg by mouth once daily. (Patient not taking: Reported on 07/01/2024) naproxen sodium (ALEVE) 220 mg tablet Take 220 mg by mouth twice daily with meals. (Patient not taking: Reported on 04/04/2022) cholecalciferol (VITAMIN D) 1,000 unit tab tablet Take 1,000 Units by mouth once daily. (Patient not taking: Reported on 04/04/2022) Garlic 1,000 mg cap Take by mouth. (Patient not taking: Reported on 07/01/2024) melatonin 3 mg capsules Take by mouth. (Patient not taking: Reported on 03/07/2022) No current facility-administered medications for this visit. ALLERGIES: Azo [Phenazopyridine Hcl], Celebrex [Celecoxib], Clindamycin, Duracef [Cefadroxil], Latex, Lipitor [Atorvastatin], and Topiramate PERSONAL HISTORY: Social History Tobacco Use Smoking status: Never Smokeless tobacco: Never Vaping Use Vaping status: Never Used Substance Use Topics Alcohol use: Yes Comment: seldom Drug use: Never FAMILY HISTORY Problem Relation Age of Onset Cervical Cancer Mother Psychiatry Mother Coronary Artery Disease Father Cancer Sister skin cancer Diabetes Maternal Grandmother Psychiatry Maternal Grandfather Heart Paternal Grandmother No Known Problems Paternal Grandfather The review of systems data was entered by the nurse and reviewed by me Nursing Notes: Zenaida uPrdy LPN (more content not included)... Normal [facility] SCRN MAMM (CAD)W/PRABHAKAR BILATo n 06-26-2024 SCRN MAMM (CAD)W/PRABHAKAR BILAT [facility] Imaging Services [address] [place] [address] SCRN MAMM (CAD)W/PRABHAKAR BILAT MR#: [id number] Acct: [id number] Name: ANTOINETTE WILSON Rep #: [id number] : 1950 F 73 From: Krunal bryson MD PCP: Dr. Braden Bragg MD Status: [facility] Study: SCRN MAMM (CAD)W/PRABHAKAR BILAT Date of Exam: 11/18 Exam# [id number] Ordering Dr: Braden Bragg MD [id number] MAMMOGRAPHY - BILATERAL SCREENING REASON FOR EXAM: Female, 73 years old. Routine annual screening examination. PERTINENT HISTORY: TECHNIQUE: Digital bilateral breast prabhakar (3D mammographic acquisition) in the CC and MLO projections. 2-D mediolateral oblique (MLO) and craniocaudad (CC) views of both breasts were obtained. CAD: Full Field Digital Mammography with Computer Added Detection was performed. COMPARISON: None. FINDINGS: Breast Composition: The breasts are almost entirely fatty. Since prior study, there has been progressive calcifications in the mid aspect of the left breast. Biopsy recommended. No other significant abnormalities are identified. BI/SCRN MAMM (CAD)W/PRABHAKAR BILAT IMPRESSION: Progressive calcifications in the left mid breast as described. Biopsy recommended. ASSESSMENT CATEGORY: BIRADS Category 4: Suspicious - Biopsy Should Be Considered. A letter regarding these results will be sent to the patient by the facility within 30 days. Approximately 10% of breast cancers are not detected by mammography. A normal mammogram should not delay biopsy of a clinically suspicious abnormality. [id number] Electronically Signed: Krunal Allen MD at 14:01 EDT Reading Location ID and State: [address] [place] [address] , Service support , CC: Dr. Braden Bragg MD In Processing Instructor: Signed Normal [facility] Basic Metabolic Profile (BMP )on 06-12-2024 BUN/CRE 16.2 RATIO Normal 10-20 [facility] Comment on above: Performed By: #### L 500.2500 #### [facility] Laboratory [address] [place], [address] CA,Total 9.8 mg/dL Normal 8.5-10.1 [facility] Comment on above: Performed By: #### L 500.2500 #### [facility] Laboratory [address] [place], [address] Chloride [Moles/Vol] 104 mmol/L Normal 98-107 [facility] Comment on above: Performed By: #### L 500.2500 #### [facility] [address] [place], [address] CO2 [Moles/Vol] 27.0 mmol/L Normal 21.0-32.0 [facility] Comment on above: Performed By: #### L 500.2500 #### [facility] [address] [place], [address] Creatinine [Mass/Vol] 1.42 mg/dL High 0.55-1.02 [facility] Comment on above: Result Comment: The validity of the calculated GFR GFRAA in patients over 70 years has not been determined. Clinical correlation is essential. Performed By: #### L 500.2500 #### [facility] [address] [place], [address] EST GFR - AA 47 mL/min Low >60 [facility] Comment on above: Result Comment: Afri can Slovenian GFR Calc Performed By: #### L 500.2500 #### [facility] [address] [place], [address] GAP 7 Normal 5-15 [facility] Comment on above: Performed By: #### L 500.2500 #### [facility] [address] [place], [address] GFR/1.73 sq M.predicted among non-blacks MDRD (S/P/Bld) [Vol rate/Area] 39 mL/min/{1.73_m2} Low >60 [facility] Comment on above: Result Comment: Non- GFR Calc Performed By: #### L 500.2500 #### [facility] [address] [place], [address] Glucose [Mass/Vol] 119 mg/dL High 74-106 [facility] Comment on above: Result Comment: Fast ing Glucose result from 100 to 125 mg/dL suggests IMPAIRED HOMEOSTASIS per A.D.A. criteria. Performed By: #### L 500.2500 #### [facility] [address] [place], [address] Potassium [Moles/Vol] 3.7 mmol/L Normal 3.5-5.1 [facility] Comment on above: Performed By: #### L [id number] #### [facility] [address] [place], [address] Sodium [Moles/Vol] 138 mmol/L Normal 136-145 [facility] Comment on above: Performed By: #### L [id number] #### [facility] [address] [place], [place], [address] Urea nitrogen [Mass/Vol] 23 mg/dL High 7-18 [facility] Comment on above: Performed By: #### L 500.2500 #### [facility] [address] [place], [place], [address] Basophil percentageOrdered B y: Braden Bragg on 12-07-2023 Chloride [Moles/Vol] 105 mmol/L 98-107 [facility] Glucose [Mass/Vol] 145 mg/dL 74-106 [facility] Comment on above: Fasting Glucose resu lt greater than or equal to 126 mg/dL suggests DIABETES MELLITUS per A.D.A. criteria. Potassium [Moles/Vol] 3.9 mmol/L 3.5-5.1 [facility] Sodium [Moles/Vol] 139 mmol/L 136-145 [facility] - Chemistry and C hemistry - challengeOrdered By: Braden Bragg on 12-07-2023 CO2 [Moles/Vol] 25.0 mmol/L 21.0-32.0 [facility] Urea nitrogen/Creatinine [Mass ratio] 15.6 mg/mg 10-20 [facility] No Panel InformationOrdered By: Braden Bragg on 12-07-2023 Estimated GFR (MDRD) Amer 56 mL/min >60 [facility] Comment on above: GFR Calc Estimated GFR (MDRD) Non-Af Amer 46 mL/min >60 [facility] Comment on above: Non- GFR Calc Serum or plasma calcium chino urement (mass/volume)Ordered By: Braden Bragg on 12-07-2023 Calcium [Mass/Vol] 9.5 mg/dL 8.5-10.1 [facility] Serum or plasma creatinine m easurement (mass/volume)Ordered By: Braden Bragg on 12-07-2023 Creatinine [Mass/Vol] 1.22 mg/dL 0.55-1.02 [facility] Comment on above: The validity of the calculated GFR & GFRAA in patients over 70 years has not been determined. Clinical correlation is essential. Serum or plasma urea nitroge n measurement (mass/volume)Ordered By: Braden Brgag on 12-07-2023 Urea nitrogen [Mass/Vol] 19 mg/dL 7-18 [facility] Thin prep Papanicolaou smear with manual screeningOrdered By: Braden Bragg on 12-07-2023 Thin prep Papanicolaou smear with manual screening 9 5-15 [facility] Basophil percentageOrdered B y: Sadi Piedra on 10-02-2023 Ammonia (P) [Moles/Vol] 25.0 umol/L -32 [facility] No Panel InformationOrdered By: Sadi Piedra on 10-02-2023 Levetiracetam (Keppra) Level 15.9 ug/mL 10.0-40.0 [facility] Comment on above: Performed at: [address] [id number] Director: Yolie Loera MD, Phone: [phone] Amorphous sediment detection in urine sediment by light microscopyOrdered By: Crystal Bhandari on 09-19-2023 Amorphous sediment LM Ql (Urine sed) 1+ URATE [facility] Basophil percentageOrdered B y: Crystal Bhandari on 09-19-2023 Basophil percentage >100 SEEN /hpf 0-5 [facility] Bilirubin Test strip Ql (U)O rdered By: Crystal Bhandari on 09-19-2023 Bilirubin Ql (U) Negative Negative [facility] Culture, urineOrdered By: Audrey Bhandari on 09-19-2023 Bacteria identified Cx Nom (U) Presumptive E. coli [facility] Bacteria identified Cx Nom (U) Presumptive E. coli [facility] Ketones Test strip Ql (U)Ord ered By: Crystal Bhandari on 09-19-2023 Ketones Ql (U) Negative Negative [facility] Mucus LM Ql (Urine sed)Order ed By: Crystal Bhandari on 09-19-2023 Mucus Ql (Urine sed) 0 SEEN /hpf [facility] Nitrite Test strip Ql (U)Ord ered By: Crystal Bhandari on 09-19-2023 Nitrite Ql (U) Negative Negative [facility] Protein Test strip Ql (U)Ord ered By: Crystal Bhandari on 09-19-2023 Protein Ql (U) 15 mg/dl Negative [facility] Squamous epithelial cells de tection in urine sediment by light microscopyOrdered By: Crystal Bhandari on 09-19-2023 Epithelial cells.squamous LM Ql (Urine sed) 10-25 SEEN /hpf 5-10 [facility] Urine blood detectionOrdered By: Crystal Bhandari on 09-19-2023 RBC Ql (U) 25 /ul Negative [facility] RBC Ql (U) 0-5 SEEN /hpf 0-5 [facility] Urine clarityOrdered By: Sharee Bhandari on 09-19-2023 Clarity (U) Cloudy Clear [facility] Urine color determinationOrd ered By: Crystal Bhandari on 09-19-2023 Color (U) Yellow Yellow [facility] Urine glucose detectionOrder ed By: Crystal Bhandari on 09-19-2023 Glucose Ql (U) Normal mg/dl Normal [facility] Urine leukocyte esterase det ection by dipstickOrdered By: Crystal Bhandari on 09-19-2023 Leukocyte esterase Test strip Ql (U) 500 /ul Negative [facility] Urine pHOrdered By: Crystal richardson on 09-19-2023 pH (U) 6.5 [pH] 5.0 - 8.0 [facility] Urine sediment bacteria coun t by microscopy (number/high power field)Ordered By: Crystal Bhandari on 09-19-2023 Bacteria LM.HPF (Urine sed) [#/Area] 1 /[HPF] None Seen [facility] Urine specific gravity measu rementOrdered By: Crystal Bhandari on 09-19-2023 Specific gravity (U) [Rel density] 1.010 1.002-1.030 [facility] Urobilinogen Auto test strip Ql (U)Ordered By: Crystal Bhandari on 09-19-2023 Urobilinogen Ql (U) Normal mg/dl Normal [facility] Basophil percentageOrdered B y: Braden Bragg on 06-21-2023 Chloride [Moles/Vol] 106 mmol/L 98-107 [facility] Cholesterol [Mass/Vol] 162 mg/dL <200 [facility] Comment on above: <200 mg/dL Desirable 200-240 mg/dL Borderline >240 mg/dL High Risk Glucose [Mass/Vol] 149 mg/dL 74-106 [facility] Comment on above: Fasting Glucose resu lt greater than or equal to 126 mg/dL suggests DIABETES MELLITUS per A.D.A. criteria. Potassium [Moles/Vol] 4.0 mmol/L 3.5-5.1 [facility] Sodium [Moles/Vol] 138 mmol/L 136-145 [facility] Triglyceride [Mass/Vol] 131 mg/dL <199 [facility] Comment on above: The drugs N-Acetylcy steine and Metamizole may falsely depress this assay.Serum Triglycerides Reference Interval Normal <150 mg/dL Borderline high 150 - 199 mg/dL High 200 - 499 mg/dL Very High > or = 500 mg/dL Laboratory - Chemistry and C hemistry - challengeOrdered By: Braden Bragg on 06-21-2023 CO2 [Moles/Vol] 25.0 mmol/L 21.0-32.0 [facility] Urea nitrogen/Creatinine [Mass ratio] 17.4 mg/mg 10-20 [facility] No Panel InformationOrdered By: Braden Bragg on 06-21-2023 Estimated GFR (MDRD) Amer 56 mL/min >60 [facility] Comment on above: GFR Calc Estimated GFR (MDRD) Non-Af Amer 47 mL/min >60 [facility] Comment on above: Non- GFR Calc Urine Microalbumin/Creatinine Ratio 9.8 mg/g CRE <30 [facility] Serum or plasma calcium chino urement (mass/volume)Ordered By: Braden Bragg on 06-21-2023 Calcium [Mass/Vol] 9.0 mg/dL 8.5-10.1 [facility] Serum or plasma cholesterol in HDL measurement (mass/volume)Ordered By: Braden Bragg on 06-21-2023 Cholesterol in HDL [Mass/Vol] 66 mg/dL >40 [facility] Comment on above: The drugs N-Acetylcy steine and Metamizole may falsely depress this assay. Reference Range HDL <40 mg/dL Low HDL Cholesterol HDL >or= 60 mg/dL High HDL Cholesterol Serum or plasma cholesterol in VLDL measurement (mass/volume)Ordered By: Braden Bragg on 06-21-2023 Cholesterol in VLDL [Mass/Vol] 26 mg/dL 5-40 [facility] Serum or plasma creatinine m easurement (mass/volume)Ordered By: Braden Bragg on 06-21-2023 Creatinine [Mass/Vol] 1.21 mg/dL 0.55-1.02 [facility] Comment on above: The validity of the calculated GFR & GFRAA in patients over 70 years has not been determined. Clinical correlation is essential. Serum or plasma low density lipoprotein (LDL) cholesterol measurement (mass/volume)Ordered By: Braden Bragg on 06-21-2023 Cholesterol in LDL [Mass/Vol] 70 mg/dL 0-130 [facility] Serum or plasma urea nitroge n measurement (mass/volume)Ordered By: Braden Bragg on 06-21-2023 Urea nitrogen [Mass/Vol] 21 mg/dL 7-18 [facility] Thin prep Papanicolaou smear with manual screeningOrdered By: Braden Bragg on 06-21-2023 Thin prep Papanicolaou smear with manual screening 7 5-15 [facility] Thin prep Papanicolaou smear with manual screening 12.0 mg/L NO RANGE EST. [facility] Urine creatinine measurement (mass/volume)Ordered By: Braden Bragg on 06-21-2023 Creatinine (U) [Mass/Vol] 123.00 mg/dL NO RANGE EST. [facility] Basophil percentageOrdered B y: Dr. Piedra on 01-06-2023 Ammonia (P) [Moles/Vol] 20.0 umol/L 11-32 [facility] No Panel InformationOrdered By: Dr. Piedra on 01-06-2023 Levetiracetam (Keppra) Level 14.9 ug/mL 10.0-40.0 [facility] Comment on above: Performed at: - [address] [id number] Director: Yolie Loera MD, Phone: [phone] Basophil percentageOrdered B y: Dr. Bragg on 12-13-2022 Chloride [Moles/Vol] 105 mmol/L 98-107 [facility] Cholesterol [Mass/Vol] 187 mg/dL <200 [facility] Comment on above: <200 mg/dL Desirable 200-240 mg/dL Borderline >240 mg/dL High Risk Glucose [Mass/Vol] 140 mg/dL 74-106 [facility] Comment on above: Fasting Glucose resu lt greater than or equal to 126 mg/dL suggests DIABETES MELLITUS per A.D.A. criteria. Potassium [Moles/Vol] 4.2 mmol/L 3.5-5.1 [facility] Sodium [Moles/Vol] 141 mmol/L 136-145 [facility] Triglyceride [Mass/Vol] 110 mg/dL <199 [facility] Comment on above: The drugs N-Acetylcy steine and Metamizole may falsely depress this assay.Serum Triglycerides Reference Interval Normal <150 mg/dL Borderline high 150 - 199 mg/dL High 200 - 499 mg/dL Very High > or = 500 mg/dL Laboratory - Chemistry and C hemistry - challengeOrdered By: Dr. Bragg on 12-13-2022 CO2 [Moles/Vol] 29.0 mmol/L 21.0-32.0 [facility] Urea nitrogen/Creatinine [Mass ratio] 21.0 mg/mg 10-20 [facility] No Panel InformationOrdered By: Dr. Bragg on 12-13-2022 Estimated GFR (MDRD) Amer 58 mL/min >60 [facility] Comment on above: GFR Calc Estimated GFR (MDRD) Non-Af Amer 48 mL/min >60 [facility] Comment on above: Non- GFR Calc Urine Microalbumin/Creatinine Ratio 6.7 mg/g CRE <30 [facility] Serum or plasma calcium chino urement (mass/volume)Ordered By: Dr. Bragg on 12-13-2022 Calcium [Mass/Vol] 9.4 mg/dL 8.5-10.1 [facility] Serum or plasma cholesterol in HDL measurement (mass/volume)Ordered By: Dr. Bragg on 12-13-2022 Cholesterol in HDL [Mass/Vol] 73 mg/dL >40 [facility] Comment on above: The drugs N-Acetylcy steine and Metamizole may falsely depress this assay. Reference Range HDL <40 mg/dL Low HDL Cholesterol HDL >or= 60 mg/dL High HDL Cholesterol Serum or plasma cholesterol in VLDL measurement (mass/volume)Ordered By: Dr. Bragg on 12-13-2022 Cholesterol in VLDL [Mass/Vol] 22 mg/dL 5-40 [facility] Serum or plasma creatinine m easurement (mass/volume)Ordered By: Dr. Bragg on 12-13-2022 Creatinine [Mass/Vol] 1.19 mg/dL 0.55-1.02 [facility] Comment on above: The validity of the calculated GFR & GFRAA in patients over 70 years has not been determined. Clinical correlation is essential. Serum or plasma low density lipoprotein (LDL) cholesterol measurement (mass/volume)Ordered By: Dr. Bragg on 12-13-2022 Cholesterol in LDL [Mass/Vol] 92 mg/dL 0-130 [facility] Serum or plasma urea nitroge n measurement (mass/volume)Ordered By: Dr. Bragg on 12-13-2022 Urea nitrogen [Mass/Vol] 25 mg/dL 7-18 [facility] Thin prep Papanicolaou smear with manual screeningOrdered By: Dr. Bragg on 12-13-2022 Thin prep Papanicolaou smear with manual screening 7 5-15 [facility] Thin prep Papanicolaou smear with manual screening 15.3 mg/L NO RANGE EST. [facility] Urine creatinine measurement (mass/volume)Ordered By: Dr. Bragg on 12-13-2022 Creatinine (U) [Mass/Vol] 227.00 mg/dL NO RANGE EST. [facility] Basophil percentageon 2021 Ammonia (P) [Moles/Vol] 17.0 umol/L 11-32 [facility] Work Phone: Chloride [Moles/Vol] 105 mmol/L 98-107 [facility] Work Phone: Glucose [Mass/Vol] 141 mg/dL 74-106 [facility] Work Phone: Comment on above: Fasting Glucose resu lt greater than or equal to 126 mg/dL suggests DIABETES MELLITUS per A.D.A. criteria. Potassium [Moles/Vol] 3.8 mmol/L 3.5-5.1 [facility] Work Phone: Sodium [Moles/Vol] 138 mmol/L 136-145 [facility] Work Phone: Laboratory - Chemistry and C hemistry - challengeon 03-29-2022 CO2 [Moles/Vol] 26.0 mmol/L 21.0-32.0 [facility] Work Phone: Urea nitrogen/Creatinine [Mass ratio] 16.8 mg/mg 10-20 [facility] Work Phone: No Panel Informationon 03-29 Estimated GFR (MDRD) Amer 61 mL/min >60 [facility] Work Phone: Comment on above: GFR Calc Estimated GFR (MDRD) Non-Af Amer 51 mL/min >60 [facility] Work Phone: Comment on above: Non- GFR Calc Serum or plasma calcium chino urement (mass/volume)on 03-29-2022 Calcium [Mass/Vol] 9.5 mg/dL 8.5-10.1 [facility] Work Phone: Serum or plasma creatinine m easurement (mass/volume)on 03-29-2022 Creatinine [Mass/Vol] 1.13 mg/dL 0.55-1.02 [facility] Work Phone: Comment on above: The validity of the calculated GFR & GFRAA in patients over 70 years has not been determined. Clinical correlation is essential. Serum or plasma urea nitroge n measurement (mass/volume)on 03-29-2022 Urea nitrogen [Mass/Vol] 19 mg/dL 7-18 [facility] Work Phone: [phone] Thin prep Papanicolaou smear with manual screeningon 03-29-2022 Thin prep Papanicolaou smear with manual screening 7 5-15 [facility] Work Phone: COLONOSCOPY DIAGNOSTICon [facility] ANES POSTPROC EVALon 021 ANES POSTPROC EVAL HNO ID: [id number] Author: Chapo Barton MD Service: Anesthesiology Author Type: Physician Type: Anesthesia Postprocedure Evaluation Filed: 06/30/2021 1:28 PM Note Text: POST ANESTHESIA EVALUATION NOTE : 1950 Procedure Summary Date: 06/30/21 Room / Location: [place] [address] / [place] Anesthesia Start: 1109 Anesthesia Stop: 1218 Procedure: HERNIORRHAPHY INCISIONAL ABDOMINAL ADULT INITIAL REDUCIBLE (N/A Abdomen) Diagnosis: Incisional hernia, without obstruction or gangrene Surgeons: Perry Brooke MD Responsible Provider: Chapo Barton MD Anesthesia Type: general ASA Status: 3 Anesthesia Type: general Last vitals Vitals Value Taken Time BP 140/70 06/30/21 1300 Temp 37.1 ?C (98.8 ?F) 06/30/21 1217 Pulse 66 06/30/21 1310 Resp 18 06/30/21 1310 SpO2 94 % 06/30/21 1310 Vitals shown include unvalidated device data. Post Anesthesia Patient Status Patient Evaluation: PACU. PACU/ICU Patient Condition: stable. Anticipated Disposition: phase 2 then home. Neurological Status: aware and responsive. Pulmonary Status: breathing comfortably on room air Airway Control: returned to baseline unsupported. Cardiovascular Status: stable. Pain Management: clinically adequate - multimodal analgesia pain management approach Postoperative Hydration: acceptable. Intraoperative Events: no significant anesthesia events Recommendation: continue current plan of care. Anesthesia Observations No Documentation SIGNATURE: Chapo Barton MD PATIENT NAME: Antoinette Wilson DATE: June 30, 2021 TIME: 1:27 PM CSN: [id number] [facility] ANES PRE-OPon 06-30-2021 ANES PRE-OP HNO ID: [id number] Author: Chapo Barton MD Service: Anesthesiology Author Type: Physician Type: Anesthesia Preprocedure Evaluation Filed: 06/30/2021 10:35 AM Note Text: ANESTHESIOLOGY DAY OF SURGERY NOTE : 1950 Procedure(s) (LRB): HERNIORRHAPHY INCISIONAL ABDOMINAL ADULT INITIAL REDUCIBLE (N/A) Surgeon(s): Perry Brooke MD Estimated body mass index is 48.01 kg/m? as calculated from the following: Height as of this encounter: 168.9 cm (5' 6.5). Weight as of this encounter: 137 kg (302 lb). Most recent hematocrit and potassium results: Hematocrit 41.8 06/29/2021 Potassium 4.0 06/29/2021 Relevant Problems ANESTHESIA (+) Obstructive sleep apnea syndrome ENDO (+) Type 2 diabetes mellitus with obesity (HCC) (+) Type 2 diabetes mellitus without complication, without long-term current use of insulin (HCC) GI (+) Gastroesophageal reflux disease NEURO-PSYCH (+) Personal history of colonic polyps (+) Seizure (HCC) PULMONARY (+) Obstructive sleep apnea syndrome I - PHYSICAL EVALUATION AIRWAY Patient intubated: No. Mallampati: III. TM distance: >3 FB. Neck ROM: full ROM without neurological symptoms. Mouth opening: adequate. Short neck: no. Thick neck: no DENTAL Dental findings: teeth intact. Additional exam findings: no II - ANESTHESIA PLAN ASA Score: 3 Anesthetic Plan: general Airway type: LMA NPO Status: adequate Monitoring plan: Standard ASA. Postoperative analgesic plan: parenteral or oral opioids and multimodal analgesia. Anesthetic Risks, Benefits, Alternatives, Personnel Discussed. Consent obtained from: patient.Patient / Surrogate agrees to blood products: yes DNR status not reviewed with patient and/or family prior to surgery. Significant changes in the patient condition since the History and Physical, not otherwise documented in primary service progress note: no. Potential Anesthesia issues that may suggest increased risk of complications or contraindication to planned procedure: none. Vitals Value Taken Time BP 136/72 06/30/21 0916 Pulse Resp 16 06/30/21915 Temp 36.1 ?C (97 ?F) 06/30/21 0916 SpO2 95 % 06/30/21 0916 Facility-Administered Medications as of 06/30/2021 Medication Dose Route Frequency - lactated ringers iv infusion 5-30 mL/hr INTRAVENOUS CONTINUOUS - [COMPLETED] acetaminophen 650 mg tab(s) (TYLENOL) 650 mg ORAL Pre-Op Once - [COMPLETED] promethazine 12.5 mg tab(s) (PHENERGAN) 12.5 mg ORAL Pre-Op Once - ciprofloxacin iv piggyback 400 mg in D5W 200 mL (CIPRO) 400 mg INTRAVENOUS q 12 H - NaCl 0.9% iv flush bag 20 mL INTRAVENOUS PRN Outpatient Medications as of 06/30/2021 Medication Sig - levETIRAcetam (KEPPRA) 500 mg tablet Take 500 mg by mouth twice daily. - metFORMIN (GLUCOPHAGE) 500 mg tablet Take 500 mg by mouth daily with breakfast. - melatonin 3 mg capsules Take by mouth. - esomeprazole mag trihydrate(NEXIUM 40 MG CAP) Take one(1) capsule daily. - simvastatin(ZOCOR 40 MG TAB) Take one(1) tablet daily at bedtime. - aspirin 81 mg chewable tablet Take 81 mg by mouth once daily. - naproxen sodium (ALEVE) 220 mg tablet Take 220 mg by mouth twice daily with meals. - cholecalciferol (VITAMIN D) 1,000 unit tab tablet Take 1,000 Units by mouth once daily. - Garlic 1,000 mg cap Take by mouth. - COMPOUNDED PRESCRIPTION Use 1 Drop in both eyes three times daily as needed. for rosacea in eyes - metroNIDAZOLE 1 % TOPICAL gel Apply to affected area once daily. I have interviewed and examined the patient. I have reviewed the medical record and/or the pre-anesthesia evaluation, pertinent labs, and test results. This contains updated information obtained within 48 hours of Surgery/Procedure. SIGNATURE: Chapo Barton MD PATIENT NAME: Antoinette Wilson DATE: June 30, 2021 TIME: 10:33 AM CSN: [id number] [facility] OPERATIVE NOon 06-30-2021 OPERATIVE NO HNO ID: [id number] Author: Perry Brooke MD Service: General Surgery Author Type: Physician Type: Operative Report Filed: 06/30/2021 12:20 PM Note Text: OPERATIVE/PROCEDURE REPORT LOG ID: [id number] SURGERY/PROCEDURE DATE: 06/30/2021 INCISION/PROCEDURE START TIME: 11:31 AM INCISION CLOSE/PROCEDURE END TIME: 12:07 PM SURGEON(S)/PROCEDURALI ST(S) AND CLAY MACHINE OPERATOR(S): Surgeon(s) and Role: * Perry Brooke MD - Primary Physician Ems Coordinator: Radha Castro PA-C; Heydi Velez PA-C SURGERY/PROCEDURE(S): Incisional hernia with mesh ANESTHESIA: General SURGERY/PROCEDURE DETAILS: Patient was brought into the operating room. Under excellent general anesthetic the abdomen was sterilely prepped and draped in the usual fashion. Local was injected infraumbilically. A curvilinear incision was made. Fairly large defect arising from a previous trocar site at the umbilicus was identified. I was able to reduce this without any difficulty. I tried to create a preperitoneal window but her peritoneum was just too thin and I was not going to accommodate this whatsoever. I placed intra-abdominally a large Parietex mesh I circumferentially tacked it to the fascia with 0 Nurolon sutures. I had excellent hemostasis. I injected Exparel in the fascia. The umbilicus was still slightly tacked down superiorly so I did not do any tacking it back. Deep dermal stitches of 3-0 Vicryl and then a running 4-0 Monocryl on the skin. Steri-Strips were applied [place] cotton was applied sterile dressings were applied patient tolerated the procedure well. Radha Castro was my assistant manager airside operations. She assisted with retraction, visualization and performed skin closure. No additional surgeons or qualified residents were available. PRE-OP/PRE-PROCEDURE DIAGNOSIS: Incisional hernia POST-OP/POST-PROCEDURE DIAGNOSIS: Same as Preop ESTIMATED BLOOD LOSS: < 25 mls SPECIMENS: None IMPLANTABLE DEVICES: 8.6 Parietex mesh DRAINS: None COMPLICATIONS: None PARTICIPATION IN SURGERY/PROCEDURE: I/primary surgeon/proceduralist performed the procedure with assistance. SIGNATURE: Perry Brooke III, MD PATIENT NAME: Antoinette Wilson DATE: June 30, 2021 TIME: 12:12 PM [facility] Vital Signs Date Time Vital Sign Value Performing Clinician Facility 05-22-2025 13:010400 Body height 165.[address] Star Berrios MD Work Phone: [facility] 05-22-2025 13:01-0400 Body mass index (BMI) [Ratio] 47.4 kg/m2 Dr. Star Berrios MD Work Phone: [facility] 05-22-2025 13:01-040 Body temperature 98.2 [degF] Dr. Star Berrios MD Work Phone: [facility] 05-22-2025 13:01-0400 Body weight 129.[address] Star Berrios MD Work Phone: [facility] 05-22-2025 13:01-0400 Diastolic blood pressure 66 mm[Hg] Dr. Star Berrios MD Work Phone: [facility] 05-22-2025 13:01-0400 Heart rate 96 /min Dr. Star Berrios MD Work Phone: [facility] 05-22-2025 13:01-0400 Respiratory rate 16 /min Dr. Star Berrios MD Work Phone: [facility] 05-22-2025 13:01-0400 SaO2% (BldA) [Mass fraction] 94 % Dr. Star Berrios MD Work Phone: 6([phone] [place] [address] 05-22-2025 13:01-0400 Systolic blood pressure 100 mm[Hg] Dr. Star Berrios MD Work Phone: [facility] 03-24-2025 09:21-0400 Body mass index (BMI) [Ratio] 47.4 kg/m2 Dr. Star Berrios MD Work Phone: [facility] 03-24-2025 09:21-0400 Body temperature 97.2 [degF] Dr. Star Berrios MD Work Phone: 3([phone] [place] [address] 03-24-2025 09:21-0400 Body weight 129.[address] Star Berrios MD Work Phone: [facility] 03-24-2025 09:21-0400 Diastolic blood pressure 77 mm[Hg] Dr. Star Berrios MD Work Phone: [facility] 03-24-2025 09:21-0400 Heart rate 86 /min Dr. Star Berrios MD Work Phone: [facility] 03-24-2025 09:21-0400 Respiratory rate 18 /min Dr. Star Berrios MD Work Phone: [facility] 03-24-2025 09:21-0400 SaO2% (BldA) [Mass fraction] 95 % Dr. Star Berrios MD Work Phone: [facility] 03-24-2025 09:21-0400 Systolic blood pressure 115 mm[Hg] Dr. Star Berrios MD Work Phone: [facility] 09-23-2024 07:55-0500 Body height 165.[address] Star Berrios MD Work Phone: [facility] 09-23-2024 07:55-0500 Body mass index (BMI) [Ratio] 46.3 kg/m2 Dr. Star Berrios MD Work Phone: [facility] 09-23-2024 07:55-0500 Body temperature 96.4 [degF] Dr. Star Berrios MD Work Phone: [facility] 09-23-2024 07:55-0500 Body weight 126.[address] Star Berrios MD Work Phone: [facility] 09-23-2024 07:55-0500 Diastolic blood pressure 82 mm[Hg] Dr. Satr Berrios MD Work Phone: [facility] 09-23-2024 07:55-0500 Heart rate 90 /min Dr. Star Berrios MD Work Phone: [facility] 09-23-2024 07:55-0500 Respiratory rate 18 /min Dr. Star Berrios MD Work Phone: [facility] 09-23-2024 07:55-0500 SaO2% (BldA) [Mass fraction] 95 % Dr. Star Berrios MD Work Phone: [facility] 09-23-2024 07:55-0500 Systolic blood pressure 126 mm[Hg] Dr. Star Berrios MD Work Phone: [facility] 07-01-2024 14:08-0400 Body height 163 cm Cheryl Burks MD Work Phone: [facility] 07-01-2024 14:08-0400 Body mass index (BMI) [Ratio] 48.83 kg/m2 Cheryl Burks MD Work Phone: [facility] 07-01-2024 14:08-0400 Body temperature 97.7 [degF] Cheryl Burks MD Work Phone: [facility] 07-01-2024 14:08-0400 Body weight 129.73 kg Cheryl Burks MD Work Phone: [facility] 07-01-2024 14:08-0400 Diastolic blood pressure 78 mm[Hg] Cheryl Burks MD Work Phone: [facility] 07-01-2024 14:08-0400 Heart rate 96 /min Cheryl Burks MD Work Phone: [facility] 07-01-2024 14:08-0400 Respiratory rate 14 /min Cheryl Burks MD Work Phone: [facility] 07-01-2024 14:08-0400 SaO2% (BldA) [Mass fraction] 96 % Cheryl Burks MD Work Phone: [facility] 07-01-2024 14:08-0400 Systolic blood pressure 116 mm[Hg] Cheryl Burks MD Work Phone: [facility] 09-28-2023 12:59-0500 Body height 166.[address] Braden Bragg Work Phone: [facility] 09-28-2023 12:59-0500 Body mass index (BMI) [Ratio] 49.9 kg/m2 Dr. Braden Bragg Work Phone: [facility] 09-28-2023 12:59-0500 Body temperature 97.8 [degF] Dr. Braden Bragg Work Phone: [facility] 09-28-2023 12:59-0500 Body weight 138.[address] Braden Bragg Work Phone: [facility] 09-28-2023 12:59-0500 Diastolic blood pressure 86 mm[Hg] Dr. Braden Bragg Work Phone: [facility] 09-28-2023 12:59-0500 Heart rate 104 /min Dr. Braden Bragg Work Phone: [facility] 09-28-2023 12:59-0500 Respiratory rate 17 /min Dr. Braden Bragg Work Phone: [facility] 09-28-2023 12:59-0500 SaO2% (BldA) [Mass fraction] 95 % Dr. Braden Bragg Work Phone: [facility] 09-28-2023 12:59-0500 Systolic blood pressure 144 mm[Hg] Dr. Braden Bragg Work Phone: [facility] 05-22-2023 11:56-0400 Body height 166.[address] Braden Bragg Work Phone: [facility] 05-22-2023 11:56-0400 Body mass index (BMI) [Ratio] 49.6 kg/m2 Dr. Braden Bragg Work Phone: [phone] [address] 05-22-2023 11:56-0400 Body temperature 97.5 [degF] Dr. Braden Bragg Work Phone: 4(229)[phone] [address] 05-22-2023 11:56-0400 Body weight 137.[address] Braden Bragg Work Phone: [facility] 05-22-2023 11:56-0400 Diastolic blood pressure 86 mm[Hg] Dr. Braden Bragg Work Phone: [facility] 05-22-2023 11:56-0400 Heart rate 63 /min Dr. Braden Bragg Work Phone: [facility] 05-22-2023 11:56-0400 Respiratory rate 18 /min Dr. Braden Bragg Work Phone: [facility] 05-22-2023 11:56-0400 SaO2% (BldA) [Mass fraction] 94 % Dr. Braden Bragg Work Phone: [facility] 05-22-2023 11:56-0400 Systolic blood pressure 140 mm[Hg] Dr. Braden Bragg Work Phone: [facility] 12-29-2022 13:01-0400 Body height 166.[address] Braden Bragg Work Phone: [facility] 12-29-2022 13:01-0400 Body mass index (BMI) [Ratio] 49.8 kg/m2 Dr. Braden Bragg Work Phone: [facility] 12-29-2022 13:01-0400 Body temperature 98 [degF] Dr. Braden Bragg Work Phone: [facility] 12-29-2022 13:01-0400 Body weight 137.[address] Braden Bragg Work Phone: [facility] 12-29-2022 13:01-0400 Diastolic blood pressure 86 mm[Hg] Dr. Braden Bragg Work Phone: [facility] 12-29-2022 13:01-0400 Heart rate 94 /min Dr. Braden Bragg Work Phone: [facility] 12-29-2022 13:01-0400 Respiratory rate 17 /min Dr. Braden Bragg Work Phone: [facility] 12-29-2022 13:01-0400 SaO2% (BldA) [Mass fraction] 95 % Dr. Braden Bragg Work Phone: [facility] 12-29-2022 13:01-0400 Systolic blood pressure 142 mm[Hg] Dr. Braden Bragg Work Phone: [facility] 04-04-2022 10:38-0400 Body height 165.1 cm Ana Maria [place] PA-C Work Phone: [facility] 04-04-2022 10:38-0400 Body temperature 98.01 [degF] Ana Maria [place] PA-C Work Phone: [facility] 04-04-2022 10:38-0400 Body weight 133.81 kg Ana Maria Maddison PA-C Work Phone: [facility] 04-04-2022 10:38-0400 Diastolic blood pressure 88 mm[Hg] Ana Maria Maddison PA-C Work Phone: [facility] 04-04-2022 10:38-0400 Heart rate 125 /min Ana Maria Maddison PA-C Work Phone: [facility] 04-04-2022 10:38-0400 SaO2% (BldA) [Mass fraction] 100 % Ana Maria [place] PA-C Work Phone: [facility] 04-04-2022 10:38-0400 Systolic blood pressure 140 mm[Hg] Ana Maria PA-C Work Phone: [facility] 03-17-2022 10:08-0400 Diastolic blood pressure 81 mm[Hg] Perry Brooke MD Work Phone: [facility] 03-17-2022 10:08-0400 Heart rate 80 /min Perry Brooke MD Work Phone: [facility] 03-17-2022 10:08-0400 Respiratory rate 16 /min Perry Brooke MD Work Phone: [facility] 03-17-2022 10:08-0400 SaO2% (BldA) [Mass fraction] 92 % Perry Brooke MD Work Phone: [facility] 03-17-2022 10:08-0400 Systolic blood pressure 143 mm[Hg] Perry Brooke MD Work Phone: [facility] 03-17-2022 07:58-0400 Body temperature 97.9 [degF] Perry Brooke MD Work Phone: [facility] 03-07-2022 14:37-0400 Body height 167.6 cm Perry Brooke MD Work Phone: [facility] 03-07-2022 14:37-0400 Body temperature 98.01 [degF] Perry Brooke MD Work Phone: [facility] 03-07-2022 14:37-0400 Body weight 133.18 kg Perry Brooke MD Work Phone: [facility] 03-07-2022 14:37-0400 Diastolic blood pressure 84 mm[Hg] Perry Brooke MD Work Phone: [facility] 03-07-2022 14:37-0400 Heart rate 132 /min Perry Brooke MD Work Phone: [facility] 03-07-2022 14:37-0400 SaO2% (BldA) [Mass fraction] 96 % Perry Brooke MD Work Phone: [facility] 03-07-2022 14:37-0400 Systolic blood pressure 124 mm[Hg] Perry Brooke MD Work Phone: [facility] 12-28-2021 13:22-0400 Body height 166.[address] Braden Bragg Work Phone: [facility] Work Phone: 12-28-2021 13:22-0400 Body mass index (BMI) [Ratio] 48.6 kg/m2 Dr. Braden Bragg Work Phone: [facility] Work Phone: 12-28-2021 13:22-0400 Body temperature 98.2 [degF] Dr. Braden Bragg Work Phone: [facility] Work Phone: 12-28-2021 13:22-0400 Body weight 134.[address] Braden Bragg Work Phone: [facility] Work Phone: 12-28-2021 13:22-0400 Heart rate 95 /min Dr. Braden Bragg Work Phone: [facility] Work Phone: 12-28-2021 13:22-0400 Respiratory rate 20 /min Dr. Braden Bragg Work Phone: [facility] Work Phone: 12-28-2021 13:22-0400 SaO2% (BldA) [Mass fraction] 94 % Dr. Braden Bragg Work Phone: [facility] Work Phone: Encounters Encounter Date Encounter Type Care Provider Facility Start: 05-22-2025 End: 05-22-[address] Sadi Piedra MD -[facility] Work Phone: Start: 05-22-2025 End: 05-22-[address] Star Berrios MD Work Phone: -[facility] Start: 04-25-2025 End: 04-25-[address] Star Berrios MD Work Phone: -Radiology [facility] Start: 04-25-2025 End: 04-25-[address] Braden Bragg MD -Radiology [facility] Work Phone: Start: 04-25-2025 End: 04-25-2025 ambulatory Braden Bragg Facility:[facility] Start: 03-25-2025 End: 03-25-[address] Star Berrios MD Work Phone: -Laboratory [facility] Start: 03-25-2025 End: 03-25-[address] Braden Bragg MD -Laboratory [facility] Start: 03-25-2025 Non-patient / Non-visit Dr. Isabella acevedo MD -[facility] Work Phone: Start: 03-24-2025 End: 03-24-2025 Patient encounter procedure Chuyita HAIRSTON -[facility] Work Phone: Start: 03-24-2025 End: 03-25-[address] Star Berrios MD Work Phone: -[facility] Start: 12-17-2024 ambulatory Braden Bragg Facility:[facility] Start: 12-11-2024 End: 12-11-[address] Star Berrios MD Work Phone: [facility] Work Phone: Start: 12-11-2024 End: 12-11-[address] [facility] Start: 12-11-2024 End: 12-11-2024 ambulatory Braden Bragg Facility:[facility] Start: 09-23-2024 End: 09-23-2024 Patient encounter procedure Chuyita HAIRSTON -[facility] Work Phone: Start: 09-23-2024 End: 09-23-2024 ambulatory Braden Bragg Facility:[facility] Start: 09-11-2024 End: 09-11-[address] Braden Bragg MD -[facility] Start: 09-11-2024 End: 09-11-2024 ambulatory Braden Bragg Facility:[facility] Start: 07-25-2024 End: 07-25-2024 ambulatory Braden Bragg Facility:[facility] Start: 07-08-2024 ambulatory [facility] Facility :[facility] Start: 07-08-2024 End: 07-08-2024 ambulatory [facility] Facility:[facility] Start: 07-03-2024 End: 07-03-2024 ambulatory Braden Bragg Facility:[facility] Start: 07-01-2024 End: 07-01-2024 ambulatory BRADEN BRAGG Facility:[facility] Start: 07-01-2024 End: 07-01-2024 Patient encounter procedure Cheryl Burks MD Work Phone: General Surgery Comment on above: Breast calcification seen on mammogram (Primary Dx) Start: 06-26-2024 End: 06-26-2024 ambulatory Braden Bragg Facility:[facility] Start: 06-12-2024 End: 06-12-2024 ambulatory Braden Bragg Facility:[facility] Start: 12-07-2023 End: 12-07-[address] Braden Bragg Work Phone: [facility] Work Phone: Start: 12-07-2023 End: 12-07-[address] Braden Bragg Work Phone: [facility] Start: 10-02-2023 End: 10-02-[address] Braden Bragg Work Phone: [facility] Work Phone: Start: 09-28-2023 End: 09-28-[address] Braden Bragg Work Phone: [facility] Work Phone: Start: 09-19-2023 End: 09-19-2023 ambulatory [facility] Work Phone: Start: 09-19-2023 End: 09-19-2023 Patient encounter procedure [facility] Start: 06-23-2023 End: 06-23-[address] Braden Bragg Work Phone: [facility] Work Phone: Start: 06-21-2023 End: 06-21-[address] Braden Bragg Work Phone: [facility] Work Phone: Start: 06-21-2023 End: 06-21-[address] Braden Bragg Work Phone: [facility] Start: 05-22-2023 End: 05-22-[address] Braden Bragg Work Phone: [facility] Work Phone: Start: 01-06-2023 End: 01-06-[address] Braden Bragg Work Phone: [facility] Work Phone: Start: 01-06-2023 End: 01-06-[address] Braden Bragg Work Phone: [facility] Start: 12-29-2022 End: 12-29-[address] Braden Bragg Work Phone: [facility] Start: 12-13-2022 End: 12-13-2022 ambulatory [facility] Work Phone: Start: 12-13-2022 End: 12-13-2022 Patient encounter procedure [facility] Start: 04-04-2022 End: 04-04-2022 Patient encounter procedure Ana Maria Washburn PA-C Work Phone: General Surgery Comment on above: History of colonic p olyps (Primary Dx); Diarrhea, unspecified type Start: 03-29-2022 End: 03-29-[address] Braden Bragg Work Phone: [facility] Start: 03-17-2022 End: 03-17-2022 Subsequent hospital visit by physician Perry Brooke MD Work Phone: Ambulatory Surgery Comment on above: History of colonic p olyps [Z86.010] Start: 03-07-2022 End: 03-07-2022 Patient encounter procedure Perry Brooke MD Work Phone: General Surgery Comment on above: History of colonic p olyps (Primary Dx); Diarrhea, unspecified type Start: 12-28-2021 End: 12-28-[address] Braden Bragg Work Phone: [facility] Start: 03-03-2021 ambulatory ROSALINO BOSS [facility] ty:[facility] Start: 03-26-2012 Evaluation and manag ement of inpatient Dr. Braden Bragg Work Phone: [facility]- Procedures Date Procedure Procedure Detail Performing Clinician Start: 04-25-[address] Star Berrios MD Work Phone: Start: 09-19-2023 Bacteria identified in Urine by Culture Start: 09-19-2023 Urine culture Start: 06-23-2023 Screening mammography Jayne Bragg Work Phone: Start: 03-17-2022 Colonoscopy flx dx w /collj spec when pfrmd Perry Brooke MD Work Phone: Start: 03-17-2022 Colonoscopy Perry rich MD Work Phone: Start: 05-20-2019 Colonoscopy Perry rich MD Work Phone: Start: 02-23-2012 Mammography Perry rich MD Work Phone: Plan of Treatment Date Care Activity Detail Author Start: 08-02-2027 Urine microalbumin profile DTaP,Tdap,Td Vaccine (3 - Td or Tdap) [facility] Start: 03-17-2027 Colonoscopy COLONOSCOPY [facility] Start: 03-17-2027 COLORECTAL CANCER SCREENING COLORECTAL CANCER SCREENING [facility] Start: 03-17-2027 Screening for malign ant neoplasm of colon [facility] Start: 03-17-2025 Colonoscopy COLONOSCOPY [facility] Start: 03-17-2025 COLORECTAL CANCER SCREENING COLORECTAL CANCER SCREENING [facility] Start: 05-26-2024 Covid-19 Vaccine () Covid-19 Vaccine () [facility] Start: 05-26-2024 Influenza vaccination Influenza Vacc ine (#1) [facility] Start: 09-25-2023 Advance Directive Discussion Advance Directive Discussion [facility] Start: 05-26-2022 Influenza vaccination INFLUENZA (#1) [facility] Start: 05-20-2022 Colonoscopy COLONOSCOPY [facility] Start: 05-20-2022 COLORECTAL CANCER SCREENING COLORECTAL CANCER SCREENING [facility] Start: 03-29-2022 Measurement of substance [facility] Work Phone: Start: 12-28-2021 Hemoglobin A1c measurement HbA1C [facility] Start: 12-28-2021 Hemoglobin A1c/Hemoglobin.total in Blood HBA1C [facility] Start: 09-25-2021 ADVANCE DIRECTIVE DISCUSSION ADVANCE DIRECTIVE DISCUSSION [facility] Start: 2016 BONE DENSITY BONE DENSITY [facility] Start: 2016 Screening for osteoporosis Bone Density Screening [facility] Start: 07-24-2013 PNEUMOCOCCAL: 65+ (2 - PCV) PNEUMOCOCCAL: 65+ (2 - PCV) [facility] Start: 02-22-2013 Mammography MAMMOGRAM [facility] Start: 02-22-2013 Screening for malign ant neoplasm of breast Mammogram Screening [facility] Start: 2001 SHINGRIX VACCINE (1 of 2) SHINGRIX VACCINE (1 of 2) [facility] Start: 1996 COLOGUARD (FIT-DNA) COLOGUARD (FIT-D NA) [facility] Start: [address] 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 GRACY DISEASE VISIT ANNUAL PCP TEAM CHRONIC DISEASE VISIT [facility] Start: 1969 Anxiety Screening Anxiety Screening [facility] Start: 1969 Depression Screening Depression Scre ening [facility] Start: 1969 Hepatitis B surface antibody level LDL CHOLESTEROL [facility] Start: 1969 HEPATITIS C SCREENING HEPATITIS C [facility] Start: 1969 Hepatitis C screening Hepatitis C [facility] Start: 1963 Adult depression screening assessment DEPRESSION SCREENING [facility] Start: 1961 3 comp foot exam completed DIABETIC FOOT EXAM [facility] Start: 1961 Diabetic foot examination Diabetic Foot Exam [facility] Start: 1961 Glaucoma screening Dilated Retinal E xam [facility] Start: 1961 Hepatitis B screening URINE ALBUMIN:CREATININE RATIO [facility] Start: 1961 Hepatitis C antibody , confirmatory test DILATED RETINAL EXAM [facility] Blood ammonia measurement [facility] End: 03-07-2023 COLONOSCOPY DIAGNOSTIC COLONOSCOPY DIAGNOSTIC Endoscopy Routine History of colonic polyps Diarrhea, unspecified type 1 Occurrences starting 03/07/2022 until 03/07/2023 [facility] Work Phone: Comment on above: 1 Occurrences starti ng 03/07/2022 until 03/07/2023 Measurement of substance [facility] Work Phone: Measurement of substance [facility] SURGICAL PATHOLOGY [facility] Work Phone: Comment on above: Release Upon Orderin g for 1 Occurrences starting 03/17/2022, 1 completed [facility] Immunizations Immunization Date Immunization Notes Care Provider Fa cility 06-26-2023 influenza virus vacc ine, unspecified formulation Cheryl Burks MD Work Phone: [facility] 02-16-[address] Ayla Bragg Work Phone: [facility] Work Phone: 02-16-2021 pneumococcal vaccine , unspecified formulation [facility] 12-17-2020 Covid (Pfizer) Dr. Braden allison Work Phone: [facility] 11-26-2020 Covid (Pfizer) Dr. Braden allison Work Phone: [facility] 06-25-[address] Braden Bragg Work Phone: [facility] 07-24-2012 pneumococcal polysaccharide vaccine, 23 valent Perry Brooke MD Work Phone: [facility] Payers Date Payer Category Payer Self-pay [id number] 2016 Medicare MEDICARE MEDICAR E A AND B [id number] 2016-Present [phone] [place] [address] Medicare [id number] 2016 Medicare MEDICARE MEDICAR E A AND B [id number] 2016-Present [phone] [place] [address] Medicare [id number] 2016 Private Health Insurance [employer] A ETNA MEDICARE SUPPLEMENT [id number] 2016-Present [phone] [address] [address] [place] [address] Indemnity [id number] 2016 Private Health Insurance AETNA S UPPLEMENT AETNA MEDICARE SUPPLEMENT [id number] 2016-Present [phone] [address] [address] [place] [address] Indemnity [id number] 2016 Medicare [id number] 2016 Private Health Insurance [facility] [id number] 2006 Unknown [id number] 1950 Unknown [id number]. 2.594 Unknown [id number] 2.16.840.1.205747.3.579. 2.462 Unknown [id number] 2.16.840.1.466793.3.579. 2.462 Unknown [id number] 2.16.840.1.437918.3.579. 2.462 Unknown [id number] 2.16.840.1.263610.3.579. 2.462 Unknown [id number] 2.16.840.1.127711.3.579. 2.462 Unknown [id number] 2.16.840.1.269725.3.579. 2.462 Unknown [id number] 2.16.840.1.740335.3.579. 2.462 Unknown [id number] 2.16.840.1.780248.3.579. 2.462 Unknown [id number] 2.16.840.1.551049.3.579. 2.462 Unknown [id number] 2.16.840.1.110644.3.579. 2.462 Unknown [id number] 2.16.840.1.545877.3.579. 2.462 Unknown [id number] 2.16.840.1.603621.3.579. 2.462 Unknown [id number] 2.16.840.1.969087.3.579. 2.462 Unknown [id number]. 2.462 Social History Date Type Detail Facility Start: 02-23-2012 End: 03-05-2024 Tobacco smoking status NHIS Never smoked tobacco [facility] Start: 03-07-2022 End: 07-01-2024 Alcohol intake Current drinker of alcohol (finding) [facility] Start: 1950 Sex Assigned At Not on file [facility] Start: 02-25-2022 End: 04-04-2022 Exposure to SARS-CoV-2 (event) Not sure [facility] Start: 12-28-2021 End: 09-28-2023 Tobacco smoking status NHIS Unknown if ever smoked [facility] Start: 02-07-2021 None [facility] Start: 02-07-2021 Homeless [facility] Start: 02-11-2021 Non-smoker [facility] Start: 1950 Sex Assigned At Female W [facility] Start: 02-23-2012 Tobacco use and exposure Smokeless tobacco non-user [facility] Start: 07-01-2024 History of Social function [facility] Start: 07-01-2024 Tobacco use panel [facility] National Score (1-100), lower number is lower risk 71 [facility] Start: 12-18-2024 Sex Female (finding) [facility] Procedure Code Equipment Code Equipment Origin al Text Equipment Identifier Dates Mesh Parietex 8. 6cm Small Collagen Surgical Patch [facility] - [id number] Start: 06-30-2021 Clinical Notes 06-25-2021 to 04-25-2025 Note Date & Type Note Facility 04-25-2025 Procedure note [facility] 03-24-2025 Evaluation note Diagnosis Onset Date Resolution Obesity chronic March 24 2:35pm SHELLIE (obstructive sleep apnea) chronic March 24, 2025 2:35pm Pulmonary hypertension chronic Ju ne 2024 2:35pm [facility] Work Phone: 1(732) 341-400806-30-2025 Evaluation note* Diagnosis Onset Date Resolution Status Admit Date Obesity chronic March 24 2:35pm SHELLIE (obstructive sleep apnea) chroni c March 24, 2025 2:35pm Pulmonary hypertension chronic Ju ne 2024 2:35pm Epilepsy chronic May 22, 2 025 12:55pm Migraines chronic May 22 2 025 12:55pm [facility] Work Phone: 1(657) 553-804112-30-2024 Evaluation note* Diagnosis Onset Date Resolution Status Admit Date Chronic hypoxic respiratory failure chronic September 23, 2 024 2:12pm Obesity chronic September 23, 2024 2:12pm SHELLIE (obstructive sleep apnea) chroni c September 23, 2024 2:12pm Pulmonary [place] [facility] [place] 2:12pm [facility] Work Phone: 1(668) 205-393410-07-2024 Nurse Note* Zenaida Purdy LPN - 07/01/2024 3:13 PM EDT REVIEW OF SYSTEMS: General: The patient denies fatigue, denies weight loss, denies weight gain, denies feeling hot, and denies feelings of cold. Eyes: The patient denies glaucoma, denies eye injury/surgery, wears glasses or contacts. Ear/Nose/Throat: The patient denies allergies, denies hayfever, denies ear infections, and denies bloody noses. Cardiovascular: The patient denies chest pain, denies heart disease, denies high blood pressure,denies cardiac stent, denies prior heart attack, denies irregular heart beat, notes high cholesterol, denies poor circulation, denies heart failure, other cardiac issues, denies claudication, denies coldfeet, denies peripheral arterial stent. Respiratory: The patient denies tuberculosis, denies pneumonia, denies frequent cough, denies pulmonary embolism, notes shortness of breath, and denies coughing up blood. Notes blood clot in lungs. Gastrointestinal: The patient denies difficulty swallowing, notes acid reflux, denies ulcers, denies vomiting, denies jaundice/hepatitis, denies gallbladder problems, denies black or tarry stools, denies hemorrhoids, denies bleeding from rectum, denies diverticulitis, notes constipation, notes diarrhea, denies loss of stool control, and denies hernias. Kidney/Bladder: The patient denies kidney stones, denies urine infections, and denies bloody urine. Skin: The patient notes a history of skin cancer, denies bleeding/changing moles, and denies a history of skin rash. Neurologic: The patient denies a history of epilepsy/convulsions, notes headaches, denies head/spinal injuries, and denies stroke/TIA. Psychiatric: The patient denies psychiatric medications, denies depression, and denies voices, denies substance abuse. Endocrine: The patient denies thyroid disorders, notes diabetes, and denies hormonal problems. Hematologic: The patient denies a history of bruising, denies bleeding, and denies anemia, denies blood clots. Infections: The patient notes a history of measles and mumps, denies rheumatic fever, and denies sexually transmitted diseases. Musculoskeletal: The patient notes /injury, notes back problems, notes sciatica, notes knee/foot trouble, notes arthritis, or denies gout. When was patient's last Mammogram screening? 06/26/2024 Last Colonoscopy: 03/17/2022 Zenaida Purdy LPN [facility]10-07-2024 Nurse Note* Zenaida Purdy LPN - 07/01/2024 3:13 PM EDT REVIEW OF SYSTEMS: General: The patient denies fatigue, denies weight loss, denies weight gain, denies feeling hot, and denies feelings of cold. Eyes: The patient denies glaucoma, denies eye injury/surgery, wears glasses or contacts. Ear/Nose/Throat: The patient denies allergies, denies hayfever, denies ear infections, and denies bloody noses. Cardiovascular: The patient denies chest pain, denies heart disease, denies high blood pressure,denies cardiac stent, denies prior heart attack, denies irregular heart beat, notes high cholesterol, denies poor circulation, denies heart failure, other cardiac issues, denies claudication, denies coldfeet, denies peripheral arterial stent. Respiratory: The patient denies tuberculosis, denies pneumonia, denies frequent cough, denies pulmonary embolism, notes shortness of breath, and denies coughing up blood. Notes blood clot in lungs. Gastrointestinal: The patient denies difficulty swallowing, notes acid reflux, denies ulcers, denies vomiting, denies jaundice/hepatitis, denies gallbladder problems, denies black or tarry stools, denies hemorrhoids, denies bleeding from rectum, denies diverticulitis, notes constipation, notes diarrhea, denies loss of stool control, and denies hernias. Kidney/Bladder: The patient denies kidney stones, denies urine infections, and denies bloody urine. Skin: The patient notes a history of skin cancer, denies bleeding/changing moles, and denies a history of skin rash. Neurologic: The patient denies a history of epilepsy/convulsions, notes headaches, denies head/spinal injuries, and denies stroke/TIA. Psychiatric: The patient denies psychiatric medications, denies depression, and denies voices, denies substance abuse. Endocrine: The patient denies thyroid disorders, notes diabetes, and denies hormonal problems. Hematologic: The patient denies a history of bruising, denies bleeding, and denies anemia, denies blood clots. Infections: The patient notes a history of measles and mumps, denies rheumatic fever, and denies sexually transmitted diseases. Musculoskeletal: The patient notes /injury, notes back problems, notes sciatica, notes knee/foot trouble, notes arthritis, or denies gout. When was patient's last Mammogram screening? 06/26/2024 Last Colonoscopy: 03/17/2022 Zenaida Purdy LPN [facility] History of Present illness Narrative* Cheryl Burks MD - 07/01/2024 2:00 PM EDT Antoinette Wilson 1950 REFERRING PHYSICIAN: No ref. provider found CHIEF COMPLAINT: Follow Up (Left Breast Biopsy) HPI: The patient is a 73 year old female presents with abnormal calcifications seen on left breast mammograms. These are from films outside [facility] system. 06/26/2024 Outside mammograms - progressive calcifications in left mid breast for which biopsy is recommended,BIRADS 4 She states that she doesn't want to go to [facility] for biopsy (or [facility]) for any procedure and would like to have procedure done in [place]. PAST MEDICAL HISTORY Diagnosis Date Arthritis Benign neoplasm of colon Diabetes mellitus (HCC) 09/25/2015 DVT (deep venous thrombosis) ([facility]) lower left leg Esophageal reflux Gastroesophageal reflux Generalized osteoarthrosis, unspecified site General Osteoarthritis Headache(784.0) Headaches Other and unspecified hyperlipidemia Hyperlipidemia Personal history of unspecified urinary disorder Snoring Unspecified constipation Constipation Unspecified hemorrhoids without mention of complication Hemorrhoids PAST SURGICAL HISTORY Procedure Laterality Date ABDOMINAL SURGERY HX ARTHRP KNE CONDYLE&PLATU MEDIAL&LAT COMPARTMENTS 2007 Knee replacement, total,left COLONOSCOPY 05/20/2019 COLONOSCOPY DIAGNOSTIC 2006 COLONOSCOPY FLX DX W/COLLJ SPEC WHEN PFRMD 01/14/2009 Colonoscopy COLONOSCOPY FLX DX W/COLLJ SPEC WHEN PFRMD 11/23/2011 Repeat in 3 yrs (2-2014) COLONOSCOPY SCREENING 03/17/2022 repeat in 5 years due to previous history of polyps COLSC FLX W/RMVL OF TUMOR POLYP LESION SNARE TQ 05/09/2016 FRACTURE SURGERY HEMORRHOIDECTOMY XTRNL 2/> COLUMN/GROUP 1982 HERNIA REPAIR HX JOINT REPLACEMENT HX LAPS SURG CHOLECYSTECTOMY W/CHOLANGIOGRAPHY 06/11/2013 Normal IOC LIG/TRNSXJ FLP TUBE ABDL/VAG APPR UNI/BI Tubal ligation PAST SURGICAL HISTORY OF 2002 left ankle surgery PAST SURGICAL HISTORY OF epidurals for back pain REPAIR INCISIONAL HERNIA,REDUCIBLE 06/30/2021 VASCULAR SURGERY PROCEDURE Current Outpatient Medications Medication Sig solifenacin (VESICARE) 5 mg tablet Take 5 mg by mouth once daily. SUMAtriptan (IMITREX) 50 mg tablet Take 50 mg by mouth as needed for migraine headache (see administration instructions). May repeat dose after 2 hours if needed. Maximum daily dose is 200 mg per day. Cranberry 500 mg cap Take 1 capsule by mouth once daily. levETIRAcetam (KEPPRA) 500 mg tablet Take 500 mg by mouth twice daily. COMPOUNDED PRESCRIPTION Use 1 Drop in both eyes three times daily as needed. for rosacea in eyes metroNIDAZOLE 1 % TOPICAL gel Apply to affected area once daily. esomeprazole mag trihydrate(NEXIUM 40 MG CAP) Take one(1) capsule daily. simvastatin(ZOCOR 40 MG TAB) Take one(1) tablet daily at bedtime. peg 3350-Electrolytes (GOLYTELY) 236-22.74-6.74 -5.86 gram suspension Refer to printed prep instructions from your provider. (Patient not taking: Reported on 04/04/2022) metFORMIN (GLUCOPHAGE) 500 mg tablet Take 500 mg by mouth daily with breakfast. (Patient not taking: Reported on 07/01/2024) aspirin 81 mg chewable tablet Take 81 mg by mouth once daily. (Patient not taking: Reported on 07/01/2024) naproxen sodium (ALEVE) 220 mg tablet Take 220 mg by mouth twice daily with meals. (Patient not taking: Reported on 04/04/2022) cholecalciferol (VITAMIN D) 1,000 unit tab tablet Take 1,000 Units by mouth once daily. (Patient not taking: Reported on 04/04/2022) Garlic 1,000 mg cap Take by mouth. (Patient not taking: Reported on 07/01/2024) melatonin 3 mg capsules Take by mouth. (Patient not taking: Reported on 03/07/2022) No current facility-administered medications for this visit. ALLERGIES: Azo [Phenazopyridine Hcl], Celebrex [Celecoxib], Clindamycin, Duracef [Cefadroxil], Latex, Lipitor [Atorvastatin], and Topiramate PERSONAL HISTORY: Social History Tobacco Use Smoking status: Never Smokeless tobacco: Never Vaping Use Vaping status: Never Used Substance Use Topics Alcohol use: Yes Comment: seldom Drug use: Never FAMILY HISTORY Problem Relation Age of Onset Cervical Cancer Mother Psychiatry Mother Coronary Artery Disease Father Cancer Sister skin cancer Diabetes Maternal Grandmother Psychiatry Maternal Grandfather Heart Paternal Grandmother No Known Problems Paternal Grandfather The review of systems data was entered by the nurse and reviewed by me Nursing Notes: Zenaida Purdy LPN 07/01/2024 3:18 PM Signed REVIEW OF SYSTEMS: General: The patient denies fatigue, denies weight loss, denies weight gain, denies feeling hot, and denies feelings of cold. Eyes: The patient denies glaucoma, denies eye injury/surgery, wears glasses or contacts. Ear/Nose/Throat: The patient denies allergies, denies hayfever, denies ear infections, and denies bloody noses. Cardiovascular: The patient denies chest pain, denies heart disease, denies high blood pressure,denies cardiac stent, denies prior heart attack, denies irregular heart beat, notes high cholesterol, denies poor circulation, denies heart failure, other cardiac issues, denies claudication, denies coldfeet, denies peripheral arterial stent. Respiratory: The patient denies tuberculosis, denies pneumonia, denies frequent cough, denies pulmonary embolism, notes shortness of breath, and denies coughing up blood. Notes blood clot in lungs. Gastrointestinal: The patient denies difficulty swallowing, notes acid reflux, denies ulcers, denies vomiting, denies jaundice/hepatitis, denies gallbladder problems, denies black or tarry stools, denies hemorrhoids, denies bleeding from rectum, denies diverticulitis, notes constipation, notes diarrhea, denies loss of stool control, and denies hernias. Kidney/Bladder: The patient denies kidney stones, denies urine infections, and denies bloody urine. Skin: The patient notes a history of skin cancer, denies bleeding/changing moles, and denies a history of skin rash. Neurologic: The patient denies a history of epilepsy/convulsions, notes headaches, denies head/spinal injuries, and denies stroke/TIA. Psychiatric: The patient denies psychiatric medications, denies depression, and denies voices, denies substance abuse. Endocrine: The patient denies thyroid disorders, notes diabetes, and denies hormonal problems. Hematologic: The patient denies a history of bruising, denies bleeding, and denies anemia, denies blood clots. Infections: The patient notes a history of measles and mumps, denies rheumatic fever, and denies sexually transmitted diseases. Musculoskeletal: The patient notes /injury, notes back problems, notes sciatica, notes knee/foot trouble, notes arthritis, or denies gout. When was patient's last Mammogram screening? 06/26/2024 Last Colonoscopy: 03/17/2022 Zenaida Purdy LPN PHYSICAL EXAMINATION: General: The patient is 73 year old female, well nourished, well hydrated in no acute distress. Thepatient is oriented to time, place, and person. VITALS: Blood pressure 116/78, pulse 96, temperature 36.5 C (97.7 F), temperature source Temporal, resp. rate 14, height 163 cm (5' 4.17), weight 129.7 kg (286 lb), SpO2 96%. Body mass index is 48.83 kg/m . Head: Normal cephalic, atraumatic Eyes: pupils are equally round, sclera are clear/anicteric, wearing glasses Neck is supple with no tracheal deviation Respiratory: Normal respiratory excursion and pattern. Abdominal exam: benign Extremities: no clubbing, cyanosis or edema. Neuro: non focal Psych: normal mood Assessment IMPRESSION: abnormal mammograms PLAN: I have discussed the above with the patient. I have offered stereotactic breast biopsy. To be done at [facility]. She states that she would like it done in [place], I have explained to patient that we do not do procedures at [facility]. The patient states that she will seek out procedurists for this at [facility]. I have answered all questions to the patient s satisfaction and the patient has no further questions. I have confirmed and edited as necessary, the PFSH and ROS obtained by others. Diagnoses: (R92.1) Breast calcification seen on mammogram (primary encounter diagnosis) Time spent for this patient encounter, < 10 minutes Cheryl Burks MD [facility] NoteHNO ID: [id number] Author: CHERYL BURKS MD Service: ? Author Type: Physician Type: Progress Notes Filed: 07/04/2024 15:04 Note Text: Antoinette Wilson 1950 REFERRING PHYSICIAN: No ref. provider found CHIEF COMPLAINT: Follow Up (Left Breast Biopsy) HPI: The patient is a 73 year old female presents with abnormal calcifications seen on left breast mammograms. These are from films outside [facility] system. 06/26/2024 Outside mammograms - progressive calcifications in left mid breast for which biopsy is recommended, BIRADS 4 She states that she doesn't want to go to [facility] for biopsy (or [facility]) for any procedure and would like to have procedure done in [place]. PAST MEDICAL HISTORY Diagnosis Date Arthritis Benign neoplasm of colon Diabetes mellitus (HCC) 09/25/2015 DVT (deep venous thrombosis) ([facility]) lower left leg Esophageal reflux Gastroesophageal reflux Generalized osteoarthrosis, unspecified site General Osteoarthritis Headache(784.0) Headaches Other and unspecified hyperlipidemia Hyperlipidemia Personal history of unspecified urinary disorder Snoring Unspecified constipation Constipation Unspecified hemorrhoids without mention of complication Hemorrhoids PAST SURGICAL HISTORY Procedure Laterality Date ABDOMINAL SURGERY HX ARTHRP KNE CONDYLEANDPLATU MEDIALANDLAT COMPARTMENTS 2007 Knee replacement, total,left COLONOSCOPY 05/20/2019 COLONOSCOPY DIAGNOSTIC 2006 COLONOSCOPY FLX DX W/COLLJ SPEC WHEN PFRMD 01/14/2009 Colonoscopy COLONOSCOPY FLX DX W/COLLJ SPEC WHEN PFRMD 11/23/2011 Repeat in 3 yrs (2-2014) COLONOSCOPY SCREENING 03/17/2022 repeat in 5 years due to previous history of polyps COLSC FLX W/RMVL OF TUMOR POLYP LESION SNARE TQ 05/09/2016 FRACTURE SURGERY HEMORRHOIDECTOMY XTRNL 2/> COLUMN/GROUP 1982 HERNIA REPAIR HX JOINT REPLACEMENT HX LAPS SURG CHOLECYSTECTOMY W/CHOLANGIOGRAPHY 06/11/2013 Normal IOC LIG/TRNSXJ FLP TUBE ABDL/VAG APPR UNI/BI Tubal ligation PAST SURGICAL HISTORY OF 2002 left ankle surgery PAST SURGICAL HISTORY OF epidurals for back pain REPAIR INCISIONAL HERNIA,REDUCIBLE 06/30/2021 VASCULAR SURGERY PROCEDURE Current Outpatient Medications Medication Sig solifenacin (VESICARE) 5 mg tablet Take 5 mg by mouth once daily. SUMAtriptan (IMITREX) 50 mg tablet Take 50 mg by mouth as needed for migraine headache (see administration instructions). May repeat dose after 2 hours if needed. Maximum daily dose is 200 mg per day. Cranberry 500 mg cap Take 1 capsule by mouth once daily. levETIRAcetam (KEPPRA) 500 mg tablet Take 500 mg by mouth twice daily. COMPOUNDED PRESCRIPTION Use 1 Drop in both eyes three times daily as needed. for rosacea in eyes metroNIDAZOLE 1 % TOPICAL gel Apply to affected area once daily. esomeprazole mag trihydrate(NEXIUM 40 MG CAP) Take one(1) capsule daily. simvastatin(ZOCOR 40 MG TAB) Take one(1) tablet daily at bedtime. peg 3350-Electrolytes (GOLYTELY) 236-22.74-6.74 -5.86 gram suspension Refer to printed prep instructions from your provider. (Patient not taking: Reported on 04/04/2022) metFORMIN (GLUCOPHAGE) 500 mg tablet Take 500 mg by mouth daily with breakfast. (Patient not taking: Reported on 07/01/2024) aspirin 81 mg chewable tablet Take 81 mg by mouth once daily. (Patient not taking: Reported on 07/01/2024) naproxen sodium (ALEVE) 220 mg tablet Take 220 mg by mouth twice daily with meals. (Patient not taking: Reported on 04/04/2022) cholecalciferol (VITAMIN D) 1,000 unit tab tablet Take 1,000 Units by mouth once daily. (Patient not taking: Reported on 04/04/2022) Garlic 1,000 mg cap Take by mouth. (Patient not taking: Reported on 07/01/2024) melatonin 3 mg capsules Take by mouth. (Patient not taking: Reported on 03/07/2022) No current facility-administered medications for this visit. ALLERGIES: Azo [Phenazopyridine Hcl], Celebrex [Celecoxib], Clindamycin, Duracef [Cefadroxil], Latex, Lipitor [Atorvastatin], and Topiramate PERSONAL HISTORY: Social History Tobacco Use Smoking status: Never Smokeless tobacco: Never Vaping Use Vaping status: Never Used Substance Use Topics Alcohol use: Yes Comment: seldom Drug use: Never FAMILY HISTORY Problem Relation Age of Onset Cervical Cancer Mother Psychiatry Mother Coronary Artery Disease Father Cancer Sister skin cancer Diabetes Maternal Grandmother Psychiatry Maternal Grandfather Heart Paternal Grandmother No Known Problems Paternal Grandfather The review of systems data was entered by the nurse and reviewed by me Nursing Notes: Zenaida Purdy LPN 07/01/2024 3:18 PM Signed REVIEW OF SYSTEMS: General: The patient denies fatigue, denies weight loss, denies weight gain, denies feeling hot, and denies feelings of cold. Eyes: The patient denies glaucoma, denies eye injury/surgery, wears glasses or contacts. Ear/Nose/Throat: The patient denies allergies, denies hayfever, denie (more content not included)...[facility]07-11-2022 Instructions* Patient Instructions* Ana Maria Washburn PA-C - 04/04/2022 11:07 AM EDT -Recommend daily fiber supplement (powder form mixed into liquid, any brand is fine) retirement to help regulate bowels -yogurt or probiotic The following instructions are important for you related to your office visit today with the [facility] General Surgeons. INSTRUCTIONS FOLLOWING A NORMAL COLONOSCOPY I discussed with you the findings of your colonoscopy. Since there were no worrisome abnormalities,I recommend you undergo repeat endoscopic screening in 5 years due to prior history of multiple adenomatous polyps. This is the current recommendation for colon cancer screening. If you note bleeding, change in bowel habits, or other suspicious colon related symptoms before that time, those symptoms should be evaluated as necessary. If you note any additional difficulties, questions, or concerns, you should contact our office immediately @ [phone] and ask to be transferred to the General Surgery department. [facility] History of Present illness Narrative* Ana Maria Washburn PA-C - 04/04/2022 10:51 AM EDT FOLLOW UP VISIT - ENDOSCOPY NAME: Antoinette Mahoney [facility] NO.: [id number] DATE OF SERVICE: 04/04/2022 : 1950 REFERRING PHYSICIAN: Braden Bragg MD, Antoinette is a patient I am following with Dr. Brooke for diarrhea and personal history of colon polyps. Dr. Brooke performed lower endoscopy on 03/17/22. The patient was found to have diverticulosis and internal hemorrhoids, with otherwise normal-appearing colon. Random biopsies were taken based on the patient's clinical history of diarrhea. Pathology demonstrated: FINAL DIAGNOSIS A. Random colon, biopsy: Colonic mucosa with focal hyperplastic changes, otherwise unremarkable. No evidence of lymphocytic or collagenous colitis. The patient notes no complaints since the procedure. VITALS: Blood pressure 140/88, pulse (!) 125, temperature 36.7 C (98 F), height 165.1 cm (5' 5), weight 133.8 kg (295 lb), SpO2 100 %. General: patient is alert, cooperative, pleasant and in no acute distress On examination, the abdomen is benign. Assessment IMPRESSION: diarrhea, history of colon polyps PLAN: The operative findings and pathology report were reviewed with the patient, and the patient has hadthe opportunity to ask questions and have questions answered. If the patient notes any problems or changes in bowel function, the patient should contact me immediately. Otherwise I recommend follow up endoscopy in 5 years based on prior history of polyps. HM updated and recall letter generated. -Recommend daily fiber supplement (powder form mixed into liquid, any brand is fine) watermelon inspector to help regulate bowels -yogurt or probiotic Patient verbalized understanding of all above and agreed with the plan Diagnoses: (Z86.010) History of colonic polyps (primary encounter diagnosis) (R19.7) Diarrhea, unspecified type I spent a total of 23 minutes on the date of the service which included preparing to see the patient, [id number] patient care, completing clinical documentation, obtaining and/or reviewing separately obtained history, independently interpreting results (not separately reported) and communicating r esults to the patient/family/caregiver. Ana Maria Washburn PA-C documented in this encounterC[facility] Nurse Note* Estee Herron RN - 03/17/2022 10:35 AM EDT Pt has had many episodes of passing large amounts of gas. States cramping is much less. Feels she can go home. Abd much softer and less distended. Still tenderness to palpation to upper abd. Estee Herron RN * Estee Herron RN - 03/17/2022 10:24 AM EDT Starting to pass larger amounts of gas. States starting to feel better with less cramping. Estee Herron RN * Estee Herron RN - 03/17/2022 10:21 AM EDT Position changed again. Has intermittent passing of air rectally in small amounts. Abd maybe slightly softer. molder machine tender to palpation. at bedside. Estee Herron RN * Estee Herron RN - 03/17/2022 10:[address] Brooke given update and at bedside to evaluate patient. Estee Herron RN * Estee Herron RN - 03/17/2022 10:00 AM EDT Pt unable to pass much air in restroom. Ambulated short distance in [place]. Difficult to do as pt lightheaded, uses cane and somewhat unsteady. Abd may be slightly softer, but still much discomfort andtender to palpation. Estee Herron RN * Estee Herron RN - 03/17/2022 9:45 AM EDT Pt starting to c/o some nausea. Dr. Brooke notified of nausea and that abd remains firm and pt uncomfortable with cramping. Orders received. Estee Herron RN * Estee Herron RN - 03/17/2022 9:36 AM EDT Pt still very painful with abd cramping. Ambulated to the restroom to see if she can pass some air. updated. Estee Herron RN * Estee Herron RN - 03/17/2022 9:22 AM EDT Pt uncomfortable with cramping. Abd remains firm and appears distended. Passed a slight amount of gas earlier. Position change attempted to see if that will help. Estee Herron RN * Estee Herron RN - 03/17/2022 8:57 AM EDT Pt received in PACU. Pt moderately drowsy, but arouses fairly easy. Appears comfortable but when palpated abd, pt groaned and said yes when asked if her belly hurt. Pt too sedated to answer pain level. Abd seems firm and possibly distended. Difficult to assess due to habitus. Estee Herron RN documented in this encounterC[facility]06[facility]22 History and physical note * Perry Brooke MD - 03/17/2022 8:15 AM EDT Images from the original note were not included. HISTORY AND PHYSICAL Antoinette Wilson 1950 REFERRING PHYSICIAN: Self CHIEF COMPLAINT: Consult (colonoscopy) HPI: The patient is a 71 year old female referred for endoscopy. Antoinette notes the following GI complaints: Antoinette denies abdominal pain.. Antoinette notes diarrhea. Antoinette denies constipation. Antoinette denies achange in bowel habits. Antoinette denies melena. Antoinette denies bright red blood per rectum. Antoinette denieshemorrhoids. The patient notes no history of upper GI complaints. Antoinette has undergone prior endoscopy. 2019 PAST MEDICAL HISTORY PAST MEDICAL HISTORY Diagnosis Date Benign neoplasm of colon Diabetes mellitus (HCC) 09/25/2015 DVT (deep venous thrombosis) (HCC) lower left leg Esophageal reflux Gastroesophageal reflux Generalized osteoarthrosis, unspecified site General Osteoarthritis Headache(784.0) Headaches Other and unspecified hyperlipidemia Hyperlipidemia Personal history of unspecified urinary disorder Snoring Unspecified constipation Constipation Unspecified hemorrhoids without mention of complication Hemorrhoids PAST SURGICAL HISTORY PAST SURGICAL HISTORY Procedure Laterality Date ARTHRP KNE CONDYLE&PLATU MEDIAL&LAT COMPARTMENTS 2007 Knee replacement, total,left COLONOSCOPY FLX DX W/COLLJ SPEC WHEN PFRMD 01/14/2009 Colonoscopy COLONOSCOPY FLX DX W/COLLJ SPEC WHEN PFRMD 11/23/2011 Repeat in 3 yrs (2-2014) COLSC FLX W/RMVL OF TUMOR POLYP LESION SNARE TQ 05/09/2016 HEMORRHOIDECTOMY XTRNL 2/> COLUMN/GROUP 1982 LAPS SURG CHOLECYSTECTOMY W/CHOLANGIOGRAPHY 06/11/2013 Normal IOC LIG/TRNSXJ FLP TUBE ABDL/VAG APPR UNI/BI Tubal ligation PAST SURGICAL HISTORY OF 2002 left ankle surgery PAST SURGICAL HISTORY OF epidurals for back pain REPAIR INCISIONAL HERNIA,REDUCIBLE 06/30/2021 CURRENT MEDICATIONS Current Outpatient Medications Medication Sig levETIRAcetam (KEPPRA) 500 mg tablet Take 500 mg by mouth twice daily. metFORMIN (GLUCOPHAGE) 500 mg tablet Take 500 mg by mouth daily with breakfast. aspirin 81 mg chewable tablet Take 81 mg by mouth once daily. naproxen sodium (ALEVE) 220 mg tablet Take 220 mg by mouth twice daily with meals. cholecalciferol (VITAMIN D) 1,000 unit tab tablet Take 1,000 Units by mouth once daily. Garlic 1,000 mg cap Take by mouth. COMPOUNDED PRESCRIPTION Use 1 Drop in both eyes three times daily as needed. for rosacea in eyes metroNIDAZOLE 1 % TOPICAL gel Apply to affected area once daily. esomeprazole mag trihydrate(NEXIUM 40 MG CAP) Take one(1) capsule daily. simvastatin(ZOCOR 40 MG TAB) Take one(1) tablet daily at bedtime. melatonin 3 mg capsules Take by mouth. (Patient not taking: Reported on 03/07/2022 ) No current facility-administered medications for this visit. ALLERGIES: Azo [Phenazopyridine Hcl], Celebrex [Celecoxib], Clindamycin, Duracef [Cefadroxil], Latex, Lipitor [Atorvastatin], and Topiramate PERSONAL HISTORY: SOCIAL HISTORY Social History Tobacco Use Smoking status: Never Smoker Smokeless tobacco: Never Used Vaping Use Vaping Use: Not on file Substance Use Topics Alcohol use: Yes Comment: seldom Drug use: No FAMILY HISTORY: FAMILY HISTORY FAMILY HISTORY Problem Relation Age of Onset Cervical Cancer Mother Psychiatry Mother Coronary Artery Disease Father Cancer Sister skin cancer Diabetes Maternal Grandmother Psychiatry Maternal Grandfather Heart Paternal Grandmother REVIEW OF SYMPTOMS: The review of systems data was entered by the nurse and reviewed by ak Nursing Notes: Tesha Crook RN 03/07/2022 2:39 PM Signed REVIEW OF SYSTEMS: General: The patient NOTES fatigue, denies weight loss, denies weight gain, denies feeling hot, anddenies feelings of cold. Eyes: The patient denies glaucoma, denies eye injury/surgery, does not wear glasses or contacts. Ear/Nose/Throat: The patient denies allergies, denies hayfever, denies ear infections, and denies bloody noses. Cardiovascular: The patient denies chest pain, denies heart disease, denies high blood pressure,denies cardiac stent, denies prior heart attack, denies irregular heart beat, NOTES high cholesterol, denies poor circulation, denies heart failure, other cardiac issues, denies claudication, denies coldfeet, denies peripheral arterial stent. Respiratory: The patient denies tuberculosis, denies pneumonia, denies frequent cough, denies pulmonary embolism, NOTES shortness of breath, and denies coughing up blood. Gastrointestinal: The patient denies difficulty swallowing, NOTES acid reflux, denies ulcers, denies vomiting, denies jaundice/hepatitis, NOTES gallbladder problems, denies black or tarry stools, NOTES hemorrhoids, denies bleeding from rectum, denies diverticulitis, NOTES constipation, NOTES diarrhea, denies loss of stool control, and denies hernias. Kidney/Bladder: The patient denies kidney stones, denies urine infections, and denies bloody urine. Skin: The patient denies a history of skin cancer, denies bleeding/changing moles, and denies a history of skin rash. Neurologic: The patient denies a history of epilepsy/convulsions, NOTES headaches, denies head/spinal injuries, and denies stroke/TIA. Psychiatric: The patient denies psychiatric medications, denies depression, and denies voices, denies substance abuse. Endocrine: The patient denies thyroid disorders, NOTES diabetes, and denies hormonal problems. Hematologic: The patient denies a history of bruising, denies bleeding, and denies anemia, NOTES blood clots. Infections: The patient denies a history of measles and mumps, denies rheumatic fever, and denies sexually transmitted diseases. Musculoskeletal: The patient denies back pain/injury, denies back problems, denies sciatica, deniesknee/foot trouble, denies arthritis, or denies gout. When was patient's last Mammogram screening? 2020 Last Colonoscopy: 2018 Tesha Crook RN PHYSICAL EXAMINATION: General: The patient is 71 year old female, well nourished, well hydrated in no acute distress. Thepatient is oriented to time, place, and person. VITALS: Blood pressure 124/84, pulse (!) 132, temperature 36.7 C (98 F), height 167.6 cm (5' 6), weight 133.2 kg (293 lb 9.6 oz), SpO2 96 %. Body mass index is 47.39 kg/m . HEENT: Normal cephalic, ataumatic, pupils are equally round, sclera are anicteric, mucous membranesare moist, oropharynx is clear. Neck has no masses, asymmetry or lymphadenopathy. Thyroid is unremarkable. Respiratory: Clear to auscultation and percussion. Normal respiratory excursion and pattern. Cardiac: Examination is regular rate and rhythm. Abdominal exam: Soft, nontender, with no palpable masses. No hepatosplenomegaly. No palpable hernias. Rectal exam: exam deferred Extremities: no clubbing, cyanosis or edema. No adenopathy. Other: LABORATORY VALUES: As Noted RADIOLOGIC STUDIES: As Noted Assessment IMPRESSION: History of colonic polyps (primary encounter diagnosis) Diarrhea, unspecified type PLAN: I plan to perform lower endoscopy. We discussed the risks and benefits of the planned endoscopy. I have informed the patient that complications can occur including failure to complete the endoscopy and perforation. The patient had the opportunity to ask questions concerning the planned endoscopy. My staff has also explained the procedure to the patient in understandable terms and has given the patient printed material concerning the procedure. The patient freely consents to surgery. I plan to use golytely bowel preparation for endoscopy We will do Random colon BX. Diagnoses: (Z86.010) History of colonic polyps (primary encounter diagnosis) A letter was sent to Dr. Braden Bragg MD, MD indicating the above finding for this patient. Return to Clinic: The patient is instructed to follow-up with me 1 week post operatively. Perry Brooke III, MD UPDATED HISTORY AND PHYSICAL EXAMINATION SERVICE DATE: 03/17/2022 SERVICE TIME: 8:30 AM PHYSICAL EXAM MUST BE COMPLETED ON ADMISSION The History and Physical (completed in the past 30 days) has been reviewed and the patient has beenexamined. The contents accurately reflect the patient's condition with the following additions or revisions since the H&P was completed. Examination indicates no changes. This H&P can be found in the attached. SIGNATURE: Perry Brooke III, MD PATIENT NAME: Antoinette Wilson DATE: March 17, 2022 TIME: 8:30 AM documented in this encounterC[facility]22 Instructions* Patient Instructions* Perry Brooke MD - 03/07/2022 2:46 PM EDT Images from the original note were not included. Bowel Preparation Instructions for: Golytely, Nulytely, Trilyte or Colyte (polyethylene glycol 3350and electrolytes) IF YOU DO NOT FOLLOW THESE DIRECTIONS, YOUR COLONOSCOPY WILL BE CANCELLED. Curtis Instructions: Your bowel must be empty so that your doctor can clearly view your colon. Follow all of the instructions in this handout EXACTLY as they are written. Do NOT eat any solid food the ENTIRE day before your colonoscopy. Drink only clear liquids. Buy your bowel preparation at least 5 days before your colonoscopy. TRANSPORTATION on the Day of Your Exam A responsible person MUST be present with you at Check In prior to your colonoscopy and REMAIN in the endoscopy area until you are discharged. You are NOT ALLOWED to drive, take a taxi or bus, or leave the Endoscopy Center ALONE. If you do not have a responsible recycler forklift driver truck driver (family member or friend) with you to take you home, your exam cannot be done with sedation and will be cancelled. Please bring a list of all of your current medications, including any Over-the Counter medications with you. Medications If you take insulin, diabetic medications or blood thinners such as Coumadin (warfarin), Plavix (clopidogrel), Ticlid (ticlopidine hydrochloride), Agrylin (anagrelide), Xarelto (Rivaroxaban), Pradaxa(Dabigatran), Eliquis (Apixaban), and Effient (Prasugrel). You MUST call the doctors who orders those medicines for instructions on altering the dosage before your colonoscopy. All other medications should be taken the day of the exam with a sip of water including ASPIRIN. Five (5) Days Before Your Colonoscopy Do NOT take medicines that stop diarrhea - such as Imodium, Kaopectate, or Pepto Bismol. Do NOT take fiber supplements - such as Metamucil, Citrucel, or Perdiem. Do NOT take products that contain iron - such as multi-vitamins (the label lists what is in the products). Do NOT take Vitamin E. Buy the prescription bowel preparation solution at your local pharmacy or drugstore pharmacy. 1 08/2019 Bowel Preparation Instructions for: Golytely, Nulytely, Trilyte or Colyte (polyethylene glycol 3350and electrolytes) Three (3) Days Before Your Colonoscopy Do NOT eat high-fiber foods - such as popcorn, beans, seeds (flax, sunflower, quinoa), multigrain bread, nuts, salad/vegetables, or fresh and dried fruit. One (1) Day Before Your Colonoscopy Only drink clear liquids the ENTIRE DAY before your colonoscopy. Do NOT eat any solid foods. Drink at least 8 ounces of clear liquids every hour after waking up. The clear liquids you can drink include: Clear Liquid (NO RED LIQUIDS) DO NOT DRINK Gatorade, Pedialyte or Powerade Clear broth or bouillon Coffee or tea (no milk or non-dairy creamer) Carbonated and non-carbonated soft drinks Niall-Aid or other fruit flavored drinks Strained fruit juices (no pulp) Jell-O, popsicles, hard candy Water Alcohol Milk or non-dairy creamers Noodles or vegetables in soup Juice with pulp Liquid you cannot see through The bowel preparation solution will be consumed in two parts. Mix the solution the evening before your colonoscopy and refrigerate before drinking. You may add the flavor pack that came with the bowel preparation. Do NOT add ice, sugar or any other flavorings to the solution. Part 1 At 6:00 PM - Evening before your colonoscopy Drink an 8-oz glass of bowel preparation every 10 minutes for a total of 8 glasses. You may continue to drink clear liquids until midnight. Part 2 On the day of your colonoscopy you may drink clear liquids up to (three) 3 hours before your procedure. 4 1/2 hours before your colonoscopy Drink an 8-oz glass of bowel preparation every 10 minutes for a total of 8 glasses. Fifteen (15) minutes later, drink an 8-oz glass of clear liquids every 15 minutes for a total of 2 glasses. You may continue to drink clear liquids up to (three) 3 hours before your exam. 3 08/2019 documented in this encounterC[facility]06[facility] History of Present illness Narrative* Perry Brooke MD - 03/07/2022 2:41 PM EDT HISTORY AND PHYSICAL Antoinette Wilson 1950 REFERRING PHYSICIAN: Self CHIEF COMPLAINT: Consult (colonoscopy) HPI: The patient is a 71 year old female referred for endoscopy. Antoinette notes the following GI complaints: Antoinette denies abdominal pain.. Antoinette notes diarrhea. Antoinette denies constipation. Antoinette denies achange in bowel habits. Antoinette denies melena. Antoinette denies bright red blood per rectum. Antoinette denieshemorrhoids. The patient notes no history of upper GI complaints. Antoinette has undergone prior endoscopy. 2019 PAST MEDICAL HISTORY Diagnosis Date Benign neoplasm of colon Diabetes mellitus (HCC) 09/25/2015 DVT (deep venous thrombosis) (HCC) lower left leg Esophageal reflux Gastroesophageal reflux Generalized osteoarthrosis, unspecified site General Osteoarthritis Headache(784.0) Headaches Other and unspecified hyperlipidemia Hyperlipidemia Personal history of unspecified urinary disorder Snoring Unspecified constipation Constipation Unspecified hemorrhoids without mention of complication Hemorrhoids PAST SURGICAL HISTORY Procedure Laterality Date ARTHRP KNE CONDYLE&PLATU MEDIAL&LAT COMPARTMENTS 2006 Knee replacement, total,left COLONOSCOPY FLX DX W/COLLJ SPEC WHEN PFRMD 01/14/2009 Colonoscopy COLONOSCOPY FLX DX W/COLLJ SPEC WHEN PFRMD 11/23/2011 Repeat in 3 yrs (2-2014) COLSC FLX W/RMVL OF TUMOR POLYP LESION SNARE TQ 05/09/2016 HEMORRHOIDECTOMY XTRNL 2/> COLUMN/GROUP 1981 LAPS SURG CHOLECYSTECTOMY W/CHOLANGIOGRAPHY 06/11/2013 Normal IOC LIG/TRNSXJ FLP TUBE ABDL/VAG APPR UNI/BI Tubal ligation PAST SURGICAL HISTORY OF 2002 left ankle surgery PAST SURGICAL HISTORY OF epidurals for back pain REPAIR INCISIONAL HERNIA,REDUCIBLE 06/30/2021 Current Outpatient Medications Medication Sig levETIRAcetam (KEPPRA) 500 mg tablet Take 500 mg by mouth twice daily. metFORMIN (GLUCOPHAGE) 500 mg tablet Take 500 mg by mouth daily with breakfast. aspirin 81 mg chewable tablet Take 81 mg by mouth once daily. naproxen sodium (ALEVE) 220 mg tablet Take 220 mg by mouth twice daily with meals. cholecalciferol (VITAMIN D) 1,000 unit tab tablet Take 1,000 Units by mouth once daily. Garlic 1,000 mg cap Take by mouth. COMPOUNDED PRESCRIPTION Use 1 Drop in both eyes three times daily as needed. for rosacea in eyes metroNIDAZOLE 1 % TOPICAL gel Apply to affected area once daily. esomeprazole mag trihydrate(NEXIUM 40 MG CAP) Take one(1) capsule daily. simvastatin(ZOCOR 40 MG TAB) Take one(1) tablet daily at bedtime. melatonin 3 mg capsules Take by mouth. (Patient not taking: Reported on 03/07/2022 ) No current facility-administered medications for this visit. ALLERGIES: Azo [Phenazopyridine Hcl], Celebrex [Celecoxib], Clindamycin, Duracef [Cefadroxil], Latex, Lipitor [Atorvastatin], and Topiramate PERSONAL HISTORY: Social History Tobacco Use Smoking status: Never Smoker Smokeless tobacco: Never Used Vaping Use Vaping Use: Not on file Substance Use Topics Alcohol use: Yes Comment: seldom Drug use: No FAMILY HISTORY: FAMILY HISTORY Problem Relation Age of Onset Cervical Cancer Mother Psychiatry Mother Coronary Artery Disease Father Cancer Sister skin cancer Diabetes Maternal Grandmother Psychiatry Maternal Grandfather Heart Paternal Grandmother REVIEW OF SYMPTOMS: The review of systems data was entered by the nurse and reviewed by ak Nursing Notes: Tesha Crook RN 03/07/2022 2:39 PM Signed REVIEW OF SYSTEMS: General: The patient NOTES fatigue, denies weight loss, denies weight gain, denies feeling hot, anddenies feelings of cold. Eyes: The patient denies glaucoma, denies eye injury/surgery, does not wear glasses or contacts. Ear/Nose/Throat: The patient denies allergies, denies hayfever, denies ear infections, and denies bloody noses. Cardiovascular: The patient denies chest pain, denies heart disease, denies high blood pressure,denies cardiac stent, denies prior heart attack, denies irregular heart beat, NOTES high cholesterol, denies poor circulation, denies heart failure, other cardiac issues, denies claudication, denies coldfeet, denies peripheral arterial stent. Respiratory: The patient denies tuberculosis, denies pneumonia, denies frequent cough, denies pulmonary embolism, NOTES shortness of breath, and denies coughing up blood. Gastrointestinal: The patient denies difficulty swallowing, NOTES acid reflux, denies ulcers, denies vomiting, denies jaundice/hepatitis, NOTES gallbladder problems, denies black or tarry stools, NOTES hemorrhoids, denies bleeding from rectum, denies diverticulitis, NOTES constipation, NOTES diarrhea, denies loss of stool control, and denies hernias. Kidney/Bladder: The patient denies kidney stones, denies urine infections, and denies bloody urine. Skin: The patient denies a history of skin cancer, denies bleeding/changing moles, and denies a history of skin rash. Neurologic: The patient denies a history of epilepsy/convulsions, NOTES headaches, denies head/spinal injuries, and denies stroke/TIA. Psychiatric: The patient denies psychiatric medications, denies depression, and denies voices, denies substance abuse. Endocrine: The patient denies thyroid disorders, NOTES diabetes, and denies hormonal problems. Hematologic: The patient denies a history of bruising, denies bleeding, and denies anemia, NOTES blood clots. Infections: The patient denies a history of measles and mumps, denies rheumatic fever, and denies sexually transmitted diseases. Musculoskeletal: The patient denies back pain/injury, denies back problems, denies sciatica, deniesknee/foot trouble, denies arthritis, or denies gout. When was patient's last Mammogram screening? 2020 Last Colonoscopy: 2018 Tesha Crook RN PHYSICAL EXAMINATION: General: The patient is 71 year old female, well nourished, well hydrated in no acute distress. Thepatient is oriented to time, place, and person. VITALS: Blood pressure 124/84, pulse (!) 132, temperature 36.7 C (98 F), height 167.6 cm (5' 6), weight 133.2 kg (293 lb 9.6 oz), SpO2 96 %. Body mass index is 47.39 kg/m . HEENT: Normal cephalic, ataumatic, pupils are equally round, sclera are anicteric, mucous membranesare moist, oropharynx is clear. Neck has no masses, asymmetry or lymphadenopathy. Thyroid is unremarkable. Respiratory: Clear to auscultation and percussion. Normal respiratory excursion and pattern. Cardiac: Examination is regular rate and rhythm. Abdominal exam: Soft, nontender, with no palpable masses. No hepatosplenomegaly. No palpable hernias. Rectal exam: exam deferred Extremities: no clubbing, cyanosis or edema. No adenopathy. Other: LABORATORY VALUES: As Noted RADIOLOGIC STUDIES: As Noted Assessment IMPRESSION: History of colonic polyps (primary encounter diagnosis) Diarrhea, unspecified type PLAN: I plan to perform lower endoscopy. We discussed the risks and benefits of the planned endoscopy. I have informed the patient that complications can occur including failure to complete the endoscopy and perforation. The patient had the opportunity to ask questions concerning the planned endoscopy. My staff has also explained the procedure to the patient in understandable terms and has given the patient printed material concerning the procedure. The patient freely consents to surgery. I plan to use golytely bowel preparation for endoscopy We will do Random colon BX. Diagnoses: (Z86.010) History of colonic polyps (primary encounter diagnosis) A letter was sent to Dr. Braden Bragg MD, MD indicating the above finding for this patient. Return to Clinic: The patient is instructed to follow-up with me 1 week post operatively. Perry Brooke III, MD documented in this encounterC[facility]06[facility] Nurse Note* Tesha Crook RN - 03/07/2022 2:36 PM EDT REVIEW OF SYSTEMS: General: The patient NOTES fatigue, denies weight loss, denies weight gain, denies feeling hot, anddenies feelings of cold. Eyes: The patient denies glaucoma, denies eye injury/surgery, does not wear glasses or contacts. Ear/Nose/Throat: The patient denies allergies, denies hayfever, denies ear infections, and denies bloody noses. Cardiovascular: The patient denies chest pain, denies heart disease, denies high blood pressure,denies cardiac stent, denies prior heart attack, denies irregular heart beat, NOTES high cholesterol, denies poor circulation, denies heart failure, other cardiac issues, denies claudication, denies coldfeet, denies peripheral arterial stent. Respiratory: The patient denies tuberculosis, denies pneumonia, denies frequent cough, denies pulmonary embolism, NOTES shortness of breath, and denies coughing up blood. Gastrointestinal: The patient denies difficulty swallowing, NOTES acid reflux, denies ulcers, denies vomiting, denies jaundice/hepatitis, NOTES gallbladder problems, denies black or tarry stools, NOTES hemorrhoids, denies bleeding from rectum, denies diverticulitis, NOTES constipation, NOTES diarrhea, denies loss of stool control, and denies hernias. Kidney/Bladder: The patient denies kidney stones, denies urine infections, and denies bloody urine. Skin: The patient denies a history of skin cancer, denies bleeding/changing moles, and denies a history of skin rash. Neurologic: The patient denies a history of epilepsy/convulsions, NOTES headaches, denies head/spinal injuries, and denies stroke/TIA. Psychiatric: The patient denies psychiatric medications, denies depression, and denies voices, denies substance abuse. Endocrine: The patient denies thyroid disorders, NOTES diabetes, and denies hormonal problems. Hematologic: The patient denies a history of bruising, denies bleeding, and denies anemia, NOTES blood clots. Infections: The patient denies a history of measles and mumps, denies rheumatic fever, and denies sexually transmitted diseases. Musculoskeletal: The patient denies back pain/injury, denies back problems, denies sciatica, deniesknee/foot trouble, denies arthritis, or denies gout. When was patient's last Mammogram screening? 2020 Last Colonoscopy: 2019 Tesha Crook RN [facility] NoteHNO ID: [id number] Author: Verito Garcia APRN.ELECTROPHYSIOLOGY TECHNICIAN Service: Anesthesiology Author Type: Nurse Account Representative Type: Anesthesia Procedure Notes Filed: 06/30/2021 11:37 AM Note Text: ANESTHESIOLOGY PROCEDURE NOTE Airway General Information Procedure Start Time/Medication Administration: 06/30/2021 11:20 AM Patient location during procedure: OR Patient identity confirmed: arm band Staffing Anesthesiologist: Chapo Barton MD ELECTROPHYSIOLOGY TECHNICIAN: Verito Garcia APRN.ELECTROPHYSIOLOGY TECHNICIAN Performed by: ELECTROPHYSIOLOGY TECHNICIAN Indications and Patient Condition Preoxygenated: yes Patient position: sniffing Difficult Mask: No Indications for airway management: anesthesia anesthesia circuit Method: asleep Airway Accessory: oral airway (90mm) Final Airway Details Final airway type: endotracheal airway Final Endotracheal Airway: ETT Cuffed: yes Successful intubation technique: video laryngoscopy Devices used: Glidescope and intubating stylet Endotracheal tube insertion site: oral Blade: Sirena Blade size: #3 ETT size (mm): 7.5 Measured from: lips Measurement (cm): 21 Placement verified by: chest auscultation and capnometry Cormack-Lehane Classification: grade I - full view of glottis Number of attempts at approach: 1 Failed airway: no Unrecognized esophageal intubation: no Airway not difficult SIGNATURE: Verito Garcia APRN.CRNA PATIENT NAME: Antoinette Wilson DATE: June 30, 2021 TIME: 11:36 AM CSN: [id number] History of Past illness Narrative* Problem Noted Date Resolved Date Incisional hernia, without obstruction or gangre ne 06/25/2021 06/30/2021 documented as of this encounter (statuses as of 03/11/2022) [facility] History of Past illness Narrative* Problem Noted Date Resolved Date Incisional hernia, without obstruction or gangre ne 06/25/2021 06/30/2021 documented as of this encounter (statuses as of 03/18/2022) [facility] History of Past illness Narrative* Problem Noted Date Resolved Date Incisional hernia, without obstruction or gangre ne 06/25/2021 06/30/2021 documented as of this encounter (statuses as of 04/15/2022) [facility] note* Diagnosis History of colonic polyps- Primary Personal history of colonic polyps Diarrhea, unspecified type documented in this encounter [facility] note* Diagnosis History of colonic polyps Personal history of colonic polyps Diarrhea, unspecified type documented in this encounter [facility] note* Diagnosis Onset Date Resolution Status Epilepsy acute Migraines acute [facility] Work Phone: Evaluation note* Diagnosis History of colonic polyps- Primary Personal history of colonic polyps Diarrhea, unspecified type [facility]No assessment information availableWSelect [facility] Work Phone: [facility]* Diagnosis Onset Date Resolution Status Epilepsy chronic Migraines [facility] Work Phone: Evaluation note* Diagnosis Onset Date Resolution Status Obesity chronic SHELLIE (obstructive sleep apnea) [facility] Work Phone: Evaluation note* Diagnosis Pre-operative examination- Primary Preoperative examination, unspecified Incisional hernia, without obstruction or gangrene Incisional hernia without mention of obstruction or gangrene Type 2 diabetes mellitus without complication, without long-term current use of insulin (HCC) Seizure (HCC) Other convulsions Hyperlipidemia, unspecified hyperlipidemia type Obstructive sleep apnea syndrome Obstructive sleep apnea (adult) (pediatric) Acute biliary pancreatitis, unspecified complication status 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) Class 3 severe obesity due to excess calories with serious comorbidity and body mass index (BMI) of 45.0 to 49.9 in adult (HCC) Back pain, unspecified back location, unspecified back pain laterality, unspecified chronicity Breast calcification seen on mammogram- Primary Other (abnormal) findings on radiological examination of breast documented in this encounter [facility] for referral (narrative)* Outpatient Procedure (Routine) - Authorized Specialty Diagnoses / Procedures Referred By Chastity miller Referred To Contact [facility] Diagnoses History of colonic polyps Diarrhea, unspecified type Procedures COLONOSCOPY DIAGNOSTIC COLONOSCOPY FLX DX W/COLLJ SPEC WHEN Perry Adame MD [address] [place] [address] [facility] [address] [address] Referral ID Status Reason Start Date Expiration Date Visits Requested Visits Authorized [id number] Authorized Auto-Generat ed Referral 03/07/2022 03/07/2023 1 1 [facility] for referral (narrative)* Outpatient Procedure (Routine) - Closed Specialty Diagnoses / Procedures Referred By Chastity miller Referred To Contact [facility] Diagnoses History of colonic polyps Diarrhea, unspecified type Procedures COLONOSCOPY DIAGNOSTIC COLONOSCOPY FLX DX W/COLLJ SPEC WHEN Perry Adame MD [address] [place] [address] [facility] [address] [address] Referral ID Status Reason Start Date Expiration Date V isits Requested Visits Authorized [id number] Closed Auto-Generate d Referral 03/07/2022 03/07/2023 1 1 [facility]No reason for referral information availableWSelect [facility] [place] Work Phone: Reason for visit Narrative* Outpatient Procedure (Routine) - Closed Specialty Diagnoses / Procedures Referred By Chastity miller Referred To Contact [facility] Diagnoses History of colonic polyps Diarrhea, unspecified type Procedures COLONOSCOPY DIAGNOSTIC COLONOSCOPY FLX DX W/COLLJ SPEC WHEN P[facility]MD Perry Brooke MD [address] [facility] [place] [address] [facility] [address] [place] [id number] Referral ID Status Reason Start Date Expiration Date V isits Requested Visits Authorized [id number] Closed Auto-Generate d Referral 03/07/2022 03/07/2023 1 1 [facility] Summary Purpose Family History No Family History Records Found Relationship Condition Age at Onset Recorded Date/T mansi mother Arthritis Unknown Diabetes mellitus Unknown Depression Unknown Mental disorder Unknown Psychiatric care Unknown Malignant neoplasm of uterus Unknown father Myocardial infarction 48 Cardiac disease Unknown grandfather Mental disorder Unknown Advance Directives No Advanced Directives Records FoundDocuments on File Type Date Recorded Patient Banking Attorney Expl anation Advance Directive(s) 03/07/2022 4:01 PM Advance Directive(s) 06/30/2021 8:50 AM Advance Directive(s) 06/17/2021 12:42 PM Advance Directive(s) 05/09/2016 9:12 AM Documents on File Type Date Recorded Patient Banking Attorney Expl anation Advance Directive(s) 03/17/2022 7:30 AM Advance Directive(s) 03/07/2022 4:01 PM Advance Directive(s) 06/30/2021 8:50 AM Advance Directive(s) 06/17/2021 12:42 PM Advance Directive(s) 05/09/2016 9:12 AM Advance Directive Response Recorded Date/ Time Living Will Yes February 12, 2021 2 :52pm Power of Microbiology Professor Yes February 12, 2021 2:52pm Documents on File Type Date Recorded 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 Yes March 05, 2024 11:12am Medications Administered Section Inactive Administered Medications - up to 3 most recent administrations Medication Order MAR Action Action Date Dose Rate Site diphenhydrAMINE 12.5-50 mg injection (BENADRYL) 12.5-50 mg, INTRAVENOUS, DIRECTED, Starting on Marisa 03/17/22 at 0900, Until Marisa 03/17/22 at 1259, DOSING DIRECTED BY PHYSICIAN FOR PROCEDURAL SEDATION ONLY, Intraprocedure Given 03/17/2022 8:32 AM EDT 50 mg fentaNYL 50 mcg/mL 25-100 mcg injection (SUBLIMAZE) 25-100 mcg, INTRAVENOUS, DIRECTED, Starting on Marisa 03/17/22 at 0900, Until Marisa 03/17/22 at 1259, DOSING DIRECTED BY PHYSICIAN FOR PROCEDURAL SEDATION ONLY, Intraprocedure Given 03/17/2022 8:38 AM EDT 50 mcg Given 03/17/2022 8:30 AM EDT 50 mcg lactated ringers iv infusion 30 mL/hr, INTRAVENOUS, CONTINUOUS, Starting on Marisa 03/17/22 at 0800, Until Marisa 03/17/22 at 0903, Preprocedure New Bag/Syringe/Bottle 03/17/2022 8:05 AM EDT 30 mL/hr 30 mL/hr midazolam (PF) 1-5 mg injection (VERSED) 1-5 mg, INTRAVENOUS, DIRECTED, Starting on Marisa 03/17/22 at 0900, Until Marisa 03/17/22 at 1259, DOSING DIRECTED BY PHYSICIAN FOR PROCEDURAL SEDATION ONLY, Intraprocedure Given 03/17/2022 8:43 AM EDT 1 mg Given 03/17/2022 8:37 AM EDT 2 mg Given 03/17/2022 8:30 AM EDT 3 mg ondansetron (PF) 4 mg injection (ZOFRAN) 4 mg, INTRAVENOUS, ONCE, 1 dose, On Marisa 03/17/22 at 1030, Give IV push over 2 minutes Given 03/17/2022 9:47 AM EDT 4 mg Chief Complaint and Reason for Visit Chief Complaint Admit Date 6 M FU March 24, 2025 2:35 pm R13.10 Dysphagia, unspecified April 12:42pm Reason for Visit Admit Date Obesity March 24, 2025 2:35 pm SHELLIE (obstructive sleep apnea) March 24, 2025 2:35pm Pulmonary hypertension March 24, 2025 2 :35pm Chief Complaint 2 M FU EORDER Reason for Visit Epilepsy Migraines Chief Complaint 9 M FU EORDER Reason for Visit Epilepsy Migraines Chief Complaint 1 Y FU SCREENING Reason for Visit Obesity SHELLIE (obstructive sleep apnea) Chief Complaint SCREENING Chief Complaint 9 MO EORDER Reason for Visit Epilepsy Migraines Chief Complaint Admit Date 6 M FU September 23, 2024 2:12pm Reason for Visit Admit Date Chronic hypoxic respiratory failure [facility] 2023 2:12pm Obesity September 23, 2024 2:12pm SHELLIE (obstructive sleep apnea) August 272023 2:12pm Pulmonary hypertension September 23 2:12pm Chief Complaint Admit Date 6 M FU March 24, 2025 2:35 pm Chief Complaint Admit Date 6 M FU March 24, 2025 2:35 pm R13.10 Dysphagia, unspecified April 12:42pm 10 mo May 22, 2025 12 :55pm Reason for Visit Admit Date Obesity March 24, 2025 2:35 pm SHELLIE (obstructive sleep apnea) March 24, 2025 2:35pm Pulmonary hypertension March 24, 2025 2 :35pm Epilepsy May 22, 2025 12 :55pm Migraines May 22, 2025 12 :55pm Additional Source Comments INFORMATION SOURCE (unrecogn ized section and content) DATE CREATED AUTHOR 03/04/2021 [facility] DATE CREATED AUTHOR AUTHOR'S ORGANIZ ATION 07/01/2021 [facility] DATE CREATED AUTHOR AUTHOR'S ORGANIZ ATION 07/07/2024 [facility] DATE CREATED AUTHOR AUTHOR'S ORGANIZ ATION 05/24/2025 [facility] Source Comments (unrecognize d section and content) In the event this informatio n is protected by the Federal Confidentiality of Alcohol and Drug Abuse Patient Records regulations: The Federal rules restrict any use of the information to criminally investigate or prosecute any alcohol or drug abuse patient.[facility] the event this information is protected by the Federal Confidentiality of Alcohol and Drug Abuse Patient Records regulations: The Federal rules restrict any use of the information to criminally investigate or prosecute any alcohol or drug abuse patient.[facility] Hospital[facility] the event this information is protected by the Federal Confidentiality of Alcohol and Drug Abuse Patient Records regulations: The Federal rules restrict any use of the information to criminally investigate or prosecute any alcohol or drug abuse patient.[facility] HospitalIn the event this information is protected by the Federal Confidentiality of Alcohol and Drug Abuse Patient Records regulations: The Federal rules restrict any use of the information to criminally investigate or prosecute any alcohol or drug abuse patient.[facility] Reason for Visit (unrecogniz ed section and content) Reason Comments Consult colonoscopy Reason Comments Follow Up colonoscopy Reason Comments Follow Up Left Breast Biopsy Care Teams (unrecognized sec tion and content) Technical Operations Manager Relationship Specialty Start Date End Date Braden Bragg MD [address] [place] [address] [address] [place], [place] [phone] PCP - General Family Practice 06/17/21 Technical Operations Manager Relationship Specialty Start Date End Date Braden Bragg MD [address] [facility] [address] [place], [place] [phone] PCP - General Family Practice 06/17/21 Technical Operations Manager Relationship Specialty Start Date End Date Braden Bragg MD [address] [facility] [address] [place], [place] [phone] PCP - General Family Practice 06/17/21 Team Status: Active Member Role Status Dates Dr. Braden Bragg MD Family Provider Active Dr. Braden Bragg MD Primary Care Provider Active Team Status: Active Member Role Status Dates Dr. Star Berrios MD Primary Care Provider, Family Pro vider Active Team Status: Inactive Member Role Status Dates Dr. Braden Bragg MD Primary Care Provi marlee, Attending Provider, Referring Provider Active Team Status: Inactive Member Role Status Dates Dr. Braden Bragg MD Primary Care Provider, Referring Provider Active Dr. Sadi Piedra MD Attending Provider Active Team Status: Inactive Member Role Status Dates Dr. Braden Bragg MD Primary Care Provider Active Dr. Sadi Piedra MD Attending Provider, Referring Provider Active Team Status: Inactive Member Role Status Dates Dr. Braden Bragg MD Primary Care Provider, Referring Provider Active Chuyita Go INFANT CHILDCARE PROVIDER, INFANT CHILDCARE PROVIDER-C Attending Provider Active Team Status: Active Member Role Status Dates Dr. Braden Bragg MD Primary Care Provider, Attending Provider Active Team Status: Inactive Member Role Status Dates Dr. Braden Bragg MD Primary Care Provider, Attending Provider Active Technical Operations Manager Relationship Specialty Start Date End Date Braden Bragg MD [address] [facility] [address] [place] [address] PCP - General Family Medicine 06/17/21 Team Status: Active Member Role Status Dates Dr. Star Berrios MD Primary Care Provider Active Start: March 26, 2012 Dr. Star Berrios MD Family Provider Active Star t: March 26, 2012 Team Status: Inactive Member Role Status Dates Dr. Braden Bragg MD Primary Care Provider Active Start: September 11, 2024 End: September 11, 2024 Dr. Braden Bragg MD Attending Provider Active Start: September 11, 2024 End: September 11, 2024 Dr. Braden Bragg MD Referring Provider Active Start: September 11, 2024 End: September 11, 2024 Team Status: Inactive Member Role Status Dates Dr. Braden Bragg MD Primary Care Provider Active Start: September 23, 2024 End: September 23, 2024 Dr. Braden Bragg MD Referring Provider Active Start: September 23, 2024 End: September 23, 2024 Chuyita Go INFANT CHILDCARE PROVIDER, INFANT CHILDCARE PROVIDER-C Attending Provider Active Start: September 23, 2024 End: September 23, 2024 Team Status: Inactive Member Role Status Dates Dr. Braden Bragg MD Primary Care Provider Active Start: December 11, 2024 End: December 11, 2024 Dr. Braden Bragg MD Attending Provider Active Start: December 11, 2024 End: December 11, 2024 Dr. Braden Bragg MD Referring Provider Active Start: December 11, 2024 End: December 11, 2024 Team Status: Active Member Role/Relationship Status Dates Dr. Braden Bragg MD Family Provider Active Dr. Braden Bragg MD Primary Care Provider Active Team Status: Active Member Role/Relationship Status Dates Dr. Star Berrios MD Primary Care Provider Active Start: March 26, 2012 Dr. Star Berrios MD Family Provider Active Star t: March 26, 2012 Team Status: Inactive Member Role/Relationship Status Dates Dr. Braden Bragg MD Primary Care Provider Active Start: December 11, 2024 End: December 11, 2024 Dr. Braden Bragg MD Attending Provider Active Start: December 11, 2024 End: December 11, 2024 Dr. Braden Bragg MD Referring Provider Active Start: December 11, 2024 End: December 11, 2024 Team Status: Inactive Member Role/Relationship Status Dates Dr. Braden Bragg MD Primary Care Provider Active Start: March 24, 2025 End: March 24, 2025 Dr. Braden Bragg MD Referring Provider Active Start: March 24, 2025 End: March 24, 2025 Chuyita Go INFANT CHILDCARE PROVIDER, INFANT CHILDCARE PROVIDER-C Attending Provider Active Start: March 24, 2025 End: March 24, 2025 Team Status: Inactive Member Role/Relationship Status Dates Dr. Braden Bragg MD Primary Care Provider Active Start: March 25, 2025 End: March 25, 2025 Dr. Braden Bragg MD Attending Provider Active Start: March 25, 2025 End: March 25, 2025 Dr. Braden Bragg MD Referring Provider Active Start: March 25, 2025 End: March 25, 2025 Team Status: Active Member Role/Relationship Status Dates Dr. Braden Bragg MD Primary Care Provider Active Team Status: Inactive Member Role/Relationship Status Dates Dr. Braden Bragg MD Primary Care Provider Active Start: March 24, 2025 End: March 24, 2025 Dr. Braden Bragg MD Referring Provider Active Start: March 24, 2025 End: March 24, 2025 Chuyita Go NP, INFANT CHILDCARE PROVIDER-C Attending Provider Active Start: March 24, 2025 End: March 24, 2025 Team Status: Inactive Member Role/Relationship Status Dates Dr. Braden Bragg MD Primary Care Provider Active Start: March 25, 2025 Dr. Isabella Lopez MD Attending Provider Active Start: March 25, 2025 Team Status: Inactive Member Role/Relationship Status Dates Dr. Braden Bragg MD Primary Care Provider Active Start: April 25, 2025 End: April 25, 2025 Dr. Braden Bragg MD Attending Provider Active Start: April 25, 2025 End: April 25, 2025 Dr. Braden Bragg MD Referring Provider Active Start: April 25, 2025 End: April 25, 2025 Team Status: Inactive Member Role/Relationship Status Dates Dr. Braden Bragg MD Primary Care Provider Active Start: May 22, 2025 End: May 22, 2025 Dr. Braden Bragg MD Referring Provider Active Start: May 22, 2025 End: May 22, 2025 Dr. Sadi Piedra MD Attending Provider Active Start: May 22, 2025 End: May 22, 2025 Goals (unrecognized section and content) Goals may be documented in a n alternate sectionGoals may be documented in an alternate sectionGoals may be documented in an alternate sectionGoals may be documented in an alternate sectionGoals may be documented in an alternate sectionGoals may be documented in an alternate sectionGoals may be documented in an alternate sectionGoals may be documented in an alternate sectionGoals may be documented in an alternate sectionGoals may be documented in an alternate sectionGoals may be documented in an alternate section FOR RECORDS PERTAINING TO PATIENTS WHO ARE OR HAVE BEEN ENROLLED IN A CHEMICAL DEPENDENCY/SUBSTANCEABUSE PROGRAM, SOME INFORMATION MAY BE OMITTED. This clinical summary was aggregated from multiple sources. Caution should be exercised in using it in the provision of clinical care. This summary normalizes information from multiple sources, and as a consequence, information in this document may materially change the coding, format and clinical context of patient data. In addition, data may be omitted in some cases. CLINICAL DECISIONS SHOULD BE BASED ON THE PRIMARY CLINICAL RECORDS. [facility]. provides no warranty or guarantee of the accuracy or completeness of information in this document.
[2025-05-30 04:07] LABS: KEPPRA (LEVETIRACETAM) 19.5 ug/mL (10.0-40.0)
== END | disposition home or self-care (01) ==
LOC: LAB 13:13
PROVIDERS: PCP Family Medicine; Referring Provider Psychiatry & Neurology Neurology; Visit Provider Psychiatry & Neurology Neurology
DX: G40.409 Other generalized epilepsy and epileptic syndromes, not intractable, without status epilepticus (principal)
CPT/HCPCS: 36415; 80177; 82140

== ENCOUNTER → 2025-09-16 | Outpatient (CLI) | payer MEDICARE, OTHER, SELFPAY ==
[2025-09-16 13:04] LABS: AST(SGOT) 24 U/L (<=31); Alanine Aminotransfer ALT/SGPT 12 U/L (<=34); Albumin, Serum 3.9 g/dL (3.4-4.8); Alkaline Phosphatase 88 U/L (35-104); Anion Gap 11 (7-18); BUN 22 mg/dL (4-19); BUN/Creat Ratio 16.7 RATIO (10-20); Calcium,Total 9.7 mg/dL (7.6-11.0); Carbon Dioxide 26.8 mmol/L (20.0-29.0); Chloride 105 mmol/L (96-106); Cholesterol 177 mg/dL (<=200); Globulin 3.5 g/dL (2.2-4.2); Glucose 155 mg/dL (70-99); Low Density Lipoprotein Calc. 95 mg/dL; Potassium 3.9 mmol/L (3.5-5.1); Triglycerides 142 mg/dL; Very Low Density Lipoprotein 28 mg/dL (5-40); cholesterol:hdl ratio screen 3.08
[2025-09-16 13:06] LABS: Creatinine, Urine (random) 290.00 mg/dL (28.00-217.00); Microalbumin,Random Urine < 12.0 mg/L (<20 mg/L)
== END | disposition home or self-care (01) ==
LOC: MTLAB 10:01
PROVIDERS: PCP Family Medicine; Referring Provider Family Medicine; Visit Provider Family Medicine
DX: R73.09 Other abnormal glucose (principal); I10 Essential (primary) hypertension
CPT/HCPCS: 36415; 80053; 80061; 82043; 82570